=== PATIENT | male | born 1935 | race African-American/Black ===

== ENCOUNTER → 2016-05-23 | Outpatient (CLI) | payer MEDICARE, OTHER | END | disposition home or self-care (01) | LOC: Rad HDHVI 08:20 | PROVIDERS: ATTEND Internal Medicine Cardiovascular Disease | DX: I11.0 Hypertensive heart disease with heart failure (principal); I73.89 Other specified peripheral vascular diseases | CPT/HCPCS: 93306 ==

== ENCOUNTER → 2016-09-04 | Outpatient (CLI) | payer MEDICARE, OTHER ==
[2016-09-04 12:57] LABS: Calcium 8.6 mg/dL (8.5-10.1)
== END | disposition home or self-care (01) ==
LOC: LAB 10:00
PROVIDERS: ATTEND Internal Medicine Cardiovascular Disease
DX: I10 Essential (primary) hypertension (principal)
CPT/HCPCS: 36415; 80048

== ENCOUNTER → 2016-09-15 | Outpatient (CLI) | payer MEDICARE, OTHER ==
[~2016-09-15] MED LIST: FUROSEMIDE 100 MG/10ML VIAL IV ONE; FUROSEMIDE 40 MG/4 ML VIAL ONE
[2016-09-15 10:25] VITALS: BP 142/80
[2016-09-15 10:55] VITALS: BP 125/68
== END | disposition home or self-care (01) ==
LOC: CHF HDHVI 10:23
PROVIDERS: ATTEND Internal Medicine Cardiovascular Disease
DX: I11.0 Hypertensive heart disease with heart failure (principal); I50.9 Heart failure, unspecified; I25.10 Atherosclerotic heart disease of native coronary artery without angina pectoris; E03.9 Hypothyroidism, unspecified
CPT/HCPCS: 96374; G0463; J1940

== ENCOUNTER → 2016-10-03 | Outpatient (CLI) | payer MEDICARE, OTHER ==
[~2016-10-03] VITALS: Ht 175.3 cm; Wt 98.9 kg
[~2016-10-03] MED LIST changes: +ATOR40TA52 PO; +CARV20CA PO; +FINA5TAB4 PO; +FURO40TA PO; -FUROSEMIDE 100 MG/10ML VIAL IV ONE; -FUROSEMIDE 40 MG/4 ML VIAL ONE; +LEV100T PO; +LISI-646 PO; +POTA1TAB4 PO; +TEMA15CA5 PO
[2016-10-03 08:00] VITALS: BP 127/68
[2016-10-03 08:31] VITALS: BP 122/66
[2016-10-03 12:06] LABS: Basophils # (auto) 0 uL; Basophils % (auto) 0.6 % (0.0-2.0); Eosinophils # (auto) 0.1 uL; Eosinophils % (auto) 1.4 % (0.0-7.0); Hemoglobin 12.5 g/dL (13.5-17.5); Lymphocytes # (auto) 0.9 uL; Lymphocytes % (auto) 13.8 % (10.0-50.0); Mean Corpuscular Hemoglobin 29.1 pg (28.0-32.0); Mean Corpuscular Hgb Conc. 32.9 g/dL (32.0-36.0); Mean Corpuscular Volume 88.5 fL (80.0-100.0); Mean Platelet Volume 8.7 fL (7.4-10.4); Monocytes # (auto) 0.5 uL; Monocytes % (auto) 7.3 % (0.0-12.0); Neutrophils # (auto) 5.1 uL; Neutrophils % (auto) 76.9 % (37.0-80.0); Platelet Count (auto) 193 10^3/uL (140-450); Red Cell Distribution Width 14.8 % (11.6-16.0); White Blood Cell 6.7 10^3/uL (4.4-10.8)
[2016-10-03 12:26] LABS: INR 1.12 (0.9-1.15); Partial Thromboplastin Time 27.1 sec (22.64-33.71); Prothrombin Time 12.2 sec (9.37-12.3)
[2016-10-03 12:35] LABS: BUN/Creatinine Ratio 25.5; Calcium 8.5 mg/dL (8.5-10.1); Potassium 3.9 mmol/L (3.5-5.1)
== END | disposition home or self-care (01) ==
LOC: Rad HDHVI 07:51
PROVIDERS: ATTEND Internal Medicine Cardiovascular Disease
DX: I10 Essential (primary) hypertension (principal); D64.9 Anemia, unspecified; R79.1 Abnormal coagulation profile; Z01.812 Encounter for preprocedural laboratory examination
CPT/HCPCS: 36415; 71020; 80048; 85025; 85610; 85730; 93005; G0463

== ENCOUNTER → 2016-11-03 | Outpatient (CLI) | payer MEDICARE, OTHER ==
[2016-11-03 10:00] VITALS: BP 95/57
[2016-11-03 10:25] VITALS: BP 103/58
[2016-11-03 13:09] LABS: Basophils # (auto) 0 uL; Basophils % (auto) 0.2 % (0.0-2.0); CONDITION Y; Eosinophils # (auto) 0.1 uL; Eosinophils % (auto) 1.2 % (0.0-7.0); Hematocrit 33.8 % (41.0-53.0); Hemoglobin 11.3 g/dL (13.5-17.5); Lymphocytes # (auto) 1.1 uL; Lymphocytes % (auto) 13.6 % (10.0-50.0); Mean Corpuscular Hemoglobin 30.1 pg (28.0-32.0); Mean Corpuscular Hgb Conc. 33.3 g/dL (32.0-36.0); Mean Corpuscular Volume 90.4 fL (80.0-100.0); Mean Platelet Volume 9.3 fL (7.4-10.4); Monocytes % (auto) 11.4 % (0.0-12.0); Neutrophils # (auto) 6.2 uL; Neutrophils % (auto) 73.6 % (37.0-80.0); Platelet Count (auto) 173 10^3/uL (140-450); Red Cell Distribution Width 15.6 % (11.6-16.0); White Blood Cell 8.4 10^3/uL (4.4-10.8)
[2016-11-03 13:24] LABS: INR 1.21 (0.9-1.15); Partial Thromboplastin Time 28.5 sec (22.64-33.71)
[2016-11-03 13:25] LABS: Prothrombin Time 13.2 sec (9.37-12.3)
[2016-11-03 13:35] LABS: BUN/Creatinine Ratio 22.6; Calcium 8.1 mg/dL (8.5-10.1); Potassium 3.9 mmol/L (3.5-5.1)
== END | disposition home or self-care (01) ==
LOC: Rad HDHVI 09:28
PROVIDERS: ATTEND Internal Medicine Cardiovascular Disease
DX: Z01.812 Encounter for preprocedural laboratory examination (principal); I25.10 Atherosclerotic heart disease of native coronary artery without angina pectoris; E11.9 Type 2 diabetes mellitus without complications; M47.894 Other spondylosis, thoracic region; I10 Essential (primary) hypertension; D64.9 Anemia, unspecified; R79.1 Abnormal coagulation profile; I70.0 Atherosclerosis of aorta; Z95.0 Presence of cardiac pacemaker
CPT/HCPCS: 36415; 71020; 80048; 85025; 85610; 85730; 93005; G0463

== ENCOUNTER → 2016-11-09 | Outpatient (CLI) | payer MEDICARE, OTHER ==
[~2016-11-09] VITALS: Ht 30.5 cm; Wt 0.5 kg
[~2016-11-09] MED LIST changes: +CLOP75TA28 PO; +DOXA4TAB40 PO; +FUROSEMIDE 40 MG/4 ML VIAL IV ONE; +FUROSEMIDE 40 MG/4 ML VIAL IV SCH; +FUROSEMIDE 40 MG/4 ML VIAL ONE; +POTASSIUM CHL 20 Meq TABLET PO ONE; +TAM04C PO
[2016-11-09 10:00] VITALS: BP 108/62
[2016-11-09 11:05] VITALS: BP 140/70
== END | disposition home or self-care (01) ==
LOC: CHF HDHVI 10:07
PROVIDERS: ATTEND Internal Medicine Cardiovascular Disease
DX: I50.9 Heart failure, unspecified (principal); E87.70 Fluid overload, unspecified; R32 Unspecified urinary incontinence; Z79.899 Other long term (current) drug therapy
CPT/HCPCS: 96374; G0463; J1940

== ENCOUNTER → 2016-11-10 | Outpatient (CLI) | payer MEDICARE, OTHER ==
[~2016-11-10] MED LIST changes: -FUROSEMIDE 40 MG/4 ML VIAL IV SCH
[2016-11-10 08:25] VITALS: BP 94/58
[2016-11-10 09:00] VITALS: BP 95/64
== END | disposition home or self-care (01) ==
LOC: CHF HDHVI 08:19
PROVIDERS: ATTEND Internal Medicine Cardiovascular Disease
DX: I50.9 Heart failure, unspecified (principal); E87.70 Fluid overload, unspecified; Z79.899 Other long term (current) drug therapy
CPT/HCPCS: 96374; G0463; J1940

== ENCOUNTER → 2016-11-13 | Outpatient (CLI) | payer MEDICARE, OTHER ==
[2016-11-13 08:00] VITALS: BP 97/58
[2016-11-13 09:32] VITALS: BP 92/52
== END | disposition home or self-care (01) ==
LOC: CHF HDHVI 07:56
PROVIDERS: ATTEND Internal Medicine Cardiovascular Disease
DX: I25.10 Atherosclerotic heart disease of native coronary artery without angina pectoris (principal); E78.5 Hyperlipidemia, unspecified; I49.5 Sick sinus syndrome; E87.70 Fluid overload, unspecified; R60.1 Generalized edema
CPT/HCPCS: 96374; G0463; J1940

== ENCOUNTER → 2016-11-14 | Outpatient (CLI) | payer MEDICARE, OTHER ==
[~2016-11-14] MED LIST changes: -FUROSEMIDE 40 MG/4 ML VIAL IV ONE; -FUROSEMIDE 40 MG/4 ML VIAL ONE; -POTASSIUM CHL 20 Meq TABLET PO ONE
== END | disposition home or self-care (01) ==
LOC: Rad HDHVI 15:00
PROVIDERS: ATTEND Internal Medicine Cardiovascular Disease
DX: R60.9 Edema, unspecified (principal)
CPT/HCPCS: 93970

== ENCOUNTER → 2016-11-15 | Outpatient (CLI) | payer MEDICARE, OTHER ==
[~2016-11-15] VITALS: Ht 175.3 cm; Wt 96.6 kg
[~2016-11-15] MED LIST changes: +ADENOSINE 81 MG in GIVE UN-DILUTED 0 ML IV ONE; +ADENOSINE 90 MG/30 ML INJ IV ONE
== END | disposition home or self-care (01) ==
LOC: Rad HDHVI 09:39
PROVIDERS: ATTEND Internal Medicine Cardiovascular Disease
DX: I25.10 Atherosclerotic heart disease of native coronary artery without angina pectoris (principal); I10 Essential (primary) hypertension; E78.00 Pure hypercholesterolemia, unspecified; I49.5 Sick sinus syndrome; Z95.0 Presence of cardiac pacemaker
CPT/HCPCS: 78452; 93005; 96374; 96375; A9500; J0153

== ENCOUNTER → 2017-01-02 | Outpatient (CLI) | payer MEDICARE, OTHER ==
[~2017-01-02] MED LIST changes: -ADENOSINE 81 MG in GIVE UN-DILUTED 0 ML IV ONE; -ADENOSINE 90 MG/30 ML INJ IV ONE; +FUROSEMIDE 20 MG/2 ML VIAL IV ONE; +FUROSEMIDE 20 MG/2 ML VIAL ONE; +FUROSEMIDE 40 MG/4 ML VIAL ONE; +FUROSEMIDE INJECTION 10 ML ONE; +POTASSIUM CHL 20 Meq TABLET PO ONE
[2017-01-02 11:00] VITALS: BP 130/82
[2017-01-02 11:40] VITALS: BP 128/80
[2017-01-02 16:49] LABS: BUN/Creatinine Ratio 25.3; Calcium 8.1 mg/dL (8.5-10.1); Potassium 4.1 mmol/L (3.5-5.1)
== END | disposition home or self-care (01) ==
LOC: Rad HDHVI 10:26
PROVIDERS: ATTEND Internal Medicine Cardiovascular Disease
DX: I11.0 Hypertensive heart disease with heart failure (principal); I50.9 Heart failure, unspecified; G89.29 Other chronic pain; E87.70 Fluid overload, unspecified
CPT/HCPCS: 36415; 80048; 93970; 96374; G0463; J1940

== ENCOUNTER → 2017-01-03 | Outpatient (CLI) | payer MEDICARE, OTHER ==
[~2017-01-03] MED LIST changes: +FUROSEMIDE 40 MG/4 ML VIAL IV ONE; -FUROSEMIDE INJECTION 10 ML ONE
[2017-01-03 08:00] VITALS: BP 116/69
[2017-01-03 08:35] VITALS: BP 113/67
== END | disposition home or self-care (01) ==
LOC: CHF HDHVI 08:24
PROVIDERS: ATTEND Internal Medicine Cardiovascular Disease
DX: I11.0 Hypertensive heart disease with heart failure (principal); I50.9 Heart failure, unspecified; E87.70 Fluid overload, unspecified
CPT/HCPCS: 96374; G0463; J1940

== ENCOUNTER → 2017-01-04 | Outpatient (CLI) | payer MEDICARE, OTHER ==
[~2017-01-04] VITALS: Ht 30.5 cm; Wt 0.5 kg
[2017-01-04 08:30] VITALS: BP 135/65
[2017-01-04 09:00] VITALS: BP 133/65
== END | disposition home or self-care (01) ==
LOC: CHF HDHVI 08:41
PROVIDERS: ATTEND Internal Medicine Cardiovascular Disease
DX: I11.0 Hypertensive heart disease with heart failure (principal); I50.9 Heart failure, unspecified; I25.10 Atherosclerotic heart disease of native coronary artery without angina pectoris
CPT/HCPCS: 96374; G0463; J1940

== ENCOUNTER → 2017-01-05 | Outpatient (CLI) | payer MEDICARE, OTHER ==
[~2017-01-05] MED LIST changes: -FUROSEMIDE 20 MG/2 ML VIAL IV ONE; -FUROSEMIDE 40 MG/4 ML VIAL IV ONE
[2017-01-05 12:42] LABS: BUN/Creatinine Ratio 27.2; Calcium 8.3 mg/dL (8.5-10.1); Potassium 3.8 mmol/L (3.5-5.1)
== END | disposition home or self-care (01) ==
LOC: CHF HDHVI 10:10
PROVIDERS: ATTEND Internal Medicine Cardiovascular Disease
DX: I10 Essential (primary) hypertension (principal); E83.42 Hypomagnesemia; I25.10 Atherosclerotic heart disease of native coronary artery without angina pectoris
CPT/HCPCS: 36415; 80048; J1940

== ENCOUNTER → 2017-01-09 | Outpatient (CLI) | payer MEDICARE, OTHER ==
[~2017-01-09] MED LIST changes: -FUROSEMIDE 20 MG/2 ML VIAL ONE; +FUROSEMIDE 40 MG/4 ML VIAL IV ONE
[2017-01-09 15:30] VITALS: BP 115/74
[2017-01-09 15:56] VITALS: BP 121/76
== END | disposition home or self-care (01) ==
LOC: CHF HDHVI 15:30
PROVIDERS: ATTEND Internal Medicine Cardiovascular Disease
DX: I50.9 Heart failure, unspecified (principal); E87.70 Fluid overload, unspecified
CPT/HCPCS: 96374; G0463; J1940

== ENCOUNTER → 2017-01-11 | Outpatient (CLI) | payer MEDICARE, OTHER ==
[~2017-01-11] MED LIST changes: -FUROSEMIDE 40 MG/4 ML VIAL IV ONE; -FUROSEMIDE 40 MG/4 ML VIAL ONE; -POTASSIUM CHL 20 Meq TABLET PO ONE
[2017-01-11 09:30] VITALS: BP 125/80
[2017-01-11 10:30] VITALS: BP 136/88
== END | disposition home or self-care (01) ==
LOC: CHF HDHVI 09:30
PROVIDERS: ATTEND Internal Medicine Cardiovascular Disease
DX: I50.9 Heart failure, unspecified (principal); E87.70 Fluid overload, unspecified
CPT/HCPCS: G0463

== ENCOUNTER → 2017-01-15 | Outpatient (CLI) | payer MEDICARE, OTHER ==
[2017-01-15 08:20] VITALS: BP 115/73
[2017-01-15 09:29] VITALS: BP 113/72
== END | disposition home or self-care (01) ==
LOC: CHF HDHVI 08:23
PROVIDERS: ATTEND Internal Medicine Cardiovascular Disease
DX: I50.9 Heart failure, unspecified (principal); I25.10 Atherosclerotic heart disease of native coronary artery without angina pectoris; E87.70 Fluid overload, unspecified
CPT/HCPCS: G0463

== ENCOUNTER → 2017-01-17 | Outpatient (CLI) | payer MEDICARE, OTHER ==
[2017-01-17 08:54] VITALS: BP 143/84
[2017-01-17 08:55] VITALS: BP 137/70
== END | disposition home or self-care (01) ==
LOC: CHF HDHVI 08:35
PROVIDERS: ATTEND Internal Medicine Cardiovascular Disease
DX: I50.9 Heart failure, unspecified (principal); R60.0 Localized edema; E87.70 Fluid overload, unspecified
CPT/HCPCS: G0463

== ENCOUNTER → 2017-01-19 | Outpatient (CLI) | payer MEDICARE, OTHER ==
[2017-01-19 08:50] VITALS: BP 134/69
[2017-01-19 09:20] VITALS: BP_SYST 110; BP_SYST 134; BP_DIAS 64; BP_DIAS 69
== END ==
LOC: CHF HDHVI 08:53
PROVIDERS: ATTEND Internal Medicine Cardiovascular Disease
DX: I50.9 Heart failure, unspecified (principal); I25.10 Atherosclerotic heart disease of native coronary artery without angina pectoris
CPT/HCPCS: G0463

== ENCOUNTER → 2017-01-22 | Outpatient (CLI) | payer MEDICARE, OTHER ==
[2017-01-22 08:30] VITALS: BP 116/65
[2017-01-22 09:10] VITALS: BP 103/77
== END | disposition home or self-care (01) ==
LOC: CHF HDHVI 08:30
PROVIDERS: ATTEND Internal Medicine Cardiovascular Disease
DX: I50.9 Heart failure, unspecified (principal)
CPT/HCPCS: G0463

== ENCOUNTER → 2017-01-24 | Outpatient (CLI) | payer MEDICARE, OTHER ==
[~2017-01-24] MED LIST changes: +FUROSEMIDE 20 MG/2 ML VIAL IV SCH; +FUROSEMIDE INJECTION 10 ML ONE; +POTASSIUM CHL 10 Meq TABLET PO ONE; +POTASSIUM CHL 20 Meq TABLET PO ONE
[2017-01-24 08:45] VITALS: BP 151/84
[2017-01-24 10:20] VITALS: BP 130/84
[2017-01-24 12:28] LABS: Basophils # (auto) 0 uL; Eosinophils # (auto) 0 uL; Hematocrit 41.8 % (41.0-53.0); Hemoglobin 13.9 g/dL (13.5-17.5); Lymphocytes # (auto) 0.6 uL; Lymphocytes % (auto) 7.2 % (10.0-50.0); Mean Corpuscular Hemoglobin 30.6 pg (28.0-32.0); Mean Corpuscular Hgb Conc. 33.1 g/dL (32.0-36.0); Mean Corpuscular Volume 92.3 fL (80.0-100.0); Monocytes # (auto) 0.3 uL; Monocytes % (auto) 4.3 % (0.0-12.0); Neutrophils # (auto) 6.8 uL; Neutrophils % (auto) 88.5 % (37.0-80.0); Nucleated Red Blood Cells % 0.1 %; Platelet Count (auto) 147 10^3/uL (140-450); Red Cell Distribution Width 15.5 % (11.8-14.3); White Blood Cell 7.7 10^3/uL (4.4-10.8)
[2017-01-24 12:40] LABS: B-Type Natriuretic Peptide 684.16 pg/mL (0-100)
[2017-01-24 12:42] LABS: BUN/Creatinine Ratio 22.4; Calcium 8.3 mg/dL (8.5-10.1); Magnesium 2.6 mg/dL (1.6-2.6); Potassium 4.4 mmol/L (3.5-5.1)
[2017-01-24 12:52] LABS: Temperature: 21.7 C (20.0-25.0)
== END | disposition home or self-care (01) ==
LOC: Rad HDHVI 08:51
PROVIDERS: ATTEND Internal Medicine Cardiovascular Disease
DX: I11.0 Hypertensive heart disease with heart failure (principal); I25.10 Atherosclerotic heart disease of native coronary artery without angina pectoris; I50.9 Heart failure, unspecified; E83.42 Hypomagnesemia; D64.9 Anemia, unspecified
CPT/HCPCS: 36415; 80048; 83735; 83880; 85025; 93970; 96374; G0463; J1940

== ENCOUNTER → 2017-01-30 | Outpatient (CLI) | payer MEDICARE, OTHER ==
[~2017-01-30] MED LIST changes: +CYANOCOBALAMIN (B-12) 1000 MCG/1 ML VIAL IM ONE; +CYANOCOBALAMIN (B-12) 1000 MCG/1 ML VIAL ONE; -FUROSEMIDE 20 MG/2 ML VIAL IV SCH; +FUROSEMIDE 40 MG/4 ML VIAL IV ONE; +FUROSEMIDE 40 MG/4 ML VIAL ONE; -FUROSEMIDE INJECTION 10 ML ONE; +IOHEXOL 350 MG/ML 100ML IJ ONE; -POTASSIUM CHL 20 Meq TABLET PO ONE
[2017-01-30 15:51] LABS: Basophils # (auto) 0 uL; Basophils % (auto) 0.2 % (0.0-2.0); Eosinophils # (auto) 0.1 uL; Eosinophils % (auto) 0.7 % (0.0-7.0); Hematocrit 40.8 % (41.0-53.0); Hemoglobin 13.6 g/dL (13.5-17.5); Lymphocytes # (auto) 1.1 uL; Lymphocytes % (auto) 14.6 % (10.0-50.0); Mean Corpuscular Hemoglobin 30.7 pg (28.0-32.0); Mean Corpuscular Hgb Conc. 33.3 g/dL (32.0-36.0); Mean Platelet Volume 8.5 fL (6.9-10.8); Monocytes # (auto) 0.7 uL; Monocytes % (auto) 9.4 % (0.0-12.0); Neutrophils # (auto) 5.9 uL; Neutrophils % (auto) 75.1 % (37.0-80.0); Platelet Count (auto) 161 10^3/uL (140-450); Red Cell Distribution Width 15.3 % (11.8-14.3); White Blood Cell 7.8 10^3/uL (4.4-10.8)
[2017-01-30 16:00] LABS: BUN/Creatinine Ratio 25.3; Calcium 8.2 mg/dL (8.5-10.1); Magnesium 2.5 mg/dL (1.6-2.6); Potassium 4.3 mmol/L (3.5-5.1)
[2017-01-30 16:22] LABS: Albumin 2.9 g/dL (3.4-5.0); Total Protein 6.1 g/dL (6.4-8.2)
[2017-01-30 16:30] VITALS: BP 139/82
== END | disposition home or self-care (01) ==
LOC: Rad HDHVI 14:31
PROVIDERS: ATTEND Internal Medicine Cardiovascular Disease
DX: M17.12 Unilateral primary osteoarthritis, left knee (principal); I70.298 Other atherosclerosis of native arteries of extremities, other extremity; I10 Essential (primary) hypertension; E83.42 Hypomagnesemia; D64.9 Anemia, unspecified; I25.10 Atherosclerotic heart disease of native coronary artery without angina pectoris
CPT/HCPCS: 36415; 73562; 80053; 82565; 83735; 85025; 96372; 96374; G0463; J1940; J3420; Q9967

== ENCOUNTER → 2017-02-01 | Outpatient (CLI) | payer MEDICARE, OTHER ==
[~2017-02-01] MED LIST changes: -CYANOCOBALAMIN (B-12) 1000 MCG/1 ML VIAL IM ONE; -CYANOCOBALAMIN (B-12) 1000 MCG/1 ML VIAL ONE; -IOHEXOL 350 MG/ML 100ML IJ ONE; -POTASSIUM CHL 10 Meq TABLET PO ONE; +POTASSIUM CHL 20 Meq TABLET PO ONE; +PRAS5TAB3 PO; +RIVA10TA PO
[2017-02-01 09:00] VITALS: BP 122/70
[2017-02-01 09:45] VITALS: BP 125/80
== END | disposition home or self-care (01) ==
LOC: CHF HDHVI 09:03
PROVIDERS: ATTEND Internal Medicine Cardiovascular Disease
DX: I11.0 Hypertensive heart disease with heart failure (principal); I50.9 Heart failure, unspecified; I25.10 Atherosclerotic heart disease of native coronary artery without angina pectoris; Z95.1 Presence of aortocoronary bypass graft; Z79.899 Other long term (current) drug therapy
CPT/HCPCS: 96374; G0463; J1940

== ENCOUNTER → 2017-02-05 | Outpatient (CLI) | payer MEDICARE, OTHER ==
[~2017-02-05] MED LIST changes: -FUROSEMIDE 40 MG/4 ML VIAL IV ONE; -FUROSEMIDE 40 MG/4 ML VIAL ONE; -POTASSIUM CHL 20 Meq TABLET PO ONE; -PRAS5TAB3 PO; -RIVA10TA PO
[2017-02-05 11:05] VITALS: BP 143/90
== END | disposition home or self-care (01) ==
LOC: CHF HDHVI 09:57
PROVIDERS: ATTEND Internal Medicine Cardiovascular Disease
DX: I82.403 Acute embolism and thrombosis of unspecified deep veins of lower extremity, bilateral (principal); I50.9 Heart failure, unspecified; I25.10 Atherosclerotic heart disease of native coronary artery without angina pectoris
CPT/HCPCS: G0463

== ENCOUNTER → 2017-02-07 | Outpatient (CLI) | payer MEDICARE, OTHER ==
[2017-02-07 14:45] VITALS: BP 121/74
[2017-02-07 15:15] VITALS: BP 122/70
== END | disposition home or self-care (01) ==
LOC: CHF HDHVI 14:50
PROVIDERS: ATTEND Internal Medicine Cardiovascular Disease
DX: E87.6 Hypokalemia (principal)
CPT/HCPCS: G0463

== ENCOUNTER → 2017-02-09 | Outpatient (CLI) | payer MEDICARE, OTHER ==
[~2017-02-09] MED LIST changes: +PRAS5TAB3 PO; +RIVA10TA PO
[2017-02-09 10:15] VITALS: BP 132/78
[2017-02-09 11:00] VITALS: BP 152/92
[2017-02-09 11:50] VITALS: BP 152/92
== END | disposition home or self-care (01) ==
LOC: CHF HDHVI 10:17
PROVIDERS: ATTEND Internal Medicine Cardiovascular Disease
DX: I82.403 Acute embolism and thrombosis of unspecified deep veins of lower extremity, bilateral (principal); R60.9 Edema, unspecified
CPT/HCPCS: G0463

== ENCOUNTER → 2017-02-12 | Outpatient (CLI) | payer MEDICARE, OTHER ==
[2017-02-12 10:00] VITALS: BP 129/81
[2017-02-12 10:15] VITALS: BP 130/78
== END | disposition home or self-care (01) ==
LOC: CHF HDHVI 10:02
PROVIDERS: ATTEND Internal Medicine Cardiovascular Disease
DX: I50.9 Heart failure, unspecified (principal); M79.89 Other specified soft tissue disorders; E87.79 Other fluid overload
CPT/HCPCS: G0463

== ENCOUNTER → 2017-02-14 | Outpatient (CLI) | payer MEDICARE, OTHER ==
[2017-02-14 08:00] VITALS: BP 133/74
[2017-02-14 09:00] VITALS: BP_SYST 133; BP_SYST 134; BP_DIAS 40; BP_DIAS 74
[2017-02-14 12:31] LABS: Basophils # (auto) 0 uL; Basophils % (auto) 0.6 % (0.0-2.0); Eosinophils # (auto) 0.1 uL; Eosinophils % (auto) 1.1 % (0.0-7.0); Hematocrit 38.6 % (41.0-53.0); Hemoglobin 12.6 g/dL (13.5-17.5); Lymphocytes # (auto) 0.7 uL; Lymphocytes % (auto) 12.2 % (10.0-50.0); Mean Corpuscular Hemoglobin 30.5 pg (28.0-32.0); Mean Corpuscular Hgb Conc. 32.7 g/dL (32.0-36.0); Mean Corpuscular Volume 93.3 fL (80.0-100.0); Mean Platelet Volume 8.7 fL (6.9-10.8); Monocytes # (auto) 0.6 uL; Monocytes % (auto) 10.1 % (0.0-12.0); Neutrophils # (auto) 4.6 uL; Nucleated Red Blood Cells % 0.2 %; Platelet Count (auto) 152 10^3/uL (140-450); White Blood Cell 6.1 10^3/uL (4.4-10.8)
[2017-02-14 12:39] LABS: BUN/Creatinine Ratio 15.7; Calcium 8.6 mg/dL (8.5-10.1); Potassium 3.4 mmol/L (3.5-5.1)
[2017-02-14 12:50] LABS: INR 1.59 (0.9-1.15); Partial Thromboplastin Time 34.3 sec (22.64-33.71); Prothrombin Time 17.4 sec (9.37-12.3)
== END | disposition home or self-care (01) ==
LOC: CHF HDHVI 08:09
PROVIDERS: ATTEND Internal Medicine Cardiovascular Disease
DX: I11.0 Hypertensive heart disease with heart failure (principal); I50.9 Heart failure, unspecified; D64.9 Anemia, unspecified; R79.1 Abnormal coagulation profile; E78.00 Pure hypercholesterolemia, unspecified
CPT/HCPCS: 36415; 80048; 85025; 85610; 85730; 93005; G0463

== ENCOUNTER → 2017-02-19 | Outpatient (CLI) | payer MEDICARE, OTHER ==
[~2017-02-19] MED LIST changes: -CLOP75TA28 PO; -PRAS5TAB3 PO
[2017-02-19 09:20] VITALS: BP 104/57
[2017-02-19 10:36] VITALS: BP 127/63
== END | disposition home or self-care (01) ==
LOC: CHF HDHVI 08:38
PROVIDERS: ATTEND Internal Medicine Cardiovascular Disease
DX: I73.9 Peripheral vascular disease, unspecified (principal); I25.10 Atherosclerotic heart disease of native coronary artery without angina pectoris; I50.9 Heart failure, unspecified
CPT/HCPCS: G0463

== ENCOUNTER → 2017-02-23 | Outpatient (CLI) | payer MEDICARE, OTHER ==
[2017-02-23 09:30] VITALS: BP 108/64
[2017-02-23 09:40] VITALS: BP 108/64
[2017-02-23 11:00] VITALS: BP 141/77
[2017-02-23 13:09] LABS: Basophils # (auto) 0 uL; Basophils % (auto) 0.3 % (0.0-2.0); Eosinophils # (auto) 0.1 uL; Eosinophils % (auto) 1.1 % (0.0-7.0); Hematocrit 35.2 % (41.0-53.0); Hemoglobin 11.6 g/dL (13.5-17.5); Lymphocytes % (auto) 15.2 % (10.0-50.0); Mean Corpuscular Hemoglobin 31.1 pg (28.0-32.0); Mean Corpuscular Volume 94.1 fL (80.0-100.0); Monocytes % (auto) 15.6 % (0.0-12.0); Neutrophils # (auto) 4.3 uL; Neutrophils % (auto) 67.8 % (37.0-80.0); Nucleated Red Blood Cells % 0.1 %; Platelet Count (auto) 145 10^3/uL (140-450); Red Blood Cells 3.74 10^6/uL (4.5-5.90); Red Cell Distribution Width 15.6 % (11.8-14.3); White Blood Cell 6.4 10^3/uL (4.4-10.8)
[2017-02-23 13:25] LABS: BUN/Creatinine Ratio 21.7; Calcium 8.5 mg/dL (8.5-10.1)
[2017-02-23 13:30] LABS: Potassium 4.5 mmol/L (3.5-5.1)
== END | disposition home or self-care (01) ==
LOC: CHF HDHVI 10:06
PROVIDERS: ATTEND Internal Medicine Cardiovascular Disease
DX: I10 Essential (primary) hypertension (principal); D64.9 Anemia, unspecified
CPT/HCPCS: 36415; 80048; 85025; G0463

== ENCOUNTER → 2017-02-26 | Outpatient (CLI) | payer MEDICARE, OTHER ==
[~2017-02-26] MED LIST changes: +CYANOCOBALAMIN (B-12) 1000 MCG/1 ML VIAL IM ONE; +CYANOCOBALAMIN (B-12) 1000 MCG/1 ML VIAL ONE; +FUROSEMIDE 40 MG/4 ML VIAL IV ONE; +FUROSEMIDE 40 MG/4 ML VIAL ONE; +KETOROLAC TROMETH 60MG/2ML VIAL IM ONE; +POTASSIUM CHL 20 Meq TABLET PO ONE
[2017-02-26 14:15] VITALS: BP 121/77
== END | disposition home or self-care (01) ==
LOC: CHF HDHVI 13:42
PROVIDERS: ATTEND Internal Medicine Cardiovascular Disease
DX: I11.0 Hypertensive heart disease with heart failure (principal); I50.9 Heart failure, unspecified; D64.9 Anemia, unspecified
CPT/HCPCS: 96372; 96374; G0463; J1885; J1940; J3420

== ENCOUNTER → 2017-02-28 | Outpatient (CLI) | payer MEDICARE, OTHER ==
[~2017-02-28] MED LIST changes: -CYANOCOBALAMIN (B-12) 1000 MCG/1 ML VIAL IM ONE; -CYANOCOBALAMIN (B-12) 1000 MCG/1 ML VIAL ONE; -FUROSEMIDE 40 MG/4 ML VIAL ONE; -KETOROLAC TROMETH 60MG/2ML VIAL IM ONE
[2017-02-28 10:40] VITALS: BP 116/80
[2017-02-28 13:11] LABS: Potassium 4.1 mmol/L (3.5-5.1)
== END | disposition home or self-care (01) ==
LOC: CHF HDHVI 09:56
PROVIDERS: ATTEND Internal Medicine Cardiovascular Disease
DX: E87.6 Hypokalemia (principal); R94.4 Abnormal results of kidney function studies; I50.9 Heart failure, unspecified
CPT/HCPCS: 36415; 82565; 84132; 84520; 96374; G0463

== ENCOUNTER → 2017-03-02 | Outpatient (CLI) | payer MEDICARE, OTHER ==
[~2017-03-02] MED LIST changes: -FUROSEMIDE 40 MG/4 ML VIAL IV ONE; +FUROSEMIDE INJECTION 10 ML ONE
[2017-03-02] MEDS: FUROSEMIDE INJECTION 100 MG in D5W 5% 90 ML IV SCH ×2 (12:15→16:39)
[2017-03-02] MEDS: POTASSIUM CHL 20MEQ/50ML 50 ML IV SCH ×3 (12:20→16:42)
[2017-03-02 14:15] VITALS: BP 171/87
== END | disposition home or self-care (01) ==
LOC: CHF HDHVI 12:03
PROVIDERS: ATTEND Internal Medicine Cardiovascular Disease
DX: I50.9 Heart failure, unspecified (principal)
CPT/HCPCS: J7060

== ENCOUNTER → 2017-03-05 | Outpatient (CLI) | payer MEDICARE, OTHER ==
[~2017-03-05] MED LIST changes: +FUROSEMIDE 20 MG/2 ML VIAL IV SCH; +FUROSEMIDE 20 MG/2 ML VIAL ONE; +FUROSEMIDE 40 MG/4 ML VIAL ONE; -FUROSEMIDE INJECTION 10 ML ONE; +POTASSIUM CHL 10 Meq TABLET PO ONE; +POTASSIUM CHL 20 Meq TABLET PO SCH
[2017-03-05 09:30] VITALS: BP 141/72
[2017-03-05 11:30] VITALS: BP 133/64
[2017-03-05 13:09] LABS: Potassium 3.8 mmol/L (3.5-5.1)
[2017-03-05 13:22] LABS: B-Type Natriuretic Peptide 100.14 pg/mL (0-100)
[2017-03-05 13:35] LABS: Temperature: 23.5 C (20.0-25.0)
== END | disposition home or self-care (01) ==
LOC: CHF HDHVI 08:50
PROVIDERS: ATTEND Internal Medicine Cardiovascular Disease
DX: E87.6 Hypokalemia (principal); R94.4 Abnormal results of kidney function studies; I50.9 Heart failure, unspecified
CPT/HCPCS: 36415; 82565; 83880; 84132; 84520; 96365; 96366; G0463; J1642; J1940

== ENCOUNTER → 2017-03-06 | Outpatient (CLI) | payer MEDICARE, OTHER ==
[~2017-03-06] VITALS: Ht 30.5 cm; Wt 101.2 kg
[~2017-03-06] MED LIST changes: -FUROSEMIDE 20 MG/2 ML VIAL IV SCH; +FUROSEMIDE INJECTION 60 MG in SODIUM CHL 0.9% 60 ML IV SCH; -POTASSIUM CHL 20 Meq TABLET PO ONE; -POTASSIUM CHL 20 Meq TABLET PO SCH
[2017-03-06 09:00] VITALS: BP 141/85
[2017-03-06 09:30] VITALS: BP 142/82
[2017-03-06 10:00] VITALS: BP 146/88
[2017-03-06 11:34] VITALS: BP 144/87
== END | disposition home or self-care (01) ==
LOC: CHF HDHVI 08:31
PROVIDERS: ATTEND Internal Medicine Cardiovascular Disease
DX: I50.9 Heart failure, unspecified (principal)
CPT/HCPCS: 96365; 96366; G0463; J1642; J1940; J7040

== ENCOUNTER → 2017-03-07 | Outpatient (CLI) | payer MEDICARE, OTHER ==
[~2017-03-07] MED LIST changes: -FUROSEMIDE 20 MG/2 ML VIAL ONE; -FUROSEMIDE 40 MG/4 ML VIAL ONE; +FUROSEMIDE INJECTION 10 ML ONE
[2017-03-07 09:00] VITALS: BP 122/80
[2017-03-07 09:30] VITALS: BP 133/79
[2017-03-07 12:05] VITALS: BP 141/85
== END | disposition home or self-care (01) ==
LOC: CHF HDHVI 08:14
PROVIDERS: ATTEND Internal Medicine Cardiovascular Disease
DX: I50.9 Heart failure, unspecified (principal); E87.70 Fluid overload, unspecified
CPT/HCPCS: 96365; 96366; G0463; J1642; J1940; J7040

== ENCOUNTER → 2017-03-08 | Outpatient (CLI) | payer MEDICARE, OTHER ==
[~2017-03-08] MED LIST changes: +FUROSEMIDE 20 MG/2 ML VIAL IV SCH; +FUROSEMIDE 20 MG/2 ML VIAL ONE; +FUROSEMIDE 40 MG/4 ML VIAL ONE; -FUROSEMIDE INJECTION 10 ML ONE; -FUROSEMIDE INJECTION 60 MG in SODIUM CHL 0.9% 60 ML IV SCH; -POTASSIUM CHL 10 Meq TABLET PO ONE
[2017-03-08 11:25] VITALS: BP 108/69
[2017-03-08 11:30] VITALS: BP 107/57
[2017-03-08 12:27] LABS: BUN/Creatinine Ratio 22.3; Magnesium 2.4 mg/dL (1.6-2.6); Potassium 3.7 mmol/L (3.5-5.1)
[2017-03-08 12:30] LABS: Basophils # (auto) 0 uL; Basophils % (auto) 0.6 % (0.0-2.0); Eosinophils # (auto) 0.1 uL; Eosinophils % (auto) 1.6 % (0.0-7.0); Hematocrit 34.3 % (41.0-53.0); Hemoglobin 11.4 g/dL (13.5-17.5); Lymphocytes # (auto) 0.9 uL; Lymphocytes % (auto) 16.3 % (10.0-50.0); Mean Corpuscular Hgb Conc. 33.2 g/dL (32.0-36.0); Mean Corpuscular Volume 93.4 fL (80.0-100.0); Mean Platelet Volume 8.1 fL (6.9-10.8); Monocytes # (auto) 0.5 uL; Monocytes % (auto) 10.5 % (0.0-12.0); Neutrophils # (auto) 3.7 uL; Nucleated Red Blood Cells % 0.2 %; Platelet Count (auto) 171 10^3/uL (140-450); Red Cell Distribution Width 15.6 % (11.8-14.3); White Blood Cell 5.2 10^3/uL (4.4-10.8)
== END | disposition home or self-care (01) ==
LOC: CHF HDHVI 08:25
PROVIDERS: ATTEND Internal Medicine Cardiovascular Disease
DX: I10 Essential (primary) hypertension (principal); E83.42 Hypomagnesemia; D64.9 Anemia, unspecified
CPT/HCPCS: 36415; 80048; 83735; 85025; 96365; 96366; G0463; J1940

== ENCOUNTER → 2017-03-09 | Outpatient (CLI) | payer MEDICARE, OTHER ==
[~2017-03-09] MED LIST changes: +FUROSEMIDE 20 MG/2 ML VIAL IV ONE; -FUROSEMIDE 20 MG/2 ML VIAL IV SCH; +POTASSIUM CHL 10 Meq TABLET PO ONE; +SODIUM CHLORIDE 0.9% 100 ML IV SCH
[2017-03-09 08:05] VITALS: BP 108/56
[2017-03-09 08:15] VITALS: BP 108/56
[2017-03-09 11:10] VITALS: BP 140/83
[2017-03-09] MEDS: POTASSIUM CHL 20 Meq TABLET PO SCH ×2 (11:10→13:05)
[2017-03-12 11:10] VITALS: BP 108/56
[2017-03-12 14:50] VITALS: BP 108/56
== END | disposition home or self-care (01) ==
LOC: CHF HDHVI 08:18
PROVIDERS: ATTEND Internal Medicine Cardiovascular Disease
DX: I10 Essential (primary) hypertension (principal); R60.0 Localized edema; I87.2 Venous insufficiency (chronic) (peripheral)
CPT/HCPCS: 96365; 96366; G0463; J1940

== ENCOUNTER → 2017-03-12 | Outpatient (CLI) | payer MEDICARE, OTHER ==
[~2017-03-12] MED LIST changes: -FUROSEMIDE 20 MG/2 ML VIAL IV ONE; -FUROSEMIDE 20 MG/2 ML VIAL ONE; -FUROSEMIDE 40 MG/4 ML VIAL ONE; +FUROSEMIDE INJECTION 10 ML ONE; +FUROSEMIDE INJECTION 100 MG in SODIUM CHL 0.9% 100 ML IV SCH; -POTASSIUM CHL 10 Meq TABLET PO ONE; +POTASSIUM CHL 20 Meq TABLET PO ONE; -SODIUM CHLORIDE 0.9% 100 ML IV SCH
[2017-03-12 08:20] VITALS: BP 163/95
== END | disposition home or self-care (01) ==
LOC: CHF HDHVI 08:24
PROVIDERS: ATTEND Internal Medicine Cardiovascular Disease
DX: I50.9 Heart failure, unspecified (principal); E87.70 Fluid overload, unspecified; R60.0 Localized edema
CPT/HCPCS: 96365; 96366; G0463; J1642; J1940

== ENCOUNTER → 2017-03-13 | Outpatient (CLI) | payer MEDICARE, OTHER ==
[2017-03-13] VITALS (7 sets, daily range): BP systolic 100–169; BP diastolic 66–97
[~2017-03-13] MED LIST changes: +FUROSEMIDE 20 MG/2 ML VIAL ONE; +FUROSEMIDE 40 MG/4 ML VIAL ONE; -FUROSEMIDE INJECTION 10 ML ONE; -FUROSEMIDE INJECTION 100 MG in SODIUM CHL 0.9% 100 ML IV SCH; +FUROSEMIDE INJECTION 60 MG in SODIUM CHL 0.9% 60 ML IV SCH
[2017-03-13 12:57] LABS: Basophils # (auto) 0 uL; Basophils % (auto) 0.8 % (0.0-2.0); Eosinophils # (auto) 0.1 uL; Eosinophils % (auto) 1.8 % (0.0-7.0); Hematocrit 36.8 % (41.0-53.0); Lymphocytes # (auto) 0.8 uL; Lymphocytes % (auto) 16.3 % (10.0-50.0); Mean Corpuscular Hemoglobin 30.9 pg (28.0-32.0); Mean Corpuscular Hgb Conc. 32.6 g/dL (32.0-36.0); Mean Corpuscular Volume 94.7 fL (80.0-100.0); Mean Platelet Volume 8.4 fL (6.9-10.8); Monocytes # (auto) 0.5 uL; Monocytes % (auto) 10.6 % (0.0-12.0); Neutrophils # (auto) 3.3 uL; Neutrophils % (auto) 70.5 % (37.0-80.0); Nucleated Red Blood Cells % 0.2 %; Platelet Count (auto) 182 10^3/uL (140-450); Red Cell Distribution Width 16.2 % (11.8-14.3); White Blood Cell 4.7 10^3/uL (4.4-10.8)
[2017-03-13 13:12] LABS: Potassium 3.6 mmol/L (3.5-5.1)
[2017-03-13 13:13] LABS: BUN/Creatinine Ratio 24.1; Calcium 8.1 mg/dL (8.5-10.1); Magnesium 2.6 mg/dL (1.6-2.6)
== END | disposition home or self-care (01) ==
LOC: CHF HDHVI 08:06
PROVIDERS: ATTEND Internal Medicine Cardiovascular Disease
DX: I10 Essential (primary) hypertension (principal); E11.9 Type 2 diabetes mellitus without complications; E83.42 Hypomagnesemia
CPT/HCPCS: 36415; 80048; 83036; 83735; 85025; 96365; 96366; G0463; J1642; J1940

== ENCOUNTER → 2017-03-14 | Outpatient (CLI) | payer MEDICARE, OTHER ==
[2017-03-09 11:10] VITALS: BP 140/83
[~2017-03-14] MED LIST changes: +FUROSEMIDE 20 MG/2 ML VIAL IV SCH; -FUROSEMIDE INJECTION 60 MG in SODIUM CHL 0.9% 60 ML IV SCH
[2017-03-14 08:30] VITALS: BP 109/62
[2017-03-14 09:00] VITALS: BP 135/75
[2017-03-14 09:30] VITALS: BP 145/85
[2017-03-14 10:00] VITALS: BP 178/92
[2017-03-14 10:30] VITALS: BP 148/98
[2017-03-14 12:00] VITALS: BP 137/94
== END | disposition home or self-care (01) ==
LOC: CHF HDHVI 08:08
PROVIDERS: ATTEND Internal Medicine Cardiovascular Disease
DX: I25.10 Atherosclerotic heart disease of native coronary artery without angina pectoris (principal); I50.9 Heart failure, unspecified; I73.9 Peripheral vascular disease, unspecified; R60.0 Localized edema
CPT/HCPCS: 96365; 96366; G0463; J1940

== ENCOUNTER → 2017-03-19 | Outpatient (CLI) | payer MEDICARE, OTHER ==
[~2017-03-19] MED LIST changes: -FUROSEMIDE 20 MG/2 ML VIAL IV SCH; -FUROSEMIDE 20 MG/2 ML VIAL ONE; -FUROSEMIDE 40 MG/4 ML VIAL ONE; +FUROSEMIDE INJECTION 10 ML ONE; +FUROSEMIDE INJECTION 100 MG in SODIUM CHL 0.9% 100 ML IV SCH; +POTASSIUM CHL 10 Meq TABLET PO ONE
[2017-03-19 08:15] VITALS: BP 102/54
[2017-03-19 08:30] VITALS: BP 114/61
[2017-03-19 09:00] VITALS: BP 123/94
[2017-03-19 09:30] VITALS: BP 117/68
[2017-03-19 10:00] VITALS: BP 119/84
[2017-03-19 11:50] VITALS: BP 122/89
== END | disposition home or self-care (01) ==
LOC: CHF HDHVI 07:54
PROVIDERS: ATTEND Internal Medicine Cardiovascular Disease
DX: I50.9 Heart failure, unspecified (principal); I89.0 Lymphedema, not elsewhere classified
CPT/HCPCS: 96365; 96366; G0463; J1940

== ENCOUNTER → 2017-03-21 | Outpatient (CLI) | payer MEDICARE, OTHER ==
[~2017-03-21] VITALS: Ht 30.5 cm; Wt 0.5 kg
[~2017-03-21] MED LIST changes: +ATOR10TA52 PO; +CELE100C82 PO; +FUROSEMIDE 20 MG/2 ML VIAL IV ONE; +FUROSEMIDE 20 MG/2 ML VIAL ONE; +FUROSEMIDE 40 MG/4 ML VIAL ONE; -FUROSEMIDE INJECTION 10 ML ONE; -FUROSEMIDE INJECTION 100 MG in SODIUM CHL 0.9% 100 ML IV SCH; +GABA100C9 PO; +HYDR-4683 PO; +METO5TAB56 PO; -POTASSIUM CHL 10 Meq TABLET PO ONE; +RIVA20TA PO; +TORS20TA20 PO
[2017-03-21 09:00] VITALS: BP 132/74
[2017-03-21 11:00] VITALS: BP 139/91
[2017-03-21 12:00] VITALS: BP 139/91
== END | disposition home or self-care (01) ==
LOC: CHF HDHVI 08:42
PROVIDERS: ATTEND Internal Medicine
DX: I50.9 Heart failure, unspecified (principal); I48.91 Unspecified atrial fibrillation; I80.9 Phlebitis and thrombophlebitis of unspecified site
CPT/HCPCS: 96365; 96366; G0463; J1940

== ENCOUNTER → 2017-03-23 | Outpatient (CLI) | payer MEDICARE, OTHER ==
[~2017-03-23] VITALS: Ht 30.5 cm; Wt 98.5 kg
[~2017-03-23] MED LIST changes: -ATOR10TA52 PO; -CELE100C82 PO; -FUROSEMIDE 20 MG/2 ML VIAL IV ONE; -FUROSEMIDE 20 MG/2 ML VIAL ONE; -FUROSEMIDE 40 MG/4 ML VIAL ONE; +FUROSEMIDE INJECTION 10 ML ONE; -GABA100C9 PO; -HYDR-4683 PO; +KETOROLAC TROMETH 30 MG/ML 1ML VIAL IV ONE; +KETOROLAC TROMETH 60MG/2ML VIAL IM ONE; -METO5TAB56 PO; -RIVA20TA PO; +SODIUM CHLORIDE 0.9% 100 ML IV ONE; -TORS20TA20 PO
[2017-03-23 08:40] VITALS: BP 137/89
[2017-03-23] MEDS: FUROSEMIDE 20 MG/2 ML VIAL IV SCH (08:50)
[2017-03-23 10:00] VITALS: BP 160/81
[2017-03-23 13:05] VITALS: BP 140/87
[2017-03-23 15:16] LABS: Basophils # (auto) 0 uL; Basophils % (auto) 0.6 % (0.0-2.0); Eosinophils # (auto) 0.1 uL; Eosinophils % (auto) 1.5 % (0.0-7.0); Hematocrit 41.3 % (41.0-53.0); Hemoglobin 13.2 g/dL (13.5-17.5); Lymphocytes % (auto) 16.8 % (10.0-50.0); Mean Corpuscular Hemoglobin 32.1 pg (28.0-32.0); Mean Corpuscular Hgb Conc. 31.9 g/dL (32.0-36.0); Mean Corpuscular Volume 100.7 fL (80.0-100.0); Mean Platelet Volume 8.3 fL (6.9-10.8); Monocytes # (auto) 0.7 uL; Monocytes % (auto) 12.2 % (0.0-12.0); Neutrophils # (auto) 4.1 uL; Neutrophils % (auto) 68.9 % (37.0-80.0); Nucleated Red Blood Cells % 0.2 %; Platelet Count (auto) 157 10^3/uL (140-450); Red Cell Distribution Width 16.8 % (11.8-14.3)
[2017-03-23 15:26] LABS: Albumin 2.7 g/dL (3.4-5.0); BUN/Creatinine Ratio 22.2; Calcium 8.3 mg/dL (8.5-10.1); Magnesium 2.5 mg/dL (1.6-2.6)
[2017-03-23 15:29] LABS: Bilirubin, Total 0.7 mg/dL (0.2-1.0)
[2017-03-23 15:30] LABS: Total Protein 6.2 g/dL (6.4-8.2)
== END | disposition home or self-care (01) ==
LOC: CHF HDHVI 08:04
PROVIDERS: ATTEND Internal Medicine Cardiovascular Disease
DX: I10 Essential (primary) hypertension (principal); E83.42 Hypomagnesemia; D64.9 Anemia, unspecified; I87.2 Venous insufficiency (chronic) (peripheral); I89.0 Lymphedema, not elsewhere classified
CPT/HCPCS: 36415; 80053; 83735; 85025; 93701; 96365; 96366; G0463; J1885; J1940; 96372; 96375

== ENCOUNTER → 2017-03-26 | Outpatient (CLI) | payer MEDICARE, OTHER ==
[~2017-03-26] MED LIST changes: +CYANOCOBALAMIN (B-12) 1000 MCG/1 ML VIAL IM ONE; +CYANOCOBALAMIN (B-12) 1000 MCG/1 ML VIAL ONE; +FUROSEMIDE INJECTION 100 MG in SODIUM CHL 0.9% 100 ML IV SCH; -KETOROLAC TROMETH 30 MG/ML 1ML VIAL IV ONE; -KETOROLAC TROMETH 60MG/2ML VIAL IM ONE; -SODIUM CHLORIDE 0.9% 100 ML IV ONE
[2017-03-26 14:00] VITALS: BP 118/75
[2017-03-26 14:30] VITALS: BP 118/74
[2017-03-26 15:00] VITALS: BP 139/72
[2017-03-26 16:26] VITALS: BP 145/86
== END | disposition home or self-care (01) ==
LOC: CHF HDHVI 12:55
PROVIDERS: ATTEND Internal Medicine
DX: I50.9 Heart failure, unspecified (principal); I89.0 Lymphedema, not elsewhere classified
CPT/HCPCS: 96365; 96366; G0463; J1940; J3420

== ENCOUNTER → 2017-03-28 | Outpatient (CLI) | payer MEDICARE, OTHER ==
[2017-03-28] VITALS (7 sets, daily range): BP systolic 119–155; BP diastolic 65–90
[~2017-03-28] MED LIST changes: -CYANOCOBALAMIN (B-12) 1000 MCG/1 ML VIAL IM ONE; -CYANOCOBALAMIN (B-12) 1000 MCG/1 ML VIAL ONE; +FUROSEMIDE 20 MG/2 ML VIAL IV ONE; +FUROSEMIDE 20 MG/2 ML VIAL ONE; +FUROSEMIDE 40 MG/4 ML VIAL ONE; -FUROSEMIDE INJECTION 10 ML ONE; -FUROSEMIDE INJECTION 100 MG in SODIUM CHL 0.9% 100 ML IV SCH; +SODIUM CHLORIDE 0.9% 1,000 ML IV SCH
== END | disposition home or self-care (01) ==
LOC: CHF HDHVI 07:54
PROVIDERS: ATTEND Internal Medicine Cardiovascular Disease
DX: I50.9 Heart failure, unspecified (principal); I80.9 Phlebitis and thrombophlebitis of unspecified site; R53.83 Other fatigue
CPT/HCPCS: 96365; 96366; G0463; J1940

== ENCOUNTER → 2017-03-30 | Outpatient (CLI) | payer MEDICARE, OTHER ==
[~2017-03-30] VITALS: Ht 30.5 cm; Wt 0.5 kg
[~2017-03-30] MED LIST changes: +ATOR10TA52 PO; +CELE100C82 PO; -FUROSEMIDE 20 MG/2 ML VIAL IV ONE; -FUROSEMIDE 20 MG/2 ML VIAL ONE; -FUROSEMIDE 40 MG/4 ML VIAL ONE; +FUROSEMIDE INJECTION 10 ML ONE; +FUROSEMIDE INJECTION 100 MG in SODIUM CHL 0.9% 100 ML IV SCH; +GABA100C9 PO; +HYDR-4683 PO; +KETOROLAC TROMETH 60MG/2ML VIAL IM ONE; +METO5TAB56 PO; +RIVA20TA PO; -SODIUM CHLORIDE 0.9% 1,000 ML IV SCH; +TORS20TA20 PO
[2017-03-30 08:30] VITALS: BP 147/79
[2017-03-30 09:00] VITALS: BP 137/67
[2017-03-30 09:30] VITALS: BP 137/78
[2017-03-30 10:00] VITALS: BP 149/85
[2017-03-30 12:45] VITALS: BP 138/87
== END | disposition home or self-care (01) ==
LOC: CHF HDHVI 08:08
PROVIDERS: ATTEND Internal Medicine
DX: E87.5 Hyperkalemia (principal); R94.4 Abnormal results of kidney function studies; E55.9 Vitamin D deficiency, unspecified
CPT/HCPCS: 36415; 82306; 82565; 84132; 84520; 96365; 96366; G0463; J1885; J1940

== ENCOUNTER → 2017-04-02 | Outpatient (CLI) | payer MEDICARE, OTHER ==
[~2017-04-02] MED LIST changes: -ATOR10TA52 PO; -CELE100C82 PO; -FUROSEMIDE INJECTION 100 MG in SODIUM CHL 0.9% 100 ML IV SCH; +FUROSEMIDE INJECTION 250 MG in D5W 5% 225 ML IV SCH; -GABA100C9 PO; -HYDR-4683 PO; -KETOROLAC TROMETH 60MG/2ML VIAL IM ONE; -METO5TAB56 PO; -POTASSIUM CHL 20 Meq TABLET PO ONE; -RIVA20TA PO; -TORS20TA20 PO
[2017-04-02 09:00] VITALS: BP 132/74
[2017-04-02 09:30] VITALS: BP 138/85
[2017-04-02 13:00] VITALS: BP 167/92
== END | disposition home or self-care (01) ==
LOC: CHF HDHVI 08:17
PROVIDERS: ATTEND Internal Medicine
DX: M25.552 Pain in left hip (principal); I50.9 Heart failure, unspecified
CPT/HCPCS: 73700; 96365; 96366; G0463; J1940

== ENCOUNTER → 2017-04-03 | Outpatient (CLI) | payer MEDICARE, OTHER ==
[~2017-04-03] MED LIST changes: -FUROSEMIDE INJECTION 10 ML ONE; -FUROSEMIDE INJECTION 250 MG in D5W 5% 225 ML IV SCH; +KETOROLAC TROMETH 30 MG/ML 1ML VIAL IV ONE; +KETOROLAC TROMETH 60MG/2ML VIAL IM ONE; +POTASSIUM CHL 20 Meq TABLET PO ONE
[2017-04-03 09:30] VITALS: BP 169/92
[2017-04-03 09:40] VITALS: BP 163/82
== END | disposition home or self-care (01) ==
LOC: CHF HDHVI 09:12
PROVIDERS: ATTEND Internal Medicine Cardiovascular Disease
DX: I50.9 Heart failure, unspecified (principal); I89.0 Lymphedema, not elsewhere classified; G89.29 Other chronic pain
CPT/HCPCS: 96372; 96374; G0463; J1885

== ENCOUNTER → 2017-04-04 | Outpatient (CLI) | payer MEDICARE, OTHER ==
[~2017-04-04] MED LIST changes: -KETOROLAC TROMETH 30 MG/ML 1ML VIAL IV ONE; -KETOROLAC TROMETH 60MG/2ML VIAL IM ONE; -POTASSIUM CHL 20 Meq TABLET PO ONE
[2017-04-04 10:30] VITALS: BP 191/99
[2017-04-04 12:03] VITALS: BP 185/85
== END | disposition home or self-care (01) ==
LOC: CHF HDHVI 10:59
PROVIDERS: ATTEND Internal Medicine Cardiovascular Disease
DX: I11.0 Hypertensive heart disease with heart failure (principal); I50.9 Heart failure, unspecified; I25.10 Atherosclerotic heart disease of native coronary artery without angina pectoris; M25.551 Pain in right hip
CPT/HCPCS: G0463

== ENCOUNTER → 2017-04-06 | Outpatient (CLI) | payer MEDICARE, OTHER ==
[~2017-04-06] MED LIST changes: +ATOR10TA52 PO; +CELE100C82 PO; +GABA100C9 PO; +HYDR-4683 PO; +METO5TAB56 PO; +RIVA20TA PO; +TORS20TA20 PO
== END | disposition home or self-care (01) ==
LOC: Rad HDHVI 11:20
PROVIDERS: ATTEND Internal Medicine Cardiovascular Disease
DX: I73.9 Peripheral vascular disease, unspecified (principal)
CPT/HCPCS: 93306

== ENCOUNTER → 2017-04-13 | Outpatient (CLI) | payer MEDICARE, OTHER ==
[~2017-04-13] MED LIST changes: -ATOR10TA52 PO; -CELE100C82 PO; -GABA100C9 PO; -HYDR-4683 PO; -METO5TAB56 PO; -RIVA20TA PO; -TORS20TA20 PO
[2017-04-13 08:30] VITALS: BP 149/94
[2017-04-13 09:15] VITALS: BP 131/77
[2017-04-13 14:09] LABS: Basophils # (auto) 0 uL; Basophils % (auto) 0.2 % (0.0-2.0); Eosinophils # (auto) 0 uL; Eosinophils % (auto) 0.6 % (0.0-7.0); Hematocrit 43.4 % (41.0-53.0); Hemoglobin 14.4 g/dL (13.5-17.5); Lymphocytes # (auto) 0.8 uL; Lymphocytes % (auto) 10.3 % (10.0-50.0); Mean Corpuscular Hemoglobin 30.9 pg (28.0-32.0); Mean Corpuscular Hgb Conc. 33.1 g/dL (32.0-36.0); Mean Corpuscular Volume 93.3 fL (80.0-100.0); Mean Platelet Volume 8.2 fL (6.9-10.8); Monocytes # (auto) 0.7 uL; Monocytes % (auto) 9.8 % (0.0-12.0); Neutrophils # (auto) 5.8 uL; Neutrophils % (auto) 79.1 % (37.0-80.0); Nucleated Red Blood Cells % 0.2 %; Platelet Count (auto) 202 10^3/uL (140-450); Red Cell Distribution Width 14.2 % (11.8-14.3); White Blood Cell 7.4 10^3/uL (4.4-10.8)
[2017-04-13 14:22] LABS: BUN/Creatinine Ratio 17.3; Calcium 8.6 mg/dL (8.5-10.1); Potassium 3.5 mmol/L (3.5-5.1)
[2017-04-13 14:29] LABS: INR 1.65 (0.9-1.15); Prothrombin Time 18.1 sec (9.37-12.3)
== END | disposition home or self-care (01) ==
LOC: Rad HDHVI 08:27
PROVIDERS: ATTEND Internal Medicine Cardiovascular Disease
DX: Z01.818 Encounter for other preprocedural examination (principal); I70.0 Atherosclerosis of aorta; I10 Essential (primary) hypertension; D64.9 Anemia, unspecified; R79.1 Abnormal coagulation profile
CPT/HCPCS: 36415; 71020; 80048; 85025; 85610; 85730; 93005; G0463

== ENCOUNTER → 2017-04-18 | Outpatient (CLI) | payer MEDICARE, OTHER ==
[~2017-04-18] MED LIST changes: +MAGNESIUM CITRATE SOLUTION 300 ML BTL ONE; +MAGNESIUM CITRATE SOLUTION 300 ML BTL PO ONE
[2017-04-18 08:40] VITALS: BP 129/66
== END | disposition home or self-care (01) ==
LOC: CHF HDHVI 08:41
PROVIDERS: ATTEND Internal Medicine Cardiovascular Disease
DX: I50.9 Heart failure, unspecified (principal); I89.0 Lymphedema, not elsewhere classified
CPT/HCPCS: G0463

== ENCOUNTER 2017-04-21 12:13 | Emergency (ER) | payer MEDICARE, OTHER ==
[~2017-04-21] VITALS: Ht 175.3 cm; Wt 92.5 kg
[~2017-04-21 12:13] MED LIST changes: -MAGNESIUM CITRATE SOLUTION 300 ML BTL ONE; -MAGNESIUM CITRATE SOLUTION 300 ML BTL PO ONE
[2017-04-22] MEDS ORDERED: HYDROcodone-ACET 5/325MG TAB PO ONE (01:15)
[2017-04-22] MEDS ORDERED: MAGNESIUM CITRATE SOLUTION 300 ML BTL PO ONE (01:15)
[2017-04-22 01:30] VITALS: BP 122/67
[2017-06-04] MEDS ORDERED: CELE100C82 PO (13:13)
[2017-06-04] MEDS ORDERED: GABA100C9 PO (13:13)
[2017-06-04] MEDS ORDERED: TORS20TA20 PO (13:13)
[2017-06-04] MEDS ORDERED: RIVA20TA PO (13:13)
[2017-06-04] MEDS ORDERED: ATOR10TA52 PO (13:13)
[2017-06-04] MEDS ORDERED: HYDR-4683 PO (13:22)
[2017-06-04] MEDS ORDERED: METO5TAB56 PO (13:22)
== END 2017-04-22 02:11 | disposition home or self-care (01) ==
LOC: ER 12:28
DX: K59.09 Other constipation (principal); M79.651 Pain in right thigh; M79.652 Pain in left thigh; I10 Essential (primary) hypertension; I25.10 Atherosclerotic heart disease of native coronary artery without angina pectoris; E78.00 Pure hypercholesterolemia, unspecified; Z95.5 Presence of coronary angioplasty implant and graft; Z79.899 Other long term (current) drug therapy

== ENCOUNTER → 2017-04-27 | Outpatient (CLI) | payer MEDICARE, OTHER ==
[~2017-04-27] MED LIST changes: +ACETAMINOPHEN 500 MG TAB PO ONE; +ACETAMINOPHEN 500 MG TAB PO PRN; +ATOR10TA52 PO; +BACITRACIN TOP OINT 1 UD PKG TOP ONE; +CELE100C82 PO; +GABA100C9 PO; +HYDR-4683 PO; +MAGNESIUM CITRATE SOLUTION 300 ML BTL ONE; +MAGNESIUM CITRATE SOLUTION 300 ML BTL PO ONE; +METO5TAB56 PO; +RIVA20TA PO; +TORS20TA20 PO
[2017-04-27 10:00] VITALS: BP 141/82
[2017-04-27 14:00] VITALS: BP 139/93
== END | disposition home or self-care (01) ==
LOC: Rad HDHVI 10:29
PROVIDERS: ATTEND Internal Medicine Cardiovascular Disease
DX: G31.89 Other specified degenerative diseases of nervous system (principal); I67.2 Cerebral atherosclerosis; M16.12 Unilateral primary osteoarthritis, left hip; I70.209 Unspecified atherosclerosis of native arteries of extremities, unspecified extremity; I50.9 Heart failure, unspecified; Z91.81 History of falling
CPT/HCPCS: 70450; 73502; G0463

== ENCOUNTER → 2017-04-30 | Outpatient (CLI) | payer MEDICARE, OTHER ==
[~2017-04-30] MED LIST changes: -ACETAMINOPHEN 500 MG TAB PO ONE; -ACETAMINOPHEN 500 MG TAB PO PRN; +IOHEXOL 350 MG/ML 100ML IJ ONE; +READI-CAT 2 (BARIUM SULF)(VANILLA SMOOTHIE) 450ML ONE
[2017-04-30 08:38] VITALS: BP 132/62
[2017-04-30 11:20] VITALS: BP 135/73
[2017-04-30 12:54] LABS: Potassium 4.7 mmol/L (3.5-5.1)
== END | disposition home or self-care (01) ==
LOC: CHF HDHVI 08:43
PROVIDERS: ATTEND Internal Medicine Cardiovascular Disease
DX: K57.30 Diverticulosis of large intestine without perforation or abscess without bleeding (principal); N28.1 Cyst of kidney, acquired; K40.20 Bilateral inguinal hernia, without obstruction or gangrene, not specified as recurrent; K56.609 Unspecified intestinal obstruction, unspecified as to partial versus complete obstruction; E87.5 Hyperkalemia; R94.4 Abnormal results of kidney function studies
CPT/HCPCS: 36415; 74177; 82565; 84132; 84520; 96374; G0463; Q9967

== ENCOUNTER → 2017-05-31 | Outpatient (CLI) | payer MEDICARE, OTHER ==
[~2017-05-31] MED LIST changes: -BACITRACIN TOP OINT 1 UD PKG TOP ONE; +CYANOCOBALAMIN (B-12) 1000 MCG/1 ML VIAL IM ONE; +CYANOCOBALAMIN (B-12) 1000 MCG/1 ML VIAL ONE; -IOHEXOL 350 MG/ML 100ML IJ ONE; -MAGNESIUM CITRATE SOLUTION 300 ML BTL ONE; -MAGNESIUM CITRATE SOLUTION 300 ML BTL PO ONE; +MULTIVITAMIN IV ONE; +MVI in SODIUM CHLORIDE 0.9% 1,010 ML ONE; -READI-CAT 2 (BARIUM SULF)(VANILLA SMOOTHIE) 450ML ONE; +SODIUM CHLORIDE IV ONE
[2017-05-31 16:35] LABS: Basophils # (auto) 0 uL; Basophils % (auto) 0.5 % (0.0-2.0); Eosinophils # (auto) 0.1 uL; Eosinophils % (auto) 1.9 % (0.0-7.0); Hemoglobin 13.7 g/dL (13.5-17.5); Lymphocytes # (auto) 1.2 uL; Lymphocytes % (auto) 20.1 % (10.0-50.0); Mean Corpuscular Hemoglobin 30.4 pg (28.0-32.0); Mean Corpuscular Hgb Conc. 32.6 g/dL (32.0-36.0); Mean Corpuscular Volume 93.3 fL (80.0-100.0); Monocytes # (auto) 0.7 uL; Monocytes % (auto) 11.7 % (0.0-12.0); Neutrophils # (auto) 3.9 uL; Neutrophils % (auto) 65.8 % (37.0-80.0); Nucleated Red Blood Cells % 0.1 %; Platelet Count (auto) 159 10^3/uL (140-450); Red Cell Distribution Width 14.7 % (11.8-14.3); White Blood Cell 5.9 10^3/uL (4.4-10.8)
[2017-05-31 16:38] LABS: Albumin 2.6 g/dL (3.4-5.0); Bilirubin, Total 0.6 mg/dL (0.2-1.0); Calcium 8.7 mg/dL (8.5-10.1); Magnesium 2.9 mg/dL (1.6-2.6); Potassium 4.3 mmol/L (3.5-5.1); Total Protein 6.2 g/dL (6.4-8.2)
[2017-05-31 17:20] VITALS: BP 120/91
== END | disposition home or self-care (01) ==
LOC: CHF HDHVI 11:15
PROVIDERS: ATTEND Internal Medicine Cardiovascular Disease
DX: E83.42 Hypomagnesemia (principal); I10 Essential (primary) hypertension; D64.9 Anemia, unspecified; N40.0 Benign prostatic hyperplasia without lower urinary tract symptoms; R53.1 Weakness; I87.2 Venous insufficiency (chronic) (peripheral); R55 Syncope and collapse
CPT/HCPCS: 36415; 80053; 83735; 85025; 93005; 96365; 96366; 96372; G0463; J3411; J3420; J3475

== ENCOUNTER → 2017-06-04 | Outpatient (CLI) | payer MEDICARE, OTHER ==
[~2017-06-04] MED LIST changes: -CYANOCOBALAMIN (B-12) 1000 MCG/1 ML VIAL IM ONE; -CYANOCOBALAMIN (B-12) 1000 MCG/1 ML VIAL ONE; -MULTIVITAMIN IV ONE; -MVI in SODIUM CHLORIDE 0.9% 1,010 ML ONE; -SODIUM CHLORIDE IV ONE
[2017-06-04 12:15] VITALS: BP 141/88
[2017-06-04 14:00] VITALS: BP 140/95
== END | disposition home or self-care (01) ==
LOC: Rad HDHVI 11:29
PROVIDERS: ATTEND Internal Medicine Cardiovascular Disease
DX: I50.9 Heart failure, unspecified (principal); E87.70 Fluid overload, unspecified
CPT/HCPCS: 93306; G0463

== ENCOUNTER 2017-06-06 15:47 | Inpatient (IN) | payer MEDICARE, OTHER ==
[~2017-06-06] VITALS: Ht 175.3 cm; Wt 92.1 kg
[~2017-06-06 15:47] MED LIST changes: -POTASSIUM CHL 20 Meq TABLET PO ONE; -POTASSIUM CHL 20 Meq TABLET PO SCH
[2017-06-06 16:56] LABS: Urine WBC None Seen /hpf (0 - 3)
[2017-06-06 17:03] LABS: Urine Bacteria NONE SEEN /hpf (None Seen); Urine Blood Negative /uL (Negative); Urine Hyaline Cast FEW /lpf (0 - 2)
[2017-06-06 17:09] LABS: Alanine Aminotransferase 20 U/L (16-61); Albumin 2.6 g/dL (3.4-5.0); Alkaline Phosphatase 103 U/L (45-117); Anion Gap 6 (5-15); Aspartate Aminotransferase 20 U/L (15-37); BUN/Creatinine Ratio 25.6; Bilirubin, Total 0.7 mg/dL (0.2-1.0); Blood Urea Nitrogen 42 mg/dL (7-18); Calcium 8.4 mg/dL (8.5-10.1); Carbon Dioxide 33 mmol/L (21-32); Chloride 101 mmol/L (98-107); GFR African American 52 mL/min; GFR Non-African American 43 mL/min; Glucose 93 mg/dL (74-106); Magnesium 2.4 mg/dL (1.6-2.6); Potassium 3.7 mmol/L (3.5-5.1); Sodium 140 mmol/L (136-145)
[2017-06-06 17:23] LABS: Basophils # (auto) 0 uL; Basophils % (auto) 0.5 % (0.0-2.0); Eosinophils # (auto) 0.1 uL; Eosinophils % (auto) 0.6 % (0.0-7.0); Hematocrit 41.1 % (41.0-53.0); Hemoglobin 13.4 g/dL (13.5-17.5); Lymphocytes # (auto) 1.2 uL; Lymphocytes % (auto) 13.6 % (10.0-50.0); Mean Corpuscular Hgb Conc. 32.5 g/dL (32.0-36.0); Mean Corpuscular Volume 92.1 fL (80.0-100.0); Monocytes # (auto) 1.1 uL; Neutrophils # (auto) 6.6 uL; Neutrophils % (auto) 73.3 % (37.0-80.0); Nucleated Red Blood Cells % 0.2 %; Platelet Count (auto) 166 10^3/uL (140-450); Red Blood Cells 4.46 10^6/uL (4.5-5.90); Red Cell Distribution Width 14.4 % (11.8-14.3)
[2017-06-06] MEDS ORDERED: SODIUM CHLORIDE 0.9% 500 ML IV ONE (21:00)
[2017-06-06 22:01] LABS: Magnesium 2.1 mg/dL (1.6-2.6)
[2017-06-06 22:16] LABS: INR 1.6 (0.9-1.15); Partial Thromboplastin Time 33.4 sec (22.64-33.71); Prothrombin Time 17.5 sec (9.37-12.3)
[2017-06-06] MEDS ORDERED: ONDANSETRON HCL 4 MG/2 ML VIAL IV PRN (23:00)
[2017-06-06] MEDS ORDERED: TEMAZEPAM 15 MG CAP PO PRN (23:00)
[2017-06-06] MEDS ORDERED: MORPHINE SULFATE 4 MG/ML SYR/VIAL IV PRN (23:00)
[2017-06-06] MEDS ORDERED: DOCUSATE SOD 100 MG CAP PO PRN (23:00)
[2017-06-06] MEDS ORDERED: NITROGLYCERIN 0.4 MG SL TAB SL PRN (23:00)
[2017-06-06] MEDS ORDERED: ACETAMINOPHEN 325 MG TAB PO PRN (23:00)
[2017-06-07 01:10] VITALS: BP 113/74
[2017-06-07 04:52] VITALS: BP 101/74
[2017-06-07] MEDS: HYDROcodone-ACET 5/325MG TAB PO PRN ×2 (05:29→10:07)
[2017-06-07] MEDS ORDERED: TORSEMIDE 20 MG TAB PO SCH (06:00)
[2017-06-07] MEDS: LEVOTHYROXINE SODIUM 100 MCG TAB PO SCH (06:14)
[2017-06-07 06:51] LABS: Basophils # (auto) 0 uL; Basophils % (auto) 0.5 % (0.0-2.0); Eosinophils # (auto) 0.1 uL; Eosinophils % (auto) 0.7 % (0.0-7.0); Hematocrit 38.5 % (41.0-53.0); Hemoglobin 12.6 g/dL (13.5-17.5); Lymphocytes # (auto) 1.4 uL; Lymphocytes % (auto) 17.7 % (10.0-50.0); Mean Corpuscular Hemoglobin 30.1 pg (28.0-32.0); Mean Corpuscular Hgb Conc. 32.7 g/dL (32.0-36.0); Mean Corpuscular Volume 92.2 fL (80.0-100.0); Monocytes # (auto) 1.1 uL; Monocytes % (auto) 14.6 % (0.0-12.0); Neutrophils # (auto) 5.1 uL; Neutrophils % (auto) 66.5 % (37.0-80.0); Nucleated Red Blood Cells % 0.1 %; Platelet Count (auto) 163 10^3/uL (140-450); Red Blood Cells 4.18 10^6/uL (4.5-5.90); Red Cell Distribution Width 14.4 % (11.8-14.3); White Blood Cell 7.7 10^3/uL (4.4-10.8)
[2017-06-07 07:09] LABS: Albumin 2.2 g/dL (3.4-5.0); Calcium 8.2 mg/dL (8.5-10.1); Potassium 3.3 mmol/L (3.5-5.1)
[2017-06-07 07:23] LABS: BUN/Creatinine Ratio 31.7; Bilirubin, Total 0.5 mg/dL (0.2-1.0); Total Protein 5.4 g/dL (6.4-8.2)
[2017-06-07 08:00] VITALS: BP 129/93
[2017-06-07] MEDS ORDERED: LISINOPRIL 20 MG TAB PO SCH (10:00)
[2017-06-07] MEDS: POTASSIUM CHL 10 Meq TABLET PO SCH (10:01)
[2017-06-07] MEDS: FINASTERIDE 5 MG TAB PO SCH (10:04)
[2017-06-07] MEDS: PANTOPRAZOLE 40 MG TAB PO SCH (10:05)
[2017-06-07 11:57] VITALS: BP 119/72
[2017-06-07 16:50] VITALS: BP 111/73
[2017-06-07] MEDS ORDERED: RIVAROXABAN 15 MG TAB PO SCH (18:00)
[2017-06-07 22:00] VITALS: BP 102/62
[2017-06-07] MEDS ORDERED: ATORVASTATIN 20 MG TAB PO SCH (22:00)
[2017-06-08 05:36] VITALS: BP 122/77
[2017-06-08] MEDS: LEVOTHYROXINE SODIUM 100 MCG TAB PO SCH (06:45)
[2017-06-08 08:00] VITALS: BP 138/85
[2017-06-08 09:00] VITALS: BP 138/85
[2017-06-08] MEDS ORDERED: TORSEMIDE 20 MG TAB PO SCH (10:00)
[2017-06-08] MEDS ORDERED: LISINOPRIL 20 MG TAB PO SCH (10:00)
[2017-06-08] MEDS: POTASSIUM CHL 10 Meq TABLET PO SCH (10:52)
[2017-06-08] MEDS: PANTOPRAZOLE 40 MG TAB PO SCH (10:52)
[2017-06-08] MEDS: FINASTERIDE 5 MG TAB PO SCH (10:52)
[2017-06-08 11:23] VITALS: BP 118/69
[2017-06-08 13:00] VITALS: BP 106/75
== END 2017-06-08 13:30 | disposition home or self-care (01) | DRG 314 ==
LOC: EDBD 15:47 → ER 15:47 → TELE 15:48 → TELE-EAST 23:47
PROVIDERS: ADMIT Nurse Practitioner; ATTEND Internal Medicine Cardiovascular Disease
DX: I95.9 Hypotension, unspecified (principal); I50.41 Acute combined systolic (congestive) and diastolic (congestive) heart failure; N18.3 Chronic kidney disease, stage 3 (moderate); I73.9 Peripheral vascular disease, unspecified; I13.0 Hypertensive heart and chronic kidney disease with heart failure and stage 1 through stage 4 chronic kidney disease, or unspecified chronic kidney disease; E87.6 Hypokalemia; E03.9 Hypothyroidism, unspecified; E78.00 Pure hypercholesterolemia, unspecified; E78.5 Hyperlipidemia, unspecified; F41.9 Anxiety disorder, unspecified; G47.00 Insomnia, unspecified; K59.00 Constipation, unspecified; I08.0 Rheumatic disorders of both mitral and aortic valves; I25.10 Atherosclerotic heart disease of native coronary artery without angina pectoris; Z82.49 Family history of ischemic heart disease and other diseases of the circulatory system; Z98.62 Peripheral vascular angioplasty status; Z95.0 Presence of cardiac pacemaker; Z98.61 Coronary angioplasty status; Z79.899 Other long term (current) drug therapy
CPT/HCPCS: 36415; 70450; 71045; 80048; 80053; 81001; 83735; 83880; 84153; 84484; 85025; 85610; 85730; 87081; 93005; 93306; 94761; 96360; G0463

== ENCOUNTER → 2017-06-06 | Outpatient (CLI) | payer MEDICARE, OTHER ==
[~2017-06-06] VITALS: Ht 30.5 cm; Wt 0.5 kg
[~2017-06-06] MED LIST changes: -ATOR40TA52 PO; -DOXA4TAB40 PO; -FURO40TA PO; +POTASSIUM CHL 20 Meq TABLET PO ONE; +POTASSIUM CHL 20 Meq TABLET PO SCH; -RIVA10TA PO
[2017-06-06 10:23] LABS: Basophils # (auto) 0 uL; Basophils % (auto) 0.5 % (0.0-2.0); Eosinophils # (auto) 0.1 uL; Eosinophils % (auto) 1.1 % (0.0-7.0); Hematocrit 40.1 % (41.0-53.0); Hemoglobin 13.1 g/dL (13.5-17.5); Lymphocytes % (auto) 16.7 % (10.0-50.0); Mean Corpuscular Hemoglobin 29.9 pg (28.0-32.0); Mean Corpuscular Hgb Conc. 32.6 g/dL (32.0-36.0); Mean Corpuscular Volume 91.7 fL (80.0-100.0); Monocytes # (auto) 0.6 uL; Monocytes % (auto) 9.9 % (0.0-12.0); Neutrophils # (auto) 4.1 uL; Neutrophils % (auto) 71.8 % (37.0-80.0); Platelet Count (auto) 172 10^3/uL (140-450); Red Blood Cells 4.37 10^6/uL (4.5-5.90); Red Cell Distribution Width 14.4 % (11.8-14.3); White Blood Cell 5.7 10^3/uL (4.4-10.8)
[2017-06-06 10:32] LABS: BUN/Creatinine Ratio 22.6; Calcium 8.4 mg/dL (8.5-10.1); Potassium 3.5 mmol/L (3.5-5.1)
[2017-06-06 10:40] VITALS: BP 113/58
== END | disposition home or self-care (01) ==
LOC: CHF HDHVI 09:05
PROVIDERS: ATTEND Internal Medicine Cardiovascular Disease
DX: D64.9 Anemia, unspecified (principal); I10 Essential (primary) hypertension; R97.20 Elevated prostate specific antigen [PSA]
CPT/HCPCS: 36415; 80048; 84153; 85025; G0463

== ENCOUNTER → 2017-06-11 | Outpatient (CLI) | payer MEDICARE, OTHER ==
[2017-06-11 11:40] VITALS: BP 132/63
[2017-06-11 14:05] VITALS: BP 118/64
[2017-06-11 16:47] LABS: Albumin 2.4 g/dL (3.4-5.0); Bilirubin, Total 0.4 mg/dL (0.2-1.0); Calcium 8.3 mg/dL (8.5-10.1); Magnesium 2.5 mg/dL (1.6-2.6); Potassium 3.8 mmol/L (3.5-5.1); Total Protein 5.9 g/dL (6.4-8.2)
== END | disposition home or self-care (01) ==
LOC: CHF HDHVI 11:48
PROVIDERS: ATTEND Internal Medicine Cardiovascular Disease
DX: I11.0 Hypertensive heart disease with heart failure (principal); I50.9 Heart failure, unspecified; I25.10 Atherosclerotic heart disease of native coronary artery without angina pectoris; N40.0 Benign prostatic hyperplasia without lower urinary tract symptoms; R60.9 Edema, unspecified; E83.42 Hypomagnesemia
CPT/HCPCS: 36415; 80053; 83735; G0463

== ENCOUNTER → 2017-06-13 | Outpatient (CLI) | payer MEDICARE, OTHER ==
[2017-06-13 09:40] VITALS: BP 127/64
[2017-06-13 10:30] VITALS: BP 102/56
== END | disposition home or self-care (01) ==
LOC: CHF HDHVI 10:55
PROVIDERS: ATTEND Internal Medicine
DX: I10 Essential (primary) hypertension (principal); I25.10 Atherosclerotic heart disease of native coronary artery without angina pectoris; R60.0 Localized edema
CPT/HCPCS: G0463

== ENCOUNTER → 2017-06-15 | Outpatient (CLI) | payer MEDICARE, OTHER ==
[2017-06-15 08:10] VITALS: BP 97/56
[2017-06-15 08:50] VITALS: BP 93/55
== END | disposition home or self-care (01) ==
LOC: CHF HDHVI 08:18
PROVIDERS: ATTEND Internal Medicine
DX: I87.2 Venous insufficiency (chronic) (peripheral) (principal); R60.0 Localized edema
CPT/HCPCS: G0463

== ENCOUNTER → 2017-06-18 | Outpatient (CLI) | payer MEDICARE, OTHER ==
[2017-06-18 08:10] VITALS: BP 131/73
[2017-06-18 09:10] VITALS: BP 117/63
== END | disposition home or self-care (01) ==
LOC: CHF HDHVI 08:14
PROVIDERS: ATTEND Internal Medicine
DX: I89.0 Lymphedema, not elsewhere classified (principal)
CPT/HCPCS: G0463

== ENCOUNTER → 2017-06-20 | Outpatient (CLI) | payer MEDICARE, OTHER ==
[2017-06-20 08:20] VITALS: BP 122/65
[2017-06-20 08:55] VITALS: BP 125/63
== END | disposition home or self-care (01) ==
LOC: CHF HDHVI 08:12
PROVIDERS: ATTEND Internal Medicine
DX: I50.9 Heart failure, unspecified (principal); I25.10 Atherosclerotic heart disease of native coronary artery without angina pectoris; R60.0 Localized edema
CPT/HCPCS: G0463

== ENCOUNTER → 2017-06-22 | Outpatient (CLI) | payer MEDICARE, OTHER ==
[2017-06-22 08:05] VITALS: BP 123/75
[2017-06-22 08:52] VITALS: BP 93/65
== END | disposition home or self-care (01) ==
LOC: CHF HDHVI 08:12
PROVIDERS: ATTEND Internal Medicine Cardiovascular Disease
DX: I50.9 Heart failure, unspecified (principal); I25.10 Atherosclerotic heart disease of native coronary artery without angina pectoris; R60.0 Localized edema
CPT/HCPCS: G0463

== ENCOUNTER → 2017-06-25 | Outpatient (CLI) | payer MEDICARE, OTHER ==
[2017-06-25 08:30] VITALS: BP 157/77
[2017-06-25 09:15] VITALS: BP 109/55
== END | disposition home or self-care (01) ==
LOC: CHF HDHVI 09:36
PROVIDERS: ATTEND Internal Medicine
DX: I25.10 Atherosclerotic heart disease of native coronary artery without angina pectoris (principal); I50.9 Heart failure, unspecified; I83.029 Varicose veins of left lower extremity with ulcer of unspecified site
CPT/HCPCS: G0463

== ENCOUNTER → 2017-06-27 | Outpatient (CLI) | payer MEDICARE, OTHER ==
[2017-06-27 08:15] VITALS: BP 130/70
[2017-06-27 08:55] VITALS: BP 109/68
== END | disposition home or self-care (01) ==
LOC: CHF HDHVI 08:23
PROVIDERS: ATTEND Internal Medicine
DX: I11.0 Hypertensive heart disease with heart failure (principal); I50.9 Heart failure, unspecified; E87.70 Fluid overload, unspecified
CPT/HCPCS: G0463

== ENCOUNTER → 2017-06-29 | Outpatient (CLI) | payer MEDICARE, OTHER ==
[2017-06-29 08:05] VITALS: BP 143/71
[2017-06-29 08:54] VITALS: BP 135/75
== END | disposition home or self-care (01) ==
LOC: CHF HDHVI 08:13
PROVIDERS: ATTEND Internal Medicine
DX: I50.9 Heart failure, unspecified (principal); I89.0 Lymphedema, not elsewhere classified
CPT/HCPCS: G0463

== ENCOUNTER → 2017-07-02 | Outpatient (CLI) | payer MEDICARE, OTHER ==
[2017-07-02 08:00] VITALS: BP 114/63
[2017-07-02 08:45] VITALS: BP 106/61
== END | disposition home or self-care (01) ==
LOC: CHF HDHVI 08:08
PROVIDERS: ATTEND Internal Medicine
DX: I89.0 Lymphedema, not elsewhere classified (principal); I50.9 Heart failure, unspecified
CPT/HCPCS: G0463

== ENCOUNTER → 2017-07-04 | Outpatient (CLI) | payer MEDICARE, OTHER ==
[2017-07-04 08:20] VITALS: BP 121/73
== END | disposition home or self-care (01) ==
LOC: CHF HDHVI 08:22
PROVIDERS: ATTEND Internal Medicine Cardiovascular Disease
DX: I11.0 Hypertensive heart disease with heart failure (principal); I50.9 Heart failure, unspecified
CPT/HCPCS: G0463

== ENCOUNTER → 2017-07-06 | Outpatient (CLI) | payer MEDICARE, OTHER ==
[2017-07-06 08:10] VITALS: BP 130/69
[2017-07-06 09:15] VITALS: BP 103/66
[2017-07-06 12:13] LABS: Basophils # (auto) 0 uL; Basophils % (auto) 0.4 % (0.0-2.0); Eosinophils # (auto) 0.1 uL; Hematocrit 41.1 % (41.0-53.0); Hemoglobin 13.5 g/dL (13.5-17.5); Lymphocytes # (auto) 1.1 uL; Lymphocytes % (auto) 19.4 % (10.0-50.0); Mean Corpuscular Hemoglobin 30.5 pg (28.0-32.0); Mean Corpuscular Hgb Conc. 32.9 g/dL (32.0-36.0); Mean Corpuscular Volume 92.7 fL (80.0-100.0); Monocytes # (auto) 0.5 uL; Monocytes % (auto) 9.8 % (0.0-12.0); Neutrophils # (auto) 3.8 uL; Neutrophils % (auto) 69.4 % (37.0-80.0); Nucleated Red Blood Cells % 0.3 %; Platelet Count (auto) 141 10^3/uL (140-450); Red Blood Cells 4.43 10^6/uL (4.5-5.90); Red Cell Distribution Width 14.6 % (11.8-14.3); White Blood Cell 5.5 10^3/uL (4.4-10.8)
[2017-07-06 13:00] LABS: Albumin 2.6 g/dL (3.4-5.0); BUN/Creatinine Ratio 31.3; Bilirubin, Total 0.7 mg/dL (0.2-1.0); Calcium 8.5 mg/dL (8.5-10.1); Magnesium 2.8 mg/dL (1.6-2.6); Potassium 4.4 mmol/L (3.5-5.1); Total Protein 5.9 g/dL (6.4-8.2)
== END | disposition home or self-care (01) ==
LOC: CHF HDHVI 08:14
PROVIDERS: ATTEND Internal Medicine
DX: I11.0 Hypertensive heart disease with heart failure (principal); I50.23 Acute on chronic systolic (congestive) heart failure; D64.9 Anemia, unspecified; R53.81 Other malaise; E55.9 Vitamin D deficiency, unspecified; E03.9 Hypothyroidism, unspecified; I87.2 Venous insufficiency (chronic) (peripheral)
CPT/HCPCS: 36415; 80053; 82306; 83735; 84403; 85025; 93701; G0463

== ENCOUNTER → 2017-07-09 | Outpatient (CLI) | payer MEDICARE, OTHER ==
[2017-07-09 08:10] VITALS: BP 138/66
== END | disposition home or self-care (01) ==
LOC: CHF HDHVI 08:17
PROVIDERS: ATTEND Internal Medicine
DX: I50.9 Heart failure, unspecified (principal); I89.0 Lymphedema, not elsewhere classified; E87.70 Fluid overload, unspecified
CPT/HCPCS: G0463

== ENCOUNTER → 2017-07-13 | Outpatient (CLI) | payer MEDICARE, OTHER ==
[2017-07-13 14:00] VITALS: BP 110/73
[2017-07-13 14:36] VITALS: BP 100/66
== END | disposition home or self-care (01) ==
LOC: CHF HDHVI 14:06
PROVIDERS: ATTEND Internal Medicine
DX: I50.9 Heart failure, unspecified (principal); I89.0 Lymphedema, not elsewhere classified
CPT/HCPCS: G0463

== ENCOUNTER → 2017-07-16 | Outpatient (CLI) | payer MEDICARE, OTHER ==
[~2017-07-16] MED LIST changes: +CYANOCOBALAMIN (B-12) 1000 MCG/1 ML VIAL IM ONE; +CYANOCOBALAMIN (B-12) 1000 MCG/1 ML VIAL ONE; +FUROSEMIDE 40 MG/4 ML VIAL IV ONE; +FUROSEMIDE 40 MG/4 ML VIAL ONE; +POTASSIUM CHL 20 Meq TABLET PO ONE; +TESTOSTERONE CYPIONATE 200 MG/ML 1ML VIAL IM ONE
[2017-07-16 10:00] VITALS: BP 143/81
[2017-07-16 12:07] LABS: Potassium 4.2 mmol/L (3.5-5.1)
== END | disposition home or self-care (01) ==
LOC: CHF HDHVI 08:24
PROVIDERS: ATTEND Internal Medicine
DX: E29.1 Testicular hypofunction (principal); E03.9 Hypothyroidism, unspecified; D51.8 Other vitamin B12 deficiency anemias; R94.4 Abnormal results of kidney function studies; R53.83 Other fatigue; R53.81 Other malaise; I50.9 Heart failure, unspecified; I25.10 Atherosclerotic heart disease of native coronary artery without angina pectoris
CPT/HCPCS: 36415; 82565; 82607; 84132; 84443; 84520; 96372; 96374; G0463; J1071; J1940; J3420

== ENCOUNTER → 2017-07-17 | Outpatient (CLI) | payer MEDICARE, OTHER ==
[~2017-07-17] MED LIST changes: -CYANOCOBALAMIN (B-12) 1000 MCG/1 ML VIAL IM ONE; -CYANOCOBALAMIN (B-12) 1000 MCG/1 ML VIAL ONE; -FUROSEMIDE 40 MG/4 ML VIAL IV ONE; -FUROSEMIDE 40 MG/4 ML VIAL ONE; -POTASSIUM CHL 20 Meq TABLET PO ONE; -TESTOSTERONE CYPIONATE 200 MG/ML 1ML VIAL IM ONE
[2017-07-17 12:30] LABS: Basophils # (auto) 0 uL; Basophils % (auto) 0.4 % (0.0-2.0); Eosinophils # (auto) 0.1 uL; Eosinophils % (auto) 1.1 % (0.0-7.0); Hematocrit 41.7 % (41.0-53.0); Hemoglobin 13.7 g/dL (13.5-17.5); Lymphocytes # (auto) 1.2 uL; Lymphocytes % (auto) 16.6 % (10.0-50.0); Mean Corpuscular Hemoglobin 30.4 pg (28.0-32.0); Mean Corpuscular Hgb Conc. 32.8 g/dL (32.0-36.0); Mean Corpuscular Volume 92.7 fL (80.0-100.0); Monocytes # (auto) 0.9 uL; Monocytes % (auto) 12.9 % (0.0-12.0); Neutrophils # (auto) 4.8 uL; Nucleated Red Blood Cells % 0.1 %; Platelet Count (auto) 144 10^3/uL (140-450); Red Blood Cells 4.49 10^6/uL (4.5-5.90); Red Cell Distribution Width 15.1 % (11.8-14.3)
[2017-07-17 13:05] LABS: Albumin 2.5 g/dL (3.4-5.0); BUN/Creatinine Ratio 24.1; Bilirubin, Total 0.7 mg/dL (0.2-1.0); Calcium 7.9 mg/dL (8.5-10.1); Potassium 4.1 mmol/L (3.5-5.1); Total Protein 5.9 g/dL (6.4-8.2)
== END | disposition home or self-care (01) ==
LOC: LAB 10:49
PROVIDERS: ATTEND Internal Medicine
DX: D64.9 Anemia, unspecified (principal); I12.9 Hypertensive chronic kidney disease with stage 1 through stage 4 chronic kidney disease, or unspecified chronic kidney disease; N18.3 Chronic kidney disease, stage 3 (moderate); Z79.899 Other long term (current) drug therapy
CPT/HCPCS: 36415; 80053; 85025

== ENCOUNTER → 2017-07-18 | Outpatient (CLI) | payer MEDICARE, OTHER ==
[~2017-07-18] MED LIST changes: +KETOROLAC TROMETH 60MG/2ML VIAL IM ONE
[2017-07-18 08:05] VITALS: BP 130/70
== END | disposition home or self-care (01) ==
LOC: CHF HDHVI 08:17
PROVIDERS: ATTEND Internal Medicine
DX: I13.0 Hypertensive heart and chronic kidney disease with heart failure and stage 1 through stage 4 chronic kidney disease, or unspecified chronic kidney disease (principal); N18.3 Chronic kidney disease, stage 3 (moderate); I50.9 Heart failure, unspecified; I25.10 Atherosclerotic heart disease of native coronary artery without angina pectoris; M25.562 Pain in left knee; R60.9 Edema, unspecified
CPT/HCPCS: 96372; G0463; J1885

== ENCOUNTER → 2017-07-20 | Outpatient (CLI) | payer MEDICARE, OTHER ==
[~2017-07-20] MED LIST changes: -KETOROLAC TROMETH 60MG/2ML VIAL IM ONE
[2017-07-20 07:45] VITALS: BP 117/68
[2017-07-20 08:15] VITALS: BP 120/66
== END | disposition home or self-care (01) ==
LOC: CHF HDHVI 07:45
PROVIDERS: ATTEND Internal Medicine
DX: I25.10 Atherosclerotic heart disease of native coronary artery without angina pectoris (principal); I73.9 Peripheral vascular disease, unspecified; I13.0 Hypertensive heart and chronic kidney disease with heart failure and stage 1 through stage 4 chronic kidney disease, or unspecified chronic kidney disease; N18.3 Chronic kidney disease, stage 3 (moderate); I50.9 Heart failure, unspecified; Z79.899 Other long term (current) drug therapy
CPT/HCPCS: G0463

== ENCOUNTER → 2017-07-23 | Outpatient (CLI) | payer MEDICARE, OTHER ==
[~2017-07-23] MED LIST changes: +FUROSEMIDE 100 MG/10ML VIAL IV ONE; +FUROSEMIDE 40 MG/4 ML VIAL ONE; +POTASSIUM CHL 20 Meq TABLET PO ONE; +TESTOSTERONE CYPIONATE 200 MG/ML 1ML VIAL IM ONE
[2017-07-23 08:00] VITALS: BP 126/63
[2017-07-23 09:10] VITALS: BP 102/61
== END | disposition home or self-care (01) ==
LOC: CHF HDHVI 08:13
PROVIDERS: ATTEND Internal Medicine Cardiovascular Disease
DX: I50.9 Heart failure, unspecified (principal); E29.1 Testicular hypofunction
CPT/HCPCS: 96372; 96374; G0463; J1071; J1940

== ENCOUNTER → 2017-07-25 | Outpatient (CLI) | payer MEDICARE, OTHER ==
[~2017-07-25] MED LIST changes: -FUROSEMIDE 100 MG/10ML VIAL IV ONE; -FUROSEMIDE 40 MG/4 ML VIAL ONE; -POTASSIUM CHL 20 Meq TABLET PO ONE; -TESTOSTERONE CYPIONATE 200 MG/ML 1ML VIAL IM ONE
[2017-07-25 08:00] VITALS: BP 134/68
[2017-07-25 08:30] VITALS: BP 105/59
== END | disposition home or self-care (01) ==
LOC: CHF HDHVI 08:09
PROVIDERS: ATTEND Internal Medicine
DX: I13.0 Hypertensive heart and chronic kidney disease with heart failure and stage 1 through stage 4 chronic kidney disease, or unspecified chronic kidney disease (principal); N18.3 Chronic kidney disease, stage 3 (moderate); I50.9 Heart failure, unspecified; I89.0 Lymphedema, not elsewhere classified; E78.5 Hyperlipidemia, unspecified; Z79.899 Other long term (current) drug therapy
CPT/HCPCS: G0463

== ENCOUNTER → 2017-07-27 | Outpatient (CLI) | payer MEDICARE, OTHER ==
[2017-07-27 07:50] VITALS: BP 128/87
[2017-07-27 08:25] VITALS: BP 110/64
== END | disposition home or self-care (01) ==
LOC: CHF HDHVI 08:04
PROVIDERS: ATTEND Internal Medicine
DX: I13.0 Hypertensive heart and chronic kidney disease with heart failure and stage 1 through stage 4 chronic kidney disease, or unspecified chronic kidney disease (principal); N18.3 Chronic kidney disease, stage 3 (moderate); I50.9 Heart failure, unspecified; I89.0 Lymphedema, not elsewhere classified; E78.00 Pure hypercholesterolemia, unspecified; E78.5 Hyperlipidemia, unspecified; Z79.899 Other long term (current) drug therapy
CPT/HCPCS: G0463

== ENCOUNTER → 2017-07-30 | Outpatient (CLI) | payer MEDICARE, OTHER ==
[2017-07-30 08:15] VITALS: BP 96/62
[2017-07-30 08:30] VITALS: BP 96/62
[2017-07-30 08:45] VITALS: BP 117/61
== END | disposition home or self-care (01) ==
LOC: CHF HDHVI 08:18
PROVIDERS: ATTEND Internal Medicine
DX: I87.2 Venous insufficiency (chronic) (peripheral) (principal); I12.9 Hypertensive chronic kidney disease with stage 1 through stage 4 chronic kidney disease, or unspecified chronic kidney disease; E11.22 Type 2 diabetes mellitus with diabetic chronic kidney disease; N18.3 Chronic kidney disease, stage 3 (moderate); E78.00 Pure hypercholesterolemia, unspecified; Z95.0 Presence of cardiac pacemaker; Z79.899 Other long term (current) drug therapy
CPT/HCPCS: G0463

== ENCOUNTER → 2017-08-01 | Outpatient (CLI) | payer MEDICARE, OTHER ==
[2017-08-01 08:30] VITALS: BP 123/73
[2017-08-01 08:45] VITALS: BP 117/69
== END | disposition home or self-care (01) ==
LOC: CHF HDHVI 07:56
PROVIDERS: ATTEND Internal Medicine
DX: I87.2 Venous insufficiency (chronic) (peripheral) (principal); E11.22 Type 2 diabetes mellitus with diabetic chronic kidney disease; I12.9 Hypertensive chronic kidney disease with stage 1 through stage 4 chronic kidney disease, or unspecified chronic kidney disease; N18.3 Chronic kidney disease, stage 3 (moderate); Z79.899 Other long term (current) drug therapy
CPT/HCPCS: G0463

== ENCOUNTER → 2017-08-03 | Outpatient (CLI) | payer MEDICARE, OTHER ==
[~2017-08-03] MED LIST changes: +FUROSEMIDE 40 MG/4 ML VIAL IV ONE; +FUROSEMIDE 40 MG/4 ML VIAL ONE; +POTASSIUM CHL 20 Meq TABLET PO ONE; +TESTOSTERONE CYPIONATE 200 MG/ML 1ML VIAL IM ONE
[2017-08-03 08:00] VITALS: BP 124/75
[2017-08-03 09:22] VITALS: BP 119/83
[2017-08-03 12:31] LABS: Potassium 3.7 mmol/L (3.5-5.1)
== END | disposition home or self-care (01) ==
LOC: CHF HDHVI 08:12
PROVIDERS: ATTEND Internal Medicine Cardiovascular Disease
DX: E29.1 Testicular hypofunction (principal); R94.4 Abnormal results of kidney function studies; I13.0 Hypertensive heart and chronic kidney disease with heart failure and stage 1 through stage 4 chronic kidney disease, or unspecified chronic kidney disease; E03.9 Hypothyroidism, unspecified; I50.23 Acute on chronic systolic (congestive) heart failure; N18.3 Chronic kidney disease, stage 3 (moderate); E11.22 Type 2 diabetes mellitus with diabetic chronic kidney disease; E55.9 Vitamin D deficiency, unspecified; Z79.899 Other long term (current) drug therapy
CPT/HCPCS: 36415; 82565; 84132; 84520; 96372; 96374; G0463; J1071; J1940

== ENCOUNTER → 2017-08-10 | Outpatient (CLI) | payer MEDICARE, OTHER ==
[~2017-08-10] VITALS: Ht 30.5 cm; Wt 100.2 kg
[~2017-08-10] MED LIST changes: +CYANOCOBALAMIN (B-12) 1000 MCG/1 ML VIAL IM ONE; +CYANOCOBALAMIN (B-12) 1000 MCG/1 ML VIAL ONE; +FUROSEMIDE 20 MG/2 ML VIAL IV ONE; +FUROSEMIDE 20 MG/2 ML VIAL ONE; -FUROSEMIDE 40 MG/4 ML VIAL IV ONE; -TESTOSTERONE CYPIONATE 200 MG/ML 1ML VIAL IM ONE
[2017-08-10 08:00] VITALS: BP 134/71
[2017-08-10 08:40] VITALS: BP 111/71
[2017-08-10 12:36] LABS: Albumin 2.4 g/dL (3.4-5.0); BUN/Creatinine Ratio 14.1; Bilirubin, Total 0.7 mg/dL (0.2-1.0); Calcium 8.1 mg/dL (8.5-10.1); Potassium 3.5 mmol/L (3.5-5.1); Total Protein 5.6 g/dL (6.4-8.2)
== END | disposition home or self-care (01) ==
LOC: CHF HDHVI 08:16
PROVIDERS: ATTEND Internal Medicine
DX: I13.0 Hypertensive heart and chronic kidney disease with heart failure and stage 1 through stage 4 chronic kidney disease, or unspecified chronic kidney disease (principal); N18.3 Chronic kidney disease, stage 3 (moderate); D51.9 Vitamin B12 deficiency anemia, unspecified; I50.23 Acute on chronic systolic (congestive) heart failure; E11.22 Type 2 diabetes mellitus with diabetic chronic kidney disease; E78.00 Pure hypercholesterolemia, unspecified; I25.10 Atherosclerotic heart disease of native coronary artery without angina pectoris; E55.9 Vitamin D deficiency, unspecified; E78.5 Hyperlipidemia, unspecified; E03.9 Hypothyroidism, unspecified; Z79.899 Other long term (current) drug therapy
CPT/HCPCS: 36415; 80053; 96372; 96374; G0463; J1940; J3420

== ENCOUNTER → 2017-08-13 | Outpatient (CLI) | payer MEDICARE, OTHER ==
[~2017-08-13] MED LIST changes: -CYANOCOBALAMIN (B-12) 1000 MCG/1 ML VIAL IM ONE; -CYANOCOBALAMIN (B-12) 1000 MCG/1 ML VIAL ONE; -FUROSEMIDE 20 MG/2 ML VIAL IV ONE; +FUROSEMIDE 40 MG/4 ML VIAL IV ONE; +POTASSIUM CHL 10 Meq TABLET PO ONE
[2017-08-13 07:50] VITALS: BP 134/75
[2017-08-13 08:00] VITALS: BP 134/75
[2017-08-13 08:50] VITALS: BP 144/83
== END | disposition home or self-care (01) ==
LOC: CHF HDHVI 08:22
PROVIDERS: ATTEND Internal Medicine
DX: I13.0 Hypertensive heart and chronic kidney disease with heart failure and stage 1 through stage 4 chronic kidney disease, or unspecified chronic kidney disease (principal); I50.23 Acute on chronic systolic (congestive) heart failure; N18.3 Chronic kidney disease, stage 3 (moderate); I25.10 Atherosclerotic heart disease of native coronary artery without angina pectoris; E03.9 Hypothyroidism, unspecified; E55.9 Vitamin D deficiency, unspecified; E78.5 Hyperlipidemia, unspecified; D51.9 Vitamin B12 deficiency anemia, unspecified; Z79.899 Other long term (current) drug therapy
CPT/HCPCS: 96374; G0463; J1940

== ENCOUNTER → 2017-08-15 | Outpatient (CLI) | payer MEDICARE, OTHER ==
[~2017-08-15] MED LIST changes: -FUROSEMIDE 20 MG/2 ML VIAL ONE; -FUROSEMIDE 40 MG/4 ML VIAL IV ONE; -FUROSEMIDE 40 MG/4 ML VIAL ONE; -POTASSIUM CHL 10 Meq TABLET PO ONE; -POTASSIUM CHL 20 Meq TABLET PO ONE
[2017-08-15 08:00] VITALS: BP 119/55
[2017-08-15 08:40] VITALS: BP 112/70
== END | disposition home or self-care (01) ==
LOC: CHF HDHVI 08:17
PROVIDERS: ATTEND Internal Medicine
DX: I13.0 Hypertensive heart and chronic kidney disease with heart failure and stage 1 through stage 4 chronic kidney disease, or unspecified chronic kidney disease (principal); E11.22 Type 2 diabetes mellitus with diabetic chronic kidney disease; N18.3 Chronic kidney disease, stage 3 (moderate); I50.9 Heart failure, unspecified; E87.70 Fluid overload, unspecified; I89.0 Lymphedema, not elsewhere classified; Z95.0 Presence of cardiac pacemaker
CPT/HCPCS: G0463

== ENCOUNTER → 2017-08-17 | Outpatient (CLI) | payer MEDICARE, OTHER | END | disposition home or self-care (01) | LOC: CHF HDHVI 07:57 | PROVIDERS: ATTEND Internal Medicine | DX: I25.10 Atherosclerotic heart disease of native coronary artery without angina pectoris (principal); R60.0 Localized edema; I13.0 Hypertensive heart and chronic kidney disease with heart failure and stage 1 through stage 4 chronic kidney disease, or unspecified chronic kidney disease; E11.22 Type 2 diabetes mellitus with diabetic chronic kidney disease; N18.3 Chronic kidney disease, stage 3 (moderate); I50.9 Heart failure, unspecified; D63.1 Anemia in chronic kidney disease | CPT/HCPCS: G0463 ==

== ENCOUNTER → 2017-08-20 | Outpatient (CLI) | payer MEDICARE, OTHER ==
[~2017-08-20] MED LIST changes: +BUMETANIDE (0.25MG/ML) 4 ML VIAL IV ONE; +BUMETANIDE INJECTION 10 ML ONE; +POTASSIUM CHL 20 Meq TABLET PO ONE; +TESTOSTERONE CYPIONATE 200 MG/ML 1ML VIAL IM ONE
[2017-08-20 08:00] VITALS: BP 118/75
[2017-08-20 11:42] VITALS: BP 121/75
[2017-08-20 12:18] LABS: Basophils # (auto) 0 uL; Basophils % (auto) 0.5 % (0.0-2.0); Eosinophils # (auto) 0.1 uL; Eosinophils % (auto) 1.2 % (0.0-7.0); Hematocrit 42.2 % (41.0-53.0); Hemoglobin 13.9 g/dL (13.5-17.5); Lymphocytes # (auto) 1.1 uL; Mean Corpuscular Hemoglobin 31.6 pg (28.0-32.0); Mean Corpuscular Hgb Conc. 32.8 g/dL (32.0-36.0); Mean Corpuscular Volume 96.2 fL (80.0-100.0); Monocytes # (auto) 0.9 uL; Monocytes % (auto) 13.2 % (0.0-12.0); Neutrophils # (auto) 4.9 uL; Neutrophils % (auto) 69.1 % (37.0-80.0); Nucleated Red Blood Cells % 0.3 %; Platelet Count (auto) 149 10^3/uL (140-450); Red Blood Cells 4.39 10^6/uL (4.5-5.90); Red Cell Distribution Width 17.7 % (11.8-14.3); White Blood Cell 7.1 10^3/uL (4.4-10.8)
[2017-08-20 12:22] LABS: BUN/Creatinine Ratio 20.5; Calcium 7.8 mg/dL (8.5-10.1); Magnesium 2.5 mg/dL (1.6-2.6); Potassium 3.6 mmol/L (3.5-5.1)
== END | disposition home or self-care (01) ==
LOC: CHF HDHVI 08:22
PROVIDERS: ATTEND Internal Medicine Cardiovascular Disease
DX: I13.0 Hypertensive heart and chronic kidney disease with heart failure and stage 1 through stage 4 chronic kidney disease, or unspecified chronic kidney disease (principal); N18.9 Chronic kidney disease, unspecified; I50.23 Acute on chronic systolic (congestive) heart failure; D64.9 Anemia, unspecified; E11.22 Type 2 diabetes mellitus with diabetic chronic kidney disease; D63.1 Anemia in chronic kidney disease; E29.1 Testicular hypofunction; E03.9 Hypothyroidism, unspecified; Z79.899 Other long term (current) drug therapy
CPT/HCPCS: 36415; 80048; 82306; 83735; 85025; 96372; 96374; G0463; J1071

== ENCOUNTER → 2017-08-22 | Outpatient (CLI) | payer MEDICARE, OTHER ==
[~2017-08-22] MED LIST changes: -BUMETANIDE (0.25MG/ML) 4 ML VIAL IV ONE; -BUMETANIDE INJECTION 10 ML ONE; -POTASSIUM CHL 20 Meq TABLET PO ONE; -TESTOSTERONE CYPIONATE 200 MG/ML 1ML VIAL IM ONE
[2017-08-22 08:00] VITALS: BP 111/68
[2017-08-22 08:30] VITALS: BP 121/71
== END | disposition home or self-care (01) ==
LOC: CHF HDHVI 07:54
PROVIDERS: ATTEND Internal Medicine
DX: I73.9 Peripheral vascular disease, unspecified (principal); R60.0 Localized edema
CPT/HCPCS: G0463

== ENCOUNTER → 2017-08-27 | Outpatient (CLI) | payer MEDICARE, OTHER ==
[2017-08-27 08:00] VITALS: BP 113/77
[2017-08-27 12:36] LABS: Magnesium 2.1 mg/dL (1.6-2.6); Potassium 3.5 mmol/L (3.5-5.1)
== END | disposition home or self-care (01) ==
LOC: CHF HDHVI 08:05
PROVIDERS: ATTEND Internal Medicine
DX: I13.0 Hypertensive heart and chronic kidney disease with heart failure and stage 1 through stage 4 chronic kidney disease, or unspecified chronic kidney disease (principal); E11.22 Type 2 diabetes mellitus with diabetic chronic kidney disease; N18.3 Chronic kidney disease, stage 3 (moderate); I50.9 Heart failure, unspecified; E78.00 Pure hypercholesterolemia, unspecified; E78.5 Hyperlipidemia, unspecified; E03.9 Hypothyroidism, unspecified
CPT/HCPCS: 36415; 82565; 83735; 84132; 84520; 93701; G0463

== ENCOUNTER → 2017-08-29 | Outpatient (CLI) | payer MEDICARE, OTHER ==
[2017-08-29 08:00] VITALS: BP 104/59
[2017-08-29 08:55] VITALS: BP 107/70
== END | disposition home or self-care (01) ==
LOC: CHF HDHVI 08:05
PROVIDERS: ATTEND Internal Medicine
DX: I25.10 Atherosclerotic heart disease of native coronary artery without angina pectoris (principal); R60.0 Localized edema; I13.0 Hypertensive heart and chronic kidney disease with heart failure and stage 1 through stage 4 chronic kidney disease, or unspecified chronic kidney disease; E11.22 Type 2 diabetes mellitus with diabetic chronic kidney disease; I50.9 Heart failure, unspecified; N18.3 Chronic kidney disease, stage 3 (moderate); E78.5 Hyperlipidemia, unspecified; E03.9 Hypothyroidism, unspecified; Z79.899 Other long term (current) drug therapy
CPT/HCPCS: G0463

== ENCOUNTER → 2017-08-31 | Outpatient (CLI) | payer MEDICARE, OTHER ==
[~2017-08-31] MED LIST changes: +METOLAZONE 5 MG TAB PO ONE
[2017-08-31 08:00] VITALS: BP 119/68
[2017-08-31 08:50] VITALS: BP 111/66
== END | disposition home or self-care (01) ==
LOC: CHF HDHVI 08:04
PROVIDERS: ATTEND Internal Medicine
DX: I89.0 Lymphedema, not elsewhere classified (principal); I13.0 Hypertensive heart and chronic kidney disease with heart failure and stage 1 through stage 4 chronic kidney disease, or unspecified chronic kidney disease; E11.22 Type 2 diabetes mellitus with diabetic chronic kidney disease; I50.9 Heart failure, unspecified; N18.3 Chronic kidney disease, stage 3 (moderate); E78.00 Pure hypercholesterolemia, unspecified; E03.9 Hypothyroidism, unspecified; E78.5 Hyperlipidemia, unspecified; Z79.899 Other long term (current) drug therapy
CPT/HCPCS: G0463

== ENCOUNTER → 2017-09-03 | Outpatient (CLI) | payer MEDICARE, OTHER ==
[~2017-09-03] MED LIST changes: -METOLAZONE 5 MG TAB PO ONE
[2017-09-03 08:00] VITALS: BP 91/54
[2017-09-03 08:45] VITALS: BP 101/64
[2017-09-03 12:24] LABS: Potassium 3.7 mmol/L (3.5-5.1)
== END | disposition home or self-care (01) ==
LOC: CHF HDHVI 08:07
PROVIDERS: ATTEND Internal Medicine
DX: I13.0 Hypertensive heart and chronic kidney disease with heart failure and stage 1 through stage 4 chronic kidney disease, or unspecified chronic kidney disease (principal); E11.22 Type 2 diabetes mellitus with diabetic chronic kidney disease; N18.3 Chronic kidney disease, stage 3 (moderate); I50.23 Acute on chronic systolic (congestive) heart failure; E78.00 Pure hypercholesterolemia, unspecified; E78.5 Hyperlipidemia, unspecified; E03.9 Hypothyroidism, unspecified; Z79.899 Other long term (current) drug therapy
CPT/HCPCS: 36415; 82565; 84132; 84520; G0463

== ENCOUNTER → 2017-09-05 | Outpatient (CLI) | payer MEDICARE, OTHER ==
[2017-09-05 08:00] VITALS: BP 112/67
[2017-09-05 08:32] VITALS: BP 119/75
== END | disposition home or self-care (01) ==
LOC: CHF HDHVI 07:45
PROVIDERS: ATTEND Internal Medicine
DX: I25.10 Atherosclerotic heart disease of native coronary artery without angina pectoris (principal); I13.0 Hypertensive heart and chronic kidney disease with heart failure and stage 1 through stage 4 chronic kidney disease, or unspecified chronic kidney disease; E11.22 Type 2 diabetes mellitus with diabetic chronic kidney disease; N18.3 Chronic kidney disease, stage 3 (moderate); I50.9 Heart failure, unspecified; E03.9 Hypothyroidism, unspecified; E78.5 Hyperlipidemia, unspecified; R60.0 Localized edema; E78.00 Pure hypercholesterolemia, unspecified; Z79.899 Other long term (current) drug therapy
CPT/HCPCS: G0463

== ENCOUNTER → 2017-09-07 | Outpatient (CLI) | payer MEDICARE, OTHER ==
[2017-09-07 08:00] VITALS: BP 102/66
[2017-09-07 09:00] VITALS: BP 100/66
== END | disposition home or self-care (01) ==
LOC: CHF HDHVI 08:02
PROVIDERS: ATTEND Internal Medicine
DX: I87.2 Venous insufficiency (chronic) (peripheral) (principal); I13.0 Hypertensive heart and chronic kidney disease with heart failure and stage 1 through stage 4 chronic kidney disease, or unspecified chronic kidney disease; E11.22 Type 2 diabetes mellitus with diabetic chronic kidney disease; N18.3 Chronic kidney disease, stage 3 (moderate); I50.9 Heart failure, unspecified; E78.5 Hyperlipidemia, unspecified; E03.9 Hypothyroidism, unspecified; E78.00 Pure hypercholesterolemia, unspecified; Z79.899 Other long term (current) drug therapy
CPT/HCPCS: G0463

== ENCOUNTER → 2017-09-12 | Outpatient (CLI) | payer MEDICARE, OTHER ==
[~2017-09-12] MED LIST changes: +FUROSEMIDE 20 MG/2 ML VIAL ONE; +FUROSEMIDE 40 MG/4 ML VIAL ONE; +POTASSIUM CHL 10 Meq TABLET PO ONE; +POTASSIUM CHL 20 Meq TABLET PO ONE
[2017-09-12 07:53] VITALS: BP 108/64
[2017-09-12 09:00] VITALS: BP 119/80
[2017-09-12 12:24] LABS: BUN/Creatinine Ratio 22.2; Calcium 8.4 mg/dL (8.5-10.1); Magnesium 2.8 mg/dL (1.6-2.6); Potassium 4.1 mmol/L (3.5-5.1)
== END | disposition home or self-care (01) ==
LOC: CHF HDHVI 07:56
PROVIDERS: ATTEND Internal Medicine
DX: I13.0 Hypertensive heart and chronic kidney disease with heart failure and stage 1 through stage 4 chronic kidney disease, or unspecified chronic kidney disease (principal); I50.23 Acute on chronic systolic (congestive) heart failure; N18.3 Chronic kidney disease, stage 3 (moderate); E11.22 Type 2 diabetes mellitus with diabetic chronic kidney disease; I25.10 Atherosclerotic heart disease of native coronary artery without angina pectoris; R60.0 Localized edema; E87.70 Fluid overload, unspecified; E03.9 Hypothyroidism, unspecified; E78.00 Pure hypercholesterolemia, unspecified; Z79.899 Other long term (current) drug therapy; Z95.0 Presence of cardiac pacemaker
CPT/HCPCS: 36415; 80048; 83036; 83735; 96374; G0463; J1940

== ENCOUNTER → 2017-09-14 | Outpatient (CLI) | payer MEDICARE, OTHER ==
[~2017-09-14] MED LIST changes: -FUROSEMIDE 20 MG/2 ML VIAL ONE; -FUROSEMIDE 40 MG/4 ML VIAL ONE; -POTASSIUM CHL 10 Meq TABLET PO ONE; -POTASSIUM CHL 20 Meq TABLET PO ONE
[2017-09-14 07:55] VITALS: BP 98/63
[2017-09-14 08:45] VITALS: BP 117/72
== END | disposition home or self-care (01) ==
LOC: CHF HDHVI 08:06
PROVIDERS: ATTEND Internal Medicine
DX: I87.2 Venous insufficiency (chronic) (peripheral) (principal); I13.0 Hypertensive heart and chronic kidney disease with heart failure and stage 1 through stage 4 chronic kidney disease, or unspecified chronic kidney disease; E11.22 Type 2 diabetes mellitus with diabetic chronic kidney disease; N18.3 Chronic kidney disease, stage 3 (moderate); I50.23 Acute on chronic systolic (congestive) heart failure; E03.9 Hypothyroidism, unspecified; E78.5 Hyperlipidemia, unspecified; Z95.0 Presence of cardiac pacemaker
CPT/HCPCS: G0463

== ENCOUNTER → 2017-09-19 | Outpatient (CLI) | payer MEDICARE, OTHER ==
[2017-09-19 07:55] VITALS: BP 115/66
[2017-09-19 08:20] VITALS: BP 111/73
== END | disposition home or self-care (01) ==
LOC: CHF HDHVI 08:04
PROVIDERS: ATTEND Internal Medicine
DX: E11.22 Type 2 diabetes mellitus with diabetic chronic kidney disease (principal); I12.9 Hypertensive chronic kidney disease with stage 1 through stage 4 chronic kidney disease, or unspecified chronic kidney disease; N18.3 Chronic kidney disease, stage 3 (moderate); E78.5 Hyperlipidemia, unspecified; E03.9 Hypothyroidism, unspecified; Z79.899 Other long term (current) drug therapy; E78.00 Pure hypercholesterolemia, unspecified
CPT/HCPCS: G0463

== ENCOUNTER → 2017-09-21 | Outpatient (CLI) | payer MEDICARE, OTHER ==
[2017-09-21 08:00] VITALS: BP 118/80
[2017-09-21 08:30] VITALS: BP 124/77
== END | disposition home or self-care (01) ==
LOC: CHF HDHVI 08:03
PROVIDERS: ATTEND Internal Medicine
DX: I25.10 Atherosclerotic heart disease of native coronary artery without angina pectoris (principal); I12.9 Hypertensive chronic kidney disease with stage 1 through stage 4 chronic kidney disease, or unspecified chronic kidney disease; E11.22 Type 2 diabetes mellitus with diabetic chronic kidney disease; I50.9 Heart failure, unspecified; R60.0 Localized edema; N18.3 Chronic kidney disease, stage 3 (moderate); E78.5 Hyperlipidemia, unspecified; E03.9 Hypothyroidism, unspecified; E78.00 Pure hypercholesterolemia, unspecified
CPT/HCPCS: G0463

== ENCOUNTER → 2017-09-24 | Outpatient (CLI) | payer MEDICARE, OTHER ==
[2017-09-24 08:00] VITALS: BP 121/70
[2017-09-24 08:10] VITALS: BP 121/70
[2017-09-24 08:30] VITALS: BP 105/72
== END | disposition home or self-care (01) ==
LOC: CHF HDHVI 08:26
PROVIDERS: ATTEND Internal Medicine
DX: E87.70 Fluid overload, unspecified (principal); I13.0 Hypertensive heart and chronic kidney disease with heart failure and stage 1 through stage 4 chronic kidney disease, or unspecified chronic kidney disease; E11.22 Type 2 diabetes mellitus with diabetic chronic kidney disease; N18.3 Chronic kidney disease, stage 3 (moderate); I50.9 Heart failure, unspecified; E78.5 Hyperlipidemia, unspecified; E03.9 Hypothyroidism, unspecified; E78.00 Pure hypercholesterolemia, unspecified; Z79.899 Other long term (current) drug therapy
CPT/HCPCS: G0463

== ENCOUNTER → 2017-09-26 | Outpatient (CLI) | payer MEDICARE, OTHER ==
[2017-09-26 07:40] VITALS: BP 117/77
[2017-09-26 08:20] VITALS: BP 126/81
[2017-09-26 09:51] VITALS: BP 119/77
== END | disposition home or self-care (01) ==
LOC: CHF HDHVI 08:04
PROVIDERS: ATTEND Internal Medicine
DX: I25.10 Atherosclerotic heart disease of native coronary artery without angina pectoris (principal); N40.0 Benign prostatic hyperplasia without lower urinary tract symptoms; E78.5 Hyperlipidemia, unspecified; E07.9 Disorder of thyroid, unspecified; I13.0 Hypertensive heart and chronic kidney disease with heart failure and stage 1 through stage 4 chronic kidney disease, or unspecified chronic kidney disease; N18.3 Chronic kidney disease, stage 3 (moderate); I50.9 Heart failure, unspecified; E03.9 Hypothyroidism, unspecified
CPT/HCPCS: G0463

== ENCOUNTER → 2017-09-28 | Outpatient (CLI) | payer MEDICARE, OTHER ==
[2017-09-28 07:50] VITALS: BP 127/80
[2017-09-28 08:25] VITALS: BP 127/76
== END | disposition home or self-care (01) ==
LOC: CHF HDHVI 07:59
PROVIDERS: ATTEND Internal Medicine
DX: I87.2 Venous insufficiency (chronic) (peripheral) (principal); R60.0 Localized edema; I13.0 Hypertensive heart and chronic kidney disease with heart failure and stage 1 through stage 4 chronic kidney disease, or unspecified chronic kidney disease; E11.22 Type 2 diabetes mellitus with diabetic chronic kidney disease; N18.3 Chronic kidney disease, stage 3 (moderate); I50.9 Heart failure, unspecified; E03.9 Hypothyroidism, unspecified; E78.5 Hyperlipidemia, unspecified; Z79.899 Other long term (current) drug therapy
CPT/HCPCS: G0463

== ENCOUNTER → 2017-10-01 | Outpatient (CLI) | payer MEDICARE, OTHER ==
[~2017-10-01] MED LIST changes: +FUROSEMIDE 20 MG/2 ML VIAL ONE; +FUROSEMIDE 40 MG/4 ML VIAL IV ONE; +FUROSEMIDE 40 MG/4 ML VIAL ONE; +POTASSIUM CHL 20 Meq TABLET PO ONE
[2017-10-01 08:00] VITALS: BP 108/68
[2017-10-01 08:45] VITALS: BP 127/77
[2017-10-01 12:05] LABS: Basophils # (auto) 0 uL; Basophils % (auto) 0.5 % (0.0-2.0); Eosinophils # (auto) 0.1 uL; Eosinophils % (auto) 2.2 % (0.0-7.0); Hematocrit 46.2 % (41.0-53.0); Lymphocytes % (auto) 18.7 % (10.0-50.0); Mean Corpuscular Hemoglobin 31.2 pg (28.0-32.0); Mean Corpuscular Hgb Conc. 32.4 g/dL (32.0-36.0); Mean Corpuscular Volume 96.4 fL (80.0-100.0); Monocytes # (auto) 0.6 uL; Monocytes % (auto) 11.6 % (0.0-12.0); Neutrophils # (auto) 3.7 uL; Nucleated Red Blood Cells % 0.2 %; Platelet Count (auto) 142 10^3/uL (140-450); White Blood Cell 5.5 10^3/uL (4.4-10.8)
[2017-10-01 12:19] LABS: BUN/Creatinine Ratio 23.8; Calcium 7.9 mg/dL (8.5-10.1); Magnesium 2.6 mg/dL (1.6-2.6); Potassium 3.9 mmol/L (3.5-5.1)
== END | disposition home or self-care (01) ==
LOC: CHF HDHVI 08:09
PROVIDERS: ATTEND Internal Medicine
DX: E83.40 Disorders of magnesium metabolism, unspecified (principal); D64.9 Anemia, unspecified; I13.0 Hypertensive heart and chronic kidney disease with heart failure and stage 1 through stage 4 chronic kidney disease, or unspecified chronic kidney disease; I50.23 Acute on chronic systolic (congestive) heart failure; E11.22 Type 2 diabetes mellitus with diabetic chronic kidney disease; N18.3 Chronic kidney disease, stage 3 (moderate); I25.10 Atherosclerotic heart disease of native coronary artery without angina pectoris; I87.2 Venous insufficiency (chronic) (peripheral); R60.0 Localized edema; E87.70 Fluid overload, unspecified; E78.5 Hyperlipidemia, unspecified; E03.9 Hypothyroidism, unspecified; E78.00 Pure hypercholesterolemia, unspecified; Z79.899 Other long term (current) drug therapy; Z95.0 Presence of cardiac pacemaker
CPT/HCPCS: 36415; 80048; 83735; 85025; 96374; G0463; J1940

== ENCOUNTER → 2017-10-03 | Outpatient (CLI) | payer MEDICARE, OTHER ==
[~2017-10-03] MED LIST changes: -FUROSEMIDE 20 MG/2 ML VIAL ONE; -FUROSEMIDE 40 MG/4 ML VIAL IV ONE; -FUROSEMIDE 40 MG/4 ML VIAL ONE; -POTASSIUM CHL 20 Meq TABLET PO ONE
[2017-10-03 07:56] VITALS: BP 108/82
[2017-10-03 08:35] VITALS: BP 107/86
[2017-10-03 09:09] LABS: Basophils # (auto) 0 uL; Basophils % (auto) 0.6 % (0.0-2.0); Eosinophils # (auto) 0.1 uL; Eosinophils % (auto) 1.8 % (0.0-7.0); Hematocrit 47.5 % (41.0-53.0); Hemoglobin 15.8 g/dL (13.5-17.5); Lymphocytes # (auto) 1.2 uL; Lymphocytes % (auto) 21.7 % (10.0-50.0); Mean Corpuscular Hemoglobin 31.7 pg (28.0-32.0); Mean Corpuscular Hgb Conc. 33.3 g/dL (32.0-36.0); Mean Corpuscular Volume 95.3 fL (80.0-100.0); Monocytes # (auto) 0.6 uL; Monocytes % (auto) 11.2 % (0.0-12.0); Neutrophils # (auto) 3.6 uL; Neutrophils % (auto) 64.7 % (37.0-80.0); Platelet Count (auto) 149 10^3/uL (140-450); Red Blood Cells 4.99 10^6/uL (4.5-5.90); Red Cell Distribution Width 14.4 % (11.8-14.3); White Blood Cell 5.5 10^3/uL (4.4-10.8)
[2017-10-03 09:17] LABS: Calcium 8.2 mg/dL (8.5-10.1); Magnesium 2.2 mg/dL (1.6-2.6); Potassium 3.5 mmol/L (3.5-5.1)
== END | disposition home or self-care (01) ==
LOC: CHF HDHVI 08:09
PROVIDERS: ATTEND Internal Medicine
DX: D64.9 Anemia, unspecified (principal); E83.40 Disorders of magnesium metabolism, unspecified; I11.0 Hypertensive heart disease with heart failure; I50.9 Heart failure, unspecified; E87.70 Fluid overload, unspecified
CPT/HCPCS: 36415; 80048; 83735; 85025; G0463

== ENCOUNTER → 2017-10-05 | Outpatient (CLI) | payer MEDICARE, OTHER ==
[2017-10-05 08:48] VITALS: BP 123/80
== END | disposition home or self-care (01) ==
LOC: CHF HDHVI 07:55
PROVIDERS: ATTEND Internal Medicine
DX: I87.2 Venous insufficiency (chronic) (peripheral) (principal); I13.0 Hypertensive heart and chronic kidney disease with heart failure and stage 1 through stage 4 chronic kidney disease, or unspecified chronic kidney disease; E11.22 Type 2 diabetes mellitus with diabetic chronic kidney disease; I50.23 Acute on chronic systolic (congestive) heart failure; N18.3 Chronic kidney disease, stage 3 (moderate); I25.10 Atherosclerotic heart disease of native coronary artery without angina pectoris; E78.5 Hyperlipidemia, unspecified; E03.9 Hypothyroidism, unspecified; E78.00 Pure hypercholesterolemia, unspecified; F41.9 Anxiety disorder, unspecified; Z79.899 Other long term (current) drug therapy
CPT/HCPCS: G0463

== ENCOUNTER → 2017-10-08 | Outpatient (CLI) | payer MEDICARE, OTHER ==
[~2017-10-08] MED LIST changes: +FUROSEMIDE 40 MG/4 ML VIAL IV ONE; +FUROSEMIDE 40 MG/4 ML VIAL ONE; +POTASSIUM CHL 20 Meq TABLET PO ONE
[2017-10-08 08:00] VITALS: BP 128/71
[2017-10-08 08:35] VITALS: BP 128/72
== END | disposition home or self-care (01) ==
LOC: CHF HDHVI 07:52
PROVIDERS: ATTEND Internal Medicine
DX: R60.0 Localized edema (principal); I13.0 Hypertensive heart and chronic kidney disease with heart failure and stage 1 through stage 4 chronic kidney disease, or unspecified chronic kidney disease; E11.22 Type 2 diabetes mellitus with diabetic chronic kidney disease; N18.3 Chronic kidney disease, stage 3 (moderate); I50.23 Acute on chronic systolic (congestive) heart failure; I25.10 Atherosclerotic heart disease of native coronary artery without angina pectoris; I87.2 Venous insufficiency (chronic) (peripheral); F41.9 Anxiety disorder, unspecified; E78.5 Hyperlipidemia, unspecified; E03.9 Hypothyroidism, unspecified; E78.00 Pure hypercholesterolemia, unspecified; E83.40 Disorders of magnesium metabolism, unspecified; Z79.899 Other long term (current) drug therapy; Z95.0 Presence of cardiac pacemaker
CPT/HCPCS: 96374; G0463; J1940

== ENCOUNTER → 2017-10-10 | Outpatient (CLI) | payer MEDICARE, OTHER ==
[~2017-10-10] MED LIST changes: -FUROSEMIDE 40 MG/4 ML VIAL IV ONE; -FUROSEMIDE 40 MG/4 ML VIAL ONE; -POTASSIUM CHL 20 Meq TABLET PO ONE
[2017-10-10 08:00] VITALS: BP 99/65
[2017-10-10 08:30] VITALS: BP 118/74
== END | disposition home or self-care (01) ==
LOC: CHF HDHVI 08:06
PROVIDERS: ATTEND Internal Medicine
DX: I13.0 Hypertensive heart and chronic kidney disease with heart failure and stage 1 through stage 4 chronic kidney disease, or unspecified chronic kidney disease (principal); I50.23 Acute on chronic systolic (congestive) heart failure; N18.3 Chronic kidney disease, stage 3 (moderate); E11.22 Type 2 diabetes mellitus with diabetic chronic kidney disease; F41.9 Anxiety disorder, unspecified; I25.10 Atherosclerotic heart disease of native coronary artery without angina pectoris; E78.00 Pure hypercholesterolemia, unspecified; E03.9 Hypothyroidism, unspecified; Z79.899 Other long term (current) drug therapy
CPT/HCPCS: 71046; G0463

== ENCOUNTER → 2017-10-15 | Outpatient (CLI) | payer MEDICARE, OTHER ==
[~2017-10-15] MED LIST changes: +CYANOCOBALAMIN (B-12) 1000 MCG/1 ML VIAL IM ONE; +CYANOCOBALAMIN (B-12) 1000 MCG/1 ML VIAL ONE; +FUROSEMIDE 40 MG/4 ML VIAL ONE; +POTASSIUM CHL 20 Meq TABLET PO ONE
[2017-10-15 07:50] VITALS: BP 100/73
[2017-10-15 08:25] VITALS: BP 101/71
[2017-10-15 12:25] LABS: Potassium 3.3 mmol/L (3.5-5.1)
== END | disposition home or self-care (01) ==
LOC: CHF HDHVI 08:04
PROVIDERS: ATTEND Internal Medicine
DX: E87.6 Hypokalemia (principal); R94.4 Abnormal results of kidney function studies; R60.0 Localized edema; I25.10 Atherosclerotic heart disease of native coronary artery without angina pectoris; I13.0 Hypertensive heart and chronic kidney disease with heart failure and stage 1 through stage 4 chronic kidney disease, or unspecified chronic kidney disease; I50.23 Acute on chronic systolic (congestive) heart failure; E11.22 Type 2 diabetes mellitus with diabetic chronic kidney disease; N18.3 Chronic kidney disease, stage 3 (moderate); E03.9 Hypothyroidism, unspecified; E78.5 Hyperlipidemia, unspecified; Z95.0 Presence of cardiac pacemaker; Z79.899 Other long term (current) drug therapy
CPT/HCPCS: 36415; 82565; 84132; 84520; 96372; G0463; J3420

== ENCOUNTER → 2017-10-18 | Outpatient (CLI) | payer MEDICARE, OTHER ==
[~2017-10-18] MED LIST changes: -CYANOCOBALAMIN (B-12) 1000 MCG/1 ML VIAL IM ONE; -CYANOCOBALAMIN (B-12) 1000 MCG/1 ML VIAL ONE; -FUROSEMIDE 40 MG/4 ML VIAL ONE
[2017-10-18 08:00] VITALS: BP 93/61
[2017-10-18] MEDS: POTASSIUM CHL 20 Meq TABLET PO ONE (08:30)
[2017-10-18 08:41] VITALS: BP 109/73
== END | disposition home or self-care (01) ==
LOC: CHF HDHVI 08:04
PROVIDERS: ATTEND Internal Medicine Cardiovascular Disease
DX: E87.6 Hypokalemia (principal); I25.10 Atherosclerotic heart disease of native coronary artery without angina pectoris; R60.0 Localized edema; I13.0 Hypertensive heart and chronic kidney disease with heart failure and stage 1 through stage 4 chronic kidney disease, or unspecified chronic kidney disease; E11.22 Type 2 diabetes mellitus with diabetic chronic kidney disease; I50.23 Acute on chronic systolic (congestive) heart failure; N18.3 Chronic kidney disease, stage 3 (moderate); E78.5 Hyperlipidemia, unspecified; E03.9 Hypothyroidism, unspecified; F41.9 Anxiety disorder, unspecified; E78.00 Pure hypercholesterolemia, unspecified; Z79.899 Other long term (current) drug therapy
CPT/HCPCS: G0463

== ENCOUNTER → 2017-10-22 | Outpatient (CLI) | payer MEDICARE, OTHER ==
[~2017-10-22] MED LIST changes: -POTASSIUM CHL 20 Meq TABLET PO ONE
[2017-10-22 07:40] VITALS: BP 123/73
[2017-10-22 08:30] VITALS: BP 135/70
[2017-10-22 12:53] LABS: Basophils # (auto) 0 uL; Basophils % (auto) 0.7 % (0.0-2.0); Eosinophils # (auto) 0.1 uL; Eosinophils % (auto) 1.4 % (0.0-7.0); Hematocrit 48.1 % (41.0-53.0); Hemoglobin 16.3 g/dL (13.5-17.5); Lymphocytes % (auto) 19.4 % (10.0-50.0); Mean Corpuscular Hemoglobin 31.9 pg (28.0-32.0); Mean Corpuscular Hgb Conc. 33.9 g/dL (32.0-36.0); Monocytes # (auto) 0.6 uL; Monocytes % (auto) 11.3 % (0.0-12.0); Neutrophils # (auto) 3.6 uL; Neutrophils % (auto) 67.2 % (37.0-80.0); Nucleated Red Blood Cells % 0.1 %; Platelet Count (auto) 123 10^3/uL (140-450); Red Blood Cells 5.11 10^6/uL (4.5-5.90); Red Cell Distribution Width 13.5 % (11.8-14.3); White Blood Cell 5.4 10^3/uL (4.4-10.8)
[2017-10-22 13:04] LABS: BUN/Creatinine Ratio 27.8; Calcium 8.5 mg/dL (8.5-10.1); Magnesium 2.4 mg/dL (1.6-2.6); Potassium 3.3 mmol/L (3.5-5.1)
== END | disposition home or self-care (01) ==
LOC: CHF HDHVI 07:55
PROVIDERS: ATTEND Internal Medicine Cardiovascular Disease
DX: I13.0 Hypertensive heart and chronic kidney disease with heart failure and stage 1 through stage 4 chronic kidney disease, or unspecified chronic kidney disease (principal); E11.22 Type 2 diabetes mellitus with diabetic chronic kidney disease; I50.23 Acute on chronic systolic (congestive) heart failure; N18.3 Chronic kidney disease, stage 3 (moderate); E83.42 Hypomagnesemia; D64.9 Anemia, unspecified; I25.10 Atherosclerotic heart disease of native coronary artery without angina pectoris; R60.0 Localized edema; E07.9 Disorder of thyroid, unspecified; F41.9 Anxiety disorder, unspecified; E78.5 Hyperlipidemia, unspecified; E03.9 Hypothyroidism, unspecified; Z79.899 Other long term (current) drug therapy
CPT/HCPCS: 36415; 80048; 83735; 85025; G0463

== ENCOUNTER → 2017-10-25 | Outpatient (CLI) | payer MEDICARE, OTHER ==
[2017-10-25 07:55] VITALS: BP 128/77
[2017-10-25 08:35] VITALS: BP 125/78
== END | disposition home or self-care (01) ==
LOC: CHF HDHVI 08:06
PROVIDERS: ATTEND Internal Medicine
DX: I25.10 Atherosclerotic heart disease of native coronary artery without angina pectoris (principal); R60.0 Localized edema; I13.0 Hypertensive heart and chronic kidney disease with heart failure and stage 1 through stage 4 chronic kidney disease, or unspecified chronic kidney disease; E11.22 Type 2 diabetes mellitus with diabetic chronic kidney disease; I50.23 Acute on chronic systolic (congestive) heart failure; N18.3 Chronic kidney disease, stage 3 (moderate); F41.9 Anxiety disorder, unspecified; E78.5 Hyperlipidemia, unspecified; E03.9 Hypothyroidism, unspecified; Z79.899 Other long term (current) drug therapy
CPT/HCPCS: G0463

== ENCOUNTER → 2017-11-22 | Outpatient (CLI) | payer MEDICARE, OTHER ==
[2017-11-22 07:55] VITALS: BP 135/79
[2017-11-22 08:54] VITALS: BP 116/70
[2017-11-22 12:05] LABS: Basophils # (auto) 0 uL; Basophils % (auto) 0.3 % (0.0-2.0); Eosinophils # (auto) 0 uL; Eosinophils % (auto) 0.7 % (0.0-7.0); Hematocrit 46.9 % (41.0-53.0); Hemoglobin 15.9 g/dL (13.5-17.5); Lymphocytes # (auto) 1.1 uL; Lymphocytes % (auto) 16.6 % (10.0-50.0); Mean Corpuscular Hemoglobin 31.3 pg (28.0-32.0); Mean Corpuscular Volume 92.2 fL (80.0-100.0); Monocytes # (auto) 0.9 uL; Monocytes % (auto) 13.2 % (0.0-12.0); Neutrophils # (auto) 4.6 uL; Neutrophils % (auto) 69.2 % (37.0-80.0); Nucleated Red Blood Cells % 0.1 %; Platelet Count (auto) 139 10^3/uL (140-450); Red Blood Cells 5.08 10^6/uL (4.5-5.90); Red Cell Distribution Width 13.2 % (11.8-14.3); White Blood Cell 6.7 10^3/uL (4.4-10.8)
[2017-11-22 12:58] LABS: BUN/Creatinine Ratio 23.8; Calcium 8.3 mg/dL (8.5-10.1); Potassium 3.6 mmol/L (3.5-5.1)
== END | disposition home or self-care (01) ==
LOC: CHF HDHVI 08:01
PROVIDERS: ATTEND Internal Medicine
DX: I13.0 Hypertensive heart and chronic kidney disease with heart failure and stage 1 through stage 4 chronic kidney disease, or unspecified chronic kidney disease (principal); E11.22 Type 2 diabetes mellitus with diabetic chronic kidney disease; I50.9 Heart failure, unspecified; N18.3 Chronic kidney disease, stage 3 (moderate); E29.1 Testicular hypofunction; C61 Malignant neoplasm of prostate; D64.9 Anemia, unspecified; E03.9 Hypothyroidism, unspecified
CPT/HCPCS: 36415; 80048; 84153; 84403; 85025; G0463

== ENCOUNTER → 2017-11-26 | Outpatient (CLI) | payer MEDICARE, OTHER ==
[2017-11-26 07:50] VITALS: BP 118/70
[2017-11-26 09:00] VITALS: BP 117/69
[2017-11-26 13:05] LABS: Potassium 3.8 mmol/L (3.5-5.1)
== END | disposition home or self-care (01) ==
LOC: CHF HDHVI 07:58
PROVIDERS: ATTEND Internal Medicine
DX: E78.6 Lipoprotein deficiency (principal); R84.4 Abnormal immunological findings in specimens from respiratory organs and thorax; E03.9 Hypothyroidism, unspecified; I25.10 Atherosclerotic heart disease of native coronary artery without angina pectoris; E78.00 Pure hypercholesterolemia, unspecified; I87.2 Venous insufficiency (chronic) (peripheral); I13.0 Hypertensive heart and chronic kidney disease with heart failure and stage 1 through stage 4 chronic kidney disease, or unspecified chronic kidney disease; E11.22 Type 2 diabetes mellitus with diabetic chronic kidney disease; N18.3 Chronic kidney disease, stage 3 (moderate); I50.9 Heart failure, unspecified; Z85.46 Personal history of malignant neoplasm of prostate
CPT/HCPCS: 36415; 82565; 84132; 84520; G0463

== ENCOUNTER → 2017-11-29 | Outpatient (CLI) | payer MEDICARE, OTHER ==
[2017-11-29 07:48] VITALS: BP 106/67
[2017-11-29 08:25] VITALS: BP 116/82
== END | disposition home or self-care (01) ==
LOC: CHF HDHVI 07:55
PROVIDERS: ATTEND Internal Medicine
DX: I13.0 Hypertensive heart and chronic kidney disease with heart failure and stage 1 through stage 4 chronic kidney disease, or unspecified chronic kidney disease (principal); I50.9 Heart failure, unspecified; E11.22 Type 2 diabetes mellitus with diabetic chronic kidney disease; N18.3 Chronic kidney disease, stage 3 (moderate); I89.0 Lymphedema, not elsewhere classified; I25.10 Atherosclerotic heart disease of native coronary artery without angina pectoris; E03.9 Hypothyroidism, unspecified; E78.00 Pure hypercholesterolemia, unspecified; E78.5 Hyperlipidemia, unspecified; F41.9 Anxiety disorder, unspecified; Z79.899 Other long term (current) drug therapy
CPT/HCPCS: G0463

== ENCOUNTER → 2017-12-03 | Outpatient (CLI) | payer MEDICARE, OTHER ==
[2017-12-03 14:15] VITALS: BP 131/78
[2017-12-03 14:30] VITALS: BP 124/70
== END | disposition home or self-care (01) ==
LOC: CHF HDHVI 14:10
PROVIDERS: ATTEND Internal Medicine
DX: I89.0 Lymphedema, not elsewhere classified (principal)
CPT/HCPCS: G0463

== ENCOUNTER → 2017-12-06 | Outpatient (CLI) | payer MEDICARE, OTHER ==
[2017-12-06 08:00] VITALS: BP 121/67
[2017-12-06 08:45] VITALS: BP 117/71
== END | disposition home or self-care (01) ==
LOC: CHF HDHVI 07:53
PROVIDERS: ATTEND Internal Medicine
DX: I25.10 Atherosclerotic heart disease of native coronary artery without angina pectoris (principal); I50.9 Heart failure, unspecified; R60.0 Localized edema
CPT/HCPCS: G0463

== ENCOUNTER → 2017-12-10 | Outpatient (CLI) | payer MEDICARE, OTHER ==
[2017-12-10 08:36] VITALS: BP 109/77
== END | disposition home or self-care (01) ==
LOC: CHF HDHVI 08:07
PROVIDERS: ATTEND Internal Medicine
DX: I25.10 Atherosclerotic heart disease of native coronary artery without angina pectoris (principal); I50.9 Heart failure, unspecified; R60.0 Localized edema
CPT/HCPCS: G0463

== ENCOUNTER → 2017-12-13 | Outpatient (CLI) | payer MEDICARE, OTHER ==
[~2017-12-13] MED LIST changes: +CYANOCOBALAMIN (B-12) 1000 MCG/1 ML VIAL IM ONE; +CYANOCOBALAMIN (B-12) 1000 MCG/1 ML VIAL ONE; +FUROSEMIDE 20 MG/2 ML VIAL IV ONE; +FUROSEMIDE 20 MG/2 ML VIAL ONE; +FUROSEMIDE 40 MG/4 ML VIAL ONE; +POTASSIUM CHL 10 Meq TABLET PO ONE; +POTASSIUM CHL 20 Meq TABLET PO ONE
[2017-12-13 09:15] VITALS: BP 133/78
[2017-12-13 12:02] LABS: Basophils # (auto) 0 uL; Basophils % (auto) 0.4 % (0.0-2.0); Eosinophils # (auto) 0.1 uL; Eosinophils % (auto) 0.9 % (0.0-7.0); Hematocrit 44.9 % (41.0-53.0); Lymphocytes # (auto) 1.1 uL; Lymphocytes % (auto) 19.8 % (10.0-50.0); Mean Corpuscular Hemoglobin 30.4 pg (28.0-32.0); Mean Corpuscular Hgb Conc. 33.3 g/dL (32.0-36.0); Mean Corpuscular Volume 91.2 fL (80.0-100.0); Monocytes # (auto) 0.5 uL; Monocytes % (auto) 8.1 % (0.0-12.0); Neutrophils # (auto) 4.1 uL; Neutrophils % (auto) 70.8 % (37.0-80.0); Nucleated Red Blood Cells % 0.2 %; Platelet Count (auto) 139 10^3/uL (140-450); Red Blood Cells 4.92 10^6/uL (4.5-5.90); Red Cell Distribution Width 13.1 % (11.8-14.3); White Blood Cell 5.8 10^3/uL (4.4-10.8)
[2017-12-13 12:34] LABS: BUN/Creatinine Ratio 21.1; Calcium 8.4 mg/dL (8.5-10.1); Magnesium 2.3 mg/dL (1.6-2.6); Potassium 3.3 mmol/L (3.5-5.1)
== END | disposition home or self-care (01) ==
LOC: CHF HDHVI 08:14
PROVIDERS: ATTEND Internal Medicine
DX: I87.2 Venous insufficiency (chronic) (peripheral) (principal); D51.9 Vitamin B12 deficiency anemia, unspecified; E83.40 Disorders of magnesium metabolism, unspecified; I13.0 Hypertensive heart and chronic kidney disease with heart failure and stage 1 through stage 4 chronic kidney disease, or unspecified chronic kidney disease; E11.22 Type 2 diabetes mellitus with diabetic chronic kidney disease; N18.3 Chronic kidney disease, stage 3 (moderate); I50.23 Acute on chronic systolic (congestive) heart failure; E03.9 Hypothyroidism, unspecified; E78.00 Pure hypercholesterolemia, unspecified; I25.10 Atherosclerotic heart disease of native coronary artery without angina pectoris; E78.5 Hyperlipidemia, unspecified; F41.9 Anxiety disorder, unspecified; Z79.899 Other long term (current) drug therapy; Z85.46 Personal history of malignant neoplasm of prostate
CPT/HCPCS: 36415; 80048; 83735; 85025; 93701; 96372; 96374; G0463; J1940; J3420

== ENCOUNTER → 2017-12-17 | Outpatient (CLI) | payer MEDICARE, OTHER ==
[~2017-12-17] MED LIST changes: -CYANOCOBALAMIN (B-12) 1000 MCG/1 ML VIAL IM ONE; -CYANOCOBALAMIN (B-12) 1000 MCG/1 ML VIAL ONE; -FUROSEMIDE 20 MG/2 ML VIAL IV ONE; -FUROSEMIDE 20 MG/2 ML VIAL ONE; -FUROSEMIDE 40 MG/4 ML VIAL ONE
[2017-12-17 07:55] VITALS: BP 106/73
[2017-12-17 09:51] VITALS: BP 132/76
== END | disposition home or self-care (01) ==
LOC: CHF HDHVI 07:59
PROVIDERS: ATTEND Internal Medicine Cardiovascular Disease
DX: I25.10 Atherosclerotic heart disease of native coronary artery without angina pectoris (principal); I11.0 Hypertensive heart disease with heart failure; I50.9 Heart failure, unspecified; E87.6 Hypokalemia; R60.9 Edema, unspecified; E03.9 Hypothyroidism, unspecified
CPT/HCPCS: G0463

== ENCOUNTER → 2017-12-20 | Outpatient (CLI) | payer MEDICARE, OTHER ==
[~2017-12-20] MED LIST changes: -POTASSIUM CHL 10 Meq TABLET PO ONE; -POTASSIUM CHL 20 Meq TABLET PO ONE
[2017-12-20 08:09] VITALS: BP_SYST 118; BP_SYST 120; BP_DIAS 67; BP_DIAS 71
[2017-12-20 09:00] VITALS: BP 118/71
== END | disposition home or self-care (01) ==
LOC: CHF HDHVI 08:20
PROVIDERS: ATTEND Internal Medicine
DX: I11.0 Hypertensive heart disease with heart failure (principal); I50.9 Heart failure, unspecified; I89.0 Lymphedema, not elsewhere classified; E87.70 Fluid overload, unspecified; E03.9 Hypothyroidism, unspecified; E78.00 Pure hypercholesterolemia, unspecified
CPT/HCPCS: G0463

== ENCOUNTER → 2017-12-25 | Outpatient (CLI) | payer MEDICARE, OTHER ==
[~2017-12-25] VITALS: Ht 30.5 cm; Wt 0.5 kg
[~2017-12-25] MED LIST changes: +ALBUTEROL SULF 2.5 MG/0.5ML(0.5%) NEB SOLN ONE; +CYANOCOBALAMIN (B-12) 1000 MCG/1 ML VIAL IM ONE; +CYANOCOBALAMIN (B-12) 1000 MCG/1 ML VIAL ONE; +FUROSEMIDE 40 MG/4 ML VIAL IV ONE; +FUROSEMIDE 40 MG/4 ML VIAL ONE; +POTASSIUM CHL 20 Meq TABLET PO ONE; +TESTOSTERONE CYPIONATE 200 MG/ML 1ML VIAL IM ONE; +methylPREDNISolone SOD SUCC 125 MG/2 ML VL IV ONE; +methylPREDNISolone SOD SUCC 125 MG/2 ML VL ONE
[2017-12-25 08:00] VITALS: BP 116/67
[2017-12-25 08:50] VITALS: BP 125/68
[2017-12-25 11:51] LABS: Basophils # (auto) 0 uL; Basophils % (auto) 0.3 % (0.0-2.0); Eosinophils # (auto) 0.1 uL; Eosinophils % (auto) 1.2 % (0.0-7.0); Hematocrit 43.5 % (41.0-53.0); Hemoglobin 14.5 g/dL (13.5-17.5); Lymphocytes # (auto) 1.2 uL; Lymphocytes % (auto) 17.9 % (10.0-50.0); Mean Corpuscular Hemoglobin 30.5 pg (28.0-32.0); Mean Corpuscular Hgb Conc. 33.4 g/dL (32.0-36.0); Mean Corpuscular Volume 91.3 fL (80.0-100.0); Monocytes # (auto) 0.7 uL; Neutrophils # (auto) 4.8 uL; Neutrophils % (auto) 70.6 % (37.0-80.0); Nucleated Red Blood Cells % 0.1 %; Platelet Count (auto) 147 10^3/uL (140-450); Red Blood Cells 4.76 10^6/uL (4.5-5.90); Red Cell Distribution Width 13.6 % (11.8-14.3); White Blood Cell 6.8 10^3/uL (4.4-10.8)
[2017-12-25 12:02] LABS: BUN/Creatinine Ratio 16.3; Calcium 8.2 mg/dL (8.5-10.1); Potassium 3.5 mmol/L (3.5-5.1)
== END | disposition home or self-care (01) ==
LOC: CHF HDHVI 08:10
PROVIDERS: ATTEND Internal Medicine
DX: E87.70 Fluid overload, unspecified (principal); D51.9 Vitamin B12 deficiency anemia, unspecified; E29.1 Testicular hypofunction; R53.83 Other fatigue; E55.9 Vitamin D deficiency, unspecified; I13.0 Hypertensive heart and chronic kidney disease with heart failure and stage 1 through stage 4 chronic kidney disease, or unspecified chronic kidney disease; E11.22 Type 2 diabetes mellitus with diabetic chronic kidney disease; N18.3 Chronic kidney disease, stage 3 (moderate); I50.23 Acute on chronic systolic (congestive) heart failure; D63.1 Anemia in chronic kidney disease; I25.10 Atherosclerotic heart disease of native coronary artery without angina pectoris; E03.9 Hypothyroidism, unspecified; F41.9 Anxiety disorder, unspecified; Z79.899 Other long term (current) drug therapy; E78.5 Hyperlipidemia, unspecified; Z95.0 Presence of cardiac pacemaker; E78.00 Pure hypercholesterolemia, unspecified; I89.0 Lymphedema, not elsewhere classified
CPT/HCPCS: 36415; 80048; 82306; 82607; 85025; 94640; 96372; 96374; 96375; G0463; J1071; J1940; J2930; J3420; J7611

== ENCOUNTER → 2017-12-27 | Outpatient (CLI) | payer MEDICARE, OTHER ==
[~2017-12-27] VITALS: Ht 30.5 cm; Wt 0.5 kg
[~2017-12-27] MED LIST changes: +ALBUTEROL SULF 2.5 MG/0.5ML(0.5%) NEB SOLN NEB ONE; -CYANOCOBALAMIN (B-12) 1000 MCG/1 ML VIAL IM ONE; -CYANOCOBALAMIN (B-12) 1000 MCG/1 ML VIAL ONE; -FUROSEMIDE 40 MG/4 ML VIAL IV ONE; -FUROSEMIDE 40 MG/4 ML VIAL ONE; +MAGNESIUM CITRATE SOLUTION 300 ML BTL ONE; +MAGNESIUM CITRATE SOLUTION 300 ML BTL PO ONE; -POTASSIUM CHL 20 Meq TABLET PO ONE; -TESTOSTERONE CYPIONATE 200 MG/ML 1ML VIAL IM ONE; -methylPREDNISolone SOD SUCC 125 MG/2 ML VL IV ONE; -methylPREDNISolone SOD SUCC 125 MG/2 ML VL ONE
[2017-12-27 08:00] VITALS: BP 118/76
[2017-12-27 08:35] VITALS: BP 112/73
== END | disposition home or self-care (01) ==
LOC: CHF HDHVI 08:38
PROVIDERS: ATTEND Internal Medicine
DX: I11.0 Hypertensive heart disease with heart failure (principal); I50.9 Heart failure, unspecified; E87.70 Fluid overload, unspecified; E11.9 Type 2 diabetes mellitus without complications; E03.9 Hypothyroidism, unspecified; E78.00 Pure hypercholesterolemia, unspecified; Z85.46 Personal history of malignant neoplasm of prostate
CPT/HCPCS: G0463

== ENCOUNTER → 2017-12-31 | Outpatient (CLI) | payer MEDICARE, OTHER ==
[~2017-12-31] MED LIST changes: -ALBUTEROL SULF 2.5 MG/0.5ML(0.5%) NEB SOLN NEB ONE; -ALBUTEROL SULF 2.5 MG/0.5ML(0.5%) NEB SOLN ONE; +FUROSEMIDE 40 MG/4 ML VIAL IV ONE; +FUROSEMIDE 40 MG/4 ML VIAL ONE; -MAGNESIUM CITRATE SOLUTION 300 ML BTL ONE; -MAGNESIUM CITRATE SOLUTION 300 ML BTL PO ONE; +POTASSIUM CHL 10 Meq TABLET PO ONE
[2017-12-31 08:00] VITALS: BP 114/62
[2017-12-31 08:40] VITALS: BP 103/63
[2017-12-31 13:15] LABS: Potassium 3.7 mmol/L (3.5-5.1)
== END | disposition home or self-care (01) ==
LOC: CHF HDHVI 08:09
PROVIDERS: ATTEND Internal Medicine
DX: R94.4 Abnormal results of kidney function studies (principal); E78.5 Hyperlipidemia, unspecified; E11.22 Type 2 diabetes mellitus with diabetic chronic kidney disease; I13.0 Hypertensive heart and chronic kidney disease with heart failure and stage 1 through stage 4 chronic kidney disease, or unspecified chronic kidney disease; N18.3 Chronic kidney disease, stage 3 (moderate); D63.1 Anemia in chronic kidney disease; I50.23 Acute on chronic systolic (congestive) heart failure; E03.9 Hypothyroidism, unspecified; E78.00 Pure hypercholesterolemia, unspecified; F41.9 Anxiety disorder, unspecified; I25.10 Atherosclerotic heart disease of native coronary artery without angina pectoris; D51.9 Vitamin B12 deficiency anemia, unspecified; I89.0 Lymphedema, not elsewhere classified; Z95.0 Presence of cardiac pacemaker
CPT/HCPCS: 36415; 82565; 84132; 84520; 96374; G0463; J1940

== ENCOUNTER → 2018-01-03 | Outpatient (CLI) | payer MEDICARE, OTHER ==
[~2018-01-03] MED LIST changes: +BUMETANIDE (0.25MG/ML) 4 ML VIAL IV ONE; +BUMETANIDE (0.25MG/ML) 4 ML VIAL ONE; -FUROSEMIDE 40 MG/4 ML VIAL IV ONE; -FUROSEMIDE 40 MG/4 ML VIAL ONE; +POTASSIUM CHL 20 Meq TABLET PO ONE
[2018-01-03 08:10] VITALS: BP 110/57
[2018-01-03 10:10] VITALS: BP 145/87
== END | disposition home or self-care (01) ==
LOC: CHF HDHVI 08:16
PROVIDERS: ATTEND Internal Medicine
DX: E87.70 Fluid overload, unspecified (principal); E03.9 Hypothyroidism, unspecified; I25.10 Atherosclerotic heart disease of native coronary artery without angina pectoris; E11.22 Type 2 diabetes mellitus with diabetic chronic kidney disease; I13.0 Hypertensive heart and chronic kidney disease with heart failure and stage 1 through stage 4 chronic kidney disease, or unspecified chronic kidney disease; N18.3 Chronic kidney disease, stage 3 (moderate); I50.23 Acute on chronic systolic (congestive) heart failure; E78.5 Hyperlipidemia, unspecified; E78.00 Pure hypercholesterolemia, unspecified; F41.9 Anxiety disorder, unspecified; I89.0 Lymphedema, not elsewhere classified; E29.1 Testicular hypofunction; Z79.899 Other long term (current) drug therapy; Z95.0 Presence of cardiac pacemaker; Z85.46 Personal history of malignant neoplasm of prostate
CPT/HCPCS: 96374; 96376; G0463; J3490; 96375

== ENCOUNTER → 2018-01-07 | Outpatient (CLI) | payer MEDICARE, OTHER ==
[~2018-01-07] MED LIST changes: -BUMETANIDE (0.25MG/ML) 4 ML VIAL ONE; +BUMETANIDE INJECTION 10 ML ONE; -POTASSIUM CHL 10 Meq TABLET PO ONE
[2018-01-07 07:55] VITALS: BP 115/65
[2018-01-07 09:44] VITALS: BP 146/83
== END | disposition home or self-care (01) ==
LOC: CHF HDHVI 08:11
PROVIDERS: ATTEND Internal Medicine
DX: E87.70 Fluid overload, unspecified (principal); R53.83 Other fatigue; E11.22 Type 2 diabetes mellitus with diabetic chronic kidney disease; I13.0 Hypertensive heart and chronic kidney disease with heart failure and stage 1 through stage 4 chronic kidney disease, or unspecified chronic kidney disease; N18.3 Chronic kidney disease, stage 3 (moderate); I50.9 Heart failure, unspecified; E87.5 Hyperkalemia; I89.0 Lymphedema, not elsewhere classified; D63.1 Anemia in chronic kidney disease; F41.9 Anxiety disorder, unspecified; I25.10 Atherosclerotic heart disease of native coronary artery without angina pectoris; E78.5 Hyperlipidemia, unspecified; E03.9 Hypothyroidism, unspecified; E78.00 Pure hypercholesterolemia, unspecified; E29.1 Testicular hypofunction; Z85.46 Personal history of malignant neoplasm of prostate
CPT/HCPCS: 96365; G0463

== ENCOUNTER → 2018-01-10 | Outpatient (CLI) | payer MEDICARE, OTHER ==
[~2018-01-10] MED LIST changes: -BUMETANIDE (0.25MG/ML) 4 ML VIAL IV ONE; -BUMETANIDE INJECTION 10 ML ONE; -POTASSIUM CHL 20 Meq TABLET PO ONE
[2018-01-10 07:45] VITALS: BP 114/69
[2018-01-10 08:45] VITALS: BP 128/65
[2018-01-10 12:16] LABS: Basophils # (auto) 0 uL; Basophils % (auto) 0.4 % (0.0-2.0); Eosinophils # (auto) 0.1 uL; Eosinophils % (auto) 0.8 % (0.0-7.0); Hematocrit 43.5 % (41.0-53.0); Hemoglobin 14.1 g/dL (13.5-17.5); Lymphocytes # (auto) 1.6 uL; Lymphocytes % (auto) 14.9 % (10.0-50.0); Mean Corpuscular Hemoglobin 30.6 pg (28.0-32.0); Mean Corpuscular Hgb Conc. 32.4 g/dL (32.0-36.0); Mean Corpuscular Volume 94.3 fL (80.0-100.0); Monocytes # (auto) 1.2 uL; Monocytes % (auto) 11.8 % (0.0-12.0); Neutrophils # (auto) 7.6 uL; Neutrophils % (auto) 72.1 % (37.0-80.0); Nucleated Red Blood Cells % 0.1 %; Platelet Count (auto) 153 10^3/uL (140-450); Red Blood Cells 4.61 10^6/uL (4.5-5.90); White Blood Cell 10.6 10^3/uL (4.4-10.8)
== END | disposition home or self-care (01) ==
LOC: CHF HDHVI 07:55
PROVIDERS: ATTEND Internal Medicine
DX: I89.0 Lymphedema, not elsewhere classified (principal); D64.9 Anemia, unspecified; I50.9 Heart failure, unspecified; E87.70 Fluid overload, unspecified
CPT/HCPCS: 36415; 85025; G0463

== ENCOUNTER → 2018-01-14 | Outpatient (CLI) | payer MEDICARE, OTHER ==
[~2018-01-14] MED LIST changes: +BUMETANIDE (0.25MG/ML) 4 ML VIAL IV ONE; +BUMETANIDE (0.25MG/ML) 4 ML VIAL ONE; +METOLAZONE 5 MG TAB ONE; +METOLAZONE 5 MG TAB PO ONE; +POTASSIUM CHL 10 Meq TABLET PO ONE; +POTASSIUM CHL 20 Meq TABLET PO ONE
[2018-01-14 09:52] VITALS: BP 128/72
== END | disposition home or self-care (01) ==
LOC: CHF HDHVI 08:09
PROVIDERS: ATTEND Internal Medicine
DX: I87.2 Venous insufficiency (chronic) (peripheral) (principal); E87.5 Hyperkalemia; I50.9 Heart failure, unspecified; R94.4 Abnormal results of kidney function studies; R60.9 Edema, unspecified
CPT/HCPCS: 36415; 82565; 84132; 84520; G0463; J3490

== ENCOUNTER → 2018-01-17 | Outpatient (CLI) | payer MEDICARE, OTHER ==
[~2018-01-17] MED LIST changes: -BUMETANIDE (0.25MG/ML) 4 ML VIAL IV ONE; -BUMETANIDE (0.25MG/ML) 4 ML VIAL ONE; -METOLAZONE 5 MG TAB ONE; -METOLAZONE 5 MG TAB PO ONE; -POTASSIUM CHL 10 Meq TABLET PO ONE; -POTASSIUM CHL 20 Meq TABLET PO ONE
[2018-01-17 07:50] VITALS: BP 117/64
[2018-01-17 08:34] VITALS: BP 102/57
== END | disposition home or self-care (01) ==
LOC: CHF HDHVI 08:00
PROVIDERS: ATTEND Internal Medicine
DX: R60.0 Localized edema (principal); I11.0 Hypertensive heart disease with heart failure; I50.9 Heart failure, unspecified; I25.10 Atherosclerotic heart disease of native coronary artery without angina pectoris; E03.9 Hypothyroidism, unspecified; E78.00 Pure hypercholesterolemia, unspecified
CPT/HCPCS: G0463

== ENCOUNTER → 2018-01-21 | Outpatient (CLI) | payer MEDICARE, OTHER ==
[~2018-01-21] MED LIST changes: +POTASSIUM CHL 10 Meq TABLET PO ONE; +POTASSIUM CHL 20 Meq TABLET PO ONE
[2018-01-21 08:00] VITALS: BP 101/63
[2018-01-21 08:45] VITALS: BP 117/63
== END | disposition home or self-care (01) ==
LOC: CHF HDHVI 08:36
PROVIDERS: ATTEND Internal Medicine
DX: I25.10 Atherosclerotic heart disease of native coronary artery without angina pectoris (principal); I11.0 Hypertensive heart disease with heart failure; I50.9 Heart failure, unspecified; E87.70 Fluid overload, unspecified; E03.9 Hypothyroidism, unspecified
CPT/HCPCS: G0463

== ENCOUNTER → 2018-01-24 | Outpatient (CLI) | payer MEDICARE, OTHER ==
[~2018-01-24] MED LIST changes: +CYANOCOBALAMIN (B-12) 1000 MCG/1 ML VIAL IM ONE; +CYANOCOBALAMIN (B-12) 1000 MCG/1 ML VIAL ONE; -POTASSIUM CHL 10 Meq TABLET PO ONE; -POTASSIUM CHL 20 Meq TABLET PO ONE
[2018-01-24 08:00] VITALS: BP 111/71
[2018-01-24 08:30] VITALS: BP 110/62
[2018-01-24 14:29] LABS: Potassium 2.8 mmol/L (3.5-5.1)
== END | disposition home or self-care (01) ==
LOC: CHF HDHVI 08:08
PROVIDERS: ATTEND Internal Medicine Cardiovascular Disease
DX: R94.4 Abnormal results of kidney function studies (principal); E87.6 Hypokalemia; E03.9 Hypothyroidism, unspecified; I25.10 Atherosclerotic heart disease of native coronary artery without angina pectoris; E87.70 Fluid overload, unspecified; E78.00 Pure hypercholesterolemia, unspecified; I87.2 Venous insufficiency (chronic) (peripheral); E11.22 Type 2 diabetes mellitus with diabetic chronic kidney disease; I13.0 Hypertensive heart and chronic kidney disease with heart failure and stage 1 through stage 4 chronic kidney disease, or unspecified chronic kidney disease; N18.3 Chronic kidney disease, stage 3 (moderate); I50.23 Acute on chronic systolic (congestive) heart failure; D63.1 Anemia in chronic kidney disease; I89.0 Lymphedema, not elsewhere classified; E78.5 Hyperlipidemia, unspecified; E29.1 Testicular hypofunction; F41.9 Anxiety disorder, unspecified; Z95.0 Presence of cardiac pacemaker; Z85.46 Personal history of malignant neoplasm of prostate; Z79.899 Other long term (current) drug therapy
CPT/HCPCS: 36415; 82565; 84132; 84520; 96372; G0463; J3420

== ENCOUNTER → 2018-01-28 | Outpatient (CLI) | payer MEDICARE, OTHER ==
[~2018-01-28] MED LIST changes: -CYANOCOBALAMIN (B-12) 1000 MCG/1 ML VIAL IM ONE; -CYANOCOBALAMIN (B-12) 1000 MCG/1 ML VIAL ONE; +FUROSEMIDE 40 MG/4 ML VIAL IV ONE; +FUROSEMIDE 40 MG/4 ML VIAL ONE; +POTASSIUM CHL 10 Meq TABLET PO ONE; +POTASSIUM CHL 20 Meq TABLET PO ONE
[2018-01-28 08:00] VITALS: BP 128/67
[2018-01-28 08:45] VITALS: BP 127/68
[2018-01-28 13:51] LABS: Potassium 3.6 mmol/L (3.5-5.1)
== END | disposition home or self-care (01) ==
LOC: CHF HDHVI 08:12
PROVIDERS: ATTEND Internal Medicine
DX: E87.6 Hypokalemia (principal); R94.4 Abnormal results of kidney function studies; I13.0 Hypertensive heart and chronic kidney disease with heart failure and stage 1 through stage 4 chronic kidney disease, or unspecified chronic kidney disease; E11.22 Type 2 diabetes mellitus with diabetic chronic kidney disease; N18.3 Chronic kidney disease, stage 3 (moderate); I50.23 Acute on chronic systolic (congestive) heart failure; D63.1 Anemia in chronic kidney disease; E78.5 Hyperlipidemia, unspecified; E03.9 Hypothyroidism, unspecified; E78.00 Pure hypercholesterolemia, unspecified; I25.10 Atherosclerotic heart disease of native coronary artery without angina pectoris; Z95.0 Presence of cardiac pacemaker; Z85.46 Personal history of malignant neoplasm of prostate; Z79.899 Other long term (current) drug therapy
CPT/HCPCS: 36415; 82565; 84132; 84520; 96374; G0463; J1940

== ENCOUNTER → 2018-02-04 | Outpatient (CLI) | payer MEDICARE, OTHER ==
[~2018-02-04] MED LIST changes: +FUROSEMIDE 40 MG TAB ONE
[2018-02-04 08:00] VITALS: BP 120/63
[2018-02-04 09:00] VITALS: BP 116/73
[2018-02-04 10:11] VITALS: BP 116/73
[2018-02-04 12:39] LABS: Potassium 3.3 mmol/L (3.5-5.1)
[2018-02-04 12:42] LABS: BUN/Creatinine Ratio 19.5; Calcium 8.6 mg/dL (8.5-10.1); Magnesium 2.4 mg/dL (1.6-2.6)
== END | disposition home or self-care (01) ==
LOC: CHF HDHVI 07:55
PROVIDERS: ATTEND Internal Medicine Cardiovascular Disease
DX: E03.9 Hypothyroidism, unspecified (principal); I13.10 Hypertensive heart and chronic kidney disease without heart failure, with stage 1 through stage 4 chronic kidney disease, or unspecified chronic kidney disease; E83.40 Disorders of magnesium metabolism, unspecified; E11.22 Type 2 diabetes mellitus with diabetic chronic kidney disease; D63.1 Anemia in chronic kidney disease; N18.3 Chronic kidney disease, stage 3 (moderate); E78.5 Hyperlipidemia, unspecified; I87.2 Venous insufficiency (chronic) (peripheral); I50.23 Acute on chronic systolic (congestive) heart failure; I25.10 Atherosclerotic heart disease of native coronary artery without angina pectoris; I89.0 Lymphedema, not elsewhere classified; Z85.46 Personal history of malignant neoplasm of prostate; Z95.0 Presence of cardiac pacemaker; Z79.899 Other long term (current) drug therapy
CPT/HCPCS: 36415; 80048; 83735; 84443; 96374; G0463; J1940

== ENCOUNTER → 2018-02-07 | Outpatient (CLI) | payer MEDICARE, OTHER ==
[~2018-02-07] MED LIST changes: -FUROSEMIDE 40 MG TAB ONE; -FUROSEMIDE 40 MG/4 ML VIAL IV ONE; -FUROSEMIDE 40 MG/4 ML VIAL ONE
[2018-02-07 08:00] VITALS: BP 137/76
[2018-02-07 08:10] VITALS: BP 128/74
[2018-02-07 09:07] VITALS: BP 128/74
== END | disposition home or self-care (01) ==
LOC: CHF HDHVI 08:21
PROVIDERS: ATTEND Internal Medicine Cardiovascular Disease
DX: I11.0 Hypertensive heart disease with heart failure (principal); I50.9 Heart failure, unspecified; E87.70 Fluid overload, unspecified
CPT/HCPCS: G0463

== ENCOUNTER → 2018-02-11 | Outpatient (CLI) | payer MEDICARE, OTHER ==
[~2018-02-11] MED LIST changes: -POTASSIUM CHL 10 Meq TABLET PO ONE; -POTASSIUM CHL 20 Meq TABLET PO ONE
[2018-02-11 08:50] VITALS: BP 107/70
== END | disposition home or self-care (01) ==
LOC: CHF HDHVI 08:21
PROVIDERS: ATTEND Internal Medicine
DX: I87.2 Venous insufficiency (chronic) (peripheral) (principal); I89.0 Lymphedema, not elsewhere classified; I11.0 Hypertensive heart disease with heart failure; I50.9 Heart failure, unspecified
CPT/HCPCS: G0463

== ENCOUNTER → 2018-02-14 | Outpatient (CLI) | payer MEDICARE, OTHER ==
[2018-02-14 11:00] VITALS: BP 95/46
[2018-02-14 11:33] VITALS: BP 93/52
== END | disposition home or self-care (01) ==
LOC: CHF HDHVI 11:12
PROVIDERS: ATTEND Internal Medicine
DX: I11.0 Hypertensive heart disease with heart failure (principal); I50.9 Heart failure, unspecified; I25.10 Atherosclerotic heart disease of native coronary artery without angina pectoris; R60.0 Localized edema
CPT/HCPCS: G0463

== ENCOUNTER → 2018-02-18 | Outpatient (CLI) | payer MEDICARE, OTHER ==
[~2018-02-18] MED LIST changes: +POTASSIUM CHL 10 Meq TABLET PO ONE; +POTASSIUM CHL 20 Meq TABLET PO ONE; +TESTOSTERONE CYPIONATE 200 MG/ML 1ML VIAL IM ONE
[2018-02-18 08:00] VITALS: BP 122/73
[2018-02-18 09:20] VITALS: BP 122/73
[2018-02-18 12:26] LABS: Hemoglobin 15.2 g/dL (13.5-17.5); Platelet Count (auto) 176 10^3/uL (140-450)
[2018-02-18 12:44] LABS: Hematocrit 45.5 % (41.0-53.0); Mean Corpuscular Hemoglobin 32.2 pg (28.0-32.0); Mean Corpuscular Hgb Conc. 33.5 g/dL (32.0-36.0); Red Blood Cells 4.73 10^6/uL (4.5-5.90); Red Cell Distribution Width 14.9 % (11.8-14.3); White Blood Cell 7.9 10^3/uL (4.4-10.8)
[2018-02-18 12:45] LABS: Band Neutrophils % (manual) 0; Basophils % (manual) 0 (0.0-2.0); Blast Cells 0; Eosinophils % (manual) 0 (0-7); Metamyelocytes % 0; Myelocytes % 0; Promyelocytes % 0
[2018-02-18 13:09] LABS: Potassium 2.9 mmol/L (3.5-5.1)
[2018-02-18 13:56] LABS: Lymphocytes % (manual) 11 (10.0-50.0); Monocytes % (manual) 13 (0-12); Reactive Lymphocytes 3
== END | disposition home or self-care (01) ==
LOC: CHF HDHVI 07:59
PROVIDERS: ATTEND Internal Medicine
DX: E29.1 Testicular hypofunction (principal); I13.0 Hypertensive heart and chronic kidney disease with heart failure and stage 1 through stage 4 chronic kidney disease, or unspecified chronic kidney disease; E11.22 Type 2 diabetes mellitus with diabetic chronic kidney disease; I50.23 Acute on chronic systolic (congestive) heart failure; N18.3 Chronic kidney disease, stage 3 (moderate); D63.1 Anemia in chronic kidney disease; I25.10 Atherosclerotic heart disease of native coronary artery without angina pectoris; E03.9 Hypothyroidism, unspecified; I89.0 Lymphedema, not elsewhere classified; I87.2 Venous insufficiency (chronic) (peripheral); F41.9 Anxiety disorder, unspecified; R94.4 Abnormal results of kidney function studies; Z85.46 Personal history of malignant neoplasm of prostate; Z95.0 Presence of cardiac pacemaker; Z79.899 Other long term (current) drug therapy
CPT/HCPCS: 36415; 82565; 84132; 84520; 85007; 85027; 93701; 96372; G0463; J1071

== ENCOUNTER → 2018-02-19 | Outpatient (CLI) | payer MEDICARE, OTHER ==
[~2018-02-19] MED LIST changes: -POTASSIUM CHL 10 Meq TABLET PO ONE; -POTASSIUM CHL 20 Meq TABLET PO ONE; -TESTOSTERONE CYPIONATE 200 MG/ML 1ML VIAL IM ONE
[2018-02-19 12:55] VITALS: BP 112/68
[2018-02-19 13:15] VITALS: BP 105/68
== END | disposition home or self-care (01) ==
LOC: CHF HDHVI 13:14
PROVIDERS: ATTEND Internal Medicine Cardiovascular Disease
DX: E87.6 Hypokalemia (principal); I50.9 Heart failure, unspecified
CPT/HCPCS: 36415; 84132; G0463

== ENCOUNTER → 2018-02-21 | Outpatient (CLI) | payer MEDICARE, OTHER ==
[2018-02-21 11:10] VITALS: BP 121/78
[2018-02-21 11:50] VITALS: BP 108/67
== END | disposition home or self-care (01) ==
LOC: CHF HDHVI 12:58
PROVIDERS: ATTEND Internal Medicine Cardiovascular Disease
DX: I50.9 Heart failure, unspecified (principal); E87.70 Fluid overload, unspecified
CPT/HCPCS: G0463

== ENCOUNTER → 2018-02-28 | Outpatient (CLI) | payer MEDICARE, OTHER ==
[~2018-02-28] VITALS: Ht 30.5 cm; Wt 0.5 kg
[~2018-02-28] MED LIST changes: +POTASSIUM CHL 10 Meq TABLET PO ONE; +POTASSIUM CHL 20 Meq TABLET PO ONE
[2018-02-28 07:32] VITALS: BP 122/66
[2018-02-28 08:40] VITALS: BP 122/72
[2018-02-28 12:10] LABS: BUN/Creatinine Ratio 23.4; Calcium 8.1 mg/dL (8.5-10.1); Potassium 3.8 mmol/L (3.5-5.1)
== END | disposition home or self-care (01) ==
LOC: CHF HDHVI 08:02
PROVIDERS: ATTEND Internal Medicine
DX: E03.9 Hypothyroidism, unspecified (principal); I11.0 Hypertensive heart disease with heart failure; I50.9 Heart failure, unspecified; E87.6 Hypokalemia; E87.70 Fluid overload, unspecified
CPT/HCPCS: 36415; 80048; 84443; G0463

== ENCOUNTER → 2018-03-04 | Outpatient (CLI) | payer MEDICARE, OTHER ==
[~2018-03-04] MED LIST changes: +CYANOCOBALAMIN (B-12) 1000 MCG/1 ML VIAL IM ONE; +CYANOCOBALAMIN (B-12) 1000 MCG/1 ML VIAL ONE; -POTASSIUM CHL 10 Meq TABLET PO ONE; -POTASSIUM CHL 20 Meq TABLET PO ONE
[2018-03-04 08:00] VITALS: BP 127/78
[2018-03-04 08:43] VITALS: BP_SYST 111; BP_SYST 127; BP_DIAS 70; BP_DIAS 78
== END | disposition home or self-care (01) ==
LOC: CHF HDHVI 08:05
PROVIDERS: ATTEND Internal Medicine
DX: I13.0 Hypertensive heart and chronic kidney disease with heart failure and stage 1 through stage 4 chronic kidney disease, or unspecified chronic kidney disease (principal); I50.23 Acute on chronic systolic (congestive) heart failure; E11.22 Type 2 diabetes mellitus with diabetic chronic kidney disease; N18.3 Chronic kidney disease, stage 3 (moderate); D63.8 Anemia in other chronic diseases classified elsewhere; R94.4 Abnormal results of kidney function studies; E87.6 Hypokalemia; I89.0 Lymphedema, not elsewhere classified; E03.9 Hypothyroidism, unspecified; E83.40 Disorders of magnesium metabolism, unspecified; E78.5 Hyperlipidemia, unspecified; E78.00 Pure hypercholesterolemia, unspecified; E87.5 Hyperkalemia; E29.1 Testicular hypofunction; F41.9 Anxiety disorder, unspecified; Z85.46 Personal history of malignant neoplasm of prostate; Z95.0 Presence of cardiac pacemaker; Z79.899 Other long term (current) drug therapy
CPT/HCPCS: 96372; G0463; J3420

== ENCOUNTER → 2018-03-07 | Outpatient (CLI) | payer MEDICARE, OTHER ==
[~2018-03-07] MED LIST changes: -CYANOCOBALAMIN (B-12) 1000 MCG/1 ML VIAL IM ONE; -CYANOCOBALAMIN (B-12) 1000 MCG/1 ML VIAL ONE; +FUROSEMIDE 40 MG/4 ML VIAL IV ONE; +FUROSEMIDE 40 MG/4 ML VIAL ONE; +POTASSIUM CHL 10 Meq TABLET PO ONE; +POTASSIUM CHL 20 Meq TABLET PO ONE; +TESTOSTERONE CYPIONATE 200 MG/ML 1ML VIAL IM ONE
[2018-03-07 08:00] VITALS: BP 119/68
[2018-03-07 08:50] VITALS: BP 113/74
== END | disposition home or self-care (01) ==
LOC: CHF HDHVI 08:03
PROVIDERS: ATTEND Internal Medicine
DX: E29.1 Testicular hypofunction (principal); R94.4 Abnormal results of kidney function studies; I13.0 Hypertensive heart and chronic kidney disease with heart failure and stage 1 through stage 4 chronic kidney disease, or unspecified chronic kidney disease; E11.22 Type 2 diabetes mellitus with diabetic chronic kidney disease; N18.3 Chronic kidney disease, stage 3 (moderate); I50.41 Acute combined systolic (congestive) and diastolic (congestive) heart failure; D63.1 Anemia in chronic kidney disease; I25.10 Atherosclerotic heart disease of native coronary artery without angina pectoris; Z79.899 Other long term (current) drug therapy
CPT/HCPCS: 36415; 82565; 84132; 84520; 96372; 96374; G0463; J1071; J1940

== ENCOUNTER → 2018-03-11 | Outpatient (CLI) | payer MEDICARE, OTHER ==
[~2018-03-11] MED LIST changes: +BUMETANIDE (0.25MG/ML) 4 ML VIAL IV ONE; +BUMETANIDE (0.25MG/ML) 4 ML VIAL ONE; -FUROSEMIDE 40 MG/4 ML VIAL IV ONE; -FUROSEMIDE 40 MG/4 ML VIAL ONE; -TESTOSTERONE CYPIONATE 200 MG/ML 1ML VIAL IM ONE
[2018-03-11 08:00] VITALS: BP 116/61
[2018-03-11 08:50] LABS: Basophils # (auto) 0 uL; Basophils % (auto) 0.5 % (0.0-2.0); Eosinophils # (auto) 0.1 uL; Lymphocytes # (auto) 1.3 uL; Lymphocytes % (auto) 15.7 % (10.0-50.0); Mean Corpuscular Hemoglobin 32.5 pg (28.0-32.0); Mean Corpuscular Hgb Conc. 32.6 g/dL (32.0-36.0); Mean Corpuscular Volume 99.6 fL (80.0-100.0); Monocytes # (auto) 0.6 uL; Monocytes % (auto) 7.8 % (0.0-12.0); Neutrophils # (auto) 6.1 uL; Platelet Count (auto) 114 10^3/uL (140-450); Red Blood Cells 4.91 10^6/uL (4.5-5.90); Red Cell Distribution Width 15.5 % (11.8-14.3); White Blood Cell 8.1 10^3/uL (4.4-10.8)
[2018-03-11 09:00] VITALS: BP 116/61
[2018-03-11 09:07] LABS: Alanine Aminotransferase 24 U/L (16-61); Albumin 2.6 g/dL (3.4-5.0); Anion Gap 7 (5-15); Aspartate Aminotransferase 22 U/L (15-37); BUN/Creatinine Ratio 18.4; Blood Urea Nitrogen 26 mg/dL (7-18); Calcium 8.3 mg/dL (8.5-10.1); Carbon Dioxide 28 mmol/L (21-32); Chloride 106 mmol/L (98-107); GFR African American 62 mL/min; GFR Non-African American 51 mL/min; Glucose 105 mg/dL (74-106); Potassium 3.2 mmol/L (3.5-5.1); Sodium 141 mmol/L (136-145)
[2018-03-11 09:09] LABS: Alkaline Phosphatase 106 U/L (45-117); Bilirubin, Total 0.7 mg/dL (0.2-1.0); Total Protein 6.3 g/dL (6.4-8.2)
[2018-03-11 10:00] VITALS: BP 116/61
== END | disposition home or self-care (01) ==
LOC: CHF HDHVI 08:10
PROVIDERS: ATTEND Internal Medicine
DX: E87.6 Hypokalemia (principal); E87.70 Fluid overload, unspecified; I13.0 Hypertensive heart and chronic kidney disease with heart failure and stage 1 through stage 4 chronic kidney disease, or unspecified chronic kidney disease; E11.22 Type 2 diabetes mellitus with diabetic chronic kidney disease; N18.3 Chronic kidney disease, stage 3 (moderate); I50.41 Acute combined systolic (congestive) and diastolic (congestive) heart failure; D63.1 Anemia in chronic kidney disease; I25.10 Atherosclerotic heart disease of native coronary artery without angina pectoris; E78.5 Hyperlipidemia, unspecified; E03.9 Hypothyroidism, unspecified; E78.00 Pure hypercholesterolemia, unspecified; M16.12 Unilateral primary osteoarthritis, left hip; F41.9 Anxiety disorder, unspecified; Z79.899 Other long term (current) drug therapy; Z85.46 Personal history of malignant neoplasm of prostate; Z86.718 Personal history of other venous thrombosis and embolism; Z95.0 Presence of cardiac pacemaker
CPT/HCPCS: 36415; 80053; 83880; 85025; 96374; G0463; J3490

== ENCOUNTER → 2018-03-12 | Outpatient (CLI) | payer MEDICARE, OTHER ==
[~2018-03-12] MED LIST changes: -BUMETANIDE (0.25MG/ML) 4 ML VIAL IV ONE; -BUMETANIDE (0.25MG/ML) 4 ML VIAL ONE; -POTASSIUM CHL 10 Meq TABLET PO ONE; -POTASSIUM CHL 20 Meq TABLET PO ONE
== END | disposition home or self-care (01) ==
LOC: Rad HDHVI 09:48
PROVIDERS: ATTEND Internal Medicine
DX: I82.401 Acute embolism and thrombosis of unspecified deep veins of right lower extremity (principal); I89.0 Lymphedema, not elsewhere classified; Z86.718 Personal history of other venous thrombosis and embolism
CPT/HCPCS: 93971

== ENCOUNTER → 2018-03-18 | Outpatient (CLI) | payer MEDICARE, OTHER ==
[2018-03-18 08:00] VITALS: BP 108/73
[2018-03-18 09:15] VITALS: BP 125/71
[2018-03-18 11:45] VITALS: BP 125/71
== END | disposition home or self-care (01) ==
LOC: CHF HDHVI 08:18
PROVIDERS: ATTEND Internal Medicine
DX: I11.0 Hypertensive heart disease with heart failure (principal); I50.9 Heart failure, unspecified; E87.70 Fluid overload, unspecified
CPT/HCPCS: G0463

== ENCOUNTER → 2018-03-21 | Outpatient (CLI) | payer MEDICARE, OTHER ==
[~2018-03-21] VITALS: Ht 30.5 cm; Wt 0.5 kg
[~2018-03-21] MED LIST changes: +CYANOCOBALAMIN (B-12) 1000 MCG/1 ML VIAL IM ONE; +CYANOCOBALAMIN (B-12) 1000 MCG/1 ML VIAL ONE; +TESTOSTERONE CYPIONATE 200 MG/ML 1ML VIAL IM ONE
[2018-03-21 08:00] VITALS: BP 122/65
[2018-03-21 08:50] VITALS: BP 105/63
[2018-03-21 13:05] VITALS: BP 122/65
[2018-03-21 14:25] LABS: Potassium 2.9 mmol/L (3.5-5.1)
== END | disposition home or self-care (01) ==
LOC: CHF HDHVI 08:20
PROVIDERS: ATTEND Internal Medicine
DX: E87.6 Hypokalemia (principal); R94.4 Abnormal results of kidney function studies; E29.1 Testicular hypofunction; E87.70 Fluid overload, unspecified; E11.22 Type 2 diabetes mellitus with diabetic chronic kidney disease; I13.0 Hypertensive heart and chronic kidney disease with heart failure and stage 1 through stage 4 chronic kidney disease, or unspecified chronic kidney disease; N18.3 Chronic kidney disease, stage 3 (moderate); I50.42 Chronic combined systolic (congestive) and diastolic (congestive) heart failure; I25.10 Atherosclerotic heart disease of native coronary artery without angina pectoris; D63.1 Anemia in chronic kidney disease; F41.9 Anxiety disorder, unspecified; E03.9 Hypothyroidism, unspecified; E78.5 Hyperlipidemia, unspecified; E78.00 Pure hypercholesterolemia, unspecified; I89.0 Lymphedema, not elsewhere classified; D51.9 Vitamin B12 deficiency anemia, unspecified; Z95.0 Presence of cardiac pacemaker; Z79.899 Other long term (current) drug therapy; Z85.46 Personal history of malignant neoplasm of prostate; Z86.718 Personal history of other venous thrombosis and embolism
CPT/HCPCS: 36415; 82565; 84132; 84520; 96372; G0463; J1071; J3420

== ENCOUNTER → 2018-03-25 | Outpatient (CLI) | payer MEDICARE, OTHER ==
[~2018-03-25] MED LIST changes: +BUMETANIDE (0.25MG/ML) 4 ML VIAL IV ONE; +BUMETANIDE (0.25MG/ML) 4 ML VIAL ONE; -CYANOCOBALAMIN (B-12) 1000 MCG/1 ML VIAL IM ONE; -CYANOCOBALAMIN (B-12) 1000 MCG/1 ML VIAL ONE; +POTASSIUM CHL 10 Meq TABLET PO ONE; +POTASSIUM CHL 20 Meq TABLET PO ONE; -TESTOSTERONE CYPIONATE 200 MG/ML 1ML VIAL IM ONE
[2018-03-25 12:44] LABS: Basophils # (auto) 0 uL; Basophils % (auto) 0.3 % (0.0-2.0); Eosinophils # (auto) 0.1 uL; Hematocrit 47.1 % (41.0-53.0); Hemoglobin 15.8 g/dL (13.5-17.5); Lymphocytes # (auto) 1.2 uL; Lymphocytes % (auto) 12.6 % (10.0-50.0); Mean Corpuscular Hgb Conc. 33.4 g/dL (32.0-36.0); Mean Corpuscular Volume 98.6 fL (80.0-100.0); Monocytes # (auto) 1.2 uL; Monocytes % (auto) 12.5 % (0.0-12.0); Neutrophils # (auto) 6.8 uL; Neutrophils % (auto) 73.6 % (37.0-80.0); Nucleated Red Blood Cells % 0.3 %; Platelet Count (auto) 161 10^3/uL (140-450); Red Blood Cells 4.78 10^6/uL (4.5-5.90); Red Cell Distribution Width 15.5 % (11.8-14.3); White Blood Cell 9.2 10^3/uL (4.4-10.8)
[2018-03-25 13:13] LABS: Potassium 3.5 mmol/L (3.5-5.1)
[2018-03-25 13:21] LABS: Calcium 8.6 mg/dL (8.5-10.1)
== END | disposition home or self-care (01) ==
LOC: CHF HDHVI 08:12
PROVIDERS: ATTEND Internal Medicine
DX: I13.0 Hypertensive heart and chronic kidney disease with heart failure and stage 1 through stage 4 chronic kidney disease, or unspecified chronic kidney disease (principal); I50.42 Chronic combined systolic (congestive) and diastolic (congestive) heart failure; I89.0 Lymphedema, not elsewhere classified; E11.22 Type 2 diabetes mellitus with diabetic chronic kidney disease; E11.51 Type 2 diabetes mellitus with diabetic peripheral angiopathy without gangrene; N18.3 Chronic kidney disease, stage 3 (moderate); I25.10 Atherosclerotic heart disease of native coronary artery without angina pectoris; I70.0 Atherosclerosis of aorta; E03.9 Hypothyroidism, unspecified; E78.5 Hyperlipidemia, unspecified; E78.00 Pure hypercholesterolemia, unspecified; I87.2 Venous insufficiency (chronic) (peripheral); I27.29 Other secondary pulmonary hypertension; I08.1 Rheumatic disorders of both mitral and tricuspid valves; I72.3 Aneurysm of iliac artery; M16.12 Unilateral primary osteoarthritis, left hip; G89.29 Other chronic pain; D64.9 Anemia, unspecified; F41.9 Anxiety disorder, unspecified; Z85.46 Personal history of malignant neoplasm of prostate; Z86.718 Personal history of other venous thrombosis and embolism; Z95.0 Presence of cardiac pacemaker; Z95.5 Presence of coronary angioplasty implant and graft; Z95.1 Presence of aortocoronary bypass graft; Z79.899 Other long term (current) drug therapy
CPT/HCPCS: 36415; 80048; 85025; 96374; G0463; J3490

== ENCOUNTER → 2018-04-01 | Outpatient (CLI) | payer MEDICARE, OTHER ==
[~2018-04-01] MED LIST changes: -BUMETANIDE (0.25MG/ML) 4 ML VIAL IV ONE; -BUMETANIDE (0.25MG/ML) 4 ML VIAL ONE; -POTASSIUM CHL 10 Meq TABLET PO ONE; -POTASSIUM CHL 20 Meq TABLET PO ONE
[2018-04-01 09:45] VITALS: BP 139/76
== END | disposition home or self-care (01) ==
LOC: CHF HDHVI 08:29
PROVIDERS: ATTEND Internal Medicine
DX: E87.6 Hypokalemia (principal); R94.4 Abnormal results of kidney function studies; I11.0 Hypertensive heart disease with heart failure; I50.9 Heart failure, unspecified; I87.2 Venous insufficiency (chronic) (peripheral); E87.70 Fluid overload, unspecified
CPT/HCPCS: 36415; 82565; 84132; 84403; 84520; G0463

== ENCOUNTER → 2018-04-04 | Outpatient (CLI) | payer MEDICARE, OTHER ==
[2018-04-04 07:50] VITALS: BP 106/65
[2018-04-04 08:35] VITALS: BP 117/66
== END | disposition home or self-care (01) ==
LOC: CHF HDHVI 08:10
PROVIDERS: ATTEND Internal Medicine
DX: E29.1 Testicular hypofunction (principal); I25.10 Atherosclerotic heart disease of native coronary artery without angina pectoris; I11.0 Hypertensive heart disease with heart failure; I50.9 Heart failure, unspecified; R60.0 Localized edema
CPT/HCPCS: 36415; 84403; G0463

== ENCOUNTER → 2018-04-08 | Outpatient (CLI) | payer MEDICARE, OTHER ==
[2018-04-08 08:32] VITALS: BP 117/70
[2018-04-08 12:23] LABS: Potassium 3.8 mmol/L (3.5-5.1)
== END | disposition home or self-care (01) ==
LOC: CHF HDHVI 08:16
PROVIDERS: ATTEND Internal Medicine
DX: E87.6 Hypokalemia (principal); R94.4 Abnormal results of kidney function studies; I87.2 Venous insufficiency (chronic) (peripheral); R60.0 Localized edema; I11.0 Hypertensive heart disease with heart failure; I50.9 Heart failure, unspecified
CPT/HCPCS: 36415; 82565; 84132; 84520; G0463

== ENCOUNTER → 2018-04-11 | Outpatient (CLI) | payer MEDICARE, OTHER ==
[2018-04-11 07:45] VITALS: BP 121/64
--- NOTE | 2018-04-11 07:45 | NUR ---
CHF PT TO CHF CLINIC FOR MD CELIS ORDERED CARDIODYNAMICS AND BILAT LE [place] BOOT APPLICATION.
[2018-04-11 09:00] VITALS: BP 109/77
--- NOTE | 2018-04-11 09:00 | NUR ---
CHF Wound Care Wound care provided per MD order. Patient tolerated well and verbalized dressing care instructions. Follow up in clinic as directed. See e-MAR for medications given during this visit. Discharge Instructions See e-MAR for any mediations given with this visit. Patient education given on disease process. Patient verbalized understanding. Previous labs reviewed. Patient discharged in stable condition with after care instructions and follow up appointment.
== END | disposition home or self-care (01) ==
LOC: CHF HDHVI 07:56
PROVIDERS: ATTEND Internal Medicine
DX: I11.0 Hypertensive heart disease with heart failure (principal); I50.9 Heart failure, unspecified; I25.10 Atherosclerotic heart disease of native coronary artery without angina pectoris; E03.9 Hypothyroidism, unspecified; E78.00 Pure hypercholesterolemia, unspecified
CPT/HCPCS: 93701; G0463

== ENCOUNTER → 2018-04-15 | Outpatient (CLI) | payer MEDICARE, OTHER ==
[~2018-04-15] MED LIST changes: +FUROSEMIDE 40 MG/4 ML VIAL ONE; +POTASSIUM CHL 10 Meq TABLET PO ONE
[2018-04-15 09:10] VITALS: BP 127/82
[2018-04-15 09:16] VITALS: BP 127/82
[2018-04-15 12:28] LABS: Calcium 8.6 mg/dL (8.5-10.1); Potassium 4.3 mmol/L (3.5-5.1)
[2018-04-15 12:30] LABS: BUN/Creatinine Ratio 22.1
== END | disposition home or self-care (01) ==
LOC: CHF HDHVI 08:15
PROVIDERS: ATTEND Internal Medicine
DX: I13.0 Hypertensive heart and chronic kidney disease with heart failure and stage 1 through stage 4 chronic kidney disease, or unspecified chronic kidney disease (principal); I50.42 Chronic combined systolic (congestive) and diastolic (congestive) heart failure; E11.22 Type 2 diabetes mellitus with diabetic chronic kidney disease; E11.51 Type 2 diabetes mellitus with diabetic peripheral angiopathy without gangrene; N18.3 Chronic kidney disease, stage 3 (moderate); I25.10 Atherosclerotic heart disease of native coronary artery without angina pectoris; I70.0 Atherosclerosis of aorta; I27.29 Other secondary pulmonary hypertension; I48.91 Unspecified atrial fibrillation; E03.9 Hypothyroidism, unspecified; E78.5 Hyperlipidemia, unspecified; I87.2 Venous insufficiency (chronic) (peripheral); I89.0 Lymphedema, not elsewhere classified; E78.00 Pure hypercholesterolemia, unspecified; M16.0 Bilateral primary osteoarthritis of hip; I72.3 Aneurysm of iliac artery; G89.29 Other chronic pain; I08.1 Rheumatic disorders of both mitral and tricuspid valves; F41.9 Anxiety disorder, unspecified; Z85.46 Personal history of malignant neoplasm of prostate; Z86.718 Personal history of other venous thrombosis and embolism; Z95.1 Presence of aortocoronary bypass graft; Z95.0 Presence of cardiac pacemaker; Z95.5 Presence of coronary angioplasty implant and graft; Z79.899 Other long term (current) drug therapy
CPT/HCPCS: 36415; 80048; 96374; G0463; J1940

== ENCOUNTER → 2018-04-18 | Outpatient (CLI) | payer MEDICARE, OTHER ==
[~2018-04-18] MED LIST changes: -FUROSEMIDE 40 MG/4 ML VIAL ONE; -POTASSIUM CHL 10 Meq TABLET PO ONE
[2018-04-18 08:00] VITALS: BP 129/76
[2018-04-18 08:30] VITALS: BP 117/72
== END | disposition home or self-care (01) ==
LOC: CHF HDHVI 08:32
PROVIDERS: ATTEND Internal Medicine
DX: I89.0 Lymphedema, not elsewhere classified (principal); I11.0 Hypertensive heart disease with heart failure; I50.9 Heart failure, unspecified; E87.70 Fluid overload, unspecified
CPT/HCPCS: G0463

== ENCOUNTER → 2018-04-22 | Outpatient (CLI) | payer MEDICARE, OTHER ==
[~2018-04-22] MED LIST changes: +CYANOCOBALAMIN (B-12) 1000 MCG/1 ML VIAL IM ONE; +CYANOCOBALAMIN (B-12) 1000 MCG/1 ML VIAL ONE; +KETOROLAC TROMETH 60MG/2ML VIAL IM ONE
[2018-04-22 08:47] VITALS: BP 101/68
--- NOTE | 2018-04-22 08:47 | NUR ---
CHF PT TO CHF CLINIC FOR MD CELIS ORDERED BILAT UNNA BOOT PLACEMENT FOR CHRONIC LE EDEMA MANAGEMENT. PT C/O PAIN TO R LEG 8/ C/O FATIGUE.
[2018-04-22 10:03] VITALS: BP 149/86
--- NOTE | 2018-04-22 10:03 | NUR ---
CHF Discharge Instructions See e-MAR for any mediations given with this visit. TORADOL 60MG IM R GLUTE ADMINISTERED 1000 AND VIT B 12 1000MCG IM L DELTOID. Patient education given on disease process. Patient verbalized understanding. Previous labs reviewed. Patient discharged in stable condition with after care instructions and follow up appointment. DR. CELIS APPT 04/24/18 AT 1130
== END | disposition home or self-care (01) ==
LOC: CHF HDHVI 08:49
PROVIDERS: ATTEND Internal Medicine
DX: I13.0 Hypertensive heart and chronic kidney disease with heart failure and stage 1 through stage 4 chronic kidney disease, or unspecified chronic kidney disease (principal); E11.22 Type 2 diabetes mellitus with diabetic chronic kidney disease; I50.42 Chronic combined systolic (congestive) and diastolic (congestive) heart failure; N18.3 Chronic kidney disease, stage 3 (moderate); I25.10 Atherosclerotic heart disease of native coronary artery without angina pectoris; R53.83 Other fatigue; M79.661 Pain in right lower leg; G89.29 Other chronic pain; E83.40 Disorders of magnesium metabolism, unspecified; D64.9 Anemia, unspecified; I70.0 Atherosclerosis of aorta; M16.0 Bilateral primary osteoarthritis of hip; F41.9 Anxiety disorder, unspecified; E11.51 Type 2 diabetes mellitus with diabetic peripheral angiopathy without gangrene; E78.5 Hyperlipidemia, unspecified; E03.9 Hypothyroidism, unspecified; I48.91 Unspecified atrial fibrillation; I27.21 Secondary pulmonary arterial hypertension; I08.1 Rheumatic disorders of both mitral and tricuspid valves; Z95.0 Presence of cardiac pacemaker; Z85.46 Personal history of malignant neoplasm of prostate; Z86.718 Personal history of other venous thrombosis and embolism; Z79.899 Other long term (current) drug therapy; Z95.1 Presence of aortocoronary bypass graft; Z98.61 Coronary angioplasty status
CPT/HCPCS: 96372; G0463; J1885; J3420

== ENCOUNTER → 2018-04-25 | Outpatient (CLI) | payer MEDICARE, OTHER ==
[~2018-04-25] MED LIST changes: -CYANOCOBALAMIN (B-12) 1000 MCG/1 ML VIAL IM ONE; -CYANOCOBALAMIN (B-12) 1000 MCG/1 ML VIAL ONE; +FUROSEMIDE 20 MG/2 ML VIAL IV ONE; +FUROSEMIDE 20 MG/2 ML VIAL ONE; +FUROSEMIDE 40 MG TAB ONE; +FUROSEMIDE 40 MG/4 ML VIAL ONE; -KETOROLAC TROMETH 60MG/2ML VIAL IM ONE; +POTASSIUM CHL 10 Meq TABLET PO ONE
[2018-04-25 08:00] VITALS: BP 130/71
[2018-04-25 08:47] VITALS: BP 130/79
--- NOTE | 2018-04-25 08:47 | NUR ---
IN TO CLINIC FOR WEIGHT GAIN AND FLUID OVERLOAD. AMBULATING STEADILY WITH USE OF CANE ONLY. SKIN ON LEGS CLEAN AND DRY AND CEASAR BOOTS APPLIED BILATERALLY. PINK CEASAR BOOT GAUZE WITH COBAN ON TOP AND STOCKINETTE APPLIED. TOLERATED WELL. Discharge Instructions See e-MAR for any mediations given with this visit. Patient education given on disease process. Patient verbalized understanding. Previous labs reviewed. Patient discharged in stable condition with after care instructions and follow up appointment FOR Sunday04/29/18 MEDICATION ADMINISTRATION LASIX 60 MG IVP AT 0830 POTASSIUM 10 MEQ PO AT 0840
[2018-04-25 12:37] LABS: Basophils # (auto) 0 uL; Basophils % (auto) 0.3 % (0.0-2.0); Eosinophils # (auto) 0.1 uL; Hemoglobin 16.2 g/dL (13.5-17.5); Lymphocytes % (auto) 16.2 % (10.0-50.0); Mean Corpuscular Hemoglobin 32.6 pg (28.0-32.0); Mean Corpuscular Hgb Conc. 33.1 g/dL (32.0-36.0); Mean Corpuscular Volume 98.5 fL (80.0-100.0); Monocytes # (auto) 0.7 uL; Monocytes % (auto) 11.3 % (0.0-12.0); Neutrophils # (auto) 4.5 uL; Neutrophils % (auto) 71.2 % (37.0-80.0); Nucleated Red Blood Cells % 0.2 %; Platelet Count (auto) 143 10^3/uL (140-450); Red Blood Cells 4.98 10^6/uL (4.5-5.90); Red Cell Distribution Width 14.3 % (11.8-14.3); White Blood Cell 6.4 10^3/uL (4.4-10.8)
[2018-04-25 13:26] LABS: Potassium 4.8 mmol/L (3.5-5.1)
[2018-04-25 13:36] LABS: BUN/Creatinine Ratio 28.8; Magnesium 2.8 mg/dL (1.6-2.6)
[2018-04-25 14:21] LABS: Calcium 5.5 mg/dL (8.5-10.1)
== END | disposition home or self-care (01) ==
LOC: CHF HDHVI 08:11
PROVIDERS: ATTEND Internal Medicine
DX: I13.0 Hypertensive heart and chronic kidney disease with heart failure and stage 1 through stage 4 chronic kidney disease, or unspecified chronic kidney disease (principal); E11.22 Type 2 diabetes mellitus with diabetic chronic kidney disease; N18.3 Chronic kidney disease, stage 3 (moderate); I50.42 Chronic combined systolic (congestive) and diastolic (congestive) heart failure; E83.40 Disorders of magnesium metabolism, unspecified; D64.9 Anemia, unspecified; I25.10 Atherosclerotic heart disease of native coronary artery without angina pectoris; I70.0 Atherosclerosis of aorta; I48.91 Unspecified atrial fibrillation; M16.0 Bilateral primary osteoarthritis of hip; E78.5 Hyperlipidemia, unspecified; E03.9 Hypothyroidism, unspecified; E78.00 Pure hypercholesterolemia, unspecified; E11.51 Type 2 diabetes mellitus with diabetic peripheral angiopathy without gangrene; F41.9 Anxiety disorder, unspecified; G89.29 Other chronic pain; Z79.899 Other long term (current) drug therapy; Z95.1 Presence of aortocoronary bypass graft; Z95.5 Presence of coronary angioplasty implant and graft; Z86.718 Personal history of other venous thrombosis and embolism; Z85.46 Personal history of malignant neoplasm of prostate
CPT/HCPCS: 36415; 80048; 83735; 85025; 96374; G0463; J1940

== ENCOUNTER → 2018-04-26 | Outpatient (CLI) | payer MEDICARE, OTHER ==
[~2018-04-26] MED LIST changes: -FUROSEMIDE 20 MG/2 ML VIAL IV ONE; -FUROSEMIDE 20 MG/2 ML VIAL ONE; -FUROSEMIDE 40 MG TAB ONE; -FUROSEMIDE 40 MG/4 ML VIAL ONE; -POTASSIUM CHL 10 Meq TABLET PO ONE
[2018-04-26 12:25] LABS: BUN/Creatinine Ratio 24.2; Calcium 8.2 mg/dL (8.5-10.1); Potassium 4.4 mmol/L (3.5-5.1)
== END | disposition home or self-care (01) ==
LOC: LAB 09:33
PROVIDERS: ATTEND Internal Medicine
DX: E83.50 Unspecified disorder of calcium metabolism (principal); I10 Essential (primary) hypertension
CPT/HCPCS: 36415; 80048

== ENCOUNTER → 2018-04-29 | Outpatient (CLI) | payer MEDICARE, OTHER ==
[~2018-04-29] MED LIST changes: +TESTOSTERONE CYPIONATE 200 MG/ML 1ML VIAL IM ONE
[2018-04-29 08:00] VITALS: BP 126/81
--- NOTE | 2018-04-29 08:45 | NUR ---
IN TO CLINIC FOR WOUND CARE TO BILATERAL CALFS. WEIGHT IMPROVED SINCE LAST VISIT. DENIES PAIN OR ANY PROBLEMS RELATING TO BILATERAL CALFS. SKIN CLEAN AND DRY AND BILATERAL CEASAR BOOTS APPLIED WITH COBAN ON TOP AND THEN STOCKINGNETTE. PT TOLERATED WELL. MEDICATION ADMINISTRATION TESTOSTERONE 200 MG IM TO RIGHT GLUT. Discharge Instructions See e-MAR for any mediations given with this visit. Patient education given on disease process. Patient verbalized understanding. Previous labs reviewed. Patient discharged in stable condition with after care instructions and follow up appointment.
[2018-04-29 08:50] VITALS: BP_SYST 107; BP_SYST 126; BP_DIAS 71; BP_DIAS 81
== END | disposition home or self-care (01) ==
LOC: CHF HDHVI 08:11
PROVIDERS: ATTEND Internal Medicine
DX: E29.1 Testicular hypofunction (principal); I13.0 Hypertensive heart and chronic kidney disease with heart failure and stage 1 through stage 4 chronic kidney disease, or unspecified chronic kidney disease; E11.22 Type 2 diabetes mellitus with diabetic chronic kidney disease; I50.42 Chronic combined systolic (congestive) and diastolic (congestive) heart failure; N18.3 Chronic kidney disease, stage 3 (moderate); D63.1 Anemia in chronic kidney disease; E11.51 Type 2 diabetes mellitus with diabetic peripheral angiopathy without gangrene; E03.9 Hypothyroidism, unspecified; D51.9 Vitamin B12 deficiency anemia, unspecified; I25.10 Atherosclerotic heart disease of native coronary artery without angina pectoris; I70.0 Atherosclerosis of aorta; I48.91 Unspecified atrial fibrillation; I08.1 Rheumatic disorders of both mitral and tricuspid valves; I27.21 Secondary pulmonary arterial hypertension; F41.9 Anxiety disorder, unspecified; G89.29 Other chronic pain; M54.5 Low back pain; M16.0 Bilateral primary osteoarthritis of hip; Z87.440 Personal history of urinary (tract) infections; Z86.79 Personal history of other diseases of the circulatory system; Z95.1 Presence of aortocoronary bypass graft; Z79.899 Other long term (current) drug therapy; Z85.46 Personal history of malignant neoplasm of prostate; Z95.5 Presence of coronary angioplasty implant and graft; Z95.0 Presence of cardiac pacemaker; Z98.62 Peripheral vascular angioplasty status
CPT/HCPCS: 96372; G0463; J1071

== ENCOUNTER → 2018-05-02 | Outpatient (CLI) | payer MEDICARE, OTHER ==
[~2018-05-02] MED LIST changes: -TESTOSTERONE CYPIONATE 200 MG/ML 1ML VIAL IM ONE
[2018-05-02 08:00] VITALS: BP 115/69
--- NOTE | 2018-05-02 08:00 | NUR ---
CHF PT TO CHF CLINIC FOR MD CELIS ORDERED BILAT LE UNNA BOOT CHANGE FOR CONTROL OF LE EDEMA
[2018-05-02 08:45] VITALS: BP 124/67
== END | disposition home or self-care (01) ==
LOC: CHF HDHVI 08:10
PROVIDERS: ATTEND Internal Medicine
DX: I25.10 Atherosclerotic heart disease of native coronary artery without angina pectoris (principal); I11.0 Hypertensive heart disease with heart failure; I50.9 Heart failure, unspecified; R60.0 Localized edema
CPT/HCPCS: G0463

== ENCOUNTER → 2018-05-06 | Outpatient (CLI) | payer MEDICARE, OTHER ==
[~2018-05-06] VITALS: Ht 30.5 cm; Wt 0.5 kg
[~2018-05-06] MED LIST changes: +BUMETANIDE (0.25MG/ML) 4 ML VIAL IV ONE; +BUMETANIDE (0.25MG/ML) 4 ML VIAL ONE; +POTASSIUM CHL 10 Meq TABLET PO ONE
[2018-05-06 12:03] VITALS: BP 110/65
--- NOTE | 2018-05-06 12:03 | NUR ---
CHF PT TO CHF CLINIC FOR MD CELIS ORDERED BILAT LE [place] COYNE DRSG CHANGE . PT HAS 8 LB WGHT GAIN SINCE LAST VISIT.
--- NOTE | 2018-05-06 12:45 | NUR ---
CHF Clinic Provider Clinic Provider DR. CELIS , pt with new orders received and WILL BE carried out. DRAW BUN/CREAT/K VIT D HGBAIC, LFTBUMEX 1 GM IVP, POTASSIUM CHLORIDE 10 MEQ PO. BILAT LE UNNA BOOT CHANGE per MD order.
[2018-05-06 13:55] VITALS: BP 122/77
--- NOTE | 2018-05-06 13:55 | NUR ---
CHF Wound Care Wound care provided per MD order. Patient tolerated well and verbalized dressing care instructions. Follow up in clinic as directed. See e-MAR for medications given during this visit. Discharge Instructions See e-MAR for any mediations given with this visit. Patient education given on disease process. Patient verbalized understanding. Previous labs reviewed. ECHO SCHEDULED FOR 05/14/18. Patient discharged in stable condition with after care instructions and follow up appointment.
[2018-05-06 16:00] LABS: Albumin 2.9 g/dL (3.4-5.0); Bilirubin, Direct 0.2 mg/dL (0-0.2); Potassium 4.2 mmol/L (3.5-5.1)
[2018-05-06 16:02] LABS: Bilirubin, Total 0.6 mg/dL (0.2-1.0); Total Protein 6.7 g/dL (6.4-8.2)
== END | disposition home or self-care (01) ==
LOC: CHF HDHVI 12:11
PROVIDERS: ATTEND Internal Medicine
DX: I13.0 Hypertensive heart and chronic kidney disease with heart failure and stage 1 through stage 4 chronic kidney disease, or unspecified chronic kidney disease (principal); I50.23 Acute on chronic systolic (congestive) heart failure; I50.32 Chronic diastolic (congestive) heart failure; E11.22 Type 2 diabetes mellitus with diabetic chronic kidney disease; N18.3 Chronic kidney disease, stage 3 (moderate); E11.51 Type 2 diabetes mellitus with diabetic peripheral angiopathy without gangrene; I25.10 Atherosclerotic heart disease of native coronary artery without angina pectoris; I48.91 Unspecified atrial fibrillation; E03.9 Hypothyroidism, unspecified; E78.5 Hyperlipidemia, unspecified; I70.0 Atherosclerosis of aorta; E78.00 Pure hypercholesterolemia, unspecified; I89.0 Lymphedema, not elsewhere classified; I27.21 Secondary pulmonary arterial hypertension; M16.0 Bilateral primary osteoarthritis of hip; K74.1 Hepatic sclerosis; E87.6 Hypokalemia; G89.29 Other chronic pain; F41.9 Anxiety disorder, unspecified; R94.4 Abnormal results of kidney function studies; Z85.46 Personal history of malignant neoplasm of prostate; Z86.718 Personal history of other venous thrombosis and embolism; Z95.1 Presence of aortocoronary bypass graft; Z79.899 Other long term (current) drug therapy; Z95.0 Presence of cardiac pacemaker
CPT/HCPCS: 36415; 80076; 82306; 82565; 83036; 83880; 84132; 84520; 96374; G0463; J3490; 96365

== ENCOUNTER → 2018-05-09 | Outpatient (CLI) | payer MEDICARE, OTHER ==
[~2018-05-09] MED LIST changes: -BUMETANIDE (0.25MG/ML) 4 ML VIAL IV ONE; -BUMETANIDE (0.25MG/ML) 4 ML VIAL ONE; -POTASSIUM CHL 10 Meq TABLET PO ONE
[2018-05-09 11:55] VITALS: BP 107/65
--- NOTE | 2018-05-09 11:55 | NUR ---
CHF PT TO CHF CLINIC FOR MD CELIS ORDERED BILMARSHAL SHETH APPLICATION
[2018-05-09 12:27] VITALS: BP 109/68
--- NOTE | 2018-05-09 12:27 | NUR ---
CHF Wound Care Wound care provided per MD order. Patient tolerated well and verbalized dressing care instructions. Follow up in clinic as directed. See e-MAR for medications given during this visit. Discharge Instructions See e-MAR for any mediations given with this visit. Patient education given on disease process. Patient verbalized understanding. Previous labs reviewed. Patient discharged in stable condition with after care instructions and follow up appointment. FOLOW UP SUNDAY FOR UNNA BOOT DRSG CHANGE AND ECHO. PT VERB UNDERSTANDING.
== END | disposition home or self-care (01) ==
LOC: CHF HDHVI 11:59
PROVIDERS: ATTEND Internal Medicine
DX: I25.10 Atherosclerotic heart disease of native coronary artery without angina pectoris (principal); I11.0 Hypertensive heart disease with heart failure; I50.9 Heart failure, unspecified; R60.0 Localized edema; E78.00 Pure hypercholesterolemia, unspecified; E03.9 Hypothyroidism, unspecified
CPT/HCPCS: G0463

== ENCOUNTER → 2018-05-14 | Outpatient (CLI) | payer MEDICARE, OTHER ==
[~2018-05-14] MED LIST changes: +BUMETANIDE (0.25MG/ML) 4 ML VIAL IV ONE; +BUMETANIDE (0.25MG/ML) 4 ML VIAL ONE; +POTASSIUM CHL 10 Meq TABLET PO ONE
[2018-05-14 08:10] VITALS: BP 118/72
--- NOTE | 2018-05-14 08:10 | NUR ---
CHF PT TO CHF CLINIC FOR MD CELIS ORDERED NY OTTO
--- NOTE | 2018-05-14 08:25 | NUR ---
CHF Clinic Provider Clinic Provider DR. CELIS pt with new orders received and carried out. DRAW FARHANA REYNA K. BUMEX 1MG FOR 4 LB WGHT GAIN AND POTASSIUM CHLORIDE 10 MEQ PO. per MD order. Addendum: 05/14/18 at 1100 by Cristina Hernadez RN AR BÁRBARA URBANO ON ABOVE ORDER.
--- NOTE | 2018-05-14 09:25 | NUR ---
TO HAVE ECHOCARDIOGRAM NOW IN OFFICE.
[2018-05-14 10:15] VITALS: BP 122/82
--- NOTE | 2018-05-14 10:15 | NUR ---
CHF Discharge Instructions See e-MAR for any mediations given with this visit. Patient education given on disease process. Patient verbalized understanding. Previous labs reviewed. Patient discharged in stable condition with after care instructions and follow up appointment.
== END | disposition home or self-care (01) ==
LOC: CHF HDHVI 08:26
PROVIDERS: ATTEND Internal Medicine Cardiovascular Disease
DX: I13.0 Hypertensive heart and chronic kidney disease with heart failure and stage 1 through stage 4 chronic kidney disease, or unspecified chronic kidney disease (principal); I50.42 Chronic combined systolic (congestive) and diastolic (congestive) heart failure; E11.22 Type 2 diabetes mellitus with diabetic chronic kidney disease; N18.3 Chronic kidney disease, stage 3 (moderate); I25.10 Atherosclerotic heart disease of native coronary artery without angina pectoris; I89.0 Lymphedema, not elsewhere classified; E11.51 Type 2 diabetes mellitus with diabetic peripheral angiopathy without gangrene; E03.9 Hypothyroidism, unspecified; E78.00 Pure hypercholesterolemia, unspecified; I70.0 Atherosclerosis of aorta; E78.5 Hyperlipidemia, unspecified; I48.91 Unspecified atrial fibrillation; K74.1 Hepatic sclerosis; G47.00 Insomnia, unspecified; I27.21 Secondary pulmonary arterial hypertension; I87.2 Venous insufficiency (chronic) (peripheral); M16.0 Bilateral primary osteoarthritis of hip; E87.6 Hypokalemia; G89.29 Other chronic pain; F41.9 Anxiety disorder, unspecified; R94.4 Abnormal results of kidney function studies; Z85.46 Personal history of malignant neoplasm of prostate; Z86.718 Personal history of other venous thrombosis and embolism; Z95.1 Presence of aortocoronary bypass graft; Z95.5 Presence of coronary angioplasty implant and graft; Z95.0 Presence of cardiac pacemaker; Z79.899 Other long term (current) drug therapy
CPT/HCPCS: 36415; 82565; 84132; 84520; 93306; 96374; G0463; J3490

== ENCOUNTER → 2018-05-16 | Outpatient (CLI) | payer MEDICARE, OTHER ==
[~2018-05-16] MED LIST changes: +BUMETANIDE (0.25 MG/ML) INJ 10ML IV ONE; -BUMETANIDE (0.25MG/ML) 4 ML VIAL IV ONE; -BUMETANIDE (0.25MG/ML) 4 ML VIAL ONE; +BUMETANIDE INJECTION 10 ML ONE; +METOLAZONE 5 MG TAB ONE; +METOLAZONE 5 MG TAB PO ONE; -POTASSIUM CHL 10 Meq TABLET PO ONE
[2018-05-16 12:20] VITALS: BP 131/67
--- NOTE | 2018-05-16 12:20 | NUR ---
CHF PT TO CHF CLINIC WITH RLE EDEMA 2 PLUS. LLE MILD EDEMA NON PITTING.
--- NOTE | 2018-05-16 12:30 | NUR ---
CHF Clinic Provider Clinic Provider DR. CELIS , pt with new orders received and carried out. GIVE METOLAZONE 2.5MG PO HALF HR BEFORE BUMEX 1.5MG IVP . BILAT ROMEO MARIE per MD order.
[2018-05-16 13:45] VITALS: BP 119/77
== END | disposition home or self-care (01) ==
LOC: CHF HDHVI 12:31
PROVIDERS: ATTEND Internal Medicine Cardiovascular Disease
DX: I13.0 Hypertensive heart and chronic kidney disease with heart failure and stage 1 through stage 4 chronic kidney disease, or unspecified chronic kidney disease (principal); E11.22 Type 2 diabetes mellitus with diabetic chronic kidney disease; N18.3 Chronic kidney disease, stage 3 (moderate); I50.42 Chronic combined systolic (congestive) and diastolic (congestive) heart failure; I25.10 Atherosclerotic heart disease of native coronary artery without angina pectoris; I70.0 Atherosclerosis of aorta; I48.91 Unspecified atrial fibrillation; E78.5 Hyperlipidemia, unspecified; E03.9 Hypothyroidism, unspecified; G89.29 Other chronic pain; M16.0 Bilateral primary osteoarthritis of hip; E78.00 Pure hypercholesterolemia, unspecified; F41.9 Anxiety disorder, unspecified; Z79.899 Other long term (current) drug therapy; Z85.46 Personal history of malignant neoplasm of prostate; Z86.718 Personal history of other venous thrombosis and embolism; Z95.5 Presence of coronary angioplasty implant and graft
CPT/HCPCS: 96374; G0463

== ENCOUNTER → 2018-05-20 | Outpatient (CLI) | payer MEDICARE, OTHER ==
[~2018-05-20] MED LIST changes: -BUMETANIDE (0.25 MG/ML) INJ 10ML IV ONE; -BUMETANIDE INJECTION 10 ML ONE; +CYANOCOBALAMIN (B-12) 1000 MCG/1 ML VIAL IM ONE; +CYANOCOBALAMIN (B-12) 1000 MCG/1 ML VIAL ONE; -METOLAZONE 5 MG TAB ONE; -METOLAZONE 5 MG TAB PO ONE
[2018-05-20 10:40] VITALS: BP 137/68
[2018-05-20 11:19] VITALS: BP 103/66
--- NOTE | 2018-05-20 11:19 | NUR ---
CEASAR BOOTS TO BILATERAL LEGS. TOLERATED WELL. SKIN CLEAN WARM AND DRY. CEASAR BOOTS THEN COBAN THEN STOCKINGNETTE APPLIED BILATERALLY. Discharge Instructions See e-MAR for any mediations given with this visit. Patient education given on disease process. Patient verbalized understanding. Previous labs reviewed. Patient discharged in stable condition with after care instructions and follow up appointment.
== END | disposition home or self-care (01) ==
LOC: CHF HDHVI 10:59
PROVIDERS: ATTEND Internal Medicine
DX: I13.0 Hypertensive heart and chronic kidney disease with heart failure and stage 1 through stage 4 chronic kidney disease, or unspecified chronic kidney disease (principal); E11.22 Type 2 diabetes mellitus with diabetic chronic kidney disease; E11.51 Type 2 diabetes mellitus with diabetic peripheral angiopathy without gangrene; N18.3 Chronic kidney disease, stage 3 (moderate); I50.42 Chronic combined systolic (congestive) and diastolic (congestive) heart failure; D63.1 Anemia in chronic kidney disease; F41.9 Anxiety disorder, unspecified; M16.0 Bilateral primary osteoarthritis of hip; I25.10 Atherosclerotic heart disease of native coronary artery without angina pectoris; E78.5 Hyperlipidemia, unspecified; E03.9 Hypothyroidism, unspecified; G89.29 Other chronic pain; E78.00 Pure hypercholesterolemia, unspecified; I48.91 Unspecified atrial fibrillation; Z86.79 Personal history of other diseases of the circulatory system; Z87.440 Personal history of urinary (tract) infections; Z79.899 Other long term (current) drug therapy; Z98.61 Coronary angioplasty status; Z95.1 Presence of aortocoronary bypass graft; Z95.0 Presence of cardiac pacemaker; Z85.46 Personal history of malignant neoplasm of prostate; Z86.718 Personal history of other venous thrombosis and embolism
CPT/HCPCS: 96372; G0463; J3420

== ENCOUNTER → 2018-05-23 | Outpatient (CLI) | payer MEDICARE, OTHER ==
[~2018-05-23] MED LIST changes: -CYANOCOBALAMIN (B-12) 1000 MCG/1 ML VIAL IM ONE; -CYANOCOBALAMIN (B-12) 1000 MCG/1 ML VIAL ONE; +POTASSIUM CHL 10 Meq TABLET PO ONE
[2018-05-23 11:15] VITALS: BP 118/76
--- NOTE | 2018-05-23 11:15 | NUR ---
CHF PT TO CHF CLINIC FOR BILAT LE UNNA BOOT APPLICATION FOR CHRONIC LE EDEMA MANAGEMENT .
[2018-05-23 12:28] VITALS: BP 127/80
== END | disposition home or self-care (01) ==
LOC: CHF HDHVI 11:20
PROVIDERS: ATTEND Internal Medicine
DX: I25.10 Atherosclerotic heart disease of native coronary artery without angina pectoris (principal); R60.0 Localized edema
CPT/HCPCS: G0463

== ENCOUNTER → 2018-05-27 | Outpatient (CLI) | payer MEDICARE, OTHER ==
[~2018-05-27] MED LIST changes: -POTASSIUM CHL 10 Meq TABLET PO ONE
[2018-05-27 09:15] VITALS: BP 134/77
--- NOTE | 2018-05-27 09:15 | NUR ---
CHF PT TO CHF CLINIC FOR MD CELIS ORDERED BILAT ROMEO ALEJANDRA BOOT APPLICATION.
[2018-05-27 09:55] VITALS: BP 145/85
--- NOTE | 2018-05-27 09:55 | NUR ---
CHF Wound Care Wound care provided per MD order. Patient tolerated well and verbalized dressing care instructions. Follow up in clinic as directed. See e-MAR for medications given during this visit. Discharge Instructions See e-MAR for any mediations given with this visit. Patient education given on disease process. Patient verbalized understanding. Previous labs reviewed. Patient discharged in stable condition with after care instructions and follow up appointment. FOLLOW UP Sunday05/30/18 FOR UNNA BOOT DRSG CHANGE.
== END | disposition home or self-care (01) ==
LOC: CHF HDHVI 09:37
PROVIDERS: ATTEND Internal Medicine
DX: I25.10 Atherosclerotic heart disease of native coronary artery without angina pectoris (principal); R60.0 Localized edema
CPT/HCPCS: G0463

== ENCOUNTER → 2018-05-30 | Outpatient (CLI) | payer MEDICARE, OTHER ==
[~2018-05-30] MED LIST changes: +KETOROLAC TROMETH 60MG/2ML VIAL IM ONE
[2018-05-30 10:40] VITALS: BP 108/62
[2018-05-30 11:41] VITALS: BP 144/80
--- NOTE | 2018-05-30 11:41 | NUR ---
CHF CLINIC Discharge Instructions See e-MAR for any mediations given with this visit. Patient education given on disease process. Patient verbalized understanding. Previous labs reviewed. Patient discharged in stable condition with after care instructions and follow up appointment NEXT SUNDAY. NOTE BILAT CEASAR MARIE APPLIED TORADOL IM R GLUTE ADMIN BY PAT SUÁREZ
== END | disposition home or self-care (01) ==
LOC: CHF HDHVI 11:18
PROVIDERS: ATTEND Internal Medicine
DX: I87.2 Venous insufficiency (chronic) (peripheral) (principal); R60.9 Edema, unspecified; I12.9 Hypertensive chronic kidney disease with stage 1 through stage 4 chronic kidney disease, or unspecified chronic kidney disease; E11.22 Type 2 diabetes mellitus with diabetic chronic kidney disease; I50.42 Chronic combined systolic (congestive) and diastolic (congestive) heart failure; N18.3 Chronic kidney disease, stage 3 (moderate); I25.10 Atherosclerotic heart disease of native coronary artery without angina pectoris; I48.91 Unspecified atrial fibrillation; I27.21 Secondary pulmonary arterial hypertension; E11.51 Type 2 diabetes mellitus with diabetic peripheral angiopathy without gangrene; M16.0 Bilateral primary osteoarthritis of hip; E78.00 Pure hypercholesterolemia, unspecified; G89.29 Other chronic pain; F41.9 Anxiety disorder, unspecified; E03.9 Hypothyroidism, unspecified; E78.5 Hyperlipidemia, unspecified; Z79.899 Other long term (current) drug therapy; Z98.61 Coronary angioplasty status; Z85.46 Personal history of malignant neoplasm of prostate; Z86.718 Personal history of other venous thrombosis and embolism; Z95.0 Presence of cardiac pacemaker; Z95.1 Presence of aortocoronary bypass graft
CPT/HCPCS: 96372; G0463; J1885

== ENCOUNTER → 2018-06-03 | Outpatient (CLI) | payer MEDICARE, OTHER ==
[~2018-06-03] MED LIST changes: -KETOROLAC TROMETH 60MG/2ML VIAL IM ONE
[2018-06-03 10:20] VITALS: BP 96/64
--- NOTE | 2018-06-03 10:20 | NUR ---
CHF CLINIC Discharge Instructions See e-MAR for any mediations given with this visit. Patient education given on disease process. Patient verbalized understanding. Previous labs reviewed. Patient discharged in stable condition with after care instructions and follow up appointment. NOTE BÁRBARA MARIE APPLIED CARDIODYNAMICS PERFORMED BY PAT SUÁREZ AND REVIEWED BY KAITY RUBI.
== END | disposition home or self-care (01) ==
LOC: CHF HDHVI 09:35
PROVIDERS: ATTEND Internal Medicine
DX: I50.9 Heart failure, unspecified (principal); I87.2 Venous insufficiency (chronic) (peripheral); R53.1 Weakness
CPT/HCPCS: 93701; G0463

== ENCOUNTER → 2018-06-06 | Outpatient (CLI) | payer MEDICARE, OTHER ==
[2018-06-06 09:11] VITALS: BP 128/78
[2018-06-06 09:34] VITALS: BP 125/74
--- NOTE | 2018-06-06 09:34 | NUR ---
Wound Care Wound care provided per MD order. Patient tolerated well and verbalized dressing care instructions. Follow up in clinic as directed. Skin clean dry and intact, dressing secured with stockinette, pt tolerated well 0 distress, verbalized understanding with f/u appointment.
[2018-06-06 09:42] VITALS: BP 128/78
== END | disposition home or self-care (01) ==
LOC: CHF HDHVI 09:18
PROVIDERS: ATTEND Internal Medicine
DX: E78.5 Hyperlipidemia, unspecified (principal); I11.0 Hypertensive heart disease with heart failure; I50.9 Heart failure, unspecified; Z95.0 Presence of cardiac pacemaker
CPT/HCPCS: G0463

== ENCOUNTER → 2018-06-10 | Outpatient (CLI) | payer MEDICARE, OTHER ==
[~2018-06-10] MED LIST changes: +TESTOSTERONE CYPIONATE 200 MG/ML 1ML VIAL IM ONE
--- NOTE | 2018-06-10 07:55 | NUR ---
PT IN CLINIC FOR UNNA BOOT CHANGE AND VITAL SIGNS ALERT ORIENTED 0 DISTRESS ALL CARE PROVIDED BY HENRIETTA RUBI
[2018-06-10 08:00] VITALS: BP 134/76
[2018-06-10 08:40] VITALS: BP 115/71
--- NOTE | 2018-06-10 08:40 | NUR ---
Discharge Instructions See e-MAR for any mediations given with this visit. Patient education given on disease process. Patient verbalized understanding. Previous labs reviewed. Patient discharged in stable condition with after care instructions and follow up appointment. MEDICATIONS TESTOSTERONE 200MG IM X 1 RIGHT GLUTE
[2018-06-10 12:14] LABS: Basophils # (auto) 0 uL; Basophils % (auto) 0.3 % (0.0-2.0); Eosinophils # (auto) 0.1 uL; Eosinophils % (auto) 0.8 % (0.0-7.0); Hematocrit 52.5 % (41.0-53.0); Hemoglobin 17.4 g/dL (13.5-17.5); Lymphocytes # (auto) 1.1 uL; Lymphocytes % (auto) 16.3 % (10.0-50.0); Mean Corpuscular Hemoglobin 31.8 pg (28.0-32.0); Mean Corpuscular Hgb Conc. 33.2 g/dL (32.0-36.0); Mean Corpuscular Volume 95.8 fL (80.0-100.0); Monocytes # (auto) 0.4 uL; Monocytes % (auto) 6.5 % (0.0-12.0); Neutrophils # (auto) 5.1 uL; Neutrophils % (auto) 76.1 % (37.0-80.0); Nucleated Red Blood Cells % 0.3 %; Platelet Count (auto) 190 10^3/uL (140-450); Red Blood Cells 5.48 10^6/uL (4.5-5.90); Red Cell Distribution Width 14.3 % (11.8-14.3); White Blood Cell 6.7 10^3/uL (4.4-10.8)
[2018-06-10 12:17] LABS: Calcium 8.8 mg/dL (8.5-10.1); Magnesium 2.5 mg/dL (1.6-2.6); Potassium 3.9 mmol/L (3.5-5.1)
== END | disposition home or self-care (01) ==
LOC: CHF HDHVI 08:12
PROVIDERS: ATTEND Internal Medicine
DX: E29.1 Testicular hypofunction (principal); D64.9 Anemia, unspecified; R60.0 Localized edema; I25.10 Atherosclerotic heart disease of native coronary artery without angina pectoris; I13.0 Hypertensive heart and chronic kidney disease with heart failure and stage 1 through stage 4 chronic kidney disease, or unspecified chronic kidney disease; E11.22 Type 2 diabetes mellitus with diabetic chronic kidney disease; N18.3 Chronic kidney disease, stage 3 (moderate); I50.42 Chronic combined systolic (congestive) and diastolic (congestive) heart failure; I48.91 Unspecified atrial fibrillation; I27.21 Secondary pulmonary arterial hypertension; F41.9 Anxiety disorder, unspecified; M16.0 Bilateral primary osteoarthritis of hip; E03.9 Hypothyroidism, unspecified; G89.29 Other chronic pain; E11.51 Type 2 diabetes mellitus with diabetic peripheral angiopathy without gangrene; Z86.718 Personal history of other venous thrombosis and embolism; Z86.79 Personal history of other diseases of the circulatory system; Z95.0 Presence of cardiac pacemaker; Z95.5 Presence of coronary angioplasty implant and graft; Z79.899 Other long term (current) drug therapy; Z85.46 Personal history of malignant neoplasm of prostate
CPT/HCPCS: 36415; 80048; 83735; 85025; 96372; G0463; J1071

== ENCOUNTER → 2018-06-13 | Outpatient (CLI) | payer MEDICARE, OTHER ==
[~2018-06-13] MED LIST changes: -TESTOSTERONE CYPIONATE 200 MG/ML 1ML VIAL IM ONE
[2018-06-13 08:40] VITALS: BP 114/72
--- NOTE | 2018-06-13 10:05 | NUR ---
CHF PT TO CHF CLINIC FOR ORDERED BILAT LE [place] BOOT APPLICATION.
== END | disposition home or self-care (01) ==
LOC: CHF HDHVI 09:21
PROVIDERS: ATTEND Internal Medicine
DX: I25.10 Atherosclerotic heart disease of native coronary artery without angina pectoris (principal); R60.0 Localized edema
CPT/HCPCS: G0463

== ENCOUNTER → 2018-06-17 | Outpatient (CLI) | payer MEDICARE, OTHER ==
[2018-06-17 09:05] VITALS: BP 105/71
--- NOTE | 2018-06-17 09:05 | NUR ---
CHF PT TO CHF CLINIC FOR UNNA BOOT DRESSING CHANGE, VSS AND WIGHTE. PT ALERT AND ORIENTED 0 DISTRESS
--- NOTE | 2018-06-17 09:20 | NUR ---
IV insertion IV access obtained, via clean sterile technique by inserting 22 gauge catheter at after attempt(s). IV secured properly. No trauma to site. Patient tolerated procedure well.
--- NOTE | 2018-06-17 09:34 | NUR ---
Discharge Instructions See e-MAR for any mediations given with this visit. Patient education given on disease process. Patient verbalized understanding. Previous labs reviewed. Patient discharged in stable condition with after care instructions and follow up appointment.
[2018-06-17 09:43] VITALS: BP 102/69
== END | disposition home or self-care (01) ==
LOC: CHF HDHVI 09:10
PROVIDERS: ATTEND Internal Medicine
DX: I73.9 Peripheral vascular disease, unspecified (principal)
CPT/HCPCS: G0463

== ENCOUNTER → 2018-06-20 | Outpatient (CLI) | payer MEDICARE, OTHER ==
[~2018-06-20] MED LIST changes: +BUMETANIDE (0.25MG/ML) 4 ML VIAL IV ONE; +BUMETANIDE (0.25MG/ML) 4 ML VIAL ONE; +POTASSIUM CHL 10 Meq TABLET PO ONE; +POTASSIUM CHL 20 Meq TABLET PO SCH
[2018-06-20 09:31] VITALS: BP 113/69
[2018-06-20 12:25] VITALS: BP_SYST 113; BP_SYST 126; BP_DIAS 69; BP_DIAS 79
--- NOTE | 2018-06-20 12:25 | NUR ---
IN TO CLINIC FOR CEASAR BOOT APPLICATION. LABS REVIEWED AND ADDRESSED. CEASAR BOOTS APPLIED BILATERALLY WITH COBAN AND STOCKINGNETTE ON TOP. PT INITIALLY REFUSED DIURETIC DUE TO NEED TO GO TO PHYSICAL THERAPY AFTER CLINIC TODAY. RETURNED AFTER PHYSICAL THERAPY FOR IV ADMINISTRATION OF BUMEX. LABS DRAWN AND SENT. MEDICATION ADMINISTERED VIA BUTTERFLY.
[2018-06-20 16:09] LABS: Calcium 8.5 mg/dL (8.5-10.1); Magnesium 2.6 mg/dL (1.6-2.6); Potassium 4.1 mmol/L (3.5-5.1)
[2018-06-20 16:21] LABS: Basophils # (auto) 0 uL; Basophils % (auto) 0.2 % (0.0-2.0); Eosinophils # (auto) 0.1 uL; Eosinophils % (auto) 0.5 % (0.0-7.0); Hematocrit 50.4 % (41.0-53.0); Hemoglobin 16.7 g/dL (13.5-17.5); Lymphocytes # (auto) 1.2 uL; Lymphocytes % (auto) 11.2 % (10.0-50.0); Mean Corpuscular Hemoglobin 31.7 pg (28.0-32.0); Mean Corpuscular Hgb Conc. 33.1 g/dL (32.0-36.0); Mean Corpuscular Volume 95.6 fL (80.0-100.0); Monocytes # (auto) 1.4 uL; Monocytes % (auto) 13.2 % (0.0-12.0); Neutrophils % (auto) 74.9 % (37.0-80.0); Nucleated Red Blood Cells % 0.2 %; Platelet Count (auto) 148 10^3/uL (140-450); Red Blood Cells 5.27 10^6/uL (4.5-5.90); Red Cell Distribution Width 14.3 % (11.8-14.3); White Blood Cell 10.7 10^3/uL (4.4-10.8)
== END | disposition home or self-care (01) ==
LOC: CHF HDHVI 10:05
PROVIDERS: ATTEND Internal Medicine
DX: I13.0 Hypertensive heart and chronic kidney disease with heart failure and stage 1 through stage 4 chronic kidney disease, or unspecified chronic kidney disease (principal); E11.22 Type 2 diabetes mellitus with diabetic chronic kidney disease; I50.23 Acute on chronic systolic (congestive) heart failure; I50.32 Chronic diastolic (congestive) heart failure; N18.3 Chronic kidney disease, stage 3 (moderate); E83.40 Disorders of magnesium metabolism, unspecified; D51.9 Vitamin B12 deficiency anemia, unspecified; I25.10 Atherosclerotic heart disease of native coronary artery without angina pectoris; I27.21 Secondary pulmonary arterial hypertension; G89.29 Other chronic pain; E11.51 Type 2 diabetes mellitus with diabetic peripheral angiopathy without gangrene; E78.5 Hyperlipidemia, unspecified; E78.00 Pure hypercholesterolemia, unspecified; F41.9 Anxiety disorder, unspecified; E03.9 Hypothyroidism, unspecified; M16.0 Bilateral primary osteoarthritis of hip; Z48.00 Encounter for change or removal of nonsurgical wound dressing; Z85.46 Personal history of malignant neoplasm of prostate; Z95.0 Presence of cardiac pacemaker; Z95.5 Presence of coronary angioplasty implant and graft; Z95.1 Presence of aortocoronary bypass graft; Z79.899 Other long term (current) drug therapy
CPT/HCPCS: 36415; 80048; 82607; 83735; 83880; 85025; 96374; G0463; J3490

== ENCOUNTER → 2018-06-24 | Outpatient (CLI) | payer MEDICARE, OTHER ==
[~2018-06-24] MED LIST changes: -BUMETANIDE (0.25MG/ML) 4 ML VIAL IV ONE; -BUMETANIDE (0.25MG/ML) 4 ML VIAL ONE; -POTASSIUM CHL 10 Meq TABLET PO ONE; -POTASSIUM CHL 20 Meq TABLET PO SCH
[2018-06-24 08:25] VITALS: BP 121/71
[2018-06-24 09:45] VITALS: BP 127/74
--- NOTE | 2018-06-24 09:45 | NUR ---
CHF CLINIC Discharge Instructions See e-MAR for any mediations given with this visit. Patient education given on disease process. Patient verbalized understanding. Previous labs reviewed. Patient discharged in stable condition with after care instructions and follow up appointment ON SUNDAY. NOTE BÁRBARA MARIE APPLIED
== END | disposition home or self-care (01) ==
LOC: CHF HDHVI 09:27
PROVIDERS: ATTEND Internal Medicine
DX: I87.2 Venous insufficiency (chronic) (peripheral) (principal); E87.70 Fluid overload, unspecified
CPT/HCPCS: G0463

== ENCOUNTER → 2018-06-27 | Outpatient (CLI) | payer MEDICARE, OTHER ==
[~2018-06-27] MED LIST changes: +BUMETANIDE (0.25MG/ML) 4 ML VIAL IV ONE; +BUMETANIDE (0.25MG/ML) 4 ML VIAL ONE; +POTASSIUM CHL 10 Meq TABLET PO ONE; +POTASSIUM CHL 20 Meq TABLET PO ONE
[2018-06-27 07:50] VITALS: BP 111/74
[2018-06-27 08:40] VITALS: BP 108/74
--- NOTE | 2018-06-27 08:40 | NUR ---
IN TO CLINIC FOR WOUND CARE TO BILATERAL LEGS, CEASAR BOOT APPLICATION. SKIN CLEAN AND DRY AND INTACT. CEASAR BOOTS APPLIED BILATERALLY BY PAT SUÁREZ. COVERED WITH COBAN AND STOCKINGNETTE. NOTED TO HAVE SIGNIFICANT WEIGHT GAIN. LABS REVIEWED. CLINIC PROVIDER IN AND NEW ORDERS RECIEVED. MEDICATED PER ORDER. MONITORED POST IVP X 20 MINUTES. TOLERATED WELL. VS WNL. DIABETIC EDUCATION GIVEN IN WRITTEN VERBAL AND DEMONSTRATION MATERIAL. REPEAT BACK INSTRUCTIONS OBTAINED. Discharge Instructions See e-MAR for any mediations given with this visit. Patient education given on disease process. Patient verbalized understanding. Previous labs reviewed. Patient discharged in stable condition with after care instructions and follow up appointment FOR SUNDAY 0.3 MEDICATION ADMINISTRATION BUMEX 1.5 MG IVP AT 0820 POTASSIUM 30 MEQ PO AT 0830
== END | disposition home or self-care (01) ==
LOC: CHF HDHVI 07:56
PROVIDERS: ATTEND Internal Medicine
DX: I13.0 Hypertensive heart and chronic kidney disease with heart failure and stage 1 through stage 4 chronic kidney disease, or unspecified chronic kidney disease (principal); E11.22 Type 2 diabetes mellitus with diabetic chronic kidney disease; I50.42 Chronic combined systolic (congestive) and diastolic (congestive) heart failure; N18.3 Chronic kidney disease, stage 3 (moderate); I25.10 Atherosclerotic heart disease of native coronary artery without angina pectoris; I48.91 Unspecified atrial fibrillation; I27.21 Secondary pulmonary arterial hypertension; M16.0 Bilateral primary osteoarthritis of hip; E78.5 Hyperlipidemia, unspecified; E03.9 Hypothyroidism, unspecified; G89.29 Other chronic pain; E78.00 Pure hypercholesterolemia, unspecified; F41.9 Anxiety disorder, unspecified; E11.51 Type 2 diabetes mellitus with diabetic peripheral angiopathy without gangrene; Z87.440 Personal history of urinary (tract) infections; Z79.899 Other long term (current) drug therapy; Z85.46 Personal history of malignant neoplasm of prostate; Z95.5 Presence of coronary angioplasty implant and graft; Z95.0 Presence of cardiac pacemaker; Z95.1 Presence of aortocoronary bypass graft
CPT/HCPCS: 96374; G0463; J3490

== ENCOUNTER → 2018-07-01 | Outpatient (CLI) | payer MEDICARE, OTHER ==
[~2018-07-01] MED LIST changes: -BUMETANIDE (0.25MG/ML) 4 ML VIAL IV ONE; -BUMETANIDE (0.25MG/ML) 4 ML VIAL ONE; +FUROSEMIDE 100 MG/10ML VIAL IV ONE; +FUROSEMIDE 40 MG/4 ML VIAL ONE
--- NOTE | 2018-07-01 09:00 | NUR ---
PT. TO [facility] FOR EVAL. AND TX. PT. TO HAVE BILAT. [place] BOOTS APPLIED PER MD ORDER. PT'S WT REMAINS ELEVATED OVER THE WEEKEND. NEW ORDERS RECEIVED FROM DR. CELIS FOR IV LASIX TODAY AFTER PT . FINISHES P.T.
--- NOTE | 2018-07-01 09:20 | NUR ---
BILAT. [place] MARIE APPLIED PER MD ORDER. PT. TOLERATED PROCEDURE WELL.
--- NOTE | 2018-07-01 09:30 | NUR ---
PT. DC'D TO PHYICAL THERAPY APPT. AND WILL RTC FOR IV DIRETICS PER MD ORDER.
--- NOTE | 2018-07-01 11:35 | NUR ---
PT RTC FOR IV MEDS PER MD ORDER. 118/80, 68, 18, 95% RA. MD ORDERS RECEIVED AND CARRIED OUT.
--- NOTE | 2018-07-01 11:55 | NUR ---
MEDS: LASIX 80 MG SIVP GIVEN PER MD ORDER.
--- NOTE | 2018-07-01 11:57 | NUR ---
MEDS: KDUR 30 MEQ PO GIVEN PER MD ORDER.
[2018-07-01 12:20] VITALS: BP 121/85
== END | disposition home or self-care (01) ==
LOC: CHF HDHVI 09:09
PROVIDERS: ATTEND Internal Medicine
DX: I13.0 Hypertensive heart and chronic kidney disease with heart failure and stage 1 through stage 4 chronic kidney disease, or unspecified chronic kidney disease (principal); E11.22 Type 2 diabetes mellitus with diabetic chronic kidney disease; N18.3 Chronic kidney disease, stage 3 (moderate); I50.42 Chronic combined systolic (congestive) and diastolic (congestive) heart failure; I25.10 Atherosclerotic heart disease of native coronary artery without angina pectoris; I70.0 Atherosclerosis of aorta; I48.91 Unspecified atrial fibrillation; E11.51 Type 2 diabetes mellitus with diabetic peripheral angiopathy without gangrene; E03.9 Hypothyroidism, unspecified; E78.5 Hyperlipidemia, unspecified; E78.00 Pure hypercholesterolemia, unspecified; M16.0 Bilateral primary osteoarthritis of hip; F41.9 Anxiety disorder, unspecified; G89.29 Other chronic pain; Z79.899 Other long term (current) drug therapy; Z85.46 Personal history of malignant neoplasm of prostate; Z95.1 Presence of aortocoronary bypass graft; Z95.5 Presence of coronary angioplasty implant and graft; Z95.0 Presence of cardiac pacemaker; Z86.718 Personal history of other venous thrombosis and embolism
CPT/HCPCS: 96374; G0463; J1940

== ENCOUNTER → 2018-07-04 | Outpatient (CLI) | payer MEDICARE, OTHER ==
[~2018-07-04] MED LIST changes: -FUROSEMIDE 100 MG/10ML VIAL IV ONE; -FUROSEMIDE 40 MG/4 ML VIAL ONE; +FUROSEMIDE INJECTION 10 ML ONE; +FUROSEMIDE INJECTION 100 MG in SODIUM CHL 0.9% 100 ML IV SCH
[2018-07-04 09:19] LABS: Basophils # (auto) 0 uL; Eosinophils # (auto) 0 uL; Hemoglobin 17.6 g/dL (13.5-17.5); Mean Corpuscular Hgb Conc. 33.1 g/dL (32.0-36.0); Neutrophils # (auto) 5.2 uL; Nucleated Red Blood Cells % 0.1 %
[2018-07-04 09:21] LABS: Basophils % (auto) 0.4 % (0.0-2.0); Eosinophils % (auto) 0.6 % (0.0-7.0); Hematocrit 53.2 % (41.0-53.0); Lymphocytes # (auto) 1.1 uL; Lymphocytes % (auto) 15.8 % (10.0-50.0); Mean Corpuscular Hemoglobin 31.6 pg (28.0-32.0); Mean Corpuscular Volume 95.4 fL (80.0-100.0); Monocytes # (auto) 0.5 uL; Monocytes % (auto) 7.8 % (0.0-12.0); Neutrophils % (auto) 75.4 % (37.0-80.0); Platelet Count (auto) 111 10^3/uL (140-450); Red Blood Cells 5.57 10^6/uL (4.5-5.90); Red Cell Distribution Width 14.9 % (11.8-14.3)
[2018-07-04 09:30] VITALS: BP 119/74
[2018-07-04 09:38] LABS: Calcium 8.8 mg/dL (8.5-10.1); Potassium 3.9 mmol/L (3.5-5.1)
[2018-07-04 10:00] VITALS: BP 153/90
[2018-07-04 10:30] VITALS: BP 119/74
[2018-07-04 10:55] VITALS: BP 124/85
--- NOTE | 2018-07-04 10:55 | NUR ---
IN TO CLINIC FOR CEASAR BOOT APPLICATION. LEGS WITH MODERATE EDEMA. CEASAR BOOTS APPLIED AND COVERED WITH COBAN AND STOCKINGNETTE. TOLERATED WELL. EVALUATED DIURETIC THERAPY AND MEDICATION. NOTED TO HAVE SIGNIFICANT ABDOMINAL EDEMA. LABS DRAWN AND SENT FOR STAT RESULTS. IV insertion IV access obtained, via clean sterile technique by inserting 22 gauge catheter at after attempt(s). IV secured properly. No trauma to site. Patient tolerated procedure well. Clinic Provider Clinic Provider into see pt with new orders received and carried out. Lasix gtt started at {30}mg/hr per MD order. LASIX GTT ADMINISTERED UNTIL LABS RETURNED. CLINIC PROVIDER CONSULTED WITH LAB RESULTS. STOP IV LASIX AFTER 2 HOURS. Discharge Instructions See e-MAR for any mediations given with this visit. Patient education given on disease process. Patient verbalized understanding. Previous labs reviewed. Patient discharged in stable condition with after care instructions and follow up appointment FOR Sunday07/07/18 MEDICATION ADMINISTRATION LASIX 100MG IN 100 ML AT 30 ML/HR (START AT AT 0840/STOP AT 1045) TOTAL 60 MG ADMINISTERED POTASSIUM 40 MEQ PO AT 1050
== END | disposition home or self-care (01) ==
LOC: CHF HDHVI 08:34
PROVIDERS: ATTEND Internal Medicine
DX: I13.0 Hypertensive heart and chronic kidney disease with heart failure and stage 1 through stage 4 chronic kidney disease, or unspecified chronic kidney disease (principal); E11.22 Type 2 diabetes mellitus with diabetic chronic kidney disease; N18.3 Chronic kidney disease, stage 3 (moderate); I50.42 Chronic combined systolic (congestive) and diastolic (congestive) heart failure; D64.9 Anemia, unspecified; N28.9 Disorder of kidney and ureter, unspecified; I48.91 Unspecified atrial fibrillation; E11.51 Type 2 diabetes mellitus with diabetic peripheral angiopathy without gangrene; M16.0 Bilateral primary osteoarthritis of hip; G89.29 Other chronic pain; E03.9 Hypothyroidism, unspecified; E78.5 Hyperlipidemia, unspecified; E78.00 Pure hypercholesterolemia, unspecified; I27.21 Secondary pulmonary arterial hypertension; F41.9 Anxiety disorder, unspecified; Z86.718 Personal history of other venous thrombosis and embolism; Z95.0 Presence of cardiac pacemaker; Z79.899 Other long term (current) drug therapy; Z85.46 Personal history of malignant neoplasm of prostate; Z87.440 Personal history of urinary (tract) infections; Z95.5 Presence of coronary angioplasty implant and graft; Z95.1 Presence of aortocoronary bypass graft
CPT/HCPCS: 36415; 80048; 85025; 96365; 96366; G0463; J1940

== ENCOUNTER → 2018-07-08 | Outpatient (CLI) | payer MEDICARE, OTHER ==
[~2018-07-08] MED LIST changes: -FUROSEMIDE INJECTION 10 ML ONE; -FUROSEMIDE INJECTION 100 MG in SODIUM CHL 0.9% 100 ML IV SCH; -POTASSIUM CHL 10 Meq TABLET PO ONE; -POTASSIUM CHL 20 Meq TABLET PO ONE
[2018-07-08 08:18] VITALS: BP 126/78
[2018-07-08 09:00] VITALS: BP 126/78
[2018-07-08 09:20] VITALS: BP 105/58
--- NOTE | 2018-07-08 09:20 | NUR ---
IN TO CLINIC WITH CLEAN AND INTACT SKIN TO BILATERAL LEGS. CEASAR BOOTS APPLIED. COBVERED WITH COBAN AND STOCKINGNETTE. Discharge Instructions See e-MAR for any mediations given with this visit. Patient education given on disease process. Patient verbalized understanding. Previous labs reviewed. Patient discharged in stable condition with after care instructions and follow up appointment FOR Sunday07/11/18
== END | disposition home or self-care (01) ==
LOC: CHF HDHVI 08:26
PROVIDERS: ATTEND Internal Medicine
DX: E87.70 Fluid overload, unspecified (principal); I11.0 Hypertensive heart disease with heart failure; I50.9 Heart failure, unspecified
CPT/HCPCS: G0463

== ENCOUNTER → 2018-07-11 | Outpatient (CLI) | payer MEDICARE, OTHER ==
[2018-07-11 08:00] VITALS: BP 118/71
--- NOTE | 2018-07-11 09:00 | NUR ---
CARDIODYNAMICS DONE AND REVIEWED BY SANDIE RUBI
--- NOTE | 2018-07-11 09:30 | NUR ---
IN TO CLINIC FOR CEASAR BOOT APPLICATION. SKIN CLEAN AND WARM AND DRY WITHOUT ANY BREAKDOWN. CEASAR BOOTS APPLIED AND COVERED WITH COBAN AND STOCKINGNETTE. TOLERATED WELL. VS WNL. NO DISTRESS OR DISCOMFORT. Discharge Instructions See e-MAR for any mediations given with this visit. Patient education given on disease process. Patient verbalized understanding. Previous labs reviewed. Patient discharged in stable condition with after care instructions and follow up appointment FOR Sunday07/11/18
== END | disposition home or self-care (01) ==
LOC: CHF HDHVI 08:19
PROVIDERS: ATTEND Internal Medicine
DX: E87.70 Fluid overload, unspecified (principal); I11.0 Hypertensive heart disease with heart failure; I50.9 Heart failure, unspecified
CPT/HCPCS: G0463

== ENCOUNTER → 2018-07-15 | Outpatient (CLI) | payer MEDICARE, OTHER ==
[2018-07-15 08:40] VITALS: BP 109/69
--- NOTE | 2018-07-15 08:40 | NUR ---
CHF CLINIC PT ARRIVED TO CHF CLINIC FOR BILATERAL CEASAR BOOT, PRE SET OF VITAL SIGNS ARE TAKEN, PT STABLE, NO DISTRESS NOTED.
[2018-07-15 09:20] VITALS: BP 111/69
--- NOTE | 2018-07-15 09:20 | NUR ---
Discharge Instructions PATIENT RECEIVED BILATERAL CEASAR BOOT, TOLERATED WELL. See e-MAR for any mediations given with this visit. Patient education given on disease process. Patient verbalized understanding. Previous labs reviewed. Patient discharged in stable condition with after care instructions and follow up appointment.
== END | disposition home or self-care (01) ==
LOC: CHF HDHVI 09:09
PROVIDERS: ATTEND Internal Medicine
DX: I25.10 Atherosclerotic heart disease of native coronary artery without angina pectoris (principal); E78.5 Hyperlipidemia, unspecified; Z95.0 Presence of cardiac pacemaker
CPT/HCPCS: G0463

== ENCOUNTER → 2018-07-18 | Outpatient (CLI) | payer MEDICARE, OTHER ==
[~2018-07-18] MED LIST changes: +BUMETANIDE (0.25MG/ML) 4 ML VIAL IV ONE; +BUMETANIDE (0.25MG/ML) 4 ML VIAL ONE; +POTASSIUM CHL 10 Meq TABLET PO ONE; +POTASSIUM CHL 20 Meq TABLET PO ONE
[2018-07-18 08:15] VITALS: BP 115/74
[2018-07-18 09:39] VITALS: BP 139/81
--- NOTE | 2018-07-18 09:39 | NUR ---
IN FOR CHF FOLLOWUP. WITHOUT DISTRESS OR DISCOMFORT. VS WNL.Clinic Provider Clinic Provider into see pt with new orders received and carried out. ARRIVED WITH NO CEASAR BOOTS ON LEGS, SKIN CLEAN DRY AND INTACT. CEASAR BOOTS APPLIED BILATERALLY BY PAT SUÁREZ AND TOLERATED WELL. LABS DRAWN AND SENT AND ADMINISTERED MEDICATION PER ORDER. Discharge Instructions See e-MAR for any mediations given with this visit. Patient education given on disease process. Patient verbalized understanding. Previous labs reviewed. Patient discharged in stable condition with after care instructions and follow up [id number]/01/19 MEDICATION ADMINISTRATION BUMEX 1 MG IVP AT 0850 POTASSIUM 20 MEQ PO AT 0850
[2018-07-18 12:19] LABS: BUN/Creatinine Ratio 23.4; Basophils # (auto) 0 uL; Basophils % (auto) 0.3 % (0.0-2.0); Calcium 8.6 mg/dL (8.5-10.1); Eosinophils # (auto) 0 uL; Eosinophils % (auto) 0.4 % (0.0-7.0); Hematocrit 50.1 % (41.0-53.0); Hemoglobin 16.4 g/dL (13.5-17.5); Lymphocytes # (auto) 1.1 uL; Lymphocytes % (auto) 14.6 % (10.0-50.0); Mean Corpuscular Hemoglobin 31.1 pg (28.0-32.0); Mean Corpuscular Hgb Conc. 32.7 g/dL (32.0-36.0); Mean Corpuscular Volume 95.1 fL (80.0-100.0); Monocytes # (auto) 0.6 uL; Monocytes % (auto) 7.8 % (0.0-12.0); Neutrophils # (auto) 5.6 uL; Neutrophils % (auto) 76.9 % (37.0-80.0); Nucleated Red Blood Cells % 0.1 %; Platelet Count (auto) 154 10^3/uL (140-450); Potassium 3.7 mmol/L (3.5-5.1); Red Blood Cells 5.26 10^6/uL (4.5-5.90); White Blood Cell 7.3 10^3/uL (4.4-10.8)
== END | disposition home or self-care (01) ==
LOC: CHF HDHVI 08:21
PROVIDERS: ATTEND Internal Medicine
DX: I13.0 Hypertensive heart and chronic kidney disease with heart failure and stage 1 through stage 4 chronic kidney disease, or unspecified chronic kidney disease (principal); I50.9 Heart failure, unspecified; N18.3 Chronic kidney disease, stage 3 (moderate); D64.9 Anemia, unspecified; I50.42 Chronic combined systolic (congestive) and diastolic (congestive) heart failure; F41.9 Anxiety disorder, unspecified; I25.10 Atherosclerotic heart disease of native coronary artery without angina pectoris; M16.0 Bilateral primary osteoarthritis of hip; E11.22 Type 2 diabetes mellitus with diabetic chronic kidney disease; E11.51 Type 2 diabetes mellitus with diabetic peripheral angiopathy without gangrene; E78.5 Hyperlipidemia, unspecified; E03.9 Hypothyroidism, unspecified; G89.29 Other chronic pain; Z79.899 Other long term (current) drug therapy; Z95.0 Presence of cardiac pacemaker
CPT/HCPCS: 36415; 80048; 85025; 96374; G0463; J3490

== ENCOUNTER → 2018-07-22 | Outpatient (CLI) | payer MEDICARE, OTHER ==
[~2018-07-22] MED LIST changes: -BUMETANIDE (0.25MG/ML) 4 ML VIAL IV ONE; -BUMETANIDE (0.25MG/ML) 4 ML VIAL ONE; -POTASSIUM CHL 10 Meq TABLET PO ONE; -POTASSIUM CHL 20 Meq TABLET PO ONE
[2018-07-22 08:00] VITALS: BP 115/93
--- NOTE | 2018-07-22 08:00 | NUR ---
CHF PT TO CHF CLINIC IN 0 DISTRESS, V/S OBTAINED. PT HERE FOR FOLLOW UP CARE CARDIODYNAMICS AND BILATERAL UNNA BOOT THERAPY. PT EDUCATED ABOUT PLAN OF CARE AND VERBALIZED UNDERSTANDING.
[2018-07-22 09:09] VITALS: BP 120/75
== END | disposition home or self-care (01) ==
LOC: CHF HDHVI 08:23
PROVIDERS: ATTEND Internal Medicine
DX: I73.9 Peripheral vascular disease, unspecified (principal)
CPT/HCPCS: 93701; G0463

== ENCOUNTER → 2018-07-25 | Outpatient (CLI) | payer MEDICARE, OTHER ==
[2018-07-25 08:00] VITALS: BP 98/67
[2018-07-25 08:35] VITALS: BP 118/77
--- NOTE | 2018-07-25 08:35 | NUR ---
IN TO CLINIC FOR CEASAR BOOT APPLICATION TO BILATERAL CALVES. SKIN CLEAN WARM AND DRY. CEASAR BOOTS APPLIED TO BILATERAL CALVES. TOLERATED WELL. WITHOUT DISTRESS. VS WNL. WEIGHT STABLE. CLINIC PROVIDER CONSULTED WITH NO ADDITIONAL ORDERS AT THIS TIME. Discharge Instructions See e-MAR for any mediations given with this visit. Patient education given on disease process. Patient verbalized understanding. Previous labs reviewed. Patient discharged in stable condition with after care instructions and follow up appointment FOR Sunday07/29/18.
== END | disposition home or self-care (01) ==
LOC: CHF HDHVI 08:03
PROVIDERS: ATTEND Internal Medicine
DX: I11.0 Hypertensive heart disease with heart failure (principal); I50.9 Heart failure, unspecified; E87.70 Fluid overload, unspecified
CPT/HCPCS: G0463

== ENCOUNTER → 2018-07-29 | Outpatient (CLI) | payer MEDICARE, OTHER ==
[~2018-07-29] MED LIST changes: +CYANOCOBALAMIN (B-12) 1000 MCG/1 ML VIAL IM ONE; +CYANOCOBALAMIN (B-12) 1000 MCG/1 ML VIAL ONE; +TESTOSTERONE CYPIONATE 200 MG/ML 1ML VIAL IM ONE
[2018-07-29 09:00] VITALS: BP 107/69
--- NOTE | 2018-07-29 09:00 | NUR ---
IN TO CLINIC FOR SCHEDULED WOUND CARE. ARRIVED WITHOUT CEASAR BOOTS. SKIN CLEAN WARM AND DRY THROUGHOUT. APPLIED CEASAR BOOTS BILATERALLY COVERED WITH COBAN AND STOCKINGNETTE. TOLERATED WELL. CLINIC PROVIDER CONSULTED AND MEDICATED PER ORDER. MEDICATION ADMINISTRATION VIT B12 1000 MCG RIGHT DELTOID AT 0905 TESTOSTERONE 200 MG IM TO RIGHT GLUT AT 0900 CEASAR BOOTS APPLIED BILATERALLY
== END | disposition home or self-care (01) ==
LOC: CHF HDHVI 08:30
PROVIDERS: ATTEND Internal Medicine
DX: I13.0 Hypertensive heart and chronic kidney disease with heart failure and stage 1 through stage 4 chronic kidney disease, or unspecified chronic kidney disease (principal); E11.22 Type 2 diabetes mellitus with diabetic chronic kidney disease; I50.42 Chronic combined systolic (congestive) and diastolic (congestive) heart failure; N18.3 Chronic kidney disease, stage 3 (moderate); M16.0 Bilateral primary osteoarthritis of hip; E03.9 Hypothyroidism, unspecified; E29.1 Testicular hypofunction; G89.29 Other chronic pain; I25.10 Atherosclerotic heart disease of native coronary artery without angina pectoris; E11.51 Type 2 diabetes mellitus with diabetic peripheral angiopathy without gangrene; I27.21 Secondary pulmonary arterial hypertension; I48.91 Unspecified atrial fibrillation; Z79.899 Other long term (current) drug therapy; Z95.0 Presence of cardiac pacemaker; Z85.46 Personal history of malignant neoplasm of prostate; Z95.1 Presence of aortocoronary bypass graft; Z95.5 Presence of coronary angioplasty implant and graft; Z87.440 Personal history of urinary (tract) infections; Z86.718 Personal history of other venous thrombosis and embolism
CPT/HCPCS: 96372; G0463; J1071; J3420

== ENCOUNTER → 2018-08-05 | Outpatient (CLI) | payer MEDICARE, OTHER ==
[~2018-08-05] MED LIST changes: -CYANOCOBALAMIN (B-12) 1000 MCG/1 ML VIAL IM ONE; -CYANOCOBALAMIN (B-12) 1000 MCG/1 ML VIAL ONE; -TESTOSTERONE CYPIONATE 200 MG/ML 1ML VIAL IM ONE
[2018-08-05 09:10] VITALS: BP 114/69
--- NOTE | 2018-08-05 09:10 | NUR ---
CHF PT ARRIVED AT CHF CLINIC FOR UNNA BOOT CHANGE, VITAL SIGNS OBTAINED PT STATES HE FEELS GOOD
--- NOTE | 2018-08-05 09:30 | NUR ---
Wound Care Wound care provided per MD order. Patient tolerated well and verbalized dressing care instructions. Follow up in clinic as directed. See e-MAR for medications given during this visit. UNNA BOOT APPLIED BILATERALLY
[2018-08-05 09:55] VITALS: BP 115/62
== END | disposition home or self-care (01) ==
LOC: CHF HDHVI 09:46
PROVIDERS: ATTEND Internal Medicine
DX: I11.0 Hypertensive heart disease with heart failure (principal); I50.9 Heart failure, unspecified
CPT/HCPCS: G0463

== ENCOUNTER → 2018-08-08 | Outpatient (CLI) | payer MEDICARE, OTHER ==
[~2018-08-08] MED LIST changes: +FUROSEMIDE 20 MG/2 ML VIAL ONE; +FUROSEMIDE 40 MG/4 ML VIAL IV ONE; +FUROSEMIDE 40 MG/4 ML VIAL ONE; +POTASSIUM CHL 20 Meq TABLET PO ONE
[2018-08-08 08:00] VITALS: BP 119/68
--- NOTE | 2018-08-08 08:40 | NUR ---
CHF MEDICATION ADMINISTRATION LASIX 60 MG IVP AT 0830 K DUR 40 MEQ PO AT 0830
--- NOTE | 2018-08-08 08:40 | NUR ---
NOTED TO HAVE INCREASED WEIGHT. BILATERAL LEGS CEASAR BOOTS APPLIED AND TOLERATED WELL. CEASAR BOOTS, COBAN, AND STOCKINGNETTE APPLIED. CLINIC PROVIDER CONSULTED AND ORDERS RECIEVED. MEDICATED PER ORDER. Clinic Provider Clinic Provider into see pt with new orders received and carried out. Discharge Instructions See e-MAR for any mediations given with this visit. Patient education given on disease process. Patient verbalized understanding. Previous labs reviewed. Patient discharged in stable condition with after care instructions and follow up appointment FOR Sunday08/12/18
--- NOTE | 2018-08-08 08:40 | NUR ---
IN TO CLINIC FOR SCHEDULED INFUSION.
[2018-08-08 09:18] VITALS: BP 121/70
== END | disposition home or self-care (01) ==
LOC: CHF HDHVI 08:01
PROVIDERS: ATTEND Internal Medicine
DX: I13.0 Hypertensive heart and chronic kidney disease with heart failure and stage 1 through stage 4 chronic kidney disease, or unspecified chronic kidney disease (principal); E11.22 Type 2 diabetes mellitus with diabetic chronic kidney disease; N18.3 Chronic kidney disease, stage 3 (moderate); I50.42 Chronic combined systolic (congestive) and diastolic (congestive) heart failure; I25.10 Atherosclerotic heart disease of native coronary artery without angina pectoris; I70.0 Atherosclerosis of aorta; I48.91 Unspecified atrial fibrillation; E03.9 Hypothyroidism, unspecified; E78.00 Pure hypercholesterolemia, unspecified; E78.5 Hyperlipidemia, unspecified; E11.51 Type 2 diabetes mellitus with diabetic peripheral angiopathy without gangrene; M16.0 Bilateral primary osteoarthritis of hip; F41.9 Anxiety disorder, unspecified; G89.29 Other chronic pain; Z79.899 Other long term (current) drug therapy; Z85.46 Personal history of malignant neoplasm of prostate; Z95.1 Presence of aortocoronary bypass graft; Z86.718 Personal history of other venous thrombosis and embolism; Z95.0 Presence of cardiac pacemaker; Z95.5 Presence of coronary angioplasty implant and graft
CPT/HCPCS: 96374; G0463; J1940

== ENCOUNTER → 2018-08-12 | Outpatient (CLI) | payer MEDICARE, OTHER ==
[~2018-08-12] MED LIST changes: -FUROSEMIDE 20 MG/2 ML VIAL ONE; -FUROSEMIDE 40 MG/4 ML VIAL IV ONE; -FUROSEMIDE 40 MG/4 ML VIAL ONE; -POTASSIUM CHL 20 Meq TABLET PO ONE
[2018-08-12 14:27] VITALS: BP 116/72
--- NOTE | 2018-08-12 14:27 | NUR ---
CHF PT ARRIVED TO CHF CLINIC 0 DISTRESS, V/S OBTAINED
--- NOTE | 2018-08-12 14:30 | NUR ---
Wound Care Wound care provided per MD order. Patient tolerated well and verbalized dressing care instructions. Follow up in clinic as directed. See e-MAR for medications given during this visit. BILATERAL UNNA BOOTSPPLIED
[2018-08-12 14:49] VITALS: BP 133/71
== END | disposition home or self-care (01) ==
LOC: CHF HDHVI 15:19
PROVIDERS: ATTEND Internal Medicine
DX: I11.0 Hypertensive heart disease with heart failure (principal); I50.9 Heart failure, unspecified
CPT/HCPCS: G0463

== ENCOUNTER → 2018-08-15 | Outpatient (CLI) | payer MEDICARE, OTHER ==
[2018-08-15 08:15] VITALS: BP 124/68
[2018-08-15 08:50] VITALS: BP 118/62
== END | disposition home or self-care (01) ==
LOC: CHF HDHVI 08:20
PROVIDERS: ATTEND Internal Medicine
DX: I87.2 Venous insufficiency (chronic) (peripheral) (principal); R60.0 Localized edema
CPT/HCPCS: G0463

== ENCOUNTER → 2018-08-16 | Outpatient (CLI) | payer MEDICARE, OTHER | END | disposition home or self-care (01) | LOC: Rad HDHVI 09:35 | PROVIDERS: ATTEND Internal Medicine Cardiovascular Disease | DX: M48.061 Spinal stenosis, lumbar region without neurogenic claudication (principal); M47.816 Spondylosis without myelopathy or radiculopathy, lumbar region; M25.78 Osteophyte, vertebrae; M12.88 Other specific arthropathies, not elsewhere classified, other specified site | CPT/HCPCS: 72131 ==

== ENCOUNTER → 2018-08-19 | Outpatient (CLI) | payer MEDICARE, OTHER ==
[2018-08-19 07:40] VITALS: BP 126/79
--- NOTE | 2018-08-19 07:40 | NUR ---
CHF PT ARRIVED AT THE CHF CLINIC ALERT ORIENTED 0 DISTRESS. V/S OBTAINED
--- NOTE | 2018-08-19 08:00 | NUR ---
Wound Care Wound care provided per MD order. Patient tolerated well and verbalized dressing care instructions. Follow up in clinic as directed. See e-MAR for medications given during this visit. BILATERAL UNNA BOOTS APPLIED
[2018-08-19 08:19] VITALS: BP 113/67
== END | disposition home or self-care (01) ==
LOC: CHF HDHVI 07:47
PROVIDERS: ATTEND Internal Medicine
DX: R60.0 Localized edema (principal); I73.9 Peripheral vascular disease, unspecified
CPT/HCPCS: G0463

== ENCOUNTER → 2018-08-22 | Outpatient (CLI) | payer MEDICARE, OTHER ==
[2018-08-22 08:00] VITALS: BP 115/70
[2018-08-22 08:50] VITALS: BP 127/70
--- NOTE | 2018-08-22 08:50 | NUR ---
CHF CLINIC Discharge Instructions See e-MAR for any mediations given with this visit. Patient education given on disease process. Patient verbalized understanding. Previous labs reviewed. Patient discharged in stable condition with after care instructions and follow up appointment ON SUNDAY. NOTE BILAT CEASAR BOOTS APPLIED, LABS DRAWN.
[2018-08-22 13:15] LABS: Potassium 3.8 mmol/L (3.5-5.1)
== END | disposition home or self-care (01) ==
LOC: CHF HDHVI 08:23
PROVIDERS: ATTEND Internal Medicine
DX: I87.2 Venous insufficiency (chronic) (peripheral) (principal); R94.4 Abnormal results of kidney function studies; E87.6 Hypokalemia; E87.70 Fluid overload, unspecified
CPT/HCPCS: 36415; 82565; 84132; 84520; G0463

== ENCOUNTER → 2018-08-26 | Outpatient (CLI) | payer MEDICARE, OTHER ==
[2018-08-26 08:00] VITALS: BP 119/70
[2018-08-26 09:42] VITALS: BP 134/81
--- NOTE | 2018-08-26 09:42 | NUR ---
IN TO CLINIC FOR SCHEDULED WOUND CARE, APPLICATION OF BILATERAL CEASAR BOOTS. SKIN CLEAN AND WARM AND DRY THROUGHOUT. CEASAR BOOTS APPLIED BILATERALLY AND TOLERATED WELL. PREVIOUS LABS REVIEWED. Discharge Instructions See e-MAR for any mediations given with this visit. Patient education given on disease process. Patient verbalized understanding. Previous labs reviewed. Patient discharged in stable condition with after care instructions and follow up appointment FOR Sunday08/29/18
== END | disposition home or self-care (01) ==
LOC: CHF HDHVI 08:05
PROVIDERS: ATTEND Internal Medicine
DX: I11.0 Hypertensive heart disease with heart failure (principal); I50.9 Heart failure, unspecified; E87.70 Fluid overload, unspecified
CPT/HCPCS: G0463

== ENCOUNTER → 2018-08-29 | Outpatient (CLI) | payer MEDICARE, OTHER ==
[~2018-08-29] MED LIST changes: +BUMETANIDE (0.25MG/ML) 4 ML VIAL IV ONE; +BUMETANIDE INJECTION 10 ML ONE; +METOLAZONE 5 MG TAB ONE; +METOLAZONE 5 MG TAB PO ONE; +POTASSIUM CHL 10 Meq TABLET PO ONE; +POTASSIUM CHL 20 Meq TABLET PO ONE
[2018-08-29 08:15] VITALS: BP 127/71
[2018-08-29 09:15] VITALS: BP 136/79
--- NOTE | 2018-08-29 09:15 | NUR ---
IN TO CLINIC FOR CEASAR BOOT APPLICATION BILATERALLY. SKIN WARM AND DRY AND INTACT THROUGHOUT. ANKLE EDEMA NOTED. ABDOMINAL DISTENTION WITH SCANT WHEEZES. CEASAR BOOTAS APPLIED AND TOLERATED WELL. CLINIC PROVIDER CONSULTED AND ORDERS RECIEVED AND CARRIED OUT. TOLERATED WELL. EDUCATION PROVIDED BY DIANA RUBI REGARDING TESTOSTERONE BENEFITS. Discharge Instructions See e-MAR for any mediations given with this visit. Patient education given on disease process. Patient verbalized understanding. Previous labs reviewed. Patient discharged in stable condition with after care instructions and follow up appointment FOR Sunday09/02/18. MEDICATION ADMINISTRATION METOLAZONE 5 MG PO AT 0820 POTASSIUM 40 MEQ PO AT 0820 BUMEX 1.5 MG IVP AT 0915
== END | disposition home or self-care (01) ==
LOC: CHF HDHVI 08:21
PROVIDERS: ATTEND Internal Medicine
DX: I13.0 Hypertensive heart and chronic kidney disease with heart failure and stage 1 through stage 4 chronic kidney disease, or unspecified chronic kidney disease (principal); I50.42 Chronic combined systolic (congestive) and diastolic (congestive) heart failure; N18.3 Chronic kidney disease, stage 3 (moderate); E11.22 Type 2 diabetes mellitus with diabetic chronic kidney disease; E11.51 Type 2 diabetes mellitus with diabetic peripheral angiopathy without gangrene; I48.91 Unspecified atrial fibrillation; I27.21 Secondary pulmonary arterial hypertension; E78.5 Hyperlipidemia, unspecified; E03.9 Hypothyroidism, unspecified; G89.29 Other chronic pain; F41.9 Anxiety disorder, unspecified; M16.0 Bilateral primary osteoarthritis of hip; M48.061 Spinal stenosis, lumbar region without neurogenic claudication; Z79.899 Other long term (current) drug therapy; Z95.1 Presence of aortocoronary bypass graft; Z95.0 Presence of cardiac pacemaker; Z87.440 Personal history of urinary (tract) infections; Z85.46 Personal history of malignant neoplasm of prostate; Z86.718 Personal history of other venous thrombosis and embolism; Z95.5 Presence of coronary angioplasty implant and graft
CPT/HCPCS: 96374; G0463

== ENCOUNTER → 2018-09-02 | Outpatient (CLI) | payer MEDICARE, OTHER ==
[~2018-09-02] MED LIST changes: -BUMETANIDE (0.25MG/ML) 4 ML VIAL IV ONE; -BUMETANIDE INJECTION 10 ML ONE; -METOLAZONE 5 MG TAB ONE; -METOLAZONE 5 MG TAB PO ONE; -POTASSIUM CHL 10 Meq TABLET PO ONE; -POTASSIUM CHL 20 Meq TABLET PO ONE
[2018-09-02 08:00] VITALS: BP 116/66
--- NOTE | 2018-09-02 09:00 | NUR ---
IN TO CLINIC FOR SCHEDULED WOUND CARE TO BILATERAL CALFS, SKIN CLEAN WARM AND DRY . DRESSING APPLIED TO BILATERAL CALVES ., CEASAR BOOTS, COBAN AND THEN STOCKINGNETTE. WITHOUT COMPLAINT OR DISCOMFORTDischarge Instructions See e-MAR for any mediations given with this visit. Patient education given on disease process. Patient verbalized understanding. Previous labs reviewed. Patient discharged in stable condition with after care instructions and follow up appointment..
[2018-09-02 09:14] VITALS: BP 116/66
[2018-09-02 12:56] LABS: Basophils # (auto) 0 uL; Basophils % (auto) 0.6 % (0.0-2.0); Eosinophils # (auto) 0 uL; Eosinophils % (auto) 0.4 % (0.0-7.0); Hematocrit 49.4 % (41.0-53.0); Hemoglobin 16.4 g/dL (13.5-17.5); Lymphocytes % (auto) 15.1 % (10.0-50.0); Mean Corpuscular Hemoglobin 32.3 pg (28.0-32.0); Mean Corpuscular Hgb Conc. 33.2 g/dL (32.0-36.0); Mean Corpuscular Volume 97.5 fL (80.0-100.0); Monocytes # (auto) 0.8 uL; Monocytes % (auto) 11.1 % (0.0-12.0); Neutrophils % (auto) 72.8 % (37.0-80.0); Nucleated Red Blood Cells % 0.2 %; Platelet Count (auto) 144 10^3/uL (140-450); Red Blood Cells 5.07 10^6/uL (4.5-5.90); Red Cell Distribution Width 15.6 % (11.8-14.3); White Blood Cell 6.9 10^3/uL (4.4-10.8)
[2018-09-02 13:01] LABS: Potassium 4.1 mmol/L (3.5-5.1)
[2018-09-02 13:10] LABS: Albumin 2.8 g/dL (3.4-5.0); BUN/Creatinine Ratio 18.8; Bilirubin, Total 1.2 mg/dL (0.2-1.0); Calcium 8.5 mg/dL (8.5-10.1); Magnesium 2.6 mg/dL (1.6-2.6); Total Protein 6.3 g/dL (6.4-8.2)
== END | disposition home or self-care (01) ==
LOC: CHF HDHVI 08:15
PROVIDERS: ATTEND Internal Medicine
DX: D64.9 Anemia, unspecified (principal); I10 Essential (primary) hypertension; E83.40 Disorders of magnesium metabolism, unspecified; E11.9 Type 2 diabetes mellitus without complications
CPT/HCPCS: 36415; 80053; 83036; 83735; 85025; G0463

== ENCOUNTER → 2018-09-05 | Outpatient (CLI) | payer MEDICARE, OTHER ==
[2018-09-05 08:24] VITALS: BP 114/67
[2018-09-05 09:30] VITALS: BP 123/77
--- NOTE | 2018-09-05 09:30 | NUR ---
CHF PT ARRIVED AT THE CHF CLINIC A/O X 3 , 0 DISTRESS. V/S OBTAINED
== END | disposition home or self-care (01) ==
LOC: CHF HDHVI 08:29
PROVIDERS: ATTEND Internal Medicine
DX: I73.9 Peripheral vascular disease, unspecified (principal)
CPT/HCPCS: G0463

== ENCOUNTER → 2018-09-09 | Outpatient (CLI) | payer MEDICARE, OTHER ==
[2018-09-09 07:30] VITALS: BP 117/70
[2018-09-09 08:30] VITALS: BP 104/65
--- NOTE | 2018-09-09 08:30 | NUR ---
IN FOR SCHEDULED CEASAR BOOTS TO BILATERAL LEGS. LEGS CLEAN, SKIN DRY AND INTACT THROUGHOUT. APPLIED CEASAR BOOTS AND COVERED WITH COBAN AND STOCKINGNETTE. TOLERATED WELL. CARDIODYNAMICS DONE AND REVIEWED. VS WNL. WITHOUT DISTRESS OR DISCOMFORT. Discharge Instructions See e-MAR for any mediations given with this visit. Patient education given on disease process. Patient verbalized understanding. Previous labs reviewed. Patient discharged in stable condition with after care instructions and follow up appointment FOR 09/12/18.
== END | disposition home or self-care (01) ==
LOC: CHF HDHVI 07:40
PROVIDERS: ATTEND Internal Medicine Cardiovascular Disease
DX: E87.70 Fluid overload, unspecified (principal); I11.0 Hypertensive heart disease with heart failure; I50.9 Heart failure, unspecified; R53.83 Other fatigue
CPT/HCPCS: G0463

== ENCOUNTER → 2018-09-12 | Outpatient (CLI) | payer MEDICARE, OTHER ==
[2018-09-12 08:00] VITALS: BP 126/75
[2018-09-12 08:24] VITALS: BP 123/70
--- NOTE | 2018-09-12 08:24 | NUR ---
SKIN CLEAN WARM AND DRY TO BILATERAL LEGS. CEASAR BOOTS APPLIED TO BILATERAL CALFS. COVERED WITH COBAN AND STOCKINGNETTE. TOLERATED WELL. DISCHARGED TO SELF CARE IN NO DISTRESS OR DISCOMFORT.
== END | disposition home or self-care (01) ==
LOC: CHF HDHVI 07:50
PROVIDERS: ATTEND Internal Medicine
DX: E87.70 Fluid overload, unspecified (principal); I11.0 Hypertensive heart disease with heart failure; I50.9 Heart failure, unspecified; I89.0 Lymphedema, not elsewhere classified
CPT/HCPCS: G0463

== ENCOUNTER → 2018-09-19 | Outpatient (CLI) | payer MEDICARE, OTHER ==
[~2018-09-19] MED LIST changes: +BUMETANIDE 1mg/4ml VIAL (0.25mg/ml) IV ONE; +BUMETANIDE 1mg/4ml VIAL (0.25mg/ml) ONE; +POTASSIUM CHL 10 Meq TABLET PO ONE
--- NOTE | 2018-09-19 09:00 | NUR ---
CHF PT ARRIVED TO THE CHF CLINCIC A/O X 3 V/S OBTAINED, 0 DISTRESS. LEGS SLIGHTLY MORE SWOLLEN THAN NORMAL WEIGHT UP 3 POUNDS/ MD UPDATED ORDERS RECEIVED ANDNOTED
--- NOTE | 2018-09-19 09:30 | NUR ---
WOUND CARE BILATERAL LE UNNA BOOT APPLIED
[2018-09-19 10:32] VITALS: BP 120/65
--- NOTE | 2018-09-19 10:32 | NUR ---
Discharge Instructions See e-MAR for any mediations given with this visit. Patient education given on disease process. Patient verbalized understanding. Previous labs reviewed. Patient discharged in stable condition with after care instructions and follow up appointment. MEDICATIONS 0930 BUMEX 1.5 MG IV X 1 0940 POTASSIUM 30 MEQ PO X 1
[2018-09-19 12:07] LABS: Potassium 3.6 mmol/L (3.5-5.1)
== END | disposition home or self-care (01) ==
LOC: CHF HDHVI 08:06
PROVIDERS: ATTEND Internal Medicine
DX: I13.0 Hypertensive heart and chronic kidney disease with heart failure and stage 1 through stage 4 chronic kidney disease, or unspecified chronic kidney disease (principal); E11.22 Type 2 diabetes mellitus with diabetic chronic kidney disease; N18.3 Chronic kidney disease, stage 3 (moderate); I50.42 Chronic combined systolic (congestive) and diastolic (congestive) heart failure; I25.10 Atherosclerotic heart disease of native coronary artery without angina pectoris; R94.4 Abnormal results of kidney function studies; E87.6 Hypokalemia; I48.91 Unspecified atrial fibrillation; I70.0 Atherosclerosis of aorta; E11.51 Type 2 diabetes mellitus with diabetic peripheral angiopathy without gangrene; F41.9 Anxiety disorder, unspecified; E78.5 Hyperlipidemia, unspecified; E78.00 Pure hypercholesterolemia, unspecified; E03.9 Hypothyroidism, unspecified; G89.4 Chronic pain syndrome; M48.061 Spinal stenosis, lumbar region without neurogenic claudication; M16.0 Bilateral primary osteoarthritis of hip; Z79.899 Other long term (current) drug therapy; Z85.46 Personal history of malignant neoplasm of prostate; Z86.718 Personal history of other venous thrombosis and embolism; Z95.5 Presence of coronary angioplasty implant and graft
CPT/HCPCS: 36415; 82565; 84132; 84520; 96374; G0463; J3490

== ENCOUNTER 2018-09-23 19:33 | Inpatient (IN) | payer MEDICARE, OTHER ==
[~2018-09-23] VITALS: Ht 177.8 cm; Wt 104.3 kg
[~2018-09-23 19:33] MED LIST changes: -BUMETANIDE 1mg/4ml VIAL (0.25mg/ml) IV ONE; -BUMETANIDE 1mg/4ml VIAL (0.25mg/ml) ONE; -POTASSIUM CHL 10 Meq TABLET PO ONE
[2018-09-23 20:47] VITALS: BP 135/75
--- NOTE | 2018-09-23 20:47 | NUR ---
PATIENT ON THE FLOOR FROM ER AT 2046. RECEIVED CALL FROM ER THAT PATIENT WAS IN ER LOBBY. PATIENT STATES THAT HE HAD BEEN WAITING IN ER SINCE 1729. PATIENT IS WITH , [facility] OBSERVED. PATIENT IS ALERT AND ORIENTED X4, ANSWERS IN COMPLETE SENTENCES AND MAKES APPROPRIATE EYE CONTACT. PATIENT PLACED IN GOWN, LAYING IN BED, BED RAILS UP X2, HEAD OF BED IS UP >30 DEGREES FOR SAFETY PRECAUTIONS. BEDSIDE TABLE WITHIN REACH, CALL LIGHT WITHIN REACH, PERSONAL BELONGINGS WITHIN REACH. VS ARE WNL. NO S/SX OF DISTRESS, SOB OR PAIN. WILL CONTINUE TO MONITOR Q1H AND PRN.
--- NOTE | 2018-09-23 21:10 | NUR ---
WAITING FOR PROJECT GEOLOGIST TO PLACE PATIENT IN SYSTEM AND PAPER WORK FROM ADMITTING.
--- NOTE | 2018-09-23 21:40 | NUR ---
ADMISSION ASSESSMENT COMPLETE
--- NOTE | 2018-09-23 21:42 | NUR ---
PAGED DOCTOR CELIS FOR ORDERS. WAITING FOR CALL BACK.
--- NOTE | 2018-09-23 21:45 | NUR ---
WILL BRING MED LIST IN THE AM
[2018-09-23 21:55] VITALS: BP 135/75
--- NOTE | 2018-09-24 00:20 | NUR ---
DR CELIS CONFIRMED ORDERS.
--- NOTE | 2018-09-24 01:00 | NUR ---
WAITING FOR BUSINESS AFFAIRS MANAGER PHARMACY TO PROCESS MED ORDERS.
--- NOTE | 2018-09-24 01:20 | NUR ---
IV insertion IV access obtained, via clean sterile technique by inserting 22 gauge catheter at LEFT AC after 1 attempt(s) AND 22 gauge catheter at LEFT FA. IVs secured properly. No trauma to sites. Patient tolerated well.
[2018-09-24] MEDS ORDERED: MORPHINE SULF INJ 2 MG/ML SYRINGE 1ML IV PRN (01:30)
[2018-09-24] MEDS ORDERED: NITROGLYCERIN 0.4 MG SL TAB SL PRN (01:30)
[2018-09-24] MEDS ORDERED: FUROSEMIDE INJECTION 100 MG in D5W 5% 90 ML IV SCH (01:30)
[2018-09-24] MEDS ORDERED: FUROSEMIDE INJECTION 20 ML ONE (02:05)
[2018-09-24] MEDS ORDERED: FUROSEMIDE 40 MG/4 ML VIAL ONE (02:05)
[2018-09-24] MEDS ORDERED: FUROSEMIDE 20 MG/2 ML VIAL ONE (02:05)
[2018-09-24] MEDS: DOBUTamine 1000MCG/ML 250 ML IV SCH ×4 (02:23→19:48)
[2018-09-24] MEDS: FUROSEMIDE INJECTION 250 MG in SODIUM CHL 0.9% 225 ML IV SCH ×4 (02:24→19:49)
[2018-09-24 04:30] VITALS: BP 151/84
[2018-09-24] MEDS: hydrALAZINE HCL 25 MG TAB PO SCH ×3 (06:19→21:27)
[2018-09-24 06:55] LABS: Basophils # (auto) 0 uL; Basophils % (auto) 0.3 % (0.0-2.0); Eosinophils # (auto) 0.1 uL; Eosinophils % (auto) 0.7 % (0.0-7.0); Hematocrit 45.7 % (41.0-53.0); Hemoglobin 15.2 g/dL (13.5-17.5); Lymphocytes # (auto) 1.6 uL; Lymphocytes % (auto) 19.8 % (10.0-50.0); Mean Corpuscular Hgb Conc. 33.2 g/dL (32.0-36.0); Mean Corpuscular Volume 96.4 fL (80.0-100.0); Monocytes # (auto) 1.1 uL; Monocytes % (auto) 13.9 % (0.0-12.0); Neutrophils # (auto) 5.3 uL; Neutrophils % (auto) 65.3 % (37.0-80.0); Nucleated Red Blood Cells % 0.1 %; Platelet Count (auto) 135 10^3/uL (140-450); Red Blood Cells 4.74 10^6/uL (4.5-5.90); Red Cell Distribution Width 14.6 % (11.8-14.3); White Blood Cell 8.1 10^3/uL (4.4-10.8)
[2018-09-24 07:12] LABS: Potassium 3.5 mmol/L (3.5-5.1)
[2018-09-24 07:20] LABS: Albumin 2.6 g/dL (3.4-5.0); BUN/Creatinine Ratio 27.1; Bilirubin, Total 0.8 mg/dL (0.2-1.0); Calcium 8.4 mg/dL (8.5-10.1); Total Protein 5.8 g/dL (6.4-8.2)
--- NOTE | 2018-09-24 07:30 | NUR ---
OPENING SHIFT NOTE ASSUMED CARE OF PATIENT FROM MARKET DEVELOPMENT TRAINER RN GEORGE. PATIENT IS AWAKE AND ALERT X4. PATIENT HAS NO S/S OF DISTRESS/SOB OR PAIN. INSTRUCTED PATIENT ON POC, PATIENT VERBALIZED UNDERSTANDING. BED IS IN LOWEST POSITION WITH SIDE RAILS RAISED X2, BED WHEELS LOCKED, URINAL AND CALL LIGHT ARE WITHIN REACH. WILL CONTINUE TO MONITOR.
[2018-09-24 08:00] VITALS: BP 151/91
[2018-09-24 09:00] VITALS: BP 151/91
[2018-09-24] MEDS: ISOSORBIDE MONONITRATE 60 MG TAB PO SCH ×2 (09:49→21:30)
[2018-09-24 13:00] VITALS: BP 126/76
--- NOTE | 2018-09-24 13:00 | NUR ---
MD CELIS AT BEDSIDE UPDATED MD ON PATIENT'S STATUS, MD IS AWARE. ASKED MF, IF HE WANTED US TO DO ANYTHING WITH THE PATIENT'S WRAPS ON BLE, STATED NO. NO NEW ORDERS GIVEN AT THIS TIME. WILL CONTINUE TO MONITOR.
[2018-09-24] MEDS ORDERED: CELECOXIB 100 MG CAP PO PRN (13:15)
[2018-09-24] MEDS ORDERED: TEMAZEPAM 15 MG CAP PO PRN (13:15)
[2018-09-24] MEDS ORDERED: HYDROcodone-ACET 5/325MG TAB PO PRN (13:15)
[2018-09-24] MEDS: GABAPENTIN 100 MG CAP PO SCH ×2 (14:34→21:29)
[2018-09-24 16:57] VITALS: BP 143/80
--- NOTE | 2018-09-24 19:17 | NUR ---
CLOSING SHIFT NOTE ENDORSED CARE TO COMMUTATOR REPAIRER RN GEORGE. PATIENT HAS NO S/S OF DISTRESS/SOB OR PAIN AT THIS TIME.
[2018-09-24] MEDS: POTASSIUM CHL 20 Meq TABLET PO SCH (21:27)
[2018-09-24] MEDS: CARVEDILOL 12.5 MG TAB PO SCH (21:28)
[2018-09-24] MEDS: TAMSULOSIN HYDROCHLORIDE 0.4 MG CAP PO SCH (21:29)
[2018-09-24] MEDS: ATORVASTATIN 20 MG TAB PO SCH (21:31)
[2018-09-24 22:00] VITALS: BP 132/76
[2018-09-25] VITALS (9 sets, daily range): BP systolic 69–148; BP diastolic 38–96
[2018-09-25] MEDS: DOBUTamine 1000MCG/ML 250 ML IV SCH ×2 (03:49→14:37)
[2018-09-25] MEDS ORDERED: FUROSEMIDE INJECTION 20 ML ONE (03:54)
[2018-09-25] MEDS ORDERED: FUROSEMIDE 20 MG/2 ML VIAL ONE (03:55)
[2018-09-25] MEDS ORDERED: FUROSEMIDE 40 MG/4 ML VIAL ONE (03:55)
[2018-09-25] MEDS: FUROSEMIDE INJECTION 250 MG in SODIUM CHL 0.9% 225 ML IV SCH ×2 (04:20→14:41)
[2018-09-25] MEDS: hydrALAZINE HCL 25 MG TAB PO SCH ×3 (06:11→21:53)
[2018-09-25] MEDS: LEVOTHYROXINE SODIUM 100 MCG TAB PO SCH (06:11)
[2018-09-25] MEDS: GABAPENTIN 100 MG CAP PO SCH ×3 (06:11→21:54)
--- NOTE | 2018-09-25 07:00 | NUR ---
OPENING SHIFT NOTE ASSUMED CARE OF PATIENT FROM CULINARY INTERN RN GEORGE. PATIENT IS AWAKE AND ALERT X4. PATIENT HAS NO S/S OF DISTRESS/SOB OR PAIN. INSTRUCTED PATIENT ON POC, PATIENT VERBALIZED UNDERSTANDING. BED IS IN LOWEST POSITION WITH SIDE RAILS RAISED X2, BED WHEELS LOCKED, AND URINAL AND CALL LIGHT ARE WITHIN REACH. WILL CONTINUE TO MONITOR.
[2018-09-25] MEDS: POTASSIUM CHL 20 Meq TABLET PO SCH ×2 (10:25→21:54)
[2018-09-25] MEDS: RIVAROXABAN 20 MG TAB PO SCH (10:25)
[2018-09-25] MEDS: LISINOPRIL 20 MG TAB PO SCH (10:26)
[2018-09-25] MEDS: FINASTERIDE 5 MG TAB PO SCH (10:27)
[2018-09-25] MEDS: CARVEDILOL 12.5 MG TAB PO SCH ×2 (10:27→21:53)
[2018-09-25] MEDS: ISOSORBIDE MONONITRATE 60 MG TAB PO SCH ×2 (10:27→21:54)
--- NOTE | 2018-09-25 12:50 | NUR ---
IV insertion IV access obtained, via clean sterile technique by inserting 20 gauge catheter at RFA after 1 attempt(s). IV secured properly. No trauma to site. Patient tolerated procedure well.
--- NOTE | 2018-09-25 13:55 | NUR ---
PATIENT'S BLOOD PRESSURE IS 69/38 mmHg AND HEART RATE IS [address] CELIS AND INFORMED MD OF PATIENT'S BLOOD PRESSURE, MD IS AWARE. MD ORDERED DOBUTAMINE TO BE HELD UNTIL PATIENT'S BLOOD SYSTOLIC BP IS >90 mmHg. ONCE SBP IS >90 CONTINUE DOBUTAMINE PER NEW ORDER. MD ORDERED LASIX TO BE DISCONTINUED. WILL FOLLOW THROUGH WITH ORDERS AND WILL CONTINUE TO MONITOR.
[2018-09-25] MEDS ORDERED: DOBUTamine 1000MCG/ML 250 ML IV SCH (15:15)
--- NOTE | 2018-09-25 19:28 | NUR ---
CLOSING SHIFT NOTE ENDORSED CARE TO RN STARS GREYSON CAREY. PATIENT HAS NO S/S OF DISTRESS/SOB OR PAIN AT THIS TIME.
--- NOTE | 2018-09-25 20:00 | NUR ---
RECEIVED PT IN BED, A/O X4, IN NO ACUTE DISTRESS, DENIES PAIN. POC REVIEWED WITH PT, VERBALIZED UNDERSTANDING. CALL LIGHT WITHIN REACH, ENCOURAGED TO CALL IF HELP IS NEEDED, SIDE RAILS UP X2, BED IN LOWEST LOCKED POSITION, NON SKID SOCKS ON. COMPLETE LINEN CHANGE DONE. CONTINUE CARE.
[2018-09-25] MEDS: ATORVASTATIN 20 MG TAB PO SCH (21:54)
[2018-09-25] MEDS: TAMSULOSIN HYDROCHLORIDE 0.4 MG CAP PO SCH (21:54)
--- NOTE | 2018-09-25 21:54 | NUR ---
BP 87/43, WILL REASSESS FOR CONTINUATION OF DOBUTAMINE.
[2018-09-26] VITALS (9 sets, daily range): BP systolic 83–100; BP diastolic 48–62
[2018-09-26] MEDS: hydrALAZINE HCL 25 MG TAB PO SCH ×3 (06:00→21:52)
[2018-09-26] MEDS: LEVOTHYROXINE SODIUM 100 MCG TAB PO SCH (06:17)
[2018-09-26] MEDS: GABAPENTIN 100 MG CAP PO SCH ×3 (06:17→21:53)
--- NOTE | 2018-09-26 07:01 | NUR ---
OPENING SHIFT NOTE ASSUMED CARE OF PATIENT FROM EXPORT FREIGHT MANAGER RN CHERRY. PATIENT IS AWAKE AND ALERT X4. PATIENT HAS NO S/S OF DISTRESS/SOB OR PAIN. INSTRUCTED PATIENT ON POC, PATIENT VERBALIZED UNDERSTANDING. BED IS IN LOWEST POSITION WITH SIDE RAILS RAISED X2, BED WHEELS LOCKED, URINAL AND CALL LIGHT ARE WITHIN REACH. WILL CONTINUE TO MONITOR.
[2018-09-26] MEDS: ISOSORBIDE MONONITRATE 60 MG TAB PO SCH ×2 (10:00→21:52)
[2018-09-26] MEDS: LISINOPRIL 20 MG TAB PO SCH (10:00)
[2018-09-26] MEDS: POTASSIUM CHL 20 Meq TABLET PO SCH (10:00)
[2018-09-26] MEDS: CARVEDILOL 12.5 MG TAB PO SCH ×2 (10:00→21:52)
[2018-09-26] MEDS: FINASTERIDE 5 MG TAB PO SCH (10:06)
[2018-09-26] MEDS: RIVAROXABAN 20 MG TAB PO SCH (10:06)
--- NOTE | 2018-09-26 10:30 | NUR ---
SPOKE WITH MD CELIS. INFORMED MD PATIENT STILL HAS POTASSIUM ORDERED TO BE GIVEN BID, PER MD WE CAN HOLD POTASSIUM UNTIL LAB RESULTS COME BACK. INFORMED MD OF PATIENT'S BP OF 71/39 mmHg, MD IS AWARE AND WANTS BLOOD PRESSURE MEDICATIONS TO BE HELD UNTIL BLOOD PRESSURE HAS INCREASED. PER MD HE WANTS PATIENT'S WRAPS ON LEGS TO BE CHANGED. WILL FOLLOW THROUGH WITH ORDERS.
[2018-09-26 11:45] LABS: Potassium 3.8 mmol/L (3.5-5.1)
[2018-09-26 11:51] LABS: BUN/Creatinine Ratio 22.3; Calcium 8.1 mg/dL (8.5-10.1)
--- NOTE | 2018-09-26 12:15 | NUR ---
REGARDING KIDNEY FUNCTION: Mian CELIS AWARE OF BUN AND CREATNINE LEVELS FOR TODAY. STATED OKAY TO HOLD POTASSIUM AND METONAZOLE.
--- NOTE | 2018-09-26 14:35 | NUR ---
IM signed and placed in pt chart
--- NOTE | 2018-09-26 18:33 | NUR ---
UNNA BOOT HAS BEEN CHANGED PER ORDERS.
--- NOTE | 2018-09-26 19:20 | NUR ---
CARE ENDORSED TO CHERRY RUBI. PATIENT HAS NO S/S OF DISTRESS/SOB OR SEVERE PAIN AT THIS TIME.
--- NOTE | 2018-09-26 20:00 | NUR ---
RECEIVED PT IN BED, A/O X4, IN NO ACUTE DISTRESS, DENIES PAIN. POC REVIEWED WITH PT, VERBALIZED UNDERSTANDING. CALL LIGHT WITHIN REACH, ENCOURAGED TO CALL IF HELP IS NEEDED, SIDE RAILS UP X2, BED IN LOWEST LOCKED POSITION, NON SKID SOCKS ON. CONTINUE CARE.
--- NOTE | 2018-09-26 21:28 | NUR ---
BP 97/59, PER DR CELIS, CONTINUE DOBUTAMINE DRIP. WILL CARRY OUT. CONTINUE CARE.
[2018-09-26] MEDS: DOBUTamine 1000MCG/ML 250 ML IV SCH (21:52)
[2018-09-26] MEDS: TAMSULOSIN HYDROCHLORIDE 0.4 MG CAP PO SCH (21:53)
[2018-09-26] MEDS: ATORVASTATIN 20 MG TAB PO SCH (21:53)
[2018-09-27] MEDS: DOBUTamine 1000MCG/ML 250 ML IV SCH ×2 (03:43→16:44)
--- NOTE | 2018-09-27 04:15 | NUR ---
IV insertion IV access obtained, via clean sterile technique by inserting 20 gauge catheter at R FA after 1 attempt(s). IV secured properly. No trauma to site. Patient tolerated well. NOTE: IV removal IV DC'd with clean sterile technique, catheter fully intact. Pressure dressing applied to site. Patient tolerated well. NOTE:
[2018-09-27 05:09] VITALS: BP 141/78
[2018-09-27] MEDS: GABAPENTIN 100 MG CAP PO SCH ×3 (05:52→23:09)
[2018-09-27] MEDS: hydrALAZINE HCL 25 MG TAB PO SCH ×3 (05:52→22:00)
[2018-09-27] MEDS: LEVOTHYROXINE SODIUM 100 MCG TAB PO SCH (05:52)
--- NOTE | 2018-09-27 07:30 | NUR ---
Opening Shift Note Assumed care of patient, awake and alert. No S/S of distress/SOB or pain on room air. Instructed on POC and to call for assist PRN, will continue to monitor for changes Q1hr and PRN. Bed in low and locked position, rails up x2, no-slip socks on.
[2018-09-27 09:00] VITALS: BP 137/67
[2018-09-27] MEDS: LISINOPRIL 20 MG TAB PO SCH (10:00)
[2018-09-27] MEDS: POTASSIUM CHL 20 Meq TABLET PO SCH (10:26)
[2018-09-27] MEDS: RIVAROXABAN 20 MG TAB PO SCH (10:26)
[2018-09-27] MEDS: FINASTERIDE 5 MG TAB PO SCH (10:26)
[2018-09-27] MEDS: CARVEDILOL 12.5 MG TAB PO SCH ×2 (10:27→23:15)
[2018-09-27] MEDS: ISOSORBIDE MONONITRATE 60 MG TAB PO SCH ×2 (10:28→22:00)
[2018-09-27] MEDS ORDERED: METOLAZONE 5 MG TAB PO SCH (12:00)
[2018-09-27 13:00] VITALS: BP 115/76
--- NOTE | 2018-09-27 15:14 | NUR ---
NUTRITION ASSESSMENT NOTES Please refer to link notes of nutrition screen form filed under the intervention section of the plan of care for further details. Est. Needs: 2150 kcal to 2650 kcal (20-25 kcal/kgBW), 60 gms to 75 gms pro (0.8-1.0 gms/kgIBW: 75 kg). Will continue to monitor pertinent labs and reassess nutrient need prn Thank you. Addendum: 09/27/18 at [address] Amended: Links added.
--- NOTE | 2018-09-27 15:50 | NUR ---
Mr Ana stated that he did not want Home Health to follow up.
--- NOTE | 2018-09-27 16:15 | NUR ---
DISCHARGE ORDER PATIENT LATEST EVAN 82/52 AND 81/48 ON RETAKE. PATIENT STATED HIS DOES NOT DRIVE AT NIGHT AND WILL NOT HAVE TRANSPORTATION FOR DISCHARGE. MESSAGE LEFT FOR DR CELIS REGARDING BLOOD PRESSURE. AWAITING CALL BACK.
--- NOTE | 2018-09-27 16:45 | NUR ---
DISCHARGED HELD PER DR CELIS, DISCHARGE HELD TODAY. ORDER CHANGED FOR TOMORROW. WILL CONTINUE TO MONITOR PATIENT'S BLOOD PRESSURE. CHARGE NURSE, STEFF BRICENO.
[2018-09-27 17:18] VITALS: BP 102/58
--- NOTE | 2018-09-27 19:05 | NUR ---
S/P OR assessment Patient to room [] following O.R. procedure. Vital signs taken, surgical site assessed for redness, swelling, or bleeding. Patient instructed on need to inform staff immediately for any pain, swelling, bleeding or pulling or popping sensations at surgical site. Patient verbalized understanding. NOTE: [] Addendum: 09/27/18 at 2340 by CLEMENTINA JULIO RN RN WRONG NOTE
[2018-09-27 22:00] VITALS: BP 102/56
[2018-09-27] MEDS: ATORVASTATIN 20 MG TAB PO SCH (23:09)
[2018-09-27] MEDS: TAMSULOSIN HYDROCHLORIDE 0.4 MG CAP PO SCH (23:09)
--- NOTE | 2018-09-28 04:02 | NUR ---
IV removal IV DC'd on RFA 22G with clean sterile technique, catheter fully intact. Pressure dressing applied to site. Patient tolerated well. NOTE:
[2018-09-28 04:42] VITALS: BP 106/58
[2018-09-28] MEDS: hydrALAZINE HCL 25 MG TAB PO SCH ×2 (05:17→13:39)
[2018-09-28] MEDS: LEVOTHYROXINE SODIUM 100 MCG TAB PO SCH (06:32)
[2018-09-28] MEDS: GABAPENTIN 100 MG CAP PO SCH ×2 (06:32→13:39)
--- NOTE | 2018-09-28 07:10 | NUR ---
Opening Shift Note Assumed care of patient, awake and alert sitting up in bed watching television. No S/S of distress/SOB, pt. denies pain at this time. Respirations are even and unlabored. Updated on POC and instructed to call for assistance PRN. Bed locked in lowest position with side rails up x2, call light within reach. Will continue to monitor for changes Q1hr and PRN.
--- NOTE | 2018-09-28 07:30 | NUR ---
CLOSING NOTE pt AWAKE , no s/sx;s of distress or sob noted, Report endorsed to day RN
[2018-09-28 09:00] VITALS: BP 132/69
[2018-09-28] MEDS: CARVEDILOL 12.5 MG TAB PO SCH (09:56)
[2018-09-28] MEDS: RIVAROXABAN 20 MG TAB PO SCH (09:58)
[2018-09-28] MEDS: FINASTERIDE 5 MG TAB PO SCH (09:58)
[2018-09-28] MEDS: POTASSIUM CHL 20 Meq TABLET PO SCH (09:58)
[2018-09-28] MEDS: LISINOPRIL 20 MG TAB PO SCH (09:59)
[2018-09-28] MEDS: ISOSORBIDE MONONITRATE 60 MG TAB PO SCH (09:59)
[2018-09-28] MEDS: DOBUTamine 1000MCG/ML 250 ML IV SCH (10:19)
--- NOTE | 2018-09-28 14:00 | NUR ---
Discharge instructions given as ordered. Encourage to follow up with PMD as instructed. All questions and concerns addressed. Patient verbalized understanding. Medication reconciliation form completed and copy given to patient. IV removed with catheter intact, pressure dressing applied. Telemetry unit returned to [facility]. Patient taken to vehicle via wheelchair with all personal belongings, accompanied by staff and family member. No distress noted at time of departure.
== END 2018-09-28 14:00 | disposition home or self-care (01) | DRG 291 ==
LOC: WEST WING 19:33 → TELE-WESTW 09-24 02:41
PROVIDERS: ADMIT Internal Medicine Cardiovascular Disease; ATTEND Internal Medicine Cardiovascular Disease
DX: I11.0 Hypertensive heart disease with heart failure (principal); I50.31 Acute diastolic (congestive) heart failure; N19 Unspecified kidney failure; E78.5 Hyperlipidemia, unspecified; I25.10 Atherosclerotic heart disease of native coronary artery without angina pectoris; I27.81 Cor pulmonale (chronic); I73.9 Peripheral vascular disease, unspecified; R63.4 Abnormal weight loss; Z82.49 Family history of ischemic heart disease and other diseases of the circulatory system; Z68.33 Body mass index [BMI] 33.0-33.9, adult
CPT/HCPCS: 36415; 80048; 80053; 82565; 83880; 84132; 84520; 85025; 96372; 96374; G0378; G0463; J7060

== ENCOUNTER → 2018-09-30 | Outpatient (CLI) | payer MEDICARE, OTHER ==
[~2018-09-30] MED LIST changes: -HYDR-4683 PO; +HYDR-4833 PO
[2018-09-30 09:20] VITALS: BP 122/56
--- NOTE | 2018-09-30 09:20 | NUR ---
CHF Clinic Discharge Instructions See e-MAR for any mediations given with this visit. Patient education given on disease process. Patient verbalized understanding. Previous labs reviewed. Patient discharged in stable condition with after care instructions and follow up appointment on . Note bilat carleen boots applied, labs drawn.
[2018-09-30 10:21] LABS: Basophils # (auto) 0 uL; Basophils % (auto) 0.4 % (0.0-2.0); Eosinophils # (auto) 0.1 uL; Eosinophils % (auto) 0.9 % (0.0-7.0); Hematocrit 44.6 % (41.0-53.0); Hemoglobin 15.1 g/dL (13.5-17.5); Lymphocytes # (auto) 1.1 uL; Lymphocytes % (auto) 15.8 % (10.0-50.0); Mean Corpuscular Hemoglobin 32.5 pg (28.0-32.0); Mean Corpuscular Hgb Conc. 33.8 g/dL (32.0-36.0); Mean Corpuscular Volume 96.1 fL (80.0-100.0); Monocytes % (auto) 14.2 % (0.0-12.0); Neutrophils # (auto) 4.8 uL; Neutrophils % (auto) 68.7 % (37.0-80.0); Nucleated Red Blood Cells % 0.1 %; Platelet Count (auto) 134 10^3/uL (140-450); Red Blood Cells 4.64 10^6/uL (4.5-5.90); Red Cell Distribution Width 14.7 % (11.8-14.3)
[2018-09-30 10:57] LABS: Calcium 8.8 mg/dL (8.5-10.1); Potassium 4.1 mmol/L (3.5-5.1)
[2018-09-30 10:59] LABS: BUN/Creatinine Ratio 35.9; Magnesium 2.6 mg/dL (1.6-2.6)
== END | disposition home or self-care (01) ==
LOC: CHF HDHVI 08:10
PROVIDERS: ATTEND Internal Medicine Cardiovascular Disease
DX: I11.0 Hypertensive heart disease with heart failure (principal); I50.9 Heart failure, unspecified; E83.40 Disorders of magnesium metabolism, unspecified; D64.9 Anemia, unspecified; I87.2 Venous insufficiency (chronic) (peripheral)
CPT/HCPCS: 36415; 80048; 83735; 83880; 85025; G0463

== ENCOUNTER → 2018-10-03 | Outpatient (CLI) | payer MEDICARE, OTHER ==
[~2018-10-03] VITALS: Ht 30.5 cm; Wt 102.1 kg
[~2018-10-03] MED LIST changes: +HYDR-4683 PO; -HYDR-4833 PO; +MVI in SODIUM CHLORIDE 0.9% 1,010 ML ONE; +MVI in SODIUM CHLORIDE 0.9% 500 ML IVB ONE
--- NOTE | 2018-10-03 08:20 | NUR ---
IN TO CLINIC FOR FOLLOWUP ON CEASAR BOOT APPLICATION. SKIN CLEAN AND INTACT THROUGHOUT. ANKLES EDEMATOUS. LAB REVIEW FROM 2 DAYS AGO. PT REPORTS WEAKNESS AND SKIN SLIGHTLY CLAMMY AND COOL. CLINIC PROVIDER CONSULTED AND ORDERS RECIEVED AND CARRIED OUT.
--- NOTE | 2018-10-03 08:45 | NUR ---
IV insertion IV access obtained, via clean sterile technique by inserting 22 gauge catheter at after attempt(s). IV secured properly. No trauma to site. Patient tolerated procedure well.
--- NOTE | 2018-10-03 10:21 | NUR ---
CEASAR BOOTS APPLIED TO BILATERAL LEGS BY PAT SUÁREZ. SKIN CLEAN AND INTACT THROUGHOUT.
--- NOTE | 2018-10-03 11:22 | NUR ---
Discharge Instructions See e-MAR for any mediations given with this visit. Patient education given on disease process. Patient verbalized understanding. Previous labs reviewed. Patient discharged in stable condition with after care instructions and follow up appointment. MEDICATIONS 0845 BANANA BAG 500 ML @250ML/HR 1045 STOP TIME
[2018-10-03 11:23] VITALS: BP 123/63
== END | disposition home or self-care (01) ==
LOC: CHF HDHVI 08:39
PROVIDERS: ATTEND Internal Medicine
DX: I13.0 Hypertensive heart and chronic kidney disease with heart failure and stage 1 through stage 4 chronic kidney disease, or unspecified chronic kidney disease (principal); I73.9 Peripheral vascular disease, unspecified; I50.42 Chronic combined systolic (congestive) and diastolic (congestive) heart failure; I25.10 Atherosclerotic heart disease of native coronary artery without angina pectoris; E78.5 Hyperlipidemia, unspecified; F41.9 Anxiety disorder, unspecified; M16.0 Bilateral primary osteoarthritis of hip; N18.3 Chronic kidney disease, stage 3 (moderate); E03.9 Hypothyroidism, unspecified; E78.00 Pure hypercholesterolemia, unspecified; E11.22 Type 2 diabetes mellitus with diabetic chronic kidney disease; E11.51 Type 2 diabetes mellitus with diabetic peripheral angiopathy without gangrene; I48.91 Unspecified atrial fibrillation; G89.29 Other chronic pain; M47.816 Spondylosis without myelopathy or radiculopathy, lumbar region; Z79.899 Other long term (current) drug therapy; Z85.46 Personal history of malignant neoplasm of prostate; Z86.718 Personal history of other venous thrombosis and embolism; Z95.5 Presence of coronary angioplasty implant and graft; Z87.440 Personal history of urinary (tract) infections; Z95.0 Presence of cardiac pacemaker
CPT/HCPCS: 96365; 96366; G0463; J3411; J3475

== ENCOUNTER → 2018-10-04 | Outpatient (CLI) | payer MEDICARE, OTHER ==
[~2018-10-04] MED LIST changes: -MVI in SODIUM CHLORIDE 0.9% 500 ML IVB ONE
--- NOTE | 2018-10-04 08:20 | NUR ---
PATIENT IN FOR CEASAR BOOT DRESSING CHANGE, PATIENT WEIGHT UP 4.5 LBS.
--- NOTE | 2018-10-04 08:30 | NUR ---
BILAT LOWER EXTREMITY CEASAR BOOTS APPLIED.
--- NOTE | 2018-10-04 08:34 | NUR ---
IV insertion IV access obtained by Michael RUBI, via clean sterile technique by inserting 22 gauge catheter at LW after 1 attempt(s). IV secured properly. No trauma to site. Labs drawn, patient tolerated procedure well.
[2018-10-04 09:33] LABS: BUN/Creatinine Ratio 37.9; Calcium 8.2 mg/dL (8.5-10.1); Potassium 4.5 mmol/L (3.5-5.1)
--- NOTE | 2018-10-04 10:30 | NUR ---
DIANA RUBI WENT OVER THE IMPORTANCE OF HOME HEALTH AND THE PATIENT AGREED TO HOME HEALTH CARE.
--- NOTE | 2018-10-04 10:50 | NUR ---
IV removal IV DC'd with sterile technique, catheter fully intact. Pressure dressing applied to site. Patient tolerated procedure well.
[2018-10-04 11:00] VITALS: BP 108/65
--- NOTE | 2018-10-04 11:00 | NUR ---
CHF CLINIC Discharge Instructions See e-MAR for any mediations given with this visit. Patient education given on disease process. Patient verbalized understanding. Previous labs reviewed. Patient discharged in stable condition with after care instructions and follow up appointment. NOTE BÁRBARA MARIE APPLIED PATIENT REFERRED TO HOME HEALTH
== END | disposition home or self-care (01) ==
LOC: CHF HDHVI 08:21
PROVIDERS: ATTEND Internal Medicine
DX: I87.2 Venous insufficiency (chronic) (peripheral) (principal); I70.0 Atherosclerosis of aorta; E87.70 Fluid overload, unspecified; I13.0 Hypertensive heart and chronic kidney disease with heart failure and stage 1 through stage 4 chronic kidney disease, or unspecified chronic kidney disease; E11.22 Type 2 diabetes mellitus with diabetic chronic kidney disease; N18.3 Chronic kidney disease, stage 3 (moderate); I50.42 Chronic combined systolic (congestive) and diastolic (congestive) heart failure; I48.91 Unspecified atrial fibrillation; I27.21 Secondary pulmonary arterial hypertension; E78.5 Hyperlipidemia, unspecified; F41.9 Anxiety disorder, unspecified; E03.9 Hypothyroidism, unspecified; E78.00 Pure hypercholesterolemia, unspecified; E11.51 Type 2 diabetes mellitus with diabetic peripheral angiopathy without gangrene; M48.061 Spinal stenosis, lumbar region without neurogenic claudication; M16.0 Bilateral primary osteoarthritis of hip; G89.4 Chronic pain syndrome; Z95.1 Presence of aortocoronary bypass graft; Z95.5 Presence of coronary angioplasty implant and graft; Z79.899 Other long term (current) drug therapy
CPT/HCPCS: 36415; 71046; 80048; 83880; G0463

== ENCOUNTER → 2018-10-07 | Outpatient (CLI) | payer MEDICARE, OTHER ==
[~2018-10-07] MED LIST changes: -MVI in SODIUM CHLORIDE 0.9% 1,010 ML ONE
[2018-10-07 07:50] VITALS: BP 100/63
[2018-10-07 09:10] LABS: BUN/Creatinine Ratio 30.4; Calcium 8.5 mg/dL (8.5-10.1)
[2018-10-07 09:40] VITALS: BP 110/68
--- NOTE | 2018-10-07 09:40 | NUR ---
IN TO CLINIC FOR SCHEDULED CEASAR BOOT APPLICATION AND LAB CHECK. LABS DRAWN AND SENT. NOTED TO HAVE INCREASE IN EDEMA THROUGH BILATERAL LEGS AND CALFS AND ABDOMEN. CEASAR BOOTS APPLIED TO CLEAN AND DRY INTACT SKIN. TOLERATED WELL. SEE VS. DISCHARGED TO SELF CARE IN NO DISTRESS OR DISCOMFORT. Discharge Instructions See e-MAR for any mediations given with this visit. Patient education given on disease process. Patient verbalized understanding. Previous labs reviewed. Patient discharged in stable condition with after care instructions and follow up appointment FOR 10/10/18
== END | disposition home or self-care (01) ==
LOC: CHF HDHVI 07:58
PROVIDERS: ATTEND Internal Medicine
DX: I11.0 Hypertensive heart disease with heart failure (principal); I50.9 Heart failure, unspecified; E87.70 Fluid overload, unspecified; I73.9 Peripheral vascular disease, unspecified
CPT/HCPCS: 36415; 80048; G0463

== ENCOUNTER → 2018-10-10 | Outpatient (CLI) | payer MEDICARE, OTHER ==
[2018-10-10 08:00] VITALS: BP 113/79
--- NOTE | 2018-10-10 08:42 | NUR ---
CEASAR BOOT APPLICATION BILATERALLY. TOLERATED WELL. VS WNL. SKIN CLEAN AND DRY AND INTACT.
[2018-10-10 08:51] VITALS: BP 122/73
== END | disposition home or self-care (01) ==
LOC: CHF HDHVI 08:19
PROVIDERS: ATTEND Internal Medicine
DX: I13.0 Hypertensive heart and chronic kidney disease with heart failure and stage 1 through stage 4 chronic kidney disease, or unspecified chronic kidney disease (principal); I50.9 Heart failure, unspecified; N18.9 Chronic kidney disease, unspecified; E87.70 Fluid overload, unspecified
CPT/HCPCS: G0463

== ENCOUNTER → 2018-10-14 | Outpatient (CLI) | payer MEDICARE, OTHER ==
[2018-10-14 08:06] VITALS: BP 106/62
--- NOTE | 2018-10-14 08:06 | NUR ---
[facility] PT ARRIVED AT THE [facility] CLINIC FOR WOUND THERAPY. PT A/O X 3 0 DISTRESS V/S OBTAINED
[2018-10-14 09:00] VITALS: BP 116/72
--- NOTE | 2018-10-14 09:32 | NUR ---
Wound Care Wound care provided per MD order. Patient tolerated well and verbalized dressing care instructions. Follow up in clinic as directed. See e-MAR for medications given during this visit. BILATERAL UNNA BOOTS APPLIED Addendum: 10/14/18 at 0934 by SCOOTER SAENZ RN RN IA THE TIME SHOULD BE 0832
== END | disposition home or self-care (01) ==
LOC: CHF HDHVI 08:10
PROVIDERS: ATTEND Internal Medicine
DX: I73.9 Peripheral vascular disease, unspecified (principal); E87.70 Fluid overload, unspecified
CPT/HCPCS: G0463

== ENCOUNTER → 2018-10-17 | Outpatient (CLI) | payer MEDICARE, OTHER ==
[2018-10-17 09:11] VITALS: BP 98/66
--- NOTE | 2018-10-17 09:11 | NUR ---
CHF PT ARRIVED AT THE [facility] FOR WOUND THERAPY, A/0 X 3 VSS OBTAINED
[2018-10-17 10:00] VITALS: BP 92/64
[2018-10-17 12:06] LABS: Potassium 3.6 mmol/L (3.5-5.1)
[2018-10-17 12:13] LABS: Basophils # (auto) 0 uL; Basophils % (auto) 0.4 % (0.0-2.0); Eosinophils # (auto) 0 uL; Eosinophils % (auto) 0.4 % (0.0-7.0); Hematocrit 49.4 % (41.0-53.0); Hemoglobin 16.2 g/dL (13.5-17.5); Lymphocytes % (auto) 13.4 % (10.0-50.0); Mean Corpuscular Hemoglobin 31.9 pg (28.0-32.0); Mean Corpuscular Hgb Conc. 32.9 g/dL (32.0-36.0); Mean Corpuscular Volume 96.9 fL (80.0-100.0); Monocytes # (auto) 1.1 uL; Monocytes % (auto) 15.1 % (0.0-12.0); Neutrophils # (auto) 5.1 uL; Neutrophils % (auto) 70.7 % (37.0-80.0); Platelet Count (auto) 136 10^3/uL (140-450); White Blood Cell 7.2 10^3/uL (4.4-10.8)
== END | disposition home or self-care (01) ==
LOC: CHF HDHVI 09:15
PROVIDERS: ATTEND Internal Medicine
DX: D64.9 Anemia, unspecified (principal); E87.6 Hypokalemia; R94.4 Abnormal results of kidney function studies; I11.0 Hypertensive heart disease with heart failure; I50.9 Heart failure, unspecified; E87.70 Fluid overload, unspecified
CPT/HCPCS: 36415; 82565; 84132; 84520; 85025; G0463

== ENCOUNTER → 2018-10-21 | Outpatient (CLI) | payer MEDICARE, OTHER ==
[2018-10-21 07:40] VITALS: BP 127/64
--- NOTE | 2018-10-21 08:00 | NUR ---
IN WITHOUT DISTRESS OR DISCOMFORT. AMBULATES SLOWLY WITH USE OF CANE. GAIT STEADY. FOLLOWUP FROM SUNDAY FOR RENAL INSUFFICIENCY AND NOTED WEIGHT GAIN OF 4 LBS IN 3 DAYS. LABS DRAWN AND SENT FOR STAT RESULTS.
--- NOTE | 2018-10-21 08:59 | NUR ---
CEASAR BOOTS APPLIED TO BILATERAL LEGS. SKIN CLEAN AND DRY AND INTACT. COVERED WITH COBAN AND STOCKINGNETTE. TOLERATED WELL.
[2018-10-21 09:09] VITALS: BP 127/77
[2018-10-21 09:17] LABS: Potassium 4.1 mmol/L (3.5-5.1)
== END | disposition home or self-care (01) ==
LOC: CHF HDHVI 07:43
PROVIDERS: ATTEND Internal Medicine
DX: E87.6 Hypokalemia (principal); R94.4 Abnormal results of kidney function studies; I11.0 Hypertensive heart disease with heart failure; I50.9 Heart failure, unspecified
CPT/HCPCS: 36415; 82565; 83880; 84132; 84520; G0463

== ENCOUNTER → 2018-10-28 | Outpatient (CLI) | payer MEDICARE, OTHER ==
--- NOTE | 2018-10-28 08:16 | NUR ---
CHF pt arrived to the chf clinic for unna boot exchange A/O X 3 0 DISTRESS, V/S TAKEN
[2018-10-28 09:42] VITALS: BP 121/70
== END | disposition home or self-care (01) ==
LOC: CHF HDHVI 08:23
PROVIDERS: ATTEND Internal Medicine
DX: I87.2 Venous insufficiency (chronic) (peripheral) (principal); E03.9 Hypothyroidism, unspecified; N40.0 Benign prostatic hyperplasia without lower urinary tract symptoms; I11.0 Hypertensive heart disease with heart failure; I50.9 Heart failure, unspecified
CPT/HCPCS: G0463

== ENCOUNTER → 2018-10-31 | Outpatient (CLI) | payer MEDICARE, OTHER ==
[~2018-10-31] VITALS: Ht 30.5 cm; Wt 0.5 kg
[~2018-10-31] MED LIST changes: +FUROSEMIDE 20 MG/2 ML VIAL IV ONE; +FUROSEMIDE 20 MG/2 ML VIAL ONE; +FUROSEMIDE 40 MG/4 ML VIAL ONE; +METOLAZONE 5 MG TAB ONE; +METOLAZONE 5 MG TAB PO ONE; +POTASSIUM CHL 10 Meq TABLET PO ONE; +POTASSIUM CHL 20 Meq TABLET PO ONE
[2018-10-31 09:12] VITALS: BP 106/64
--- NOTE | 2018-10-31 09:12 | NUR ---
CHF PT ARRIVED TO THE CHF CLINIC FOR TX AND F/U. A/O X 3 0 PAIN. VS OBTAINED 0 DISTRESS.
--- NOTE | 2018-10-31 10:00 | NUR ---
Wound Care Wound care provided per MD order. Patient tolerated well and verbalized dressing care instructions. Follow up in clinic as directed. See e-MAR for medications given during this visit. BILATERAL UNNA BOOT APPLIED BY PAT [place] MA PT TOLERATED WELL
[2018-10-31 10:48] VITALS: BP 134/80
--- NOTE | 2018-10-31 10:48 | NUR ---
Discharge Instructions See e-MAR for any mediations given with this visit. Patient education given on disease process. Patient verbalized understanding. Previous labs reviewed. Patient discharged in stable condition with after care instructions and follow up appointment. MEDICATIONS METALAZONE 2.5MG PO X 1 LASIX 60 MG IVP X 1 POTASSIUM 20 MEQ PO X 1 Addendum: 10/31/18 at 1348 by SCOOTER SAENZ RN RN NJ METALOZONE 2.5 MG GIVEN NOT 5
== END | disposition home or self-care (01) ==
LOC: CHF HDHVI 09:31
PROVIDERS: ATTEND Internal Medicine
DX: I13.0 Hypertensive heart and chronic kidney disease with heart failure and stage 1 through stage 4 chronic kidney disease, or unspecified chronic kidney disease (principal); E11.22 Type 2 diabetes mellitus with diabetic chronic kidney disease; I50.42 Chronic combined systolic (congestive) and diastolic (congestive) heart failure; N18.3 Chronic kidney disease, stage 3 (moderate); I73.9 Peripheral vascular disease, unspecified; M06.9 Rheumatoid arthritis, unspecified; F41.9 Anxiety disorder, unspecified; I25.10 Atherosclerotic heart disease of native coronary artery without angina pectoris; I48.91 Unspecified atrial fibrillation; I27.21 Secondary pulmonary arterial hypertension; M16.0 Bilateral primary osteoarthritis of hip; M47.9 Spondylosis, unspecified; E78.5 Hyperlipidemia, unspecified; E03.9 Hypothyroidism, unspecified; G89.29 Other chronic pain; E78.00 Pure hypercholesterolemia, unspecified; G89.4 Chronic pain syndrome; Z85.46 Personal history of malignant neoplasm of prostate; Z79.899 Other long term (current) drug therapy; Z95.1 Presence of aortocoronary bypass graft; Z95.5 Presence of coronary angioplasty implant and graft
CPT/HCPCS: 96374; G0463; J1940

== ENCOUNTER → 2018-11-04 | Outpatient (CLI) | payer MEDICARE, OTHER ==
[~2018-11-04] VITALS: Ht 30.5 cm; Wt 0.5 kg
[~2018-11-04] MED LIST changes: -METOLAZONE 5 MG TAB ONE; -METOLAZONE 5 MG TAB PO ONE; -POTASSIUM CHL 10 Meq TABLET PO ONE
[2018-11-04 07:55] VITALS: BP 106/63
--- NOTE | 2018-11-04 07:55 | NUR ---
CHF PT ARRIVED AT THE CHF CLINIC FOR TX/EVAL UNNA BOOTS AND DIURETIC THERAPY
--- NOTE | 2018-11-04 09:15 | NUR ---
LABS CMP SENT
[2018-11-04 09:23] VITALS: BP 110/65
--- NOTE | 2018-11-04 09:23 | NUR ---
Discharge Instructions See e-MAR for any mediations given with this visit. Patient education given on disease process. Patient verbalized understanding. Previous labs reviewed. Patient discharged in stable condition with after care instructions and follow up appointment. MEDICATIONS 0914 LASIX 60 MG IVP X 1 0915 POTASSIUM 20 MEQ PO X 1
[2018-11-04 10:09] LABS: Albumin 2.6 g/dL (3.4-5.0); BUN/Creatinine Ratio 36.2; Calcium 8.7 mg/dL (8.5-10.1); Potassium 4.4 mmol/L (3.5-5.1)
[2018-11-04 10:11] LABS: Bilirubin, Total 0.7 mg/dL (0.2-1.0); Total Protein 6.1 g/dL (6.4-8.2)
== END | disposition home or self-care (01) ==
LOC: CHF HDHVI 08:11
PROVIDERS: ATTEND Internal Medicine
DX: I73.9 Peripheral vascular disease, unspecified (principal); I13.0 Hypertensive heart and chronic kidney disease with heart failure and stage 1 through stage 4 chronic kidney disease, or unspecified chronic kidney disease; E11.22 Type 2 diabetes mellitus with diabetic chronic kidney disease; I50.42 Chronic combined systolic (congestive) and diastolic (congestive) heart failure; N18.3 Chronic kidney disease, stage 3 (moderate); I25.10 Atherosclerotic heart disease of native coronary artery without angina pectoris; I48.91 Unspecified atrial fibrillation; I27.21 Secondary pulmonary arterial hypertension; E78.00 Pure hypercholesterolemia, unspecified; E03.9 Hypothyroidism, unspecified; E11.51 Type 2 diabetes mellitus with diabetic peripheral angiopathy without gangrene; F41.9 Anxiety disorder, unspecified; M16.0 Bilateral primary osteoarthritis of hip; M47.9 Spondylosis, unspecified; G89.29 Other chronic pain; E78.5 Hyperlipidemia, unspecified; Z79.899 Other long term (current) drug therapy; Z95.1 Presence of aortocoronary bypass graft; Z95.5 Presence of coronary angioplasty implant and graft
CPT/HCPCS: 36415; 74176; 80053; 96374; G0463; J1940

== ENCOUNTER → 2018-11-14 | Outpatient (CLI) | payer MEDICARE, OTHER ==
[~2018-11-14] MED LIST changes: -FUROSEMIDE 20 MG/2 ML VIAL IV ONE; -FUROSEMIDE 20 MG/2 ML VIAL ONE; +FUROSEMIDE 40 MG/4 ML VIAL IV ONE; -HYDR-4683 PO; +HYDR-4833 PO; +METOLAZONE 5 MG TAB ONE; +METOLAZONE 5 MG TAB PO SCH; +POTASSIUM CHL 10 Meq TABLET PO ONE
[2018-11-14 08:16] VITALS: BP 116/71
--- NOTE | 2018-11-14 08:16 | NUR ---
CHF PT ARRIVED AT THE CHF CLINIC A/O X 3 0 DISTRESS VSS. LEFT LEG SWOLLEN, RED AND WARM TO THE TOUCH PT ALSO COMPLAIN OF TENDERNESS/ MD UPDATED ORDERS RECEIVED AND NOTED
[2018-11-14 11:59] VITALS: BP 114/72
[2018-11-14 11:59] LABS: Hematocrit 47.4 % (41.0-53.0); Hemoglobin 15.7 g/dL (13.5-17.5); Mean Corpuscular Hemoglobin 32.3 pg (28.0-32.0); Mean Corpuscular Volume 97.8 fL (80.0-100.0); Platelet Count (auto) 138 10^3/uL (140-450); Red Blood Cells 4.85 10^6/uL (4.5-5.90); Red Cell Distribution Width 14.3 % (11.8-14.3); White Blood Cell 9.7 10^3/uL (4.4-10.8)
--- NOTE | 2018-11-14 11:59 | NUR ---
Discharge Instructions See e-MAR for any mediations given with this visit. Patient education given on disease process. Patient verbalized understanding. Previous labs reviewed. Patient discharged in stable condition with after care instructions and follow up appointment. MEDICATIONS METOLAZONE 5MG PO X 1 LASIX 40 MG IVP X 1 POTASSIUM 40 MEQ
[2018-11-14 12:04] LABS: Basophils % (manual) 0 (0.0-2.0); Blast Cells 0; Eosinophils % (manual) 0 (0-7); Metamyelocytes % 0; Myelocytes % 0; Promyelocytes % 0; Reactive Lymphocytes 0
[2018-11-14 12:20] LABS: Potassium 3.8 mmol/L (3.5-5.1); Uric Acid 9.2 mg/dL (3.5-7.2)
[2018-11-14 13:06] LABS: Band Neutrophils % (manual) 5; Lymphocytes % (manual) 9 (10.0-50.0); Monocytes % (manual) 8 (0-12)
== END | disposition home or self-care (01) ==
LOC: CHF HDHVI 08:28
PROVIDERS: ATTEND Internal Medicine
DX: I82.90 Acute embolism and thrombosis of unspecified vein (principal); M10.9 Gout, unspecified; E87.5 Hyperkalemia; D64.9 Anemia, unspecified; I11.0 Hypertensive heart disease with heart failure; I50.9 Heart failure, unspecified
CPT/HCPCS: 36415; 82565; 84132; 84520; 84550; 85007; 85027; 93970; J1940

== ENCOUNTER → 2018-11-18 | Outpatient (CLI) | payer MEDICARE, OTHER ==
[~2018-11-18] MED LIST changes: +CEPHALEXIN 250 MG CAP PO ONE; +CYANOCOBALAMIN (B-12) 1000 MCG/1 ML VIAL IM ONE; +CYANOCOBALAMIN (B-12) 1000 MCG/1 ML VIAL ONE; +FUROSEMIDE 20 MG/2 ML VIAL IV ONE; +FUROSEMIDE 20 MG/2 ML VIAL ONE; -FUROSEMIDE 40 MG/4 ML VIAL IV ONE; +METOLAZONE 5 MG TAB PO ONE; -METOLAZONE 5 MG TAB PO SCH
--- NOTE | 2018-11-18 07:30 | NUR ---
chf pt arrived at the chf clinic for treatment and follow up. a/o x 3 0 distress. vss. left leg still bruised swollen awaiting ultra sound reading, warm to the touch
[2018-11-18 08:15] VITALS: BP 120/70
--- NOTE | 2018-11-18 09:00 | NUR ---
[facility] Provider Clinic Provider into see pt with new orders received and carried out.
[2018-11-18 09:56] VITALS: BP 141/83
--- NOTE | 2018-11-18 09:56 | NUR ---
ADDENDUM NEW RX KEFLEX 250 MG PO Q 8 HOURS X 10 DAYS QUANTITY 30 NO RF TO [facility] ON AND [place]-E SCRIPTED
--- NOTE | 2018-11-18 09:56 | NUR ---
CHF NO CEASAR BOOTS TODAY DESPITE SIGNIFICANT SWELLING IN BILATERAL ANKLES DUE TO PENDING ULTRASOUND RESULTS. NEW RX PRESCRIBED FOR POSSIBLE CELLULITIS TO LEFT ANKLE. SKIN FIRM AT OUTER ASPECT LEFT ANKLE. REDDISH PURPLE. PULE PALPABLE BUT LEAVES INDENT IN FOOT LONGER THAN 4 SECONDS. DISCHARGED TO SELF CARE IN NO DISTRESS OR DISCOMFORT. PT HAS CONTINUED TO REFUSE HOME HEALTH CARE ON MULTIPLE OCCASIONS . RTC ON Sunday11/21/18. MEDICATION ADMINISTRATION METOLAZONE 7.5 MG PO AT 0900 LASIX 60 MG IVP AT 0930 K-DUR 40 MEQ PO AT 0900 VITAMIN B12 1000 MCG IM TO LEFT DELTOID AT 0935 KEFLEX 250 MG PO AT 0950 XRAY LEFT FOOT COMPLETED
== END | disposition home or self-care (01) ==
LOC: CHF HDHVI 08:28
PROVIDERS: ATTEND Internal Medicine
DX: I73.9 Peripheral vascular disease, unspecified (principal); M25.579 Pain in unspecified ankle and joints of unspecified foot; I13.0 Hypertensive heart and chronic kidney disease with heart failure and stage 1 through stage 4 chronic kidney disease, or unspecified chronic kidney disease; I50.42 Chronic combined systolic (congestive) and diastolic (congestive) heart failure; N18.3 Chronic kidney disease, stage 3 (moderate); I25.10 Atherosclerotic heart disease of native coronary artery without angina pectoris; E66.9 Obesity, unspecified; F41.9 Anxiety disorder, unspecified; M16.0 Bilateral primary osteoarthritis of hip; E78.5 Hyperlipidemia, unspecified; E03.9 Hypothyroidism, unspecified; Z79.899 Other long term (current) drug therapy; Z95.1 Presence of aortocoronary bypass graft; E78.00 Pure hypercholesterolemia, unspecified; I27.21 Secondary pulmonary arterial hypertension; E11.22 Type 2 diabetes mellitus with diabetic chronic kidney disease; E11.51 Type 2 diabetes mellitus with diabetic peripheral angiopathy without gangrene; I48.91 Unspecified atrial fibrillation; G89.4 Chronic pain syndrome
CPT/HCPCS: 73610; 73630; 96372; 96374; G0463; J1940; J3420

== ENCOUNTER → 2018-11-21 | Outpatient (CLI) | payer MEDICARE, OTHER ==
[~2018-11-21] MED LIST changes: -CEPHALEXIN 250 MG CAP PO ONE; -CYANOCOBALAMIN (B-12) 1000 MCG/1 ML VIAL IM ONE; -CYANOCOBALAMIN (B-12) 1000 MCG/1 ML VIAL ONE; -FUROSEMIDE 20 MG/2 ML VIAL IV ONE; -FUROSEMIDE 20 MG/2 ML VIAL ONE; -FUROSEMIDE 40 MG/4 ML VIAL ONE; -METOLAZONE 5 MG TAB ONE; -METOLAZONE 5 MG TAB PO ONE; -POTASSIUM CHL 10 Meq TABLET PO ONE; -POTASSIUM CHL 20 Meq TABLET PO ONE
[2018-11-21 08:06] VITALS: BP 145/58
--- NOTE | 2018-11-21 09:20 | NUR ---
CARDIODYNAMICS DONE AND REVIEWED. Addendum: 11/21/18 at 1342 by GREYSON LOCKWOOD AMEND ABOVE NOTE. CARDIODYNAMICS NOT DONE. NOTE MADE IN ERROR.
[2018-11-21 09:30] VITALS: BP 117/80
--- NOTE | 2018-11-21 09:30 | NUR ---
IN TO CLINIC FOR CEASAR BOOT EVALUATION AND AFTER XRAY ON LEFT FOOT. RESULTS REVIEWED WITH PATIENT AT CHAIRSIDE BY DR MAGALLANES. ORDERS RECIEVED. REFERRED TO ORTHOPEDIC MD FOR FOLLOWUP. SIGNIFICANT SWELLING NOTED AT LEFT LOWER EXTREMITY AND RIGHT LOWER EXTREMITY. OK TO APPLY CEASAR BOOTS BILATERALLY PER MD. PT TOLERATED WELL. PT INSTRUCTED TO APPLY ICE FOR SWELLING AND PAIN RELIEF. REPEAT BACK INSTRUCTIONS OBTAINED.
== END | disposition home or self-care (01) ==
LOC: CHF HDHVI 08:12
PROVIDERS: ATTEND Internal Medicine
DX: I11.0 Hypertensive heart disease with heart failure (principal); I50.9 Heart failure, unspecified; M79.89 Other specified soft tissue disorders; E87.70 Fluid overload, unspecified
CPT/HCPCS: G0463

== ENCOUNTER → 2018-11-25 | Outpatient (CLI) | payer MEDICARE, OTHER ==
[2018-11-25 08:45] VITALS: BP 113/86
--- NOTE | 2018-11-25 08:45 | NUR ---
CHF PT ALERT AND ORIENTED 0 DISTRESS. ARRIVED AT CLINIC FOR UNNA BOOT THERAPY. PT WEIGHT IS UP 3 LBS. UNNA BOOT THERAPY ORDERED
--- NOTE | 2018-11-25 09:20 | NUR ---
Wound Care Wound care provided per MD order. Patient tolerated well and verbalized dressing care instructions. Follow up in clinic as directed. See e-MAR for medications given during this visit.
[2018-11-25 09:50] VITALS: BP 126/75
[2018-11-25 12:29] LABS: Hemoglobin 15.2 g/dL (13.5-17.5); Mean Corpuscular Hemoglobin 32.6 pg (28.0-32.0); Mean Corpuscular Hgb Conc. 33.7 g/dL (32.0-36.0); Mean Corpuscular Volume 96.7 fL (80.0-100.0); Platelet Count (auto) 124 10^3/uL (140-450); Red Blood Cells 4.65 10^6/uL (4.5-5.90)
[2018-11-25 12:42] LABS: Band Neutrophils % (manual) 0; Basophils % (manual) 0 (0.0-2.0); Blast Cells 0; Metamyelocytes % 0; Myelocytes % 0; Promyelocytes % 0; Reactive Lymphocytes 0
[2018-11-25 14:08] LABS: BUN/Creatinine Ratio 39.2; Calcium 8.6 mg/dL (8.5-10.1)
[2018-11-25 22:23] LABS: Eosinophils % (manual) 1 (0-7); Lymphocytes % (manual) 15 (10.0-50.0); Monocytes % (manual) 9 (0-12)
== END | disposition home or self-care (01) ==
LOC: CHF HDHVI 09:24
PROVIDERS: ATTEND Internal Medicine
DX: D64.9 Anemia, unspecified (principal); I12.9 Hypertensive chronic kidney disease with stage 1 through stage 4 chronic kidney disease, or unspecified chronic kidney disease; N18.3 Chronic kidney disease, stage 3 (moderate)
CPT/HCPCS: 36415; 80048; 85007; 85027; G0463

== ENCOUNTER → 2018-11-28 | Outpatient (CLI) | payer MEDICARE, OTHER ==
[2018-11-28 08:12] VITALS: BP 130/81
[2018-11-28 09:05] VITALS: BP 119/73
--- NOTE | 2018-11-28 09:05 | NUR ---
CHF CLINIC Discharge Instructions See e-MAR for any mediations given with this visit. Patient education given on disease process. Patient verbalized understanding. Previous labs reviewed. Patient discharged in stable condition with after care instructions and follow up appointment ON SUNDAY. NOTE BILAT CEASAR BOOTS APPLIED.
[2018-11-28 12:44] LABS: Potassium 3.9 mmol/L (3.5-5.1)
== END | disposition home or self-care (01) ==
LOC: CHF HDHVI 08:17
PROVIDERS: ATTEND Internal Medicine Cardiovascular Disease
DX: I87.2 Venous insufficiency (chronic) (peripheral) (principal); R94.4 Abnormal results of kidney function studies; E87.6 Hypokalemia
CPT/HCPCS: 36415; 82565; 84132; 84520; G0463

== ENCOUNTER → 2018-12-02 | Outpatient (CLI) | payer MEDICARE, OTHER ==
--- NOTE | 2018-12-02 08:30 | NUR ---
PT. TO CHF CLINIC FOR BILAT. UNNA BOOT APPLICATION PER DR. CELIS. WT. DOWN 4 LBS OVER THE WEEKEND, WITH PT. STATING SLIGHT IMPROVEMENT IN ENERGY. ORDERS RECEIVED AND CARRIED OUT. SEE NSG ASSESS.
--- NOTE | 2018-12-02 09:00 | NUR ---
BILAT. [place] MARIE APPLIED PER MD ORDER.. PT. TOLERATED PROCEDURE WELL.
--- NOTE | 2018-12-02 09:10 | NUR ---
LABS DRAWN AND SENT PER MD ORDER. REVIEW OF PREVIOUS LABS DONE WITH PT. ON IMPROVEMENT ON CRI.
[2018-12-02 09:25] VITALS: BP 105/67
[2018-12-02 12:27] LABS: Potassium 3.6 mmol/L (3.5-5.1)
[2018-12-02 12:41] LABS: Albumin 2.6 g/dL (3.4-5.0); Bilirubin, Direct 0.2 mg/dL (0-0.2); Bilirubin, Total 0.6 mg/dL (0.2-1.0); Total Protein 6.3 g/dL (6.4-8.2)
== END | disposition home or self-care (01) ==
LOC: CHF HDHVI 08:23
PROVIDERS: ATTEND Internal Medicine
DX: K74.1 Hepatic sclerosis (principal); E87.6 Hypokalemia; R94.4 Abnormal results of kidney function studies; I13.0 Hypertensive heart and chronic kidney disease with heart failure and stage 1 through stage 4 chronic kidney disease, or unspecified chronic kidney disease; I50.9 Heart failure, unspecified; N18.3 Chronic kidney disease, stage 3 (moderate); I25.10 Atherosclerotic heart disease of native coronary artery without angina pectoris; E66.9 Obesity, unspecified
CPT/HCPCS: 36415; 80076; 82565; 84132; 84520; G0463

== ENCOUNTER → 2018-12-05 | Outpatient (CLI) | payer MEDICARE, OTHER ==
[2018-12-05 10:20] VITALS: BP 131/69
[2018-12-05 11:02] VITALS: BP 109/63
--- NOTE | 2018-12-05 11:02 | NUR ---
CHF CLINIC Discharge Instructions See e-MAR for any mediations given with this visit. Patient education given on disease process. Patient verbalized understanding. Previous labs reviewed. Patient discharged in stable condition with after care instructions and follow up appointment ON SUNDAY. NOTE BILAT CEASAR BOOTS APPLIED PT DOWN 4 LBS
== END | disposition home or self-care (01) ==
LOC: CHF HDHVI 10:28
PROVIDERS: ATTEND Internal Medicine
DX: I87.2 Venous insufficiency (chronic) (peripheral) (principal); I11.0 Hypertensive heart disease with heart failure; I50.9 Heart failure, unspecified
CPT/HCPCS: G0463

== ENCOUNTER → 2018-12-09 | Outpatient (CLI) | payer MEDICARE, OTHER ==
[2018-12-09 12:00] VITALS: BP 122/57
--- NOTE | 2018-12-09 12:00 | NUR ---
CHF PT ARRIVED AT CHF CLINIC FOR WEEKLY UNNA BOOT CHANGE. PT A/O X 3 O DISTRESS VSS
[2018-12-09 12:35] VITALS: BP 125/76
== END | disposition home or self-care (01) ==
LOC: CHF HDHVI 11:46
PROVIDERS: ATTEND Internal Medicine
DX: R60.0 Localized edema (principal); I11.0 Hypertensive heart disease with heart failure; I50.9 Heart failure, unspecified
CPT/HCPCS: G0463

== ENCOUNTER → 2018-12-12 | Outpatient (CLI) | payer MEDICARE, OTHER ==
[2018-12-12 08:15] VITALS: BP 120/73
--- NOTE | 2018-12-12 08:50 | NUR ---
CEASAR BOOTS APPLIED TO BILATERAL LEGS . TOLERATED WELL. NOTED TO HAVE WEIGHT LOSS SINCE MONDAYS VISIT. NO CHANGE IN STATUS OR MEDS. PREVIOUS LABS REVIEWED AND ADDITIONAL LABS DRAWN FOR FOLLOWUP ON LAST ELEVATED CREATININE. WITHOUT DISTRESS OR DISCOMFORT. Discharge Instructions See e-MAR for any mediations given with this visit. Patient education given on disease process. Patient verbalized understanding. Previous labs reviewed. Patient discharged in stable condition with after care instructions and follow up appointment FOR Sunday12/16/18.
[2018-12-12 09:06] VITALS: BP 131/76
[2018-12-12 12:47] LABS: Potassium 3.8 mmol/L (3.5-5.1)
== END | disposition home or self-care (01) ==
LOC: CHF HDHVI 08:29
PROVIDERS: ATTEND Internal Medicine
DX: E87.6 Hypokalemia (principal); R94.4 Abnormal results of kidney function studies; R53.83 Other fatigue; E87.70 Fluid overload, unspecified; I11.0 Hypertensive heart disease with heart failure; I50.9 Heart failure, unspecified
CPT/HCPCS: 36415; 82565; 84132; 84520; G0463

== ENCOUNTER → 2018-12-16 | Outpatient (CLI) | payer MEDICARE, OTHER ==
[2018-12-16 09:12] VITALS: BP 113/72
--- NOTE | 2018-12-16 09:45 | NUR ---
Discharge Instructions See e-MAR for any mediations given with this visit. Patient education given on disease process. Patient verbalized understanding. Previous labs reviewed. Patient discharged in stable condition with after care instructions and follow up appointment. PT FIVEN A FEW NAMES FOR AN OPTHAMOLOGIST. 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
[2018-12-16 09:53] VITALS: BP 102/55
== END | disposition home or self-care (01) ==
LOC: CHF HDHVI 09:22
PROVIDERS: ATTEND Internal Medicine
DX: R60.0 Localized edema (principal); E11.22 Type 2 diabetes mellitus with diabetic chronic kidney disease; I12.9 Hypertensive chronic kidney disease with stage 1 through stage 4 chronic kidney disease, or unspecified chronic kidney disease; N18.3 Chronic kidney disease, stage 3 (moderate)
CPT/HCPCS: G0463

== ENCOUNTER → 2018-12-19 | Outpatient (CLI) | payer MEDICARE, OTHER ==
[2018-12-19 09:00] VITALS: BP 116/54
--- NOTE | 2018-12-19 09:00 | NUR ---
CHF PT ARRIVED TO THE CHF CLINIC FOR UNNA BOOT THERAPY. VSS WNL . PT A/O X 3
--- NOTE | 2018-12-19 09:40 | NUR ---
Wound Care Wound care provided per MD order. Patient tolerated well and verbalized dressing care instructions. Follow up in clinic as directed. See e-MAR for medications given during this visit.
[2018-12-19 09:55] VITALS: BP 116/74
[2018-12-19 12:43] LABS: Potassium 4.1 mmol/L (3.5-5.1)
[2018-12-19 12:46] LABS: BUN/Creatinine Ratio 37.8; Calcium 8.5 mg/dL (8.5-10.1)
== END | disposition home or self-care (01) ==
LOC: CHF HDHVI 09:12
PROVIDERS: ATTEND Internal Medicine
DX: E83.40 Disorders of magnesium metabolism, unspecified (principal); I11.0 Hypertensive heart disease with heart failure; I50.9 Heart failure, unspecified; I73.9 Peripheral vascular disease, unspecified; E87.70 Fluid overload, unspecified
CPT/HCPCS: 36415; 80048; 83735; G0463

== ENCOUNTER → 2018-12-24 | Outpatient (CLI) | payer MEDICARE, OTHER ==
[~2018-12-24] MED LIST changes: +FUROSEMIDE 20 MG TAB PO ONE; +FUROSEMIDE 40 MG TAB ONE; +FUROSEMIDE 40 MG/4 ML VIAL IV ONE; +FUROSEMIDE 40 MG/4 ML VIAL ONE; +METOLAZONE 5 MG TAB ONE; +METOLAZONE 5 MG TAB PO ONE; +POTASSIUM CHL 10 Meq TABLET PO ONE
--- NOTE | 2018-12-24 11:00 | NUR ---
CEASAR BOOTS APPLIED BY PAT SUÁREZ AND TOLERATED WELL. CLINIC PROVIDER CONSULTED AND ORDERS RECIEVED. METOLAZONE 5MG PO ADMINISTERED AFTER PT DROPPED FIRST DOSE ON FLOOR. MEDICATION WASTED IN PYXIS. AFTER WAITING APPROPRIATE TIME AFTER METOLAZONE PO, LABS DRAWN VIA BUTTERFLY. SAME SITE USED FOR IVP ADMINISTRATION. TOLERATED 1/2 OF DOSE IVP BEFORE SITE INFILTRATED. SMALL BLEB NOTED AT INSERTION SITE, APPROXIMATELY SIZE OF HALF OF A DIME. INSTEAD OF ANOTHER BUTTERFLY PT ASKED IF REMAINDER OF DOSE BE ADMINISTERED ORALLY. CLINIC PROVIDER CONSULTED AND AN ADDITIONAL LASIX 40 MG ORAL WAS ADMINISTERED. TOLERATED WELL.
[2018-12-24 11:05] VITALS: BP 129/81
--- NOTE | 2018-12-24 11:05 | NUR ---
CHF CLINIC Discharge Instructions See e-MAR for any mediations given with this visit. Patient education given on disease process. Patient verbalized understanding. Previous labs reviewed. Patient discharged in stable condition with after care instructions and follow up appointment ON SUNDAY. NOTE METOLAZONE PO ADMIN BY SANDIE RUBI LASIX IVP ADMIN BY SANDIE RUBI POTASSIUM PO ADMIN BY SANDIE MARIE APPLIED
[2018-12-24 16:14] LABS: Basophils # (auto) 0 uL; Basophils % (auto) 0.5 % (0.0-2.0); Eosinophils # (auto) 0 uL; Eosinophils % (auto) 0.6 % (0.0-7.0); Hematocrit 46.2 % (41.0-53.0); Hemoglobin 15.4 g/dL (13.5-17.5); Lymphocytes # (auto) 1.1 uL; Lymphocytes % (auto) 14.9 % (10.0-50.0); Mean Corpuscular Hemoglobin 32.7 pg (28.0-32.0); Mean Corpuscular Hgb Conc. 33.2 g/dL (32.0-36.0); Mean Corpuscular Volume 98.2 fL (80.0-100.0); Monocytes # (auto) 1.1 uL; Monocytes % (auto) 14.7 % (0.0-12.0); Neutrophils # (auto) 5.3 uL; Neutrophils % (auto) 69.3 % (37.0-80.0); Platelet Count (auto) 119 10^3/uL (140-450); Red Cell Distribution Width 14.5 % (11.8-14.3); White Blood Cell 7.6 10^3/uL (4.4-10.8)
[2018-12-24 16:18] LABS: BUN/Creatinine Ratio 28.7; Calcium 8.4 mg/dL (8.5-10.1); Magnesium 2.6 mg/dL (1.6-2.6); Potassium 4.2 mmol/L (3.5-5.1)
== END | disposition home or self-care (01) ==
LOC: CHF HDHVI 10:20
PROVIDERS: ATTEND Internal Medicine
DX: D64.9 Anemia, unspecified (principal); E83.40 Disorders of magnesium metabolism, unspecified; K90.9 Intestinal malabsorption, unspecified; D51.9 Vitamin B12 deficiency anemia, unspecified
CPT/HCPCS: 36415; 80048; 82306; 82607; 83735; 85025; 96374; G0463; J1940

== ENCOUNTER → 2018-12-27 | Outpatient (CLI) | payer MEDICARE, OTHER ==
[~2018-12-27] MED LIST changes: -FUROSEMIDE 20 MG TAB PO ONE; -FUROSEMIDE 40 MG TAB ONE; -FUROSEMIDE 40 MG/4 ML VIAL IV ONE; -FUROSEMIDE 40 MG/4 ML VIAL ONE; -METOLAZONE 5 MG TAB PO ONE; -POTASSIUM CHL 10 Meq TABLET PO ONE
[2018-12-27 09:00] VITALS: BP 104/68
[2018-12-27] MEDS: METOLAZONE 5 MG TAB PO SCH ×2 (09:30→15:01)
[2018-12-27 09:50] VITALS: BP 122/77
--- NOTE | 2018-12-27 09:50 | NUR ---
IN FOR CEASAR BOOT APPLICATION AND CHF/PVD EVALUATION. NO CHANGE IN WEIGHT DESPITE DIURETIC THERAPY INITIATED ON SUNDAY. STILL NOTED TO HAVE EDEMA IN BILATERAL CALVES AND ABDOMEN. AMBULATES SLOWLY WITH USE OF CANE. CEASAR BOOTS APPLIED BILATERALLY AND TOLERATED WELL. CLINIC PROVIDER CONSULTED AND ORDERS RECIEVED. DISCHARGED TO SELF CARE IN NO DISTRESS OR DISCOMFORT. MEDICATION ADMINISTRATION METOLAZONE PO
== END | disposition home or self-care (01) ==
LOC: CHF HDHVI 09:32
PROVIDERS: ATTEND Internal Medicine
DX: I73.9 Peripheral vascular disease, unspecified (principal); R53.83 Other fatigue; E87.70 Fluid overload, unspecified; I11.0 Hypertensive heart disease with heart failure; I50.9 Heart failure, unspecified
CPT/HCPCS: G0463

== ENCOUNTER → 2018-12-30 | Outpatient (CLI) | payer MEDICARE, OTHER ==
[~2018-12-30] MED LIST changes: -METOLAZONE 5 MG TAB ONE
[2018-12-30 08:15] VITALS: BP 104/64
--- NOTE | 2018-12-30 09:00 | NUR ---
IN TO CLINIC FOR CEASAR BOOT APPLICATION. SKIN INTEGRITY INTACT AND LEGS CLEAN AND DRY. APPLIED CEASAR BOOTS AND COVERED WITH COBAN AND STOCKINGNETTE. TOLERATED WELL. MINIMAL WEIGHT LOSS DESPITE DIURETIC THERAPY ADMINISTERED ON LAST VISIT. CONTINUE TO MONITOR. DISCHARGED TO SELF CARE IN NO DISTRESS OR DISCOMFORT.
[2018-12-30 09:05] VITALS: BP 121/76
== END | disposition home or self-care (01) ==
LOC: CHF HDHVI 08:54
PROVIDERS: ATTEND Internal Medicine
DX: I11.0 Hypertensive heart disease with heart failure (principal); I50.9 Heart failure, unspecified; I73.9 Peripheral vascular disease, unspecified
CPT/HCPCS: G0463

== ENCOUNTER 2019-01-07 13:51 | Inpatient (IN) | payer MEDICARE, OTHER ==
[~2019-01-07] VITALS: Ht 175.3 cm; Wt 112.3 kg
[2019-01-07 18:29] LABS: Basophils # (auto) 0.1 uL; Basophils % (auto) 0.5 % (0.0-2.0); Eosinophils # (auto) 0 uL; Eosinophils % (auto) 0.1 % (0.0-7.0); Hematocrit 41.2 % (41.0-53.0); Hemoglobin 13.8 g/dL (13.5-17.5); Lymphocytes # (auto) 1.2 uL; Lymphocytes % (auto) 13.1 % (10.0-50.0); Mean Corpuscular Hemoglobin 32.7 pg (28.0-32.0); Mean Corpuscular Hgb Conc. 33.6 g/dL (32.0-36.0); Mean Corpuscular Volume 97.2 fL (80.0-100.0); Monocytes # (auto) 1.3 uL; Monocytes % (auto) 14.4 % (0.0-12.0); Neutrophils # (auto) 6.6 uL; Neutrophils % (auto) 71.9 % (37.0-80.0); Platelet Count (auto) 106 10^3/uL (140-450); Red Blood Cells 4.24 10^6/uL (4.5-5.90); Red Cell Distribution Width 13.8 % (11.8-14.3); White Blood Cell 9.2 10^3/uL (4.4-10.8)
[2019-01-07 18:42] LABS: INR 1.31 (0.9-1.15); Partial Thromboplastin Time 29.3 sec (23.64-32.05)
[2019-01-07 18:49] LABS: Albumin 2.6 g/dL (3.4-5.0); Calcium 8.5 mg/dL (8.5-10.1); Magnesium 2.5 mg/dL (1.6-2.6); Potassium 4.7 mmol/L (3.5-5.1)
[2019-01-07 18:55] LABS: BUN/Creatinine Ratio 26.7; Bilirubin, Total 1.1 mg/dL (0.2-1.0); Total Protein 5.7 g/dL (6.4-8.2)
[2019-01-07] MEDS ORDERED: NITROGLYCERIN 0.4 MG SL TAB SL PRN (20:15)
[2019-01-07] MEDS ORDERED: MORPHINE SULF INJ 2 MG/ML SYRINGE 1ML IV PRN (20:15)
[2019-01-07] MEDS ORDERED: HYDROcodone-ACET 5/325MG TAB PO PRN (20:15)
[2019-01-07] MEDS ORDERED: CELECOXIB 100 MG CAP PO PRN (20:15)
[2019-01-07 22:00] VITALS: BP 109/77
--- NOTE | 2019-01-07 22:05 | NUR ---
Telemetry admit from ER KYLE SOLIMAN admitted to Telemetry unit after SBAR received. Patient oriented to Papo Lucero, primary RN, unit, room, bed, and unit policies regarding patient care and visiting hours. Patient now on continuous telemetry monitoring, tele box # [[id number]] and telemetry reading on arrival to unit is [PACED [id number]]. Patient weighed by bedscale and encouraged to call if they need something. All questions and concerns addressed, patient verbalized understanding. Note: []
[2019-01-07] MEDS: CARVEDILOL 12.5 MG TAB PO SCH (22:36)
[2019-01-07] MEDS: TAMSULOSIN HYDROCHLORIDE 0.4 MG CAP PO SCH (22:36)
[2019-01-07] MEDS: GABAPENTIN 100 MG CAP PO SCH (22:36)
[2019-01-07] MEDS: ATORVASTATIN 20 MG TAB PO SCH (22:36)
[2019-01-07] MEDS: LISINOPRIL 20 MG TAB PO SCH (22:37)
--- NOTE | 2019-01-07 23:38 | NUR ---
REASSESSED BP 113/71, HR 71. CONTINUE CARE.
[2019-01-08] VITALS (9 sets, daily range): BP systolic 79–103; BP diastolic 43–57
--- NOTE | 2019-01-08 03:34 | NUR ---
PATIENT SLEEPING. NO S/S OF DISTRESS NOTED. CONTINUE CARE.
[2019-01-08] MEDS: GABAPENTIN 100 MG CAP PO SCH ×3 (05:34→21:48)
--- NOTE | 2019-01-08 06:30 | NUR ---
PARTY SUPPLY SPECIALIST CAME TO REPORT PATIENT'S BP DOWN TO 70S, WENT TO CHECK PATIENT, PATIENT RESTING IN BED. NO S/S OF DISTRESS NOTED. DENIED PAIN, DIZZINESS, AND LIGHT HEADACHE AT THIS TIME. SAT PATIENT UP AT THE SIDE OF BED. AND REASSESSED BP 96/50, HR 72 O2 SAT 97% ON RA. ASSISTED PATIENT BACK TO BED. WILL REPORT TO DAY SHIFT RN TO CONTINUE MONITORING BP.
--- NOTE | 2019-01-08 07:05 | NUR ---
Opening Note Received report from hotel night auditor RN. Patient is resting in bed, easy to wake by calling name. Patient is on room air, respirations even and unlabored. Patient denies pain at this time. Reviewed plan of care with patient, patient verbalized understanding. Bed in low and locked position, call light within reach. Will continue to monitor Q1 hour and PRN.
--- NOTE | 2019-01-08 09:45 | NUR ---
Code Assist Called Patient was on bedside commode, BETITO Vance asked this primary RN to assist her in getting the patient back into bed. While entering the room this RN received a call from machine maintenance tech, per tech "patient had possible run of V tach". This RN entered the room to find patient on bedside commode, patient was leaning back and patient was unresponsive. Patient did not respond to sternal rub. Code assist called. Vital signs assessed 0955 blood glucose 194, blood pressure 80/50, heart rate 78, respirations 12, oxygen saturation 98% Dr. Valentin at bedside new order received for 500mls NS bolus, patient placed on 4L NC, oxygen saturation 100%, order received for transfer to [facility]. nut sifter Shaye at bedside at bedside, states "no bed at this time." Healthcare Representative Miguel A aware and nut sifterGREYSON chavira. 1003 Blood Pressure 55/38, heart rate 71, 5L NC 100%, respirations 16. IV started to left hand 22g. 1005 Blood Pressure 75/41, heart rate 70, respirations 16. Patient opened eyes, alert to name. Some lethargy noted still at this time. Fluid bolus continues to run at this time as ordered. Lung sounds auscultated, lungs sounds clear. 1015 Blood Pressure 97/52, heart rate 70, respirations 16, 4L NC oxygen saturation 97% 1022 Blood Pressure 107/55, heart rate 74, oxygen saturation 100% on 3L NC. Vital signs stable at this time. Patient awake, alert and oriented. Fall precautions in place per protocol, bed alarm on. Will continue to monitor.
[2019-01-08] MEDS: LISINOPRIL 20 MG TAB PO SCH ×2 (10:00→21:49)
[2019-01-08] MEDS: FUROSEMIDE 40 MG/4 ML VIAL IV SCH (10:00)
[2019-01-08] MEDS: CARVEDILOL 12.5 MG TAB PO SCH ×2 (10:00→21:48)
[2019-01-08] MEDS ORDERED: MORPHINE SULF INJ 2 MG/ML SYRINGE 1ML IV PRN (10:15)
[2019-01-08] MEDS ORDERED: NITROGLYCERIN 0.4 MG SL TAB SL PRN (10:15)
[2019-01-08] MEDS: FINASTERIDE 5 MG TAB PO SCH (11:12)
[2019-01-08] MEDS: LEVOTHYROXINE SODIUM 100 MCG TAB PO SCH (11:12)
--- NOTE | 2019-01-08 11:46 | NUR ---
Paged Dr. Goss Regarding patients status. Patient continues to be slightly lethargic, not easy to arouse. Patient is oriented x4. Patient denies pain at this time. Patient has labored breathing, on 3L NC, oxygen saturation 100%. Awaiting call back.
--- NOTE | 2019-01-08 12:12 | NUR ---
Return call from Dr. Goss New orders received for Dobutamine drip 5mcg/kg/hr. Will implement new orders. Will continue to monitor.
--- NOTE | 2019-01-08 12:45 | NUR ---
Vital Sign Reassessment blood pressure 84/46, heart rate 73, oxygen saturation 100% on 3L NC. Will continue to monitor Q1 hour and PRN.
[2019-01-08] MEDS: DOBUTamine 1000MCG/ML 250 ML IV SCH ×2 (12:52→21:47)
--- NOTE | 2019-01-08 13:54 | NUR ---
Vital Signs Blood Pressure 68/38, heart rate 69, oxygen saturation 100% on 3L. Will notify .
--- NOTE | 2019-01-08 14:29 | NUR ---
Paged Dr. Goss Again Low BP Patient blood pressure 79/42, heart rate at 72. Patient is on dobutamine 5mcg/kg/hr. Patient is awake, alert and oriented. Awaiting call back.
--- NOTE | 2019-01-08 14:30 | NUR ---
Dr Goss returned call Regarding low blood pressure. New order received to bolus NS 500ml. Will implement new orders. Will continue to monitor Q1 hour and PRN.
[2019-01-08] MEDS ORDERED: SODIUM CHLORIDE 0.9% 500 ML IV ONE (14:45)
--- NOTE | 2019-01-08 15:14 | NUR ---
Blood Pressure Reassessment blood pressure 79/42, heart rate 72. Oxygen saturation 100% on 3L NC.
--- NOTE | 2019-01-08 17:06 | NUR ---
Vital Signs Blood Pressure 101/59, heart rate 70. Patient is awake, alert and oriented. No signs or symptoms of distress noted at this time. Will continue to monitor Q1 hour and PRN.
--- NOTE | 2019-01-08 17:35 | NUR ---
Family at bedside Updated on plan of care. Patient created password "[email or web address]" will update information.
--- NOTE | 2019-01-08 19:30 | NUR ---
RECEIVED PATIENT FROM DAY SHIFT RN. PATIENT RESTING IN BED. JUST FINISHED DINNER. NO S/S OF DISTRESS NOTED. STILL ON DOBUTAMINE DRIP. ASSESSED VITALS, BP 101/43, HR 72, RR 16, O2 SAT 98% ON 3L/NC. PATIENT DENIED ANY PAIN AND DISCOMFORT AT THIS TIME. POC INSTRUCTED AND ENCOURAGED PATIENT TO CALL FOR RAYON WINDER IF NEEDED. BED IN LOWEST POSITION WITH SIDE RAILS UP X 2. CALL SANCHEZ WITHIN REACH. ALARM ON. CONTINUE TO MONITOR FOR CHANGES Q1H AND PRN.
--- NOTE | 2019-01-08 20:55 | NUR ---
REASSESSED BP 103/54. HR 66. CONTINUE TO MONITOR.
[2019-01-08] MEDS: ATORVASTATIN 20 MG TAB PO SCH (21:48)
[2019-01-08] MEDS: TAMSULOSIN HYDROCHLORIDE 0.4 MG CAP PO SCH (21:48)
--- NOTE | 2019-01-08 22:41 | NUR ---
REASSESSED BP 97/52. HR 65. CONTINUE TO MONITOR.
--- NOTE | 2019-01-08 23:40 | NUR ---
REASSESSED BP 94/49, HR 65. O2 SAT 100% ON 3L/NC. PATIENT CONTINUING ON DOBUTAMINE DRIP. CONTINUE TO MONITOR.
[2019-01-09] VITALS (11 sets, daily range): BP systolic 90–115; BP diastolic 49–89
--- NOTE | 2019-01-09 00:18 | NUR ---
REASSESSED BP 94/60, HR 62. O2 SAT 100%. CONTINUE TO MONITOR.
--- NOTE | 2019-01-09 01:26 | NUR ---
REASSESSED BP 92/49, HR 70. O2 SAT 100%. CONTINUE TO MONITOR.
--- NOTE | 2019-01-09 02:32 | NUR ---
REASSESSED BP, 87/43 AT FIRST TIME, THEN 88/42, WOKE PATIENT UP, BP 98/51, HR 72, RR 16, O2 SAT 100% ON 3L/NC. CONTINUE TO MONITOR.
--- NOTE | 2019-01-09 03:35 | NUR ---
REASSESSED BP 99/52, HR 72. O2 SAT 100%. CONTINUE TO MONITOR.
--- NOTE | 2019-01-09 04:34 | NUR ---
PATIENT HAD A LITTLE BM, CLEANED PATIENT, TOTAL LINEN AND PATIENT GOWN CHANGED. PATIENT TOLERATED WELL. NO S/S OF DISTRESS NOTED. CONTINUE TO MONITOR.
--- NOTE | 2019-01-09 04:35 | NUR ---
REASSESSED BP 104/53, HR 72. O2 SAT 100%. CONTINUE TO MONITOR.
[2019-01-09 04:56] LABS: Basophils # (auto) 0 uL; Basophils % (auto) 0.2 % (0.0-2.0); Eosinophils # (auto) 0 uL; Eosinophils % (auto) 0.4 % (0.0-7.0); Hematocrit 35.7 % (41.0-53.0); Hemoglobin 11.4 g/dL (13.5-17.5); Lymphocytes # (auto) 1.3 uL; Mean Corpuscular Hemoglobin 33.1 pg (28.0-32.0); Mean Corpuscular Hgb Conc. 32.1 g/dL (32.0-36.0); Mean Corpuscular Volume 103.1 fL (80.0-100.0); Monocytes # (auto) 1.4 uL; Monocytes % (auto) 13.4 % (0.0-12.0); Neutrophils # (auto) 7.5 uL; Platelet Count (auto) 105 10^3/uL (140-450); Red Blood Cells 3.46 10^6/uL (4.5-5.90); Red Cell Distribution Width 15.6 % (11.8-14.3); White Blood Cell 10.3 10^3/uL (4.4-10.8)
[2019-01-09 04:59] LABS: Albumin 2.2 g/dL (3.4-5.0); BUN/Creatinine Ratio 26.8; Calcium 7.6 mg/dL (8.5-10.1); Potassium 4.8 mmol/L (3.5-5.1)
[2019-01-09 05:02] LABS: Bilirubin, Total 0.6 mg/dL (0.2-1.0)
--- NOTE | 2019-01-09 05:09 | NUR ---
Called/paged Dr. CELIS called re:RECEIVED CRITICAL LAB RESULT FROM PHARMACEUTICAL PROCESS ENGINEER ERIK, BUN 85. Waiting for call back. Continue care.
--- NOTE | 2019-01-09 05:17 | NUR ---
PATIENT'S VITALS, BP 105/71, HR 71, RR 18, O2 SAT 100% ON 3L/NC. CONTINUE TO MONITOR.
--- NOTE | 2019-01-09 06:30 | NUR ---
REASSESSED BP 107/53, HR 72. O2 SAT 100%. CONTINUE TO MONITOR.
[2019-01-09] MEDS: DOBUTamine 1000MCG/ML 250 ML IV SCH ×2 (06:31→15:43)
[2019-01-09] MEDS: GABAPENTIN 100 MG CAP PO SCH ×3 (06:31→21:57)
--- NOTE | 2019-01-09 06:34 | NUR ---
Called/paged AGAIN Dr. CELIS called re:RECEIVED CRITICAL LAB RESULT, BUN 85. Waiting for call back. Continue care.
--- NOTE | 2019-01-09 07:10 | NUR ---
Opening Note Received report from slot shift supervisor RN. Patient is awake, alert and oriented x4. Patient is on 2L NC, denies shortness of breath. Assessed patients blood pressure 102/61, heart rate 71. Patient is on Dobutamine 5mcg/kg/hr. Patient denies pain at this time. Reviewed plan of care with patient, patient verbalized understanding. Bed in low and locked position, call light within reach. Will continue to monitor Q1 hour and PRN.
[2019-01-09] MEDS: LEVOTHYROXINE SODIUM 100 MCG TAB PO SCH (09:47)
[2019-01-09] MEDS: FINASTERIDE 5 MG TAB PO SCH (09:47)
[2019-01-09] MEDS: FUROSEMIDE 40 MG/4 ML VIAL IV SCH (09:50)
[2019-01-09] MEDS: CARVEDILOL 12.5 MG TAB PO SCH ×2 (09:51→21:57)
[2019-01-09] MEDS: LISINOPRIL 20 MG TAB PO SCH ×2 (09:52→21:58)
--- NOTE | 2019-01-09 10:30 | NUR ---
PT at bedside working with patient Will continue to monitor Q1 hour and PRN.
--- NOTE | 2019-01-09 11:29 | NUR ---
Family at bedside Family states "what is wrong with his speech, he doesn't normally slur when he talks." Will notify MD. Will continue to monitor Q1 hour and PRN.
--- NOTE | 2019-01-09 11:30 | NUR ---
Paged Dr. Goss regarding patient slurred speech. Per family at bedside this is not the patients baseline. Awaiting call back.
--- NOTE | 2019-01-09 12:51 | NUR ---
Call back from Dr. Goss new orders received for Head Ct. Will implement new orders.
--- NOTE | 2019-01-09 13:23 | NUR ---
Patient taken down for Head CT.
--- NOTE | 2019-01-09 15:04 | NUR ---
Blood Pressure Reassessment Blood Pressure 87/46, heart rate 73. Patient resting in bed, easy to wake by calling name. Will continue to monitor Q1 hour and PRN.
--- NOTE | 2019-01-09 19:30 | NUR ---
Opening Shift Note Assumed care of patient, awake and alert. No S/S of distress/SOB or pain. Instructed on POC and to call for assist PRN, will continue to monitor for changes Q1hr and PRN.
--- NOTE | 2019-01-09 19:39 | NUR ---
Closing Note Report given to manufacturing shift supervisor RN. No signs or symptoms of distress noted at this time.
[2019-01-09] MEDS: TAMSULOSIN HYDROCHLORIDE 0.4 MG CAP PO SCH (21:56)
[2019-01-09] MEDS: ATORVASTATIN 20 MG TAB PO SCH (21:57)
[2019-01-10] VITALS (7 sets, daily range): BP systolic 91–128; BP diastolic 50–78
[2019-01-10] MEDS: DOBUTamine 1000MCG/ML 250 ML IV SCH ×3 (02:45→22:43)
[2019-01-10] MEDS: GABAPENTIN 100 MG CAP PO SCH ×3 (06:24→22:43)
--- NOTE | 2019-01-10 07:30 | NUR ---
SHIFT CLOSING NOTE PATIENT RESTED COMFORTABLY THROUGHOUT THE NIGHT. CHECKED FREQUENTLY THROUGHOUT THE NIGHT FOR S/S OF RESPIRATORY DISTRESS AND DECREASED BLOOD PRESSURE, DOBUTAMINE DRIP THERAPY CONTINUES. VITALS SIGNS ARE STABALE THIS AM. ENDORSED CARE OF PATIENT TO DAY SHIFT, GREYSON BOWMAN.
[2019-01-10] MEDS: FUROSEMIDE 40 MG/4 ML VIAL IV SCH (09:08)
[2019-01-10] MEDS: LISINOPRIL 20 MG TAB PO SCH ×2 (09:08→22:49)
[2019-01-10] MEDS: LEVOTHYROXINE SODIUM 100 MCG TAB PO SCH (09:08)
[2019-01-10] MEDS: FINASTERIDE 5 MG TAB PO SCH (09:08)
[2019-01-10] MEDS: CARVEDILOL 12.5 MG TAB PO SCH ×2 (09:09→22:43)
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
--- NOTE | 2019-01-10 12:58 | NUR ---
IV line on the left hand out, IV catheter intact, blood noted on the site. Patient stated he tried to reach over his urinal on the bedside table when the IV line got pulled out. Cleaned the site, pressure dressing applied. Will inform GREYSON Lucero when she gets back from lunch.
--- NOTE | 2019-01-10 13:30 | NUR ---
IV insertion IV access obtained, via clean sterile technique by inserting 22 gauge catheter at after attempt(s). IV secured properly. No trauma to site. Patient tolerated well.
--- NOTE | 2019-01-10 14:06 | NUR ---
CEASAR boots changed to both legs per protocol.
--- NOTE | 2019-01-10 15:35 | NUR ---
NUTRITION ASSESSMENT NOTES Please refer to link notes of nutrition screen form filed under the intervention section of the plan of care for further details. Est. Needs: 1950 kcal to 2150 kcal (18-20 kcal/kgBW), 58 gms to 73 gms pro (0.8-1.0 gms/kgIBW: 73 kg). Will continue to monitor pertinent labs and reassess nutrient need prn Thank you. Addendum: 01/10/19 at [address] Amended: Links added.
--- NOTE | 2019-01-10 16:45 | NUR ---
PER PATIENT , HE TOOK IV OFF BECAUSE DOCTOR SAID HE DOES NOT NEED FLUIDS AND HE WILL D/C HOME TOMORROW. INSTRUCTED TO THE PATIENT THAT HE NEEDS IV UNTIL THE DAY TO GO HOME. PATIENT VERBALIZED UNDERSTANDING. NEW IV PLACED TO LEFT UPPER ARM , INTACT, FLUSHING WITHOUT DIFFICULTY. WILL CONTINUE TO MONITOR.
[2019-01-10] MEDS: ATORVASTATIN 20 MG TAB PO SCH (22:42)
[2019-01-10] MEDS: TAMSULOSIN HYDROCHLORIDE 0.4 MG CAP PO SCH (22:43)
[2019-01-11 05:34] VITALS: BP 113/46
[2019-01-11] MEDS: GABAPENTIN 100 MG CAP PO SCH ×3 (06:15→21:31)
--- NOTE | 2019-01-11 07:30 | NUR ---
SHIFT CLOSING NOTE ENDORSED CARE OF PATIENT TO DAY SHIFT, GREYSON CAAL.
--- NOTE | 2019-01-11 07:30 | NUR ---
OPENING SHIFT NOTE RECEIVED REPORT FROM [facility] NURSE, ASSUMED CARE OF PATIENT. PATIENT IS A&OX44 WITH NO C/O PAIN OR DISTRESS AT THIS TIME. DOBUTAMINE DRIP RUNNING IN STEVE AT 27.21 AN HOUR. BED IS IN LOW POSITION, BRAKES APPLIED, BED RAILS UP X2 AND CALL LIGHT WITHIN REACH. PATIENT EDUCATED ON POC AND CALL LIGHT USE PRN, PATIENT VERBALIZED UNDERSTANDING. CONTINUING TO MONITOR Q1 HR AND PRN
[2019-01-11 09:00] VITALS: BP 96/43
--- NOTE | 2019-01-11 09:11 | NUR ---
PT AT BEDSIDE PHYSICAL THERAPY AT BEDSIDE, PATIENT AMBULATED APPROX 20 FT WITH FWW, OXYGEN IN PLACE
[2019-01-11] MEDS: FUROSEMIDE 40 MG/4 ML VIAL IV SCH (09:26)
[2019-01-11] MEDS: FINASTERIDE 5 MG TAB PO SCH (09:26)
[2019-01-11] MEDS: CARVEDILOL 12.5 MG TAB PO SCH (09:26)
[2019-01-11] MEDS: LEVOTHYROXINE SODIUM 100 MCG TAB PO SCH (09:27)
[2019-01-11] MEDS: LISINOPRIL 20 MG TAB PO SCH (09:27)
--- NOTE | 2019-01-11 10:00 | NUR ---
BP MEDICATIONS BLOOD PRESSURE MEDICATIONS AND LASIX HELD DUE TO LOW BP OF 96/43
[2019-01-11] MEDS: DOBUTamine 1000MCG/ML 250 ML IV SCH ×2 (12:00→20:15)
--- NOTE | 2019-01-11 12:15 | NUR ---
PAGED DR CELIS PAGED REGARDING PATIENT DECREASING BP OF 71/41
--- NOTE | 2019-01-11 12:55 | NUR ---
PAGED DR CELIS PAGED FOR THE SECOND TIME
--- NOTE | 2019-01-11 12:59 | NUR ---
MD RETURNED CALL PER DR LALITA ARELLANO ALL BP MEDS, CONTINUE TO MONITOR
[2019-01-11 13:00] VITALS: BP 71/41
--- NOTE | 2019-01-11 13:21 | NUR ---
BP RECHECK PATIENTS BP RECHECKED AFTER MEAL, ELEVATED TO 113/55
--- NOTE | 2019-01-11 14:08 | NUR ---
AT BEDSIDE DR CELIS AT BEDSIDE
[2019-01-11] MEDS ORDERED: MAGNESIUM CITRATE SOLUTION 300 ML BTL PO ONE (14:15)
[2019-01-11 17:00] VITALS: BP 102/60
--- NOTE | 2019-01-11 20:00 | NUR ---
OPENING NOTE RECEIVED REPORT FROM DAYSHIFT RN. ASSUMING ROLE OF CARE OF PATIENT AT THIS TIME. PATIENT EDUCATED ON PLAN OF CARE FOR THE NIGHT AND PATIENT VERBALIZED UNDERSTANDING. PATIENT SHOWING NO SIGN OF DISTRESS, SHORTNESS OF BREATH, AND PATIENT DENIED ANY PAIN AT THIS TIME. PATIENT'S VITALS ARE CURRENTLY STABLE AT THIS TIME, AND DOBUTAMINE DRIP RUNNING PROPERLY. BED LOWERED, CALL LIGHT WITHIN REACH, AND PATIENT WILL BE ROUNDED ON EVERY HOUR AND NEEDED.
[2019-01-11] MEDS: TAMSULOSIN HYDROCHLORIDE 0.4 MG CAP PO SCH (21:31)
[2019-01-11] MEDS: ATORVASTATIN 20 MG TAB PO SCH (21:31)
[2019-01-11 22:00] VITALS: BP 103/54
[2019-01-12] VITALS (7 sets, daily range): BP systolic 93–113; BP diastolic 47–61
[2019-01-12] MEDS: DOBUTamine 1000MCG/ML 250 ML IV SCH ×3 (06:09→17:38)
[2019-01-12] MEDS: GABAPENTIN 100 MG CAP PO SCH ×3 (06:09→21:56)
[2019-01-12] MEDS: LEVOTHYROXINE SODIUM 100 MCG TAB PO SCH (09:50)
[2019-01-12] MEDS: FINASTERIDE 5 MG TAB PO SCH (09:50)
[2019-01-12] MEDS: FLUDROCORTISONE ACETATE 0.1 MG TAB PO SCH (09:52)
[2019-01-12] MEDS: FUROSEMIDE 40 MG/4 ML VIAL IV SCH (09:55)
--- NOTE | 2019-01-12 19:30 | NUR ---
Opening Shift Note Assumed care of patient, awake, alert and oriented x 4. No S/S of distress/SOB or pain. On 3L oxygen via nasal cannula. Urinal and bedside commode at bedside. On bedrest. Bed in lowest locked position, side rails up x 2, call light within reach. Instructed on POC and to call for assist PRN, will continue to monitor for changes Q1hr and PRN.
[2019-01-12] MEDS: ATORVASTATIN 20 MG TAB PO SCH (21:56)
[2019-01-12] MEDS: TAMSULOSIN HYDROCHLORIDE 0.4 MG CAP PO SCH (21:56)
[2019-01-13] MEDS: DOBUTamine 1000MCG/ML 250 ML IV SCH ×2 (02:39→12:56)
[2019-01-13 04:30] VITALS: BP 101/53
[2019-01-13] MEDS: GABAPENTIN 100 MG CAP PO SCH ×3 (05:52→21:53)
--- NOTE | 2019-01-13 07:30 | NUR ---
RECEIVED REPORT FROM NIGHT NURSE. PATIENT RESTING IN BED, NO DISTRESS NOTED. WILL CONTINUE TO MONITOR.
[2019-01-13 08:42] VITALS: BP 101/58
[2019-01-13] MEDS: FUROSEMIDE 40 MG/4 ML VIAL IV SCH (10:00)
[2019-01-13] MEDS: FLUDROCORTISONE ACETATE 0.1 MG TAB PO SCH ×2 (10:29→21:52)
[2019-01-13] MEDS: FINASTERIDE 5 MG TAB PO SCH (10:29)
[2019-01-13] MEDS: LEVOTHYROXINE SODIUM 100 MCG TAB PO SCH (10:29)
[2019-01-13 12:56] VITALS: BP 87/74
--- NOTE | 2019-01-13 13:45 | NUR ---
DOCTOR CELIS AT BEDSIDE. ORDERS RECEIVED, WILL PLACE AND CARRY OUT.
--- NOTE | 2019-01-13 14:58 | NUR ---
Nutrition Follow-up Notes Wt.: 110.5 kg as of yesterday. Pt's on oxygen via nasal cannula, asleep, no immediate family member at bedside during rounds this morning. Pt's no signs of distress noted earlier, currently on Cardiac: 2 gms Na, Low Chol, Low Fat diet with adequate PO intake aeb 80% ave. consumed meals (x6) in last 2.5 days. Noted pt's for active Wound consult. Est. Needs: 1950 kcal to 2150 kcal (18-20 kcal/kgBW), 58 gms to 73 gms pro (0.8-1.0 gms/kgIBW: 73 kg). Will continue to monitor pertinent labs and reassess nutrient need prn Labs: No new labs since 01/09/19 BUN 85 H, Cr 3.17 H, Ca 7.6 L, Tpro 5.0 L, Alb 2.2 L Skin: Claudy scale 18, mod risk, skin intact per pulpwood dealer. GI: Pt had 2x BM this morning per pulpwood dealer. PES: Altered nutrition related lab values r/t current/chronic medical condition aeb hyponatremia, elev. renal labs, hypocalcemia and severe hypoalbuminemia Obesity r/t food intake more than body requirement aeb 148% IBW, BMI 35.2 kg/m2 and increased body adiposity Will continue to monitor PO intake, skin status, pertinent labs and weight trend. F/u in 3 to 5 days. Rec.: 1.) Consider to continue monitoring pertinent labs; If renal labs continue trending up, consider Renal Specific: 60 gms pro, 2 gms Na in addition to current therapeutic diet 2.) If Albumin level continues trending down with improved renal labs, consider Prostat 1 pkt BID. 3.) Continue close supervision with meals 4.) Refer to RD for further nutrition education and weight monitoring upon discharged. 5.) Continue current plan of care.
--- NOTE | 2019-01-13 15:25 | NUR ---
UNNA BOOTS CHANGED. PATIENT TOLERATED IT WELL.
[2019-01-13 16:42] VITALS: BP 111/67
--- NOTE | 2019-01-13 19:40 | NUR ---
Opening Shift Note Assumed care of patient, alert and oriented x 4. On 3L oxygen via nasal cannula. On bedrest, working with PT. No S/S of distress/SOB or pain. Bed in lowest locked position, side rails up x 2, call light within reach. Instructed on POC and to call for assist PRN, will continue to monitor for changes Q1hr and PRN.
[2019-01-13 20:00] VITALS: BP 105/72
[2019-01-13] MEDS: TAMSULOSIN HYDROCHLORIDE 0.4 MG CAP PO SCH (21:52)
[2019-01-13] MEDS: ATORVASTATIN 20 MG TAB PO SCH (21:53)
[2019-01-13 22:51] VITALS: BP 105/72
[2019-01-14 05:00] VITALS: BP 117/61
[2019-01-14] MEDS: GABAPENTIN 100 MG CAP PO SCH ×3 (05:45→21:04)
--- NOTE | 2019-01-14 07:30 | NUR ---
Opening note Assumed care of patient from certified ski patroller RN. Patient resting in bed, no signs of distress or shortness of breath noted. bed in lowest position, side rails up x2 and call light in reach. Will continue to monitor.
[2019-01-14 08:28] VITALS: BP 100/56
[2019-01-14] MEDS: LEVOTHYROXINE SODIUM 100 MCG TAB PO SCH (09:17)
[2019-01-14] MEDS: FLUDROCORTISONE ACETATE 0.1 MG TAB PO SCH ×2 (09:17→21:05)
[2019-01-14] MEDS: FUROSEMIDE 40 MG/4 ML VIAL IV SCH (09:17)
[2019-01-14] MEDS: FINASTERIDE 5 MG TAB PO SCH (09:18)
--- NOTE | 2019-01-14 09:40 | NUR ---
IV insertion IV placed in the right upper arm 22g. One attempt, flushed, and saline locked. patient tolerated well.
--- NOTE | 2019-01-14 09:52 | NUR ---
IV removal IV DC'd with clean sterile technique, catheter fully intact. Pressure dressing applied to site. Patient tolerated well.
[2019-01-14 09:54] LABS: Basophils # (auto) 0 uL; Basophils % (auto) 0.2 % (0.0-2.0); Eosinophils # (auto) 0.1 uL; Eosinophils % (auto) 0.8 % (0.0-7.0); Hematocrit 36.5 % (41.0-53.0); Hemoglobin 12.2 g/dL (13.5-17.5); Lymphocytes # (auto) 0.9 uL; Lymphocytes % (auto) 10.2 % (10.0-50.0); Mean Corpuscular Hgb Conc. 33.3 g/dL (32.0-36.0); Mean Corpuscular Volume 98.9 fL (80.0-100.0); Monocytes % (auto) 10.9 % (0.0-12.0); Neutrophils # (auto) 7.2 uL; Neutrophils % (auto) 77.9 % (37.0-80.0); Nucleated Red Blood Cells % 0.1 %; Platelet Count (auto) 133 10^3/uL (140-450); Red Blood Cells 3.69 10^6/uL (4.5-5.90); Red Cell Distribution Width 14.5 % (11.8-14.3); White Blood Cell 9.2 10^3/uL (4.4-10.8)
--- NOTE | 2019-01-14 09:57 | NUR ---
PT Patient having IV placement during morning PT visit. Addendum: 01/14/19 at 0958 by MARCIE SCOTT PTT Amended: Links added.
[2019-01-14 10:09] LABS: BUN/Creatinine Ratio 43.9; Calcium 8.6 mg/dL (8.5-10.1); Magnesium 2.9 mg/dL (1.6-2.6)
[2019-01-14 10:22] LABS: Potassium 5.6 mmol/L (3.5-5.1)
--- NOTE | 2019-01-14 10:31 | NUR ---
Paged Dr Goss Regarding critical lab value, potassium of 5.6 and BUN of 119.
--- NOTE | 2019-01-14 10:33 | NUR ---
Spoke with Dr Goss Received new orders, will input and follow through.
[2019-01-14] MEDS ORDERED: SODIUM CHLORIDE 0.9% 3,300 ML IV ONE (10:45)
[2019-01-14] MEDS ORDERED: SODIUM CHLORIDE 0.9% 1,000 ML IV ONE (10:45)
[2019-01-14 12:49] VITALS: BP 136/78
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
[2019-01-14 16:45] VITALS: BP 125/67
--- NOTE | 2019-01-14 18:20 | NUR ---
FAMILY FRIEND AT BEDSIDE.
--- NOTE | 2019-01-14 18:35 | NUR ---
PATIENT APPEARS TO BE SLEEPING, RESTING WITH EYES CLOSED. NO S/S OF DISTRESS NOTED. WILL ENDORSE CARE TO LION TAMER RN.
[2019-01-14] MEDS: TAMSULOSIN HYDROCHLORIDE 0.4 MG CAP PO SCH (21:04)
[2019-01-14] MEDS: ATORVASTATIN 20 MG TAB PO SCH (21:05)
[2019-01-14 22:00] VITALS: BP 122/60
[2019-01-15 04:25] LABS: Albumin 2.2 g/dL (3.4-5.0); Calcium 8.4 mg/dL (8.5-10.1); Potassium 5.2 mmol/L (3.5-5.1)
[2019-01-15 04:31] LABS: BUN/Creatinine Ratio 49.8; Bilirubin, Total 1.2 mg/dL (0.2-1.0); Total Protein 5.7 g/dL (6.4-8.2)
--- NOTE | 2019-01-15 04:45 | NUR ---
CRITICAL LAB: BUN IS 103, RESULT IS TRENDING DOWN. WILL NOTIFY ATTENDING MD.
[2019-01-15 05:00] VITALS: BP 122/74
[2019-01-15] MEDS: GABAPENTIN 100 MG CAP PO SCH ×3 (05:19→20:59)
--- NOTE | 2019-01-15 06:00 | NUR ---
NOTIFIED DR CELIS REGARDING CRITICAL LAB, NO NEW ORDERS AT THIS TIME.
--- NOTE | 2019-01-15 06:36 | NUR ---
PATIENT IS A&O X 3, ON 4L O2, GETS SHORT OF BREATH ON EXERTION, BLE EDEMA IMPROVING, BILATERAL LEGS WITH ELIZABETH WRAP, KEPT ELEVATED, INCONTINENT MOST OF THE TIME, DENIES ANY PAIN, REPOSITION EVERY 2 HOURS, PERICARE DONE SEVERAL TIMES THROUGHOUT THE SHIFT.
--- NOTE | 2019-01-15 06:49 | NUR ---
DR CELIS ORDERED 1L NS BOLUS X 1. ORDERED AND CARRIED OUT.
[2019-01-15] MEDS ORDERED: SODIUM CHLORIDE 0.9% 1,000 ML IV ONE (07:00)
--- NOTE | 2019-01-15 07:20 | NUR ---
Opening Shift Note Assumed care of patient, appears to be sleeping, resting in bed with eyes closed, awoken by name. No S/S of distress/SOB, no pain noted or reported. Respirations are even and unlabored on 4L O2 via NC. Updated on POC and instructed to call for assistance PRN, patient verbalized understanding. Bed locked in lowest position, side rails up x2, call light within reach, bed alarm on. Will continue to monitor for changes Q1hr and PRN.
[2019-01-15] MEDS: FUROSEMIDE 40 MG/4 ML VIAL IV SCH (09:00)
[2019-01-15] MEDS: FLUDROCORTISONE ACETATE 0.1 MG TAB PO SCH ×2 (09:00→20:58)
[2019-01-15] MEDS: LEVOTHYROXINE SODIUM 100 MCG TAB PO SCH (09:00)
[2019-01-15] MEDS: FINASTERIDE 5 MG TAB PO SCH (09:00)
[2019-01-15 09:26] VITALS: BP 127/64
[2019-01-15 13:18] VITALS: BP 109/69
[2019-01-15] MEDS: SODIUM CHLORIDE 0.9% 1,000 ML IV SCH (14:22)
[2019-01-15 17:21] VITALS: BP 118/61
--- NOTE | 2019-01-15 18:54 | NUR ---
PATIENT ROUNDS PATIENT RESTING IN BED WATCHING TELEVISION. NO S/S OF DISTRESS NOTED, NO PAIN REPORTED AT THIS TIME. WILL ENDORSE CARE TO CONCRETE PUMP OPERATOR HELPER RN.
[2019-01-15] MEDS: ATORVASTATIN 20 MG TAB PO SCH (20:59)
[2019-01-15] MEDS: TAMSULOSIN HYDROCHLORIDE 0.4 MG CAP PO SCH (20:59)
[2019-01-15 22:00] VITALS: BP 158/92
[2019-01-15] MEDS: TEMAZEPAM 15 MG CAP PO PRN (22:08)
[2019-01-16] MEDS: SODIUM CHLORIDE 0.9% 1,000 ML IV SCH (03:20)
[2019-01-16 04:43] LABS: Hematocrit 34.6 % (41.0-53.0); Hemoglobin 12.2 g/dL (13.5-17.5); Mean Corpuscular Hemoglobin 32.9 pg (28.0-32.0); Mean Corpuscular Hgb Conc. 35.1 g/dL (32.0-36.0); Mean Corpuscular Volume 93.6 fL (80.0-100.0); Platelet Count (auto) 141 10^3/uL (140-450); Red Cell Distribution Width 14.2 % (11.8-14.3); White Blood Cell 7.7 10^3/uL (4.4-10.8)
[2019-01-16 05:00] VITALS: BP 115/72
[2019-01-16 05:08] LABS: Albumin 2.1 g/dL (3.4-5.0); Potassium 4.8 mmol/L (3.5-5.1)
[2019-01-16 05:13] LABS: BUN/Creatinine Ratio 54.7; Bilirubin, Total 1.3 mg/dL (0.2-1.0); Total Protein 5.2 g/dL (6.4-8.2)
[2019-01-16] MEDS: GABAPENTIN 100 MG CAP PO SCH ×3 (05:25→20:59)
--- NOTE | 2019-01-16 05:36 | NUR ---
CRITICAL LAB: LATEST BUN IS 88, IMPROVED FROM YESTERDAY. LEFT A MESSAGE TO DR. CELIS'S PHONE, WAITING FOR CALL BACK/RESPONSE.
[2019-01-16 05:41] LABS: Basophils % (manual) 0 (0.0-2.0); Blast Cells 0; Metamyelocytes % 0; Promyelocytes % 0; Reactive Lymphocytes 0
--- NOTE | 2019-01-16 08:00 | NUR ---
Opening Note Assumed care of patient, he is A & O x4, sitting up in bed eating breakfast independently. No s/s of distress at this time. POC discussed with patient. Patient is comfortable at this time. Bed is in low, locked position, call light within reach, bed alarm on. Will continue to monitor Q1h and PRN.
[2019-01-16 08:14] LABS: Band Neutrophils % (manual) 3; Lymphocytes % (manual) 8 (10.0-50.0)
[2019-01-16 08:15] LABS: Eosinophils % (manual) 4 (0-7); Monocytes % (manual) 13 (0-12); Myelocytes % 2
[2019-01-16 08:42] VITALS: BP 97/67
[2019-01-16] MEDS: FUROSEMIDE 40 MG/4 ML VIAL IV SCH (10:00)
[2019-01-16] MEDS: FLUDROCORTISONE ACETATE 0.1 MG TAB PO SCH ×2 (10:28→20:59)
[2019-01-16] MEDS: FINASTERIDE 5 MG TAB PO SCH (10:29)
[2019-01-16] MEDS: LEVOTHYROXINE SODIUM 100 MCG TAB PO SCH (10:29)
[2019-01-16 13:00] VITALS: BP 100/64
--- NOTE | 2019-01-16 13:00 | NUR ---
Nutrition Follow-up Notes Wt.: 110.8 kg Pt's on oxygen via nasal cannula, asleep, no immediate family member at bedside during rounds this morning. Pt's no signs of distress noted earlier, currently on Renal specific 60 gm protein Cardiac: 2 gms Na, Low Chol, Low Fat soft diet with fair PO of avg 70% x 4 per RN doc Est. Needs: 1950 kcal to 2150 kcal (18-20 kcal/kgBW), 58 gms to 73 gms pro (0.8-1.0 gms/kgIBW: 73 kg). Will continue to monitor pertinent labs and reassess nutrient need prn Labs: BUN 88 H, CREAT 1.61 H, ALB 2.1 L, CA 8.0 L, GIFTY 1.3 H Skin: Claudy scale 17, mod risk, skin intact per gummed tape press operator. GI: Pt had 2x BM yesterday per gummed tape press operator. PES: Altered nutrition related lab values r/t current/chronic medical condition aeb hyponatremia, elev. renal labs, hypocalcemia and severe hypoalbuminemia Obesity r/t food intake more than body requirement aeb 148% IBW, BMI 35.2 kg/m2 and increased body adiposity Will continue to monitor PO intake, skin status, pertinent labs and weight trend. F/u in 3 to 5 days. Rec.: 1.) If Albumin level continues trending down with improved renal labs, consider Prostat 1 pkt BID. 3.) Continue close supervision with meals 4.) Refer to RD for further nutrition education and weight monitoring upon discharged. 5.) Continue current plan of care.
--- NOTE | 2019-01-16 14:00 | NUR ---
Patient is able to assist with turning himself, he does get short of breath with exertion. He has been using a urinal but tends to miss the urinal often, had to clean the patient. Turned patient to left side. Will continue to monitor Q1h and PRN. Bed is in low, locked position, call light within reach, teresita boots on. Bed alarm is on.
--- NOTE | 2019-01-16 15:39 | NUR ---
Paged Dr. Goss. Regarding patient becoming more SOB, patient does have pitting edema to in bilateral extremities up to abdomen. No s/s of distress at this time, but patient communication orders stated to hold diuretics and potassium supplements at this time. Will communicate this to Dr. Goss.
--- NOTE | 2019-01-16 16:30 | NUR ---
Communicated with Dr. Goss by telephone Orders received, read back and verified. Will medicate per orders.
[2019-01-16 16:42] VITALS: BP 124/62
[2019-01-16] MEDS ORDERED: FUROSEMIDE 40 MG/4 ML VIAL IV ONE (18:30)
[2019-01-16] MEDS: ATORVASTATIN 20 MG TAB PO SCH (20:59)
[2019-01-16] MEDS: TAMSULOSIN HYDROCHLORIDE 0.4 MG CAP PO SCH (20:59)
[2019-01-16 22:00] VITALS: BP 129/79
[2019-01-17 05:11] VITALS: BP 125/67
[2019-01-17] MEDS: GABAPENTIN 100 MG CAP PO SCH ×3 (06:26→21:40)
--- NOTE | 2019-01-17 07:30 | NUR ---
Opening Shift Note Assumed care of patient, awake, alert, and oriented x4. No S/S of distress/SOB or pain. IV in the right upper arm 22 gauge is asymptomatic, intact, patent, and saline locked. Bed is locked and in lowest position and call light is within reach. Instructed on POC and to call for assist PRN, and patient verbalized understanding. Will continue to monitor for changes Q1hr and PRN.
[2019-01-17 09:00] VITALS: BP 114/62
[2019-01-17] MEDS: FUROSEMIDE 40 MG/4 ML VIAL IV SCH (10:00)
--- NOTE | 2019-01-17 10:00 | NUR ---
Physical Therapy at bedside. Patient transferred to chair. Patient tolerated well. Will continue to monitor Q10 minutes.
[2019-01-17] MEDS: LEVOTHYROXINE SODIUM 100 MCG TAB PO SCH (10:39)
[2019-01-17] MEDS: FINASTERIDE 5 MG TAB PO SCH (10:39)
--- NOTE | 2019-01-17 11:12 | NUR ---
Daughter requested social service consult for an evaluation of home safety for patient. Daughter requesting to be informed of plan of care and requesting name to be added to contacts and chart; patient agreed. Daughter's name is Jacklyn PerezMary KateSolis Cell phone is [phone]
--- NOTE | 2019-01-17 11:56 | NUR ---
D/C Planning Per SS consult for family requesting home health for safety evaluation. Advised GREYSON Alejo to informed Dr. Goss for care of plan.
[2019-01-17 13:00] VITALS: BP 112/61
[2019-01-17] MEDS: FLUDROCORTISONE ACETATE 0.1 MG TAB PO SCH ×2 (15:29→21:40)
[2019-01-17 16:49] VITALS: BP 121/64
--- NOTE | 2019-01-17 19:30 | NUR ---
Opening Shift Note Assumed care of patient, awake and alert. No S/S of distress/SOB or pain. Bed in lowest locked position, side rails up x2, call light within reach. Bilateral feet and legs elevated on pillows, patient tolerating well. Instructed on POC and to call for assist PRN, will continue to monitor for changes Q1hr and PRN.
[2019-01-17] MEDS: TAMSULOSIN HYDROCHLORIDE 0.4 MG CAP PO SCH (21:40)
[2019-01-17] MEDS: ATORVASTATIN 20 MG TAB PO SCH (21:40)
[2019-01-17 22:39] VITALS: BP 130/75
[2019-01-18 05:19] VITALS: BP 141/93
[2019-01-18] MEDS: GABAPENTIN 100 MG CAP PO SCH ×3 (05:38→22:50)
--- NOTE | 2019-01-18 06:11 | NUR ---
Dr. Goss Paged Patient reports no bowel movement since 01/13/19. Patient states the he "doesn't feel like [he] has to go, but [he] knows [he] needs to go." No abdominal distension noted, patient denies abdominal pain. No s/s of distress. Dr. Goss contacted, awaiting call back at this time.
--- NOTE | 2019-01-18 06:14 | NUR ---
Dr. Goss Returned Page Dr. Goss returned page, new order received for Magnesium Citrate 150 ml PO now and administer second dose of Magnesium Citrate 150 ml PO if no bowel movement four hour from initial dose. Order read back and verified, will implement as ordered and continue to monitor.
[2019-01-18] MEDS ORDERED: MAGNESIUM CITRATE SOLUTION 300 ML BTL PO ONE ×3 (06:15→10:30)
--- NOTE | 2019-01-18 07:17 | NUR ---
Closing Note Patient lying in bed, eyes closed, respirations even and unlabored, appears asleep. No s/s of distress. Bed in lowest locked position, side rails up x2, call light within reach. Care endorsed to dayshift RN.
--- NOTE | 2019-01-18 07:30 | NUR ---
Opening Shift Note RECEIVED REPORT FROM NOC RN. Assumed care of patient, awake and alert. No S/S of distress/SOB or pain. BED IN LOWEST, LOCKED POSITION WITH SIDERAILS UP x2 AND CALL LIGHT WITHIN REACH. Instructed on POC and to call for assist PRN, will continue to monitor for changes Q1hr and PRN.
[2019-01-18 09:00] VITALS: BP 120/76
[2019-01-18] MEDS ORDERED: MAGNESIUM CITRATE SOLUTION 300 ML BTL PO PRN (10:30)
[2019-01-18] MEDS: FUROSEMIDE 40 MG/4 ML VIAL IV SCH (11:30)
[2019-01-18] MEDS: FLUDROCORTISONE ACETATE 0.1 MG TAB PO SCH ×2 (11:32→12:15)
[2019-01-18] MEDS: FINASTERIDE 5 MG TAB PO SCH (11:32)
[2019-01-18] MEDS: LEVOTHYROXINE SODIUM 100 MCG TAB PO SCH (11:33)
[2019-01-18 12:30] VITALS: BP 122/77
[2019-01-18 13:31] LABS: BUN/Creatinine Ratio 44.8; Calcium 8.5 mg/dL (8.5-10.1); Potassium 4.5 mmol/L (3.5-5.1)
--- NOTE | 2019-01-18 14:49 | NUR ---
Dixon catheter insertion Patient assessed and determined to be in need of dixon catheter. Order obtained from MD. Patient educated on catheter and reason for insertion. All questions answered. Dixon catheter 16 gauge Tajik inserted with clean sterile technique. Patient tolerated well.
[2019-01-18 17:00] VITALS: BP 165/85
[2019-01-18] MEDS: TAMSULOSIN HYDROCHLORIDE 0.4 MG CAP PO SCH (22:50)
[2019-01-18] MEDS: ATORVASTATIN 20 MG TAB PO SCH (22:50)
[2019-01-18 23:44] VITALS: BP 129/75
[2019-01-19 05:41] VITALS: BP 125/80
[2019-01-19] MEDS: GABAPENTIN 100 MG CAP PO SCH ×3 (05:42→21:44)
--- NOTE | 2019-01-19 07:15 | NUR ---
Closing Note Patient lying in bed, awake and alert. No s/s of distress. Bed in lowest locked position, side rails up x2, call light within reach. Care endorsed to dayshift RN.
--- NOTE | 2019-01-19 07:30 | NUR ---
Opening Shift Note RECEIVED REPORT FROM NOC RN. Assumed care of patient, awake and alert. PATIENT ON OXYGEN AT 3 LPM VIA NASAL CANNULA WITH no S/S of distress/SOB or pain. BED IN LOWEST, LOCKED POSITION WITH SIDERAILS UP x2 AND CALL LIGHT WITHIN REACH. Instructed on POC and to call for assist PRN, will continue to monitor for changes Q1hr and PRN.
[2019-01-19 08:53] VITALS: BP 114/74
[2019-01-19] MEDS: LEVOTHYROXINE SODIUM 100 MCG TAB PO SCH (09:59)
[2019-01-19] MEDS: FUROSEMIDE 20 MG TAB PO SCH (10:00)
[2019-01-19] MEDS: FLUDROCORTISONE ACETATE 0.1 MG TAB PO SCH (10:00)
[2019-01-19] MEDS: FINASTERIDE 5 MG TAB PO SCH (10:00)
[2019-01-19 12:01] VITALS: BP 115/71
[2019-01-19] MEDS: HYDROcodone-ACET 5/325MG TAB PO PRN (16:07)
--- NOTE | 2019-01-19 16:36 | NUR ---
PATIENT DECLINING RE-APPLICATION OF UNNA BOOTS AT THIS TIME.
[2019-01-19 17:00] VITALS: BP 135/63
--- NOTE | 2019-01-19 19:40 | NUR ---
Opening Shift Note Assumed care of patient, awake and alert. No S/S of distress/SOB or pain. Bed in lowest locked position, side rails up x2, call light within reach. Bilateral feet and legs elevated on pillows in unna boots, patient tolerating well. Instructed on POC and to call for assist PRN, will continue to monitor for changes Q1hr and PRN.
[2019-01-19] MEDS: ATORVASTATIN 20 MG TAB PO SCH (21:44)
[2019-01-19] MEDS: TAMSULOSIN HYDROCHLORIDE 0.4 MG CAP PO SCH (21:44)
[2019-01-19 22:24] VITALS: BP 122/73
[2019-01-19 22:27] VITALS: BP 131/77
[2019-01-20 05:46] VITALS: BP 129/69
[2019-01-20] MEDS: HYDROcodone-ACET 5/325MG TAB PO PRN ×2 (06:01→14:10)
[2019-01-20] MEDS: GABAPENTIN 100 MG CAP PO SCH ×3 (06:01→22:07)
--- NOTE | 2019-01-20 07:25 | NUR ---
Closing Note and refusing dressing change This RN offered multiple times throughout shift to change unna boots and dressing, patient refusing. Patient educated on importance of changing unna boots and dressing as ordered, patient verbalized understanding and continued to refuse. Patient now lying in bed, awake and alert. No s/s of distress. Bed in lowest locked position, side rails up x2, call light within reach. Care endorsed to dayshift RN.
--- NOTE | 2019-01-20 07:35 | NUR ---
Opening Shift Note Assumed care of patient, awake, alert, and oriented x4. No S/S of distress/SOB or pain. IV in the right upper arm 22 gauge is asymptomatic, intact, patent, and saline locked. Newell catheter is patent and draining clear misty urine to gravity. Bed is locked and in lowest position and call light is within reach. Instructed on POC and to call for assist PRN, and patient verbalized understanding. Will continue to monitor for changes Q1hr and PRN.
[2019-01-20 08:00] VITALS: BP 110/91
[2019-01-20 08:52] VITALS: BP 110/91
--- NOTE | 2019-01-20 09:30 | NUR ---
Repositioned patient's pillows, and patient is semi-fowlers, supine, and resting comfortably in bed with no complaints of pain; bilateral teresita boots readjusted for comfort.
--- NOTE | 2019-01-20 10:15 | NUR ---
Patient had small brown semi-solid bowel movement.
--- NOTE | 2019-01-20 10:20 | NUR ---
Received call from Independent Living Specialist to go check on patient, that RN ORLANDO from [facility] received a message that patient needed help; found patient in bed resting comfortably and reported no distress or pain at this time.
--- NOTE | 2019-01-20 10:20 | NUR ---
Physical therapy at bedside.
--- NOTE | 2019-01-20 10:42 | NUR ---
FULL LINEN CHANGE BETITO Schuster performed full linen change. Patient is sitting in chair, and patient reports no distress or pain at this time. Will continue to monitor patient Q15 minutes while up to chair.
[2019-01-20] MEDS: FINASTERIDE 5 MG TAB PO SCH (11:01)
[2019-01-20] MEDS: LEVOTHYROXINE SODIUM 100 MCG TAB PO SCH (11:02)
[2019-01-20] MEDS: FUROSEMIDE 20 MG TAB PO SCH (11:02)
[2019-01-20] MEDS: FLUDROCORTISONE ACETATE 0.1 MG TAB PO SCH (11:03)
[2019-01-20 12:30] VITALS: BP 117/59
[2019-01-20 17:00] VITALS: BP 118/92
--- NOTE | 2019-01-20 17:40 | NUR ---
Dr. Goss, Clerical Dentist Assistant, new orders received, social service consult for rehab Willams put in.
--- NOTE | 2019-01-20 19:15 | NUR ---
OPENING NOTE- NOC SHIFT PATIENT IS IN BED. NO S/SX OF DISTRESS, SOB OR PAIN. DISCUSSED POC WITH PATIENT AND INSTRUCTED PATIENT TO CALL PRN; PATIENT VERBALIZED UNDERSTANDING. WILL CONTINUE TO MONITOR Q1H AND PRN. PATIENT HAS LAU; DRAINING PROPERLY. URINE IS FAVIAN WITH RED SEDIMENTS. NO BLADDER DISTENTION. PATIENT IS WEARING NATHALY BOOTS BILATERALLY TO LOWER EXTREMITIES.
[2019-01-20] MEDS: TAMSULOSIN HYDROCHLORIDE 0.4 MG CAP PO SCH (22:06)
[2019-01-20] MEDS: ATORVASTATIN 20 MG TAB PO SCH (22:07)
--- NOTE | 2019-01-20 22:47 | NUR ---
BOWEL MOVEMENT PATIENT HAD FORMED BOWEL MOVEMENT USING BEDPAN.
--- NOTE | 2019-01-20 22:50 | NUR ---
KYLE AREA WASHED WITH SOFT SOAP AND WATER; PAT DRY WELL. Z GUARD APPLIED TO KYLE AREA. PATIENT TOLERATES TURNING WELL.
[2019-01-20 23:19] VITALS: BP 158/105
--- NOTE | 2019-01-20 23:33 | NUR ---
BLOOD PRESSURE 158/105 HR 90 WILL PAGES HOSPITALIST TO REQUEST PRN.
[2019-01-21] MEDS: HYDROcodone-ACET 5/325MG TAB PO PRN ×3 (00:52→21:36)
[2019-01-21] MEDS ORDERED: cloNIDine HCL 0.1 MG TAB PO ONE (01:00)
[2019-01-21 05:41] VITALS: BP 112/76
[2019-01-21] MEDS: GABAPENTIN 100 MG CAP PO SCH ×3 (06:27→21:36)
--- NOTE | 2019-01-21 07:30 | NUR ---
Opening Shift Note Assuming care of patient. Patient is awake and alert. Patient is expressing some discomfort from the dixon area. Patient states that he feels like he needs to urinate. Educated patient on the dixon catheter and that his bag is currently draining misty urine. Will notify that patient would like dixon discontinued. Patient shows no signs or symptoms of distress or shortness of breath. Instructed patient on the plan of care for today and to call for assistance as needed. Call light within reach. Will continue to round hourly and as needed.
[2019-01-21 08:30] VITALS: BP 131/98
--- NOTE | 2019-01-21 09:00 | NUR ---
IV Change Instructed patient that IV needed to be changed per policy/protocol. Patient refused. Educated patient on the need to change IV. Patient continues to refuse. Will continue to educate.
[2019-01-21] MEDS: FLUDROCORTISONE ACETATE 0.1 MG TAB PO SCH (10:32)
--- NOTE | 2019-01-21 10:33 | NUR ---
PT Patient refused to be OOB or do PT with c/o pain to hip and dixon. Addendum: 01/21/19 at 1034 by MARCIE SCOTT PTT Amended: Links added.
[2019-01-21] MEDS: FUROSEMIDE 20 MG TAB PO SCH (10:35)
[2019-01-21] MEDS: FINASTERIDE 5 MG TAB PO SCH (10:36)
[2019-01-21] MEDS: LEVOTHYROXINE SODIUM 100 MCG TAB PO SCH (10:37)
[2019-01-21 11:30] VITALS: BP 94/51
--- NOTE | 2019-01-21 15:00 | NUR ---
Dixon Catheter Patient has continued to complain about dixon catheter being uncomfortable and about "needing to pee," throughout shift despite readjusting and continuing to educate patient. Patient states that he is "wet," however, patient does not feel wet and there is dark, misty urine draining to bag. Patient is uncomfortable and moaning. Will notify .
--- NOTE | 2019-01-21 16:10 | NUR ---
Dixon catheter dc'd Order to discontinue dixon catheter. Dixon dc'd with clean technique following deflation of balloon. Patient tolerated well with no complaints of pain. Patient expresses a relief in pain and discomfort. Will continue care.
[2019-01-21 17:01] VITALS: BP 109/67
--- NOTE | 2019-01-21 17:30 | NUR ---
Haircurick Britton, from [facility], is at bedside to cut patient's hair and shave patient per family's request. Spoke with family earlier and the family notified this RN to be expecting him. Tobi presents with business card and tools.
--- NOTE | 2019-01-21 18:59 | NUR ---
Closing Shift Note Patient is still receiving hair cut at this time. No distress noted. Patient is smiling. Will give report and endorse care to the undertaker helper RN.
--- NOTE | 2019-01-21 19:30 | NUR ---
Opening Shift Assumed care of patient, awake and alert. No S/S of distress/SOB or pain. Insructed on POC and to callfor assist PRN, will continue to monitor for changes Q1hr and PRN. Fall and safety precautions in place. Call light within reach.
--- NOTE | 2019-01-21 20:00 | NUR ---
IV removal IV DC'd with clean sterile technique, catheter fully intact. Pressure dressing applied to site. Patient tolerated well. NOTE: Right upper arm 22g accidentally pulled out by patient. Informed patient that new IV access will need to be obtained. Patient verbalized understanding and agreement.
--- NOTE | 2019-01-21 21:30 | NUR ---
IV insertion IV access obtained, via clean sterile technique by inserting 22 gauge catheter at left upper arm after second attempt. IV secured properly. No trauma to site. Patient tolerated well.
[2019-01-21] MEDS: ATORVASTATIN 20 MG TAB PO SCH (21:35)
[2019-01-21] MEDS: TAMSULOSIN HYDROCHLORIDE 0.4 MG CAP PO SCH (21:35)
[2019-01-21 22:00] VITALS: BP 120/72
[2019-01-21] MEDS: TEMAZEPAM 15 MG CAP PO PRN (23:52)
[2019-01-22] VITALS (7 sets, daily range): BP systolic 102–143; BP diastolic 64–80
--- NOTE | 2019-01-22 01:50 | NUR ---
CONFUSION Called into room by MILLINERY WORKER because patient attempting to get out of bed. Entered room to find patient with left leg hanging off bed, stating he was planning to get out of bed. Patient was re-oriented and educated that he's not able to get out of bed without assist. Patient stated "they let me earlier." Patient was informed that he hasn't been out of bed without assist. Patient was repositioned in bed for comfort. Bed in lowest and locked position, side rails x3 up, bed alarm turned on. Will continue to monitor
[2019-01-22] MEDS: GABAPENTIN 100 MG CAP PO SCH ×3 (05:28→21:44)
--- NOTE | 2019-01-22 07:25 | NUR ---
Opening Shift Note Assumed care of patient, awake and alert. No S/S of distress/SOB or pain reported at this time, currently on 2L via NC. Instructed on POC and to call for assist PRN, call light within reach, able to demonstrate how to use call light, will continue to monitor for changes Q1hr and PRN.
--- NOTE | 2019-01-22 08:22 | NUR ---
D/C Planning Per consult for [facility] for rehab. Contacted [facility] Ph:( [phone]) Fax:) faxed medical records. Per Bren from [facility] Pt has been accepted to room [address] Hernández[address] will set up transportation upon d/c day. Addendum: 01/22/19 at 0824 by ASHELY WADE Amended: Links added.
[2019-01-22] MEDS: FINASTERIDE 5 MG TAB PO SCH (10:39)
[2019-01-22] MEDS: LEVOTHYROXINE SODIUM 100 MCG TAB PO SCH (10:39)
[2019-01-22] MEDS: FLUDROCORTISONE ACETATE 0.1 MG TAB PO SCH (10:39)
[2019-01-22] MEDS: FUROSEMIDE 20 MG TAB PO SCH (10:40)
--- NOTE | 2019-01-22 10:50 | NUR ---
PHYSICAL THERAPY PT ASSISTED UP OOB TO CHAIR, BY PHYSICAL THERAPIST, SITTING UP IN CHAIR, BEDSIDE TABLE PLACED IN FRONT FOR FALL PRECAUTIONS, NON-SLIP SOCKS ON, CALL LIGHT WITHIN REACH, ON 2L VIA NC, ABLE TO DEMONSTRATE HOW TO CALL FOR ASSIST, CONT CARE
--- NOTE | 2019-01-22 11:27 | NUR ---
Nutrition Follow-up Notes Wt.: 114 kg Pt. sleeping during visit with no family at bedside. Per documentations, pt. receiving renal specific diet (60 g protein, 2 gm Na) with Cardiac restrictions and soft texture. Tolerating well with intake 75-100% x 3 days. No reports of GI distress per RN documentations. Est. Needs: 1950 kcal to 2150 kcal (18-20 kcal/kgBW), 58 gms to 73 gms pro (0.8-1.0 gms/kgIBW: 73 kg). Will continue to monitor pertinent labs and reassess nutrient need prn Labs: BUN 65H, Cr 1.45H, POC Gluc 120H Skin: Claudy scale 14, mod risk, RLE and R hip bruises s/p fall prior to admission GI: Last BM yesterday x 1 PES:Altered nutrition related lab values r/t current/chronic medical condition aeb hyponatremia, elev. renal labs, hypocalcemia and severe hypoalbuminemia (ongoing) Obesity r/t food intake more than body requirement aeb 148% IBW, BMI 35.2 kg/m2 and increased body adiposity (ongoing) Will continue to monitor PO intake, skin status, pertinent labs and weight trend. PO to meet >75% estimated kcal and protein needs by following assessment. F/u in 3 to 5 days. Rec.: 1) If Albumin level continues trending down with improved renal labs, consider Prostat 1 pkt BID. 2) Continue close supervision with meals 3) Continue POC as ordered
--- NOTE | 2019-01-22 12:10 | NUR ---
PT ASSISTED BACK TO BED WITH ASSISTANCE OF PHYSICAL THERAPY PT TOLERATED TRANSFER WELL, ON 2L VIA NC, NO C/O SOB, CP OR ANY OTHER DISCOMFORT, CALL LIGHT PLACED WITHIN REACH, CONT CARE
[2019-01-22 12:41] LABS: Basophils # (auto) 0 uL; Basophils % (auto) 0.6 % (0.0-2.0); Eosinophils # (auto) 0.1 uL; Eosinophils % (auto) 1.5 % (0.0-7.0); Hematocrit 42.4 % (41.0-53.0); Hemoglobin 13.7 g/dL (13.5-17.5); Lymphocytes # (auto) 0.8 uL; Mean Corpuscular Hemoglobin 32.3 pg (28.0-32.0); Mean Corpuscular Hgb Conc. 32.2 g/dL (32.0-36.0); Mean Corpuscular Volume 100.2 fL (80.0-100.0); Monocytes # (auto) 0.8 uL; Monocytes % (auto) 9.6 % (0.0-12.0); Neutrophils # (auto) 6.6 uL; Neutrophils % (auto) 78.3 % (37.0-80.0); Nucleated Red Blood Cells % 0.1 %; Platelet Count (auto) 144 10^3/uL (140-450); Red Blood Cells 4.24 10^6/uL (4.5-5.90); Red Cell Distribution Width 14.6 % (11.8-14.3); White Blood Cell 8.4 10^3/uL (4.4-10.8)
--- NOTE | 2019-01-22 13:55 | NUR ---
MD DR CELIS AT BEDSIDE, DISCUSSING POC INCLUDING DISCHARGE TO [facility] TODAY, PT AXOX4, PT VERBALIZED UNDERSTANDING, SPOKE WITH DAUGHTER ERICH AND UPDATED ON POC, NEW ORDERS RECEIVED FOR LASIX 80MG IV X1 AND TO WRAP BLE WITH ELIZABETH BANDAGE BELOW KNEES PRIOR DC, CONT CARE
[2019-01-22] MEDS ORDERED: FUROSEMIDE 100 MG/10ML VIAL IV ONE (14:15)
--- NOTE | 2019-01-22 15:00 | NUR ---
D/C feed mill lab technician Norma advised me put a hold on the discharge order for tomorrow 01/23/19. Addendum: 01/23/19 at 0836 by ASHELY SERNA Amended: Links added.
--- NOTE | 2019-01-22 15:15 | NUR ---
DC HELD DR CELIS NOTIFIED PT WAS REQUESTING TO LEAVE EARLY IN AM [facility] LATE THIS AFTERNOON, AGREES AND DC ORDER CHANGED FOR 01/23/19, CONT CARE
[2019-01-22 17:16] LABS: Albumin 2.3 g/dL (3.4-5.0); Calcium 8.5 mg/dL (8.5-10.1); Potassium 4.2 mmol/L (3.5-5.1)
[2019-01-22 17:18] LABS: BUN/Creatinine Ratio 31.7; Bilirubin, Total 0.9 mg/dL (0.2-1.0)
--- NOTE | 2019-01-22 19:30 | NUR ---
Opening Shift Note Assumed care of patient, awake and alert. No S/S of distress/SOB or pain. Instructed on POC and to call for assist PRN, will continue to monitor for changes Q1hr and PRN. bed in low position and call light within reach
[2019-01-22] MEDS: TAMSULOSIN HYDROCHLORIDE 0.4 MG CAP PO SCH (21:38)
[2019-01-22] MEDS: ATORVASTATIN 20 MG TAB PO SCH (21:44)
[2019-01-22] MEDS: HYDROcodone-ACET 5/325MG TAB PO PRN (22:51)
[2019-01-23 05:10] VITALS: BP 105/54
[2019-01-23] MEDS: GABAPENTIN 100 MG CAP PO SCH (05:43)
--- NOTE | 2019-01-23 07:14 | NUR ---
Report given to santo kilgore
[2019-01-23 08:00] VITALS: BP 121/63
--- NOTE | 2019-01-23 08:00 | NUR ---
ELIZABETH BANDAGES NOTED TO BLE BELOW KNEES ORDERED BY MD PT TOLERATING WELL, NO C/O BLE DISCOMFORT, SENSATION AND PEDALS PULSES INTACT, CONT CARE
--- NOTE | 2019-01-23 08:31 | NUR ---
D/C Planning Contacted [facility] ph:) Fax:( [phone]) faxed transportation form spoke to Ngozi. Advised Ngozi from [facility] to arrange transportation at 10am via [employer]. Advised GREYSON Valdez. Addendum: 01/23/19 at 0835 by ASHELY SERNA Amended: Links added.
[2019-01-23 09:00] VITALS: BP 121/63
[2019-01-23] MEDS: FUROSEMIDE 20 MG TAB PO SCH (10:00)
[2019-01-23] MEDS: LEVOTHYROXINE SODIUM 100 MCG TAB PO SCH (10:00)
[2019-01-23] MEDS: FINASTERIDE 5 MG TAB PO SCH (10:00)
[2019-01-23] MEDS: FLUDROCORTISONE ACETATE 0.1 MG TAB PO SCH (10:00)
--- NOTE | 2019-01-23 10:32 | NUR ---
Pt being trans to [facility] Order obtained for transfer of KYLE SOLIMAN to . Unable to give report, spoke with wang, states she will have someone call me back to receive report. Report given to EMS transport Gurinder steamboat inspector. Medication reconciliation form completed and copy given to patient. Transported via gurney along with copied chart and all personal belongings. No distress noted on time of departure. Family at bedside aware of destination and room number, verbalized understanding.
[2019-02-13] MEDS ORDERED: FURO1TAB31 PO (14:47)
[2019-02-13] MEDS ORDERED: SENN-58 PO (14:48)
== END 2019-01-23 10:30 | DRG 604 ==
LOC: EDBD 13:51 → ER 13:59 → TELE 14:00 → TELE-WESTW 21:28
PROVIDERS: ADMIT Nurse Practitioner Acute Care; ATTEND Internal Medicine Cardiovascular Disease
DX: S70.01XA Contusion of right hip, initial encounter (principal); I50.43 Acute on chronic combined systolic (congestive) and diastolic (congestive) heart failure; I13.0 Hypertensive heart and chronic kidney disease with heart failure and stage 1 through stage 4 chronic kidney disease, or unspecified chronic kidney disease; D68.59 Other primary thrombophilia; D69.6 Thrombocytopenia, unspecified; S80.11XA Contusion of right lower leg, initial encounter; N40.0 Benign prostatic hyperplasia without lower urinary tract symptoms; N18.9 Chronic kidney disease, unspecified; I48.91 Unspecified atrial fibrillation; E78.5 Hyperlipidemia, unspecified; E03.9 Hypothyroidism, unspecified; G62.9 Polyneuropathy, unspecified; I67.2 Cerebral atherosclerosis; E87.5 Hyperkalemia; E86.9 Volume depletion, unspecified; M16.0 Bilateral primary osteoarthritis of hip; F41.9 Anxiety disorder, unspecified; S73.191A Other sprain of right hip, initial encounter; W18.39XA Other fall on same level, initial encounter; E78.00 Pure hypercholesterolemia, unspecified; I25.10 Atherosclerotic heart disease of native coronary artery without angina pectoris; Z95.5 Presence of coronary angioplasty implant and graft; Y93.89 Activity, other specified; Y92.89 Other specified places as the place of occurrence of the external cause; Y99.8 Other external cause status; Z79.01 Long term (current) use of anticoagulants; Z79.899 Other long term (current) drug therapy; Z82.0 Family history of epilepsy and other diseases of the nervous system; Z82.3 Family history of stroke; Z95.810 Presence of automatic (implantable) cardiac defibrillator
CPT/HCPCS: 36415; 36600; 70450; 71045; 72192; 76881; 80048; 80053; 82565; 82805; 82962; 83735; 83880; 84132; 84443; 84484; 84520; 85007; 85025; 85027; 85610; 85730; 94761; 96365; 97110; 97116; 97530; G0378; G0463